=== PATIENT | female | born 1970 | race Two or more races ===

== ENCOUNTER 2021-07-31 21:29 | Observation (INO) | payer OTHER, SELFPAY ==
--- NOTE | 2021-07-31 | ECG_ITS ---
Test Reason : SOB Blood Pressure : / mmHG Vent. Rate : 082 BPM Atrial Rate : 082 BPM P-R Int : 138 ms QRS Dur : 080 ms QT Int : 384 ms P-R-T Axes : 076 085 -32 degrees QTc Int : 448 ms Normal sinus rhythm Possible Left atrial enlargement ST & T wave abnormality, consider inferior ischemia ST & T wave abnormality, consider anterolateral ischemia Abnormal ECG When compared with ECG of 22-AUG-2015 06:55, Inferior ST-T wave changes noted Referred By: Generic ED Physician Electronically Signed By:DARYL ADEN MD
--- NOTE | ~2021-07-31 | XR_ITS ---
EXAMINATION: XR CHEST CLINICAL INFORMATION: Shortness of breath COMPARISON: Chest radiograph August 2015 TECHNIQUE: Frontal view of the chest was obtained. FINDINGS: There is a moderate thoracolumbar scoliosis that appears slightly worse when compared to prior. Heart size normal. No gross CHF. No consolidations, effusions or lung masses are seen. XR/XR chest 1V IMPRESSION: No acute intrathoracic disease.
[2021-07-31 21:52] VITALS: BP 184/102; PULSE 86; RESP 16; TEMP 36.3; O2SAT 91; BMI 21.2
[2021-07-31 22:13] VITALS: PULSE 74; RESP 18; O2SAT 95
[2021-07-31] MEDS: Albuterol/Iprat 2.5/0.5MG 3 ML AMPUL.NEB INHALE (22:13)
--- NOTE | 2021-07-31 22:14 | ED_ITS ---
HPI - SOB/Dyspnea General Chief Complaint: Asthma Stated Complaint: difficulty breathing Time Seen by Provider: 07/31/21 22:05 Source: patient Mode of arrival: ambulatory Limitations: no limitations Related Data Allergies Allergy/AdvReac Type Severity Reaction Status Date / Time No Known Allergies Allergy Unverified 12/31/19 16:22 [No Known Allergies*] [facility] Social History Social History Patient : No Physical Exam Vital Signs: Vital Signs: Last Vital Signs Temp 97.4 F 07/31/21 21:52 Pulse 74 07/31/21 22:13 Resp 18 07/31/21 22:13 BP 184/102 H 07/31/21 21:52 Pulse Ox 91 L 07/31/21 21:52 BMI result Body Mass Index 21.2
--- NOTE | 2021-07-31 22:21 | ED_ITS ---
HPI - Asthma General Chief Complaint: Asthma Stated Complaint: difficulty breathing Time Seen by Provider: 07/31/21 22:05 Source: patient Mode of arrival: ambulatory History of Present Illness HPI Narrative: 50-year-old female with history of asthma, current everyday smoker, denies any fever, chills, sore throat but states she has had a cough for the past week with increasing shortness of breath. She denies any chest pain but states she has had some palpitations with some mild nausea and does report some lower leg swelling but had attributed this to sitting at her job ?all the time?. Patient otherwise denies any GI or symptoms, or recent travel. Related Data Allergies Allergy/AdvReac Type Severity Reaction Status Date / Time No Known Allergies Allergy Unverified 12/31/19 16:22 [No Known Allergies*] Review of Systems Review of Systems: Pertinent positives and negatives as stated in HPI 10 point review of systems is otherwise negative. PMFSH Past Medical History Source: nursing notes reviewed Social History Social History Advance Directives: No Advance Directives Information Provided: Yes Patient : No Physical Exam Vital Signs: Vital Signs: Last Vital Signs Temp 98.7 F 07/31/21 22:22 Pulse 77 07/31/21 23:49 Resp 19 07/31/21 23:49 BP 141/83 H 07/31/21 23:49 Pulse Ox 94 07/31/21 23:49 BMI result Body Mass Index 21.2 VITAL SIGNS: Reviewed. GENERAL: Well developed, well nourished, in no acute distress. HEAD: Normocephalic/atraumatic EYES: PERRLA, EOMI EARS: Ext canals without abnormality OROPHARYNX: no oral lesions noted, posterior pharynx clear and non-erythematous without noted tonsillar enlargement/erythema/exudates NECK: Supple, no adenopathy LUNGS: Decreased breath sounds bilaterally with minimal expiratory wheeze, some crackles noted at right lower lobe but no rales, tachypnea is present. SpO2<91> on 2 L nasal cannula she has improved CARDIOVASCULAR: Regular rate and rhythm without noted murmurs, no JVD or lower extremity edema. ABDOMEN: Soft, non-tender, non-distended with bowel sounds. NEUROLOGIC: Alert and oriented x 4. Strength and sensation to light touch were grossly intact x 4. Course Course Course Narrative: 50-year-old female with history and clinical presentation most suggestive of asthma exacerbation but with hypoxia and palpitations raises concern for viral infection/pneumonia and will evaluate for possibility of PE. Review of all investigations otherwise negative for acute findings other than acute asthma exacerbation with incremental improvement but still requiring supplemental oxygen. Case discussed with inpatient hospitalist who accepts admission. MDM - Asthma Lab Data Result diagrams: 07/31/21 22:21 07/31/21 22:21 Labs: Lab Results 07/31/21 07/31/21 07/31/21 Range/Units 22:20 22:21 22:21 WBC 8.2 (4.8-10.8) X10*3/uL RBC 4.44 (4.20-5.50) X10*6/uL Hgb 14.3 (12.0-16.0) g/dl Hct 41.4 (37.0-47.0) % MCV 93.2 (80.0-98.0) fL MCH 32.2 (27.0-33.0) pg MCHC 34.5 (31.0-35.0) g/dl RDW 12.7 (11.0-16.0) % Plt Count 231 (160-400) X10*3/uL MPV 9.5 (9.4-12.3) fL Immature Gran % (Auto) 0.2 (0.0-0.4) % Neut % (Auto) 54.8 (45-73) % Lymph % (Auto) 34.8 (20-40) % [place] % (Auto) 5.2 (2-11) % Eos % (Auto) 4.6 H (0-4) % Baso % (Auto) 0.4 (0-2) % Lymph # (Auto) 2.9 (1.2-4.9) X10*3/uL [place] # (Auto) 0.4 (0.1-1.2) X10*3/uL Eos # (Auto) 0.4 (0.0-0.4) X10*3/uL Baso # (Auto) 0.0 (0.0-0.2) X10*3/uL Abs Immat Gran (auto) 0.02 (0.00-0.03) X10*3/uL Absolute Neuts (auto) 4.5 (2.0-8.3) x10*3/uL Absolute Nucleated RBC 0.000 (0.0-0.012) X10*3/uL Nucleated RBC % (auto) 0.0 (0.0-0.2) /100WBC D-Dimer High Sensitivty NG/ML VBG pH 7.41 (7.32-7.43) VBG pCO2 38 mmHg VBG pO2 58 mmHg VBG HCO3 24 (22-26) mmol/L VBG O2 Saturation 85.0 % VBG Base Excess 0.0 mmol/L Sodium 141 (135-145) mmol/L Potassium 4.1 (3.3-5.1) mmol/L Chloride 107 (96-108) mmol/L Carbon Dioxide 24 (22-29) mmol/L Anion Gap 14 (12-20) BUN 12 (9-16) mg/dL Creatinine 0.72 (0.5-1.4) mg/dL Estim Creat Clear Calc 75.6 Estimated GFR > 60 Random Glucose 114 (60-115) mg/dL Calcium 10.0 (8.4-10.2) mg/dL Total Bilirubin 1.0 (0.0-1.0) mg/dL AST 16 (5-31) U/L ALT 8 (0-31) U/L Alkaline Phosphatase 102 (39-117) U/L Troponin I High Sens (<3.5-17.0) ng/L Total Protein 7.4 (6.5-8.0) g/dL Albumin 4.4 (3.5-5.0) g/dL COVID-19 (INEZ) (Negative) COVID-19 Clin Com Influenza Type A (LA) (Negative) Influenza Type B (AL) (Negative) Influenza A & B Note 07/31/21 07/31/21 07/31/21 Range/Units 22:21 22:21 22:22 WBC (4.8-10.8) X10*3/uL RBC (4.20-5.50) X10*6/uL Hgb (12.0-16.0) g/dl Hct (37.0-47.0) % MCV (80.0-98.0) fL MCH (27.0-33.0) pg MCHC (31.0-35.0) g/dl RDW (11.0-16.0) % Plt Count (160-400) X10*3/uL MPV (9.4-12.3) fL Immature Gran % (Auto) (0.0-0.4) % Neut % (Auto) (45-73) % Lymph % (Auto) (20-40) % [place] % (Auto) (2-11) % Eos % (Auto) (0-4) % Baso % (Auto) (0-2) % Lymph # (Auto) (1.2-4.9) X10*3/uL [place] # (Auto) (0.1-1.2) X10*3/uL Eos # (Auto) (0.0-0.4) X10*3/uL Baso # (Auto) (0.0-0.2) X10*3/uL Abs Immat Gran (auto) (0.00-0.03) X10*3/uL Absolute Neuts (auto) (2.0-8.3) x10*3/uL Absolute Nucleated RBC (0.0-0.012) X10*3/uL Nucleated RBC % (auto) (0.0-0.2) /100WBC D-Dimer High Sensitivty < 150 NG/ML VBG pH (7.32-7.43) VBG pCO2 mmHg VBG pO2 mmHg VBG HCO3 (22-26) mmol/L VBG O2 Saturation % VBG Base Excess mmol/L Sodium (135-145) mmol/L Potassium (3.3-5.1) mmol/L Chloride (96-108) mmol/L Carbon Dioxide (22-29) mmol/L Anion Gap (12-20) BUN (9-16) mg/dL Creatinine (0.5-1.4) mg/dL Estim Creat Clear Calc Estimated GFR Random Glucose (60-115) mg/dL Calcium (8.4-10.2) mg/dL Total Bilirubin (0.0-1.0) mg/dL AST (5-31) U/L ALT (0-31) U/L Alkaline Phosphatase (39-117) U/L Troponin I High Sens < 3.5 (<3.5-17.0) ng/L Total Protein (6.5-8.0) g/dL Albumin (3.5-5.0) g/dL COVID-19 (INEZ) (Negative) COVID-19 Clin Com Influenza Type A (LA) Negative (Negative) Influenza Type B (LA) Negative (Negative) Influenza A & B Note See Note 07/31/21 Range/Units 22:22 WBC (4.8-10.8) X10*3/uL RBC (4.20-5.50) X10*6/uL Hgb (12.0-16.0) g/dl Hct (37.0-47.0) % MCV (80.0-98.0) fL MCH (27.0-33.0) pg MCHC (31.0-35.0) g/dl RDW (11.0-16.0) % Plt Count (160-400) X10*3/uL MPV (9.4-12.3) fL Immature Gran % (Auto) (0.0-0.4) % Neut % (Auto) (45-73) % Lymph % (Auto) (20-40) % [place] % (Auto) (2-11) % Eos % (Auto) (0-4) % Baso % (Auto) (0-2) % Lymph # (Auto) (1.2-4.9) X10*3/uL [place] # (Auto) (0.1-1.2) X10*3/uL Eos # (Auto) (0.0-0.4) X10*3/uL Baso # (Auto) (0.0-0.2) X10*3/uL Abs Immat Gran (auto) (0.00-0.03) X10*3/uL Absolute Neuts (auto) (2.0-8.3) x10*3/uL Absolute Nucleated RBC (0.0-0.012) X10*3/uL Nucleated RBC % (auto) (0.0-0.2) /100WBC D-Dimer High Sensitivty NG/ML VBG pH (7.32-7.43) VBG pCO2 mmHg VBG pO2 mmHg VBG HCO3 (22-26) mmol/L VBG O2 Saturation % VBG Base Excess mmol/L Sodium (135-145) mmol/L Potassium (3.3-5.1) mmol/L Chloride (96-108) mmol/L Carbon Dioxide (22-29) mmol/L Anion Gap (12-20) BUN (9-16) mg/dL Creatinine (0.5-1.4) mg/dL Estim Creat Clear Calc Estimated GFR Random Glucose (60-115) mg/dL Calcium (8.4-10.2) mg/dL Total Bilirubin (0.0-1.0) mg/dL AST (5-31) U/L ALT (0-31) U/L Alkaline Phosphatase (39-117) U/L Troponin I High Sens (<3.5-17.0) ng/L Total Protein (6.5-8.0) g/dL Albumin (3.5-5.0) g/dL COVID-19 (INEZ) Negative (Negative) COVID-19 Clin Com See Note Influenza Type A (LA) (Negative) Influenza Type B (LA) (Negative) Influenza A & B Note ECG Data Attestation: I personally reviewed and interpreted this ECG as follows: Prior ECG tracings: available for review Interpretation: NSR, HR-82, no STEMI but noted deepening ST changes in anterior leads V3/V4/V5, WA/QRS/QTC are within normal limits. Discharge Plan Discharge Clinical Impression: Asthma with acute exacerbation, Hypoxia Patient Disposition: Admitted As Inpatient
[2021-07-31 22:22] VITALS: BP 158/97; PULSE 71; RESP 16; TEMP 37.1; O2SAT 96
[2021-07-31] MEDS: Albuterol Sulfate (0.083%) 2.5 MG/3 ML VIAL.NEB 10 MG INHALE ×2 (22:24→23:10)
[2021-07-31 22:25] VITALS: PULSE 74; RESP 18; O2SAT 95
[2021-07-31] MEDS: Aspirin 81 MG TAB.CHEW 324 MG PO (22:26)
[2021-07-31 22:27] LABS: Basophils Percent Auto 0.4 % (0-2); Eosinophils Absolute Auto 0.4 X10*3/uL (0.0-0.4); Eosinophils Percent Auto 4.6 % (0-4); Hematocrit 41.4 % (37.0-47.0); Hemoglobin 14.3 g/dl (12.0-16.0); Imm Gran Abs Auto 0.02 X10*3/uL (0.00-0.03); Imm Gran Pct Auto 0.2 % (0.0-0.4); Lymphocytes Absolute Auto 2.9 X10*3/uL (1.2-4.9); Lymphocytes Percent Auto 34.8 % (20-40); MANUAL DIFF FLAG NO; Mean Corpuscular HGB Conc 34.5 g/dl (31.0-35.0); Mean Corpuscular Hemoglobin 32.2 pg (27.0-33.0); Mean Corpuscular Volume 93.2 fL (80.0-98.0); Mean Platelet Volume 9.5 fL (9.4-12.3); Monocytes Absolute Auto 0.4 X10*3/uL (0.1-1.2); Monocytes Percent Auto 5.2 % (2-11); Neutrophils Absolute Auto 4.5 x10*3/uL (2.0-8.3); Neutrophils Percent Auto 54.8 % (45-73); Platelet Count 231 X10*3/uL (160-400); Red Blood Count 4.44 X10*6/uL (4.20-5.50); Red Cell Distribution Width 12.7 % (11.0-16.0); White Blood Count 8.2 X10*3/uL (4.8-10.8)
[2021-07-31 22:34] LABS: Venous Blood Gas Refer to POC result
[2021-07-31 22:36] LABS: VBG HCO3 24 mmol/L (22-26); VBG pCO2 38 mmHg; VBG pO2 58 mmHg
[2021-07-31 22:37] LABS: VBG pH 7.41 (7.32-7.43)
[2021-07-31 22:41] LABS: D Dimer High Sensitivity < 150 NG/ML
[2021-07-31 22:43] LABS: Alanine Aminotransferase 8 U/L (0-31); Albumin Level 4.4 g/dL (3.5-5.0); Alkaline Phosphatase 102 U/L (39-117); Anion Gap 14 (12-20); Aspartate Amino Transferase 16 U/L (5-31); Blood Urea Nitrogen 12 mg/dL (9-16); Carbon Dioxide 24 mmol/L (22-29); Chloride 107 mmol/L (96-108); Creatinine Clr Calc Pharmacy 75.6; Estimated Glomerular Filt Rate > 60; Glucose Random 114 mg/dL (60-115); Potassium 4.1 mmol/L (3.3-5.1); Sodium 141 mmol/L (135-145); Total Protein 7.4 g/dL (6.5-8.0)
[2021-07-31 22:44] LABS: COVID-19 Test Negative (Negative); IDNOW Serial# 16C4AD1C; Influenza A Negative (Negative); Influenza B2 Negative (Negative)
[2021-07-31 22:47] LABS: Troponin-I High Sensitivity < 3.5 ng/L (<3.5-17.0)
[2021-07-31 23:10] VITALS: PULSE 79; RESP 15; O2SAT 95
[2021-07-31] MEDS: methylPREDNISolone Sod Succ 125 MG/2 ML VIAL IVPUSH (23:30)
[2021-07-31 23:49] VITALS: BP 141/83; PULSE 77; RESP 19; O2SAT 94
[2021-08-01] MEDS: Magnesium Sulfate/H2O 2 GM/50 ML PIGGYBACK IV (01:07)
--- NOTE | 2021-08-01 01:24 | PM.IMHP ---
History of Present Illness Date of Service: 08/01/21 Chief Complaint: SOB 50-year-old female with no significant past medical history of well-controlled asthma presents to the hospital with complaints of shortness of breath, wheezing, and cough for the past 3 days. She also has new animals in the household. she used her rescue inhalers with no relief therefore decided to come to the hospital. Patient denies any chest pain, no abdominal pain, no nausea or vomiting, no diarrhea no constipation, no urinary symptoms and no lower extremity edema. No headache or change in vision. No noticed. on arrival to the ED patient hemodynamically stable with no significant abnormal vitals satting 91% on room air labs reviewed, unremarkable. COVID-19 influenza negative patient received multiple rounds of breathing treatment, patient continues to wheeze and have shortness of breath Review of Systems Review of Systems: Yes all other systems are reviewed and are negative [facility] [place] Medical History (Updated 08/01/21 @ 06:57 by Sravani Kelley MD) History of asthma Family History (Updated 08/01/21 @ 06:57 by Sravani Kelley MD) Other No family history of coronary artery disease Surgical History (Updated 08/01/21 @ 06:58 by Sravani Kelley MD) No pertinent past surgical history Social History Household Members: Family and Children Housing: Apartment Do you presently have visiting nurse or other home services: No Patient Tobacco Use Status: Current someday Tobacco user Tobacco use type: Cigarette Smoked in Last 30 Days: Yes Patient Interested in Nicotine Replacement: Yes (Nicotine patch requested) Patient Given Instructions on How to Stop Smoking: Yes Date Education Initiated: 08/01/21 Second Hand Smoke Exposure: No Use of substances other than those prescribed or required for medical reasons: No Have you been hit, kicked, punched, or otherwise hurt by someone within the past year? If so, by whom?: No Do you feel safe in your current relationship?: No Current Relationship Is there a partner from a previous relationship who is making you feel unsafe now?: No Are you made to feel afraid or neglected: No Advance Directives: No Advance Directives Information Provided: Yes Do you have thoughts of harming others: None Do you have a plan to hurt others: No Plan Recently lost weight without trying: No Eating poorly because of decreased appetite: No Patient : No Meds Allergies Allergy/AdvReac Type Severity Reaction Status Date / Time No Known Allergies Allergy Unverified 12/31/19 16:22 [No Known Allergies*] Active Medications: Current Medications Magnesium Sulfate (Magnesium Sulfate/H2o) 2 gm in 50 mls @ 25 mls/hr IV ONCE ONE Stop: 08/01/21 02:44 Last Admin: 08/01/21 01:07 Dose: 25 mls/hr Documented by: Physical Exam Vital Signs and Narrative: Vital Signs: Last Vital Signs Temp 98.7 F 07/31/21 22:22 Pulse 77 07/31/21 23:49 Resp 19 07/31/21 23:49 BP 141/83 H 07/31/21 23:49 Pulse Ox 94 07/31/21 23:49 BMI result Body Mass Index 21.2 Const: General: cooperative and no acute distress Orientation/consciousness: patient oriented x3 Eyes: General: appearance normal, both eyes and all related structures Pupils: Equal, round and reactive pupils present Resp: Other: wheezing on expiration Effort & Inspection: normal respiratory effort Cardio: Rate: regular rate Rhythm: regular rhythm GI: Palpation (GI): Soft to palpation Auscultation: normal bowel sounds Skin: General skin exam: no rashes or lesions noted Neuro: General: patient oriented x3 Cranial nerves: Yes Equal, round and reactive pupils present Cognition (Neuro): normal cognition Extrem: General: Yes normal to inspection and Yes no pedal edema Results Labs CBC and Chem 7: 08/01/21 05:50 08/01/21 05:50 Labs: Laboratory Results - last 24 hr 07/31/21 07/31/21 07/31/21 22:20 22:21 22:21 MCV 93.2 MCH 32.2 MCHC 34.5 RDW 12.7 Plt Count 231 MPV 9.5 Immature Gran % (Auto) 0.2 Neut % (Auto) 54.8 Lymph % (Auto) 34.8 [place] % (Auto) 5.2 Eos % (Auto) 4.6 H Baso % (Auto) 0.4 Lymph # (Auto) 2.9 [place] # (Auto) 0.4 Eos # (Auto) 0.4 Baso # (Auto) 0.0 Abs Immat Gran (auto) 0.02 Absolute Neuts (auto) 4.5 Absolute Nucleated RBC 0.000 Nucleated RBC % (auto) 0.0 D-Dimer High Sensitivty VBG pH 7.41 VBG pCO2 38 VBG pO2 58 VBG HCO3 24 VBG O2 Saturation 85.0 VBG Base Excess 0.0 Anion Gap 14 Estim Creat Clear Calc 75.6 Estimated GFR > 60 Random Glucose 114 Calcium 10.0 Total Bilirubin 1.0 AST 16 ALT 8 Alkaline Phosphatase 102 Troponin I High Sens Total Protein 7.4 Albumin 4.4 COVID-19 (INEZ) COVID-19 Clin Com Influenza Type A (LA) Influenza Type B (LA) Influenza A & B Note 07/31/21 07/31/21 07/31/21 22:21 22:21 22:22 MCV MCH MCHC RDW Plt Count MPV Immature Gran % (Auto) Neut % (Auto) Lymph % (Auto) [place] % (Auto) Eos % (Auto) Baso % (Auto) Lymph # (Auto) [place] # (Auto) Eos # (Auto) Baso # (Auto) Abs Immat Gran (auto) Absolute Neuts (auto) Absolute Nucleated RBC Nucleated RBC % (auto) D-Dimer High Sensitivty < 150 VBG pH VBG pCO2 VBG pO2 VBG HCO3 VBG O2 Saturation VBG Base Excess Anion Gap Estim Creat Clear Calc Estimated GFR Random Glucose Calcium Total Bilirubin AST ALT Alkaline Phosphatase Troponin I High Sens < 3.5 Total Protein Albumin COVID-19 (INEZ) COVID-English Helper Clin Com Influenza Type A (LA) Negative Influenza Type B (LA) Negative Influenza A & B Note See Note 07/31/21 22:22 MCV MCH MCHC RDW Plt Count MPV Immature Gran % (Auto) Neut % (Auto) Lymph % (Auto) [place] % (Auto) Eos % (Auto) Baso % (Auto) Lymph # (Auto) [place] # (Auto) Eos # (Auto) Baso # (Auto) Abs Immat Gran (auto) Absolute Neuts (auto) Absolute Nucleated RBC Nucleated RBC % (auto) D-Dimer High Sensitivty VBG pH VBG pCO2 VBG pO2 VBG HCO3 VBG O2 Saturation VBG Base Excess Anion Gap Estim Creat Clear Calc Estimated GFR Random Glucose Calcium Total Bilirubin AST ALT Alkaline Phosphatase Troponin I High Sens Total Protein Albumin COVID-19 (INEZ) Negative COVID-19 Clin Com See Note Influenza Type A (LA) Influenza Type B (LA) Influenza A & B Note Imaging Radiologist's Impressions: Impressions Chest X-Ray 07/31/21 22:28 IMPRESSION: No acute intrathoracic disease. Assessment and Plan (1) Asthma with acute exacerbation: Status: Acute Plan 50-year-old female with history of asthma presents to the hospital with wheezing, shortness of breath, cough # asthma exacerbation - will treat with Solu-Medrol, DuoNeb p.r.n. as well as scheduled - monitor respiratory status DVT prophylaxis: early ambulation Quality Stroke Does the patient have a stroke diagnosis?: No VTE Prior VTE?: No VTE Risk Level:: Medical - low VTE Device Contraindication: Treatment Not Indicated VTE Drug Contraindication: Treatment Not Indicated
[2021-08-01 02:35] VITALS: BP 127/75; PULSE 82; RESP 12; O2SAT 95
[2021-08-01] MEDS: Acetaminophen 325 MG TABLET 650 MG PO (03:30)
[2021-08-01 05:09] VITALS: BP 146/78; PULSE 85; RESP 16; TEMP 37; O2SAT 94
[2021-08-01 06:02] LABS: MANUAL DIFF FLAG NO
[2021-08-01 06:08] LABS: Basophils Percent Auto 0.2 % (0-2); Hematocrit 38.6 % (37.0-47.0); Hemoglobin 13.3 g/dl (12.0-16.0); Imm Gran Abs Auto 0.02 X10*3/uL (0.00-0.03); Imm Gran Pct Auto 0.4 % (0.0-0.4); Lymphocytes Absolute Auto 0.5 X10*3/uL (1.2-4.9); Lymphocytes Percent Auto 10.6 % (20-40); Mean Corpuscular HGB Conc 34.5 g/dl (31.0-35.0); Mean Corpuscular Hemoglobin 32.5 pg (27.0-33.0); Mean Corpuscular Volume 94.4 fL (80.0-98.0); Mean Platelet Volume 9.6 fL (9.4-12.3); Monocytes Absolute Auto 0.1 X10*3/uL (0.1-1.2); Neutrophils Absolute Auto 4.3 x10*3/uL (2.0-8.3); Neutrophils Percent Auto 87.8 % (45-73); Platelet Count 223 X10*3/uL (160-400); Red Blood Count 4.09 X10*6/uL (4.20-5.50); Red Cell Distribution Width 12.6 % (11.0-16.0); White Blood Count 4.9 X10*3/uL (4.8-10.8)
[2021-08-01 06:34] LABS: Anion Gap 19 (12-20); Blood Urea Nitrogen 11 mg/dL (9-16); Calcium 9.4 mg/dL (8.4-10.2); Carbon Dioxide 20 mmol/L (22-29); Chloride 106 mmol/L (96-108); Creatinine Clr Calc Pharmacy 72.5; Estimated Glomerular Filt Rate > 60; Glucose Random 216 mg/dL (60-115); Potassium 3.5 mmol/L (3.3-5.1); Sodium 141 mmol/L (135-145)
[2021-08-01 08:00] VITALS: BP 136/72; PULSE 69; RESP 17; TEMP 36.4; O2SAT 92
[2021-08-01] MEDS: 0.9 % Sodium Chloride Flush 3 ML SYRINGE IVFLUSH (08:05)
[2021-08-01] MEDS: methylPREDNISolone Sod Succ 40 MG/ML VIAL IVPUSH (08:05)
[2021-08-01 08:20] VITALS: PULSE 80; RESP 18; O2SAT 92
[2021-08-01] MEDS: Albuterol/Iprat 2.5/0.5MG 3 ML AMPUL.NEB INHALE ×2 (08:20→11:40)
[2021-08-01 08:47] LABS: VBG HCO3 24 mmol/L (22-26); VBG pCO2 38 mmHg; VBG pH 7.41 (7.32-7.43); VBG pO2 58 mmHg
--- NOTE | 2021-08-01 08:57 | PHA.MEDREC ---
Pharmacy Consult ? Medication Reconciliation Pharmacy has completed the medication reconciliation. Spoke with patient on S3... pt is only on OTC medications.
[2021-08-01] MEDS: Butalb/Acetamin/Caff 50/325/40 TABLET 1 TAB PO (10:03)
--- NOTE | 2021-08-01 11:18 | P.DS_ITS ---
DS: Providers Provider Date of Service: 08/01/21 Date of admission: 08/01/21 01:22 Primary care physician: Jean Carlos Camarena MD DS: Diagnosis Discharge Diagnosis (1) Asthma with acute exacerbation: Status: Acute DS: Summary Hospital Course Hospital Course: 50-year-old female with no significant past medical history? of well-controlled asthma presents to the hospital with complaints of shortness of breath, wheezing, and cough for the past 3 days.? She also has new animals in the household. she used her rescue inhalers with no relief therefore decided to come to the hospital.? Patient denies any chest pain, no abdominal pain, no nausea or vomiting, no diarrhea no constipation, no urinary symptoms and no lower extremity edema.? No headache or change in vision.? No noticed.? ?on arrival to the ED patient hemodynamically stable with no significant abnormal vitals satting 91% on room air ?labs reviewed, unremarkable.? COVID-19 influenza negative ?patient received multiple rounds of breathing treatment, patient continues to wheeze and have shortness of breath. hospital course: Patient admitted with asthma exacerbation-started on nebs, steroids-seems to be improved, talking in full sentences. Patient is going home with inhaler, and prednisone. Patient was advised to follow-up with PCP outpatient and make an appointment. Above management discussed with the patient in detail length she understand and in agreement with the above plan, time spent 50 minutes and 50% time spent on counseling. Significant findings: As above. Procedures performed: None. Treatment and response: As above. Complications: None. Time Spent with Patient Time attestation: Total time spent providing and/or coordinating discharge services: Discharge coordination time: Greater than 30 minutes Quality: Safe Use of Opioids Does Pt have an Active Cancer Diagnosis on the Problem List?: No Quality: Stroke Does the patient have a stroke diagnosis?: No Physical Exam Vital Signs: Vital Signs: Last Vital Signs Temp 97.6 F 08/01/21 08:00 Pulse 80 08/01/21 08:20 Resp 18 08/01/21 08:20 BP 136/72 08/01/21 08:00 Pulse Ox 92 08/01/21 08:00 BMI result Body Mass Index 21.2 Appearance: Alert.? Oriented X3.? not in distress.? Eyes: Pupils equal, round and reactive to light.? Sclera nonicteric.? ENT: Pharynx normal.? Moist mucous membranes. cvs: rrr, [id number] . res: clear to auscultation ,no rhonchii or wheezing abd: no rebound or guarding ,nt, bs present. ext pulses present , no cyanosis ,Gait well balanced well coordinated. neuro: axo3 , nonfocal. DS: Data Data Completed and Pending Labs on day of discharge: Laboratory Results - last 24 hr 07/31/21 07/31/21 07/31/21 22:20 22:21 22:21 WBC 8.2 RBC 4.44 Hgb 14.3 Hct 41.4 MCV 93.2 MCH 32.2 MCHC 34.5 RDW 12.7 Plt Count 231 MPV 9.5 Immature Gran % (Auto) 0.2 Neut % (Auto) 54.8 Lymph % (Auto) 34.8 [place] % (Auto) 5.2 Eos % (Auto) 4.6 H Baso % (Auto) 0.4 Lymph # (Auto) 2.9 [place] # (Auto) 0.4 Eos # (Auto) 0.4 Baso # (Auto) 0.0 Abs Immat Gran (auto) 0.02 Absolute Neuts (auto) 4.5 Absolute Nucleated RBC 0.000 Nucleated RBC % (auto) 0.0 D-Dimer High Sensitivty VBG pH 7.41 VBG pCO2 38 VBG pO2 58 VBG HCO3 24 VBG O2 Saturation 85.0 VBG Base Excess 0.0 Sodium 141 Potassium 4.1 Chloride 107 Carbon Dioxide 24 Anion Gap 14 BUN 12 Creatinine 0.72 Estim Creat Clear Calc 75.6 Estimated GFR > 60 Random Glucose 114 Calcium 10.0 Total Bilirubin 1.0 AST 16 ALT 8 Alkaline Phosphatase 102 Troponin I High Sens Total Protein 7.4 Albumin 4.4 COVID-19 (INEZ) COVID-19 Clin Com Influenza Type A (LA) Influenza Type B (LA) Influenza A & B Note 07/31/21 07/31/21 07/31/21 22:21 22:21 22:22 WBC RBC Hgb Hct MCV MCH MCHC RDW Plt Count MPV Immature Gran % (Auto) Neut % (Auto) Lymph % (Auto) [place] % (Auto) Eos % (Auto) Baso % (Auto) Lymph # (Auto) [place] # (Auto) Eos # (Auto) Baso # (Auto) Abs Immat Gran (auto) Absolute Neuts (auto) Absolute Nucleated RBC Nucleated RBC % (auto) D-Dimer High Sensitivty < 150 VBG pH VBG pCO2 VBG pO2 VBG HCO3 VBG O2 Saturation VBG Base Excess Sodium Potassium Chloride Carbon Dioxide Anion Gap BUN Creatinine Estim Creat Clear Calc Estimated GFR Random Glucose Calcium Total Bilirubin AST ALT Alkaline Phosphatase Troponin I High Sens < 3.5 Total Protein Albumin COVID-19 (INEZ) COVID-19 Clin Com Influenza Type A (LA) Negative Influenza Type B (LA) Negative Influenza A & B Note See Note 07/31/21 07/31/21 08/01/21 22:22 22:24 05:50 WBC 4.9 RBC 4.09 L Hgb 13.3 Hct 38.6 MCV 94.4 MCH 32.5 MCHC 34.5 RDW 12.6 Plt Count 223 MPV 9.6 Immature Gran % (Auto) 0.4 Neut % (Auto) 87.8 H Lymph % (Auto) 10.6 L [place] % (Auto) 1.0 L Eos % (Auto) 0.0 Baso % (Auto) 0.2 Lymph # (Auto) 0.5 L [place] # (Auto) 0.1 Eos # (Auto) 0.0 Baso # (Auto) 0.0 Abs Immat Gran (auto) 0.02 Absolute Neuts (auto) 4.3 Absolute Nucleated RBC 0.000 Nucleated RBC % (auto) 0.0 D-Dimer High Sensitivty VBG pH 7.41 VBG pCO2 38 VBG pO2 58 VBG HCO3 24 VBG O2 Saturation 85.0 VBG Base Excess 0.0 Sodium Potassium Chloride Carbon Dioxide Anion Gap BUN Creatinine Estim Creat Clear Calc Estimated GFR Random Glucose Calcium Total Bilirubin AST ALT Alkaline Phosphatase Troponin I High Sens Total Protein Albumin COVID-19 (INEZ) Negative COVID-19 Clin Com See Note Influenza Type A (LA) Influenza Type B (LA) Influenza A & B Note 08/01/21 05:50 WBC RBC Hgb Hct MCV MCH MCHC RDW Plt Count MPV Immature Gran % (Auto) Neut % (Auto) Lymph % (Auto) [place] % (Auto) Eos % (Auto) Baso % (Auto) Lymph # (Auto) [place] # (Auto) Eos # (Auto) Baso # (Auto) Abs Immat Gran (auto) Absolute Neuts (auto) Absolute Nucleated RBC Nucleated RBC % (auto) D-Dimer High Sensitivty VBG pH VBG pCO2 VBG pO2 VBG HCO3 VBG O2 Saturation VBG Base Excess Sodium 141 Potassium 3.5 Chloride 106 Carbon Dioxide 20 L Anion Gap 19 BUN 11 Creatinine 0.75 Estim Creat Clear Calc 72.5 Estimated GFR > 60 Random Glucose 216 H Calcium 9.4 Total Bilirubin AST ALT Alkaline Phosphatase Troponin I High Sens Total Protein Albumin COVID-19 (INEZ) COVID-19 Clin Com Influenza Type A (LA) Influenza Type B (LA) Influenza A & B Note Discharge Plan Discharge Patient Disposition: Home, Self-Care Discharge Diagnosis: asthma excerabtion Referrals: Jean Carlos Camarena MD [Primary Care Provider] - 1 Week Discharge Medications: New albuterol sulfate [Ventolin HFA] 90 mcg/actuation Hfa Aerosol Inhaler 1 puff inhalation RQ4H PRN (Reason: sob) Qty: 1 0RF Breo Ellipta 100-25 mcg/dose Blister With Device 1 puff inhalation RDAILY Qty: 1 0RF Continued ascorbic acid (vitamin C) [Vitamin C] 500 mg Tablet 500 mg PO DAILY 0RF apple cider vinegar 300 mg Tablet 300 mg PO DAILY 0RF Primatene Mist 0.125 mg/actuation Hfa Aerosol Inhaler 1 puff INHALATION Q4H PRN (Reason: Nasal Congestion) 0RF Rx Instructions: may repeat once after 1 minute; do not exceed 8 inhalations per 24 hrs Discharge Orders: Discharge Order (Routine); Ordered 08/01/21 Ordered By: Ирина Williamson Diet: advance to usual diet Activity on Discharge: As tolerated Stand Alone Forms: Patient Portal Discharge page Care Plan Goals: Patient admitted with asthma exacerbation-started on nebs, steroids-seems to be improved, talking in full sentences. Patient is going home with inhaler, and prednisone. Patient was advised to follow-up with PCP outpatient and make an appointment. Health Concerns: As above, advise compliance within a inhaler as well as complete the prednisone. Plan of Treatment: As above. Assessment: As above.
--- NOTE | 2021-08-01 11:21 | MHC.CM.PN ---
PATIENT IS DISCHARGED HOME - SELF CARE RN AWARE OF PLAN.
[2021-08-01 11:40] VITALS: PULSE 71; RESP 18; O2SAT 95
[2021-08-01 11:55] VITALS: BP 135/67; PULSE 70; RESP 18; TEMP 36.1; O2SAT 93
== END 2021-08-01 13:55 | disposition home or self-care (01) ==
LOC: HO.ED 08-01 00:49 → HO.EDOVER 08-01 01:37 → HO.S3 08-01 05:31
PROVIDERS: Internal Medicine; Admitting Provider Internal Medicine; Emergency Provider Student in an Organized Health Care Education/Training Program; PCP Internal Medicine; Visit Provider Internal Medicine
DX: J45.901 Unspecified asthma with (acute) exacerbation (principal); R09.02 Hypoxemia; R94.31 Abnormal electrocardiogram [ECG] [EKG]; M41.35 Thoracogenic scoliosis, thoracolumbar region; F17.210 Nicotine dependence, cigarettes, uncomplicated; Z20.822 Contact with and (suspected) exposure to COVID-19; Z71.6 Tobacco abuse counseling; Z79.899 Other long term (current) drug therapy
CPT/HCPCS: 36415; 71045; 80048; 80053; 82803; 84484; 85025; 85379; 87502; 87635; 93005; 94640; 94644; 94645; 96365; 96366; 96375; 96376; 99218; 99285; J2920; J2930; J3475

== ENCOUNTER 2021-10-19 08:33 | Emergency (ER) | payer OTHER, SELFPAY ==
[2021-10-19] VITALS (7 sets, daily range): BP systolic 147–186; BP diastolic 92–118; PULSE 66–76; RESP 12–20; TEMP 36.6–36.7; O2SAT 94–98; BMI 20.7
--- NOTE | ~2021-10-19 | CT_ITS ---
EXAMINATION: CT HEAD WITHOUT CONTRAST CLINICAL INFORMATION: Headache. COMPARISON: 10/01/[address] scan. TECHNIQUE: Contiguous axial imaging was performed from the skull base to vertex without intravenous administration of contrast. Coronal and sagittal reformatted images were obtained. This CT examination was performed using dose optimization techniques as appropriate, variously including the following: *Automated exposure control *Adjustment of mA and/or kV according to patient size (this includes techniques or standardized protocols for targeted exams where dose is matched to indication/reason for exam; i.e. extremities or head) *Use of iterative reconstruction technique DLP: 619 mGy-cm FINDINGS: There is no evidence of acute intracranial hemorrhage or territorial infarction. No abnormal mass effect or midline shift is seen. Timmons to white matter differentiation is well preserved. No extra-axial fluid collections are identified. The ventricles are normal in size. There is no abnormal attenuation within the brain parenchyma. The osseous structures and soft tissues are normal. Mucosal thickening is seen in several posterior ethmoid air cells. The remainder the visualized paranasal sinuses are clear. No air-fluid levels. Mild bilateral mastoid effusions. CT/CT head/brain wo con IMPRESSION: No acute intracranial pathology.
--- NOTE | ~2021-10-19 | XR_ITS ---
EXAMINATION: XR CHEST CLINICAL INFORMATION: Shortness of breath. COMPARISON: 07/31/2021 chest radiograph. TECHNIQUE: 2 views of the chest were obtained. FINDINGS: The lungs are clear. There are no pleural effusions. The heart and mediastinal structures are unremarkable. Moderate thoracic dextro scoliosis is again noted. XR/XR chest 2V IMPRESSION: No acute cardiopulmonary process.
--- NOTE | 2021-10-19 08:54 | ED_ITS ---
HPI - General Adult General Chief complaint: General Medical Stated complaint: high bp, headache Time Seen by Provider: 10/19/21 08:54 Source: patient Mode of arrival: ambulatory Limitations: no limitations History of Present Illness HPI narrative: This is a 50-year-old female, with a past medical history of asthma, allergies, and vertigo, presenting today with complaints of wheezing, shortness of breath, cough, and headache since Saturday. Patient reports that she has been watching her child's guinea pig over the last week and believes that this has exacerbated her asthma. She has been using her albuterol inhalers every 2 hours as well as her sisters nebulizer yesterday, without any relief. She has been unable to eat, last meal was yesterday at 1900 and shortly after vomited because of her pain in her head. She reports that she also feels as though her blood pressure is elevated, she states that she has had elevated blood pressure readings in the past, but has not been formally diagnosed with hypertension and is not currently on any medical management for this. She states that her headache pain is left- sided rated as a 10/10 sharp constant pain which has not been responding to Tylenol last dose was a 1000 mg this morning. She otherwise denies any chest pain, palpitations, fevers, chills, sore throat, visual changes, diarrhea, or abdominal pain. She denies any other complaints or concerns at this time. Onset (ago): day(s) (4) Location: head Radiation: non-radiation Severity: mild Severity scale (1-10): 3 Quality: aching Pain Consistency: constant Relieving factors: none Exacerbating factors: none Associated symptoms: cough, headaches, loss of appetite, nausea/vomiting and shortness of breath Treatments prior to arrival: other (Tylenol 1000mg ) Related Data Home Medications Medication Instructions Recorded Confirmed apple cider vinegar 300 mg tablet 300 mg PO DAILY 08/01/21 08/25/21 ascorbic acid (vitamin C) 500 mg 500 mg PO DAILY 08/01/21 08/25/21 tablet (Vitamin C) epinephrine 0.125 mg/actuation 1 puff inhalation Q4H PRN Nasal 08/01/21 08/25/21 aerosol inhaler (Primatene Mist) Congestion Previous Rx's Medication Instructions Recorded albuterol sulfate 90 mcg/actuation 1 puff inhalation RQ4H PRN sob 08/11/21 aerosol inhaler (Ventolin HFA) #8.5 grams fluticasone furoate 100 1 ea inhalation DAILY #60 ea 08/11/21 mcg-vilanterol 25 mcg/dose inhalation powder (Breo Ellipta) hydroxyzine HCl 25 mg tablet 25 mg PO TID PRN anxiety #30 tabs 08/25/21 montelukast 10 mg tablet 10 mg PO BEDTIME #30 tabs 08/25/21 bisacodyl 5 mg tablet,delayed 10 mg PO ONCE 1 day #2 tabs 08/28/21 release (Dulcolax (bisacodyl)) polyethylene glycol 3350 17 238 g PO ONCE 1 day #238 grams 08/28/21 gram/dose oral powder (Miralax) prednisone 20 mg tablet 20 mg PO DAILY 12 days #26 tabs 10/19/21 Allergies Allergy/AdvReac Type Severity Reaction Status Date / Time No Known Allergies Allergy Verified 08/25/21 10:03 [No Known Allergies*] Review of Systems Constitutional: Constitutional: Reports no additional constitutional complaints, Denies chills, Denies fever(s), Reports headache(s) and Denies night sweats Eyes: Eyes: Reports no additional eye complaints, Denies blurry vision, Denies change in vision, Denies diplopia, Denies eye discharge, Denies loss of vision and Denies eye pain ENT: Denies dizziness and Reports headache(s) Cardiovascular: Cardiovascular: Reports no additional cardiovascular complaints, Denies chest pain, Denies lightheadedness, Denies Loss of Consciousness and Reports dyspnea Respiratory: Respiratory: Reports no additional respiratory complaints, Reports cough, Reports dyspnea and Reports wheezing Gastrointestinal: Gastrointestinal: Reports no additional gastrointestinal com plaints, Denies abdominal pain, Denies melena, Denies hematochezia, Denies change in bowel habits, Denies change in stool character, Reports nausea and Reports vomiting Genitourinary: Genitourinary: Denies hematuria, Denies urinary frequency, Den ies dysuria, Denies urinary incontinence, Denies urinary hesitancy and Denies urinary urgency Musculoskeletal: Musculoskeletal: Reports no additional musculoskeletal complaints, Denies numbness and Denies tingling Neurologic: Denies dizziness, Reports headache(s), Denies loss of vision, Denies numbness and Denies tingling Psychiatric: Psychiatric: Reports no additional psychiatric complaints Endocrine: Endocrine: Reports no additional endocrine complaints Hematologic/Lymphatic: Hematologic/Lymphatic: Reports no additional hematologic/lymphatic complaints Allergic/Immunologic: Allergic/Immunologic: Reports no additional allergic/immunologic complaints and Reports wheezing PMFSH Past Medical History Attestation statement: The following information was validated with the patient. Source: old records reviewed Medical History History of asthma Surgical History H/O tubal ligation History of History of removal of ovarian cyst Family History Family History Mother AIDS Father No problems noted. Sister Colon cancer Other No family history of coronary artery disease Social History Social History Household Members: Family and Children Housing: Apartment Do you presently have visiting nurse or other home services: No Alcohol intake: current Alcohol intake frequency: holidays/special occasions only Patient Tobacco Use Status: Former Tobacco user Tobacco use type: Cigarette e-Cigarette/Vaping Use: Former Use Second Hand Smoke Exposure: No Use of substances other than those prescribed or required for medical reasons: No Advance Directives: No Advance Directives Information Provided: Yes service: No Current occupational status: employed 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 ) Physical Exam ED Vital Signs: Vital Signs - 24 hr 10/19/21 08:41 10/19/21 08:58 10/19/21 09:43 Temperature 98 F Pulse Rate 68 67 68 Respiratory Rate 18 20 12 Blood Pressure 181/118 H 186/112 H Pulse Oximetry 95 95 Oxygen Delivery Method Room Air Room Air 10/19/21 09:55 10/19/21 10:37 10/19/21 11:41 Temperature 98.0 F Pulse Rate 66 66 76 Respiratory Rate 20 20 Blood Pressure 164/92 H 147/95 H Pulse Oximetry Oxygen Delivery Method 10/19/21 12:15 Temperature Pulse Rate 76 Respiratory Rate 18 Blood Pressure 156/99 H Pulse Oximetry 94 Oxygen Delivery Method Room Air BMI result Body Mass Index 20.7 Const General: cooperative, no acute distress, alert and awake Nutritional Appearance: well nourished Orientation/consciousness: patient oriented x3 Limitations: no limitations HENMT Head: Yes normal to inspection and Yes atraumatic Ears: hearing grossly normal bilaterally and external ears normal General nose exam: Normal external nose present, no nasal discharge noted and no epistaxis Face and sinus: Yes normal facial exam, No abrasion and No laceration Mouth: Normal oral and palatal mucosa present, no drooling and no muffled voice Eyes General: appearance normal, both eyes and all related structures Periorbital: periorbital findings normal Eyelids: Yes eyelids normal Conjunctivae: conjunctivae normal Pupils: Equal, round and reactive pupils present EOM: EOMs intact bilaterally Neck Neck: Yes normal visual inspection, Yes full ROM and Yes no lymphadenopathy Chest Chest palpation & inspection: normal inspection of the chest Resp Effort & Inspection: normal respiratory effort and able to speak in complete sentences Auscultation: diminished lung sounds bilateral GI Inspection: Yes normal to inspection Neuro General: patient oriented x3 and moves all extremities Cranial nerves: Yes Equal, round and reactive pupils present Cognition (Neuro): normal cognition Motor exam (neuro): 5/5 motor strength present throughout Sensory Exam: Normal double simultaneous stimulation for sensation Coordination: [id number] test normal Extrem General: Yes normal to inspection, Yes full ROM and Yes capillary refill normal Psych Appearance: grossly normal Mental Status: mental status grossly normal Affect: normal affect Attitude: cooperative Thought process: Normal thought process present Thought content: Normal thought content present Insight: Good insight present (Psych) Course Course Course Narrative: This is a 50-year-old female, with a past medical history of asthma, allergies, and vertigo, presenting today with complaints of wheezing, shortness of breath, cough, and headache since Saturday. labs EKG, Medical Decision Making MDM Narrative Medical decision making narrative: Patient is a 50 year old female presenting to the emergency department today with a headache and increased wheezing. Patient's physical exam showed diminished lung sounds throughout but was otherwise unremarkable. Patient's blood work was unremarkable. Patient's urine showed no acute process. Patient's EKG was unremarkable. Patient's chest x-ray and head CT showed no acute process. I explained my physical exam findings as well as all test results to the patient. I answered all questions asked by the patient. Patient received a duoneb, IV fluids, IV solu-medrol, and IV toradol which she stated helped her symptoms significantly. I stressed the importance of the patient taking her medication as prescribed. I stressed the importance of the patient following up with her primary care provider. I stressed the importance of the patient returning to the emergency department immediately if her symptoms were to worsen or if she were to develop any dizziness, shortness of breath, difficulty breathing, chest pain, blurry vision, loss of vision, nausea, vomiting, abdominal pain, fever, chills, back pain, or any other complaints. Patient verbalized agreement and understanding with this treatment plan and discharge. Differential Diagnosis Differential Diagnosis: Migraine, asthma exacerbation Medical Records Medical records reviewed: Yes I reviewed the patient's medical records. Lab Data Lab results reviewed: Yes I reviewed the patient's lab results. Result diagrams: 10/19/21 09:24 10/19/21 09:24 Labs: Lab Results 10/19/21 10/19/21 10/19/21 Range/Units 09:24 09:24 09:24 WBC 6.3 (4.8-10.8) X10*3/uL RBC 4.64 (4.20-5.50) X10*6/uL Hgb 14.9 (12.0-16.0) g/dl Hct 42.8 (37.0-47.0) % MCV 92.2 (80.0-98.0) fL MCH 32.1 (27.0-33.0) pg MCHC 34.8 (31.0-35.0) g/dl RDW 12.5 (11.0-16.0) % Plt Count 194 (160-400) X10*3/uL MPV 10.0 (9.4-12.3) fL Immature Gran % (Auto) 0.3 (0.0-0.4) % Neut % (Auto) 59.5 (45-73) % Lymph % (Auto) 28.1 (20-40) % [place] % (Auto) 8.9 (2-11) % Eos % (Auto) 3.0 (0-4) % Baso % (Auto) 0.2 (0-2) % Lymph # (Auto) 1.8 (1.2-4.9) X10*3/uL [place] # (Auto) 0.6 (0.1-1.2) X10*3/uL Eos # (Auto) 0.2 (0.0-0.4) X10*3/uL Baso # (Auto) 0.0 (0.0-0.2) X10*3/uL Abs Immat Gran (auto) 0.02 (0.00-0.03) X10*3/uL Absolute Neuts (auto) 3.8 (2.0-8.3) x10*3/uL Absolute Nucleated RBC 0.000 (0.0-0.012) X10*3/uL Nucleated RBC % (auto) 0.0 (0.0-0.2) /100WBC Sodium 140 (135-145) mmol/L Potassium 3.7 (3.3-5.1) mmol/L Chloride 104 (96-108) mmol/L Carbon Dioxide 26 (22-29) mmol/L Anion Gap 14 (12-20) BUN 14 (9-16) mg/dL Creatinine 0.63 (0.5-1.4) mg/dL Estim Creat Clear Calc 78.8 Estimated GFR > 60 Random Glucose 125 H (60-115) mg/dL Calcium 9.4 (8.4-10.2) mg/dL Magnesium 2.0 (1.6-2.6) mg/dL Total Bilirubin 2.7 H (0.0-1.0) mg/dL AST 17 (5-31) U/L ALT 10 (0-31) U/L Alkaline Phosphatase 119 H (39-117) U/L Troponin I High Sens < 3.5 (<3.5-17.0) ng/L Total Protein 7.6 (6.5-8.0) g/dL Albumin 4.6 (3.5-5.0) g/dL Urine Color Urine Appearance Urine pH (5.0-8.0) Ur Specific [place] (1.005-1.025) Urine Protein (NEG-TRACE) MG/DL Urine Glucose (UA) (NEG) MG/DL Urine Ketones (NEG) MG/DL Urine Blood (NEG) Urine Nitrite (NEG) Ur Leukocyte Esterase (NEG) COVID-19 (INEZ) (Negative) COVID-19 Clin Com 10/19/21 10/19/21 Range/Units 09:24 12:20 WBC (4.8-10.8) X10*3/uL RBC (4.20-5.50) X10*6/uL Hgb (12.0-16.0) g/dl Hct (37.0-47.0) % MCV (80.0-98.0) fL MCH (27.0-33.0) pg MCHC (31.0-35.0) g/dl RDW (11.0-16.0) % Plt Count (160-400) X10*3/uL MPV (9.4-12.3) fL Immature Gran % (Auto) (0.0-0.4) % Neut % (Auto) (45-73) % Lymph % (Auto) (20-40) % [place] % (Auto) (2-11) % Eos % (Auto) (0-4) % Baso % (Auto) (0-2) % Lymph # (Auto) (1.2-4.9) X10*3/uL [place] # (Auto) (0.1-1.2) X10*3/uL Eos # (Auto) (0.0-0.4) X10*3/uL Baso # (Auto) (0.0-0.2) X10*3/uL Abs Immat Gran (auto) (0.00-0.03) X10*3/uL Absolute Neuts (auto) (2.0-8.3) x10*3/uL Absolute Nucleated RBC (0.0-0.012) X10*3/uL Nucleated RBC % (auto) (0.0-0.2) /100WBC Sodium (135-145) mmol/L Potassium (3.3-5.1) mmol/L Chloride (96-108) mmol/L Carbon Dioxide (22-29) mmol/L Anion Gap (12-20) BUN (9-16) mg/dL Creatinine (0.5-1.4) mg/dL Estim Creat Clear Calc Estimated GFR Random Glucose (60-115) mg/dL Calcium (8.4-10.2) mg/dL Magnesium (1.6-2.6) mg/dL Total Bilirubin (0.0-1.0) mg/dL AST (5-31) U/L ALT (0-31) U/L Alkaline Phosphatase (39-117) U/L Troponin I High Sens (<3.5-17.0) ng/L Total Protein (6.5-8.0) g/dL Albumin (3.5-5.0) g/dL Urine Color YELLOW Urine Appearance CLEAR Urine pH 5.5 (5.0-8.0) Ur Specific [place] 1.020 (1.005-1.025) Urine Protein NEG (NEG-TRACE) MG/DL Urine Glucose (UA) NEG (NEG) MG/DL Urine Ketones 40 (NEG) MG/DL Urine Blood NEG (NEG) Urine Nitrite NEG (NEG) Ur Leukocyte Esterase NEG (NEG) COVID-19 (INEZ) Negative (Negative) COVID-19 Clin Com See Note Imaging Data CT scan - head: Attestation: I personally reviewed and interpreted this imaging study as follows: My impression: No acute process. Radiologist's impression: EXAMINATION: CT HEAD WITHOUT CONTRAST CLINICAL INFORMATION: Headache.? COMPARISON: 10/01/[address] scan. TECHNIQUE: Contiguous axial imaging was performed from the skull base to vertex without intravenous administration of contrast. Coronal and sagittal reformatted images were obtained. This CT examination was performed using dose optimization techniques as appropriate, variously including the following: *Automated exposure control *Adjustment of mA and/or kV according to patient size (this includes techniques or standardized protocols for targeted exams where dose is matched to indication/reason for exam; i.e. extremities or head) *Use of iterative reconstruction technique DLP: 619 mGy-cm FINDINGS: There is no evidence of acute intracranial hemorrhage or territorial infarction. No abnormal mass effect or midline shift is seen. Timmons to white matter differentiation is well preserved. No extra-axial fluid collections are identified. The ventricles are normal in size. There is no abnormal attenuation within the brain parenchyma. The osseous structures and soft tissues are normal. Mucosal thickening is seen in several posterior ethmoid air cells. The remainder the visualized paranasal sinuses are clear. No air-fluid levels. Mild bilateral mastoid effusions. ? CT/CT head/brain wo con IMPRESSION: No acute intracranial pathology. Dictated By: Haris Hebert MD Chest x-ray: Attestation: I personally reviewed and interpreted this imaging study as follows: My impression: No acute process. Radiologist's impression: EXAMINATION: XR CHEST CLINICAL INFORMATION: Shortness of breath. COMPARISON: 07/31/2021 chest radiograph. TECHNIQUE: 2 views of the chest were obtained. FINDINGS: The lungs are clear. There are no pleural effusions. The heart and mediastinal structures are unremarkable. Moderate thoracic dextro scoliosis is again noted. XR/XR chest 2V IMPRESSION: No acute cardiopulmonary process. Dictated By: Haris Hebert MD ECG Data Attestation: I personally reviewed and interpreted this ECG as follows: Prior ECG tracings: available for review Interpretation: Vent. Rate: 054 BPM ? ? Atrial Rate: 054 BPM P-R Int: 134 ms? QRS Dur: 084 ms QT Int: 480 ms ? ? ? P-R-T Axes: -09 069 084 degrees QTc Int: 455 ms ? Sinus bradycardia T wave abnormality, consider anterior ischemia Abnormal ECG When compared with ECG of 31-JUL-2021 21:57, Vent. rate has decreased BY? 28 BPM T wave inversion no longer evident in Inferior leads T wave inversion no longer evident in Lateral leads DD/ [id number] Discharge Plan Discharge Clinical Impression: Asthma with acute exacerbation, Migraine Patient Disposition: Home, Self-Care Instructions: Asthma (ED) Additional Instructions: Follow up with your primary care provider. Return to the emergency department immediately if your symptoms worsen or if you develop any dizziness, shortness of breath, difficulty breathing, chest pain, blurry vision, loss of vision, nausea, vomiting, abdominal pain, fever, chills, back pain, or any other complaints. Prescriptions: New prednisone 20 mg tablet 20 mg PO DAILY 12 Days Qty: 26 0RF Rx Instructions: Take 3 tablets for 5 days THEN; Take 2 tablets for 4 days THEN; Take 1 tablet for 3 days No Action polyethylene glycol 3350 [Miralax] 17 gram/dose powder 238 g PO ONCE 1 Days Qty: 238 0RF Rx Instructions: take orally as directed prior to colonoscopy bisacodyl [Dulcolax (bisacodyl)] 5 mg tablet,delayed release (DR/EC) 10 mg PO ONCE 1 Days Qty: 2 0RF Rx Instructions: take orally as directed prior to colonoscopy ascorbic acid (vitamin C) [Vitamin C] 500 mg Tablet 500 mg PO DAILY apple cider vinegar 300 mg Tablet 300 mg PO DAILY Primatene Mist 0.125 mg/actuation Hfa Aerosol Inhaler 1 puff INHALATION Q4H PRN (Reason: Nasal Congestion) Rx Instructions: may repeat once after 1 minute; do not exceed 8 inhalations per 24 hrs hydroxyzine HCl 25 mg tablet 25 mg PO TID PRN (Reason: anxiety) Qty: 30 0RF montelukast 10 mg tablet 10 mg PO BEDTIME Qty: 30 2RF albuterol sulfate [Ventolin HFA] 90 mcg/actuation HFA aerosol inhaler 1 puff inhalation RQ4H PRN (Reason: sob) Qty: 8.5 2RF Breo Ellipta 100-25 mcg/dose blister with device 1 ea inhalation DAILY Qty: 60 1RF Referrals: Nicolette Israel FNP [Primary Care Provider] - Stand Alone Forms: Work/School Release Interventions: ED Discharge Assessment Last Done: 10/19/21 13:16 Discharge Date/Time: 10/19/21 13:17 Print Language: Lithuanian
--- NOTE | 2021-10-19 08:56 | PC.NURSE ---
Pt reports headache and vomiting since Saturday with dizziness. HBP noted, no meds at home. Also reports asthma exacerbation with I/E wheezing heard throughout, sat 95% on room air. NSR on tele rate 67. Skin pink warm and dry.
--- NOTE | 2021-10-19 09:17 | ECG_ITS ---
Test Reason : dizziness Blood Pressure : / mmHG Vent. Rate : 054 BPM Atrial Rate : 054 BPM P-R Int : 134 ms QRS Dur : 084 ms QT Int : 480 ms P-R-T Axes : -09 069 084 degrees QTc Int : 455 ms Sinus bradycardia T wave abnormality, consider anterior ischemia Abnormal ECG When compared with ECG of 31-JUL-2021 21:57, Vent. rate has decreased BY 28 BPM T wave inversion no longer evident in Inferior leads T wave inversion no longer evident in Lateral leads Referred By: Tea Francisco Electronically Signed By:Jose Alves
[2021-10-19] MEDS: methylPREDNISolone Sod Succ 125 MG/2 ML VIAL 60 MG IVPUSH (09:24)
[2021-10-19 09:30] LABS: MANUAL DIFF FLAG NO
[2021-10-19 09:33] LABS: Basophils Percent Auto 0.2 % (0-2); Eosinophils Absolute Auto 0.2 X10*3/uL (0.0-0.4); Hematocrit 42.8 % (37.0-47.0); Hemoglobin 14.9 g/dl (12.0-16.0); Imm Gran Abs Auto 0.02 X10*3/uL (0.00-0.03); Imm Gran Pct Auto 0.3 % (0.0-0.4); Lymphocytes Absolute Auto 1.8 X10*3/uL (1.2-4.9); Lymphocytes Percent Auto 28.1 % (20-40); Mean Corpuscular HGB Conc 34.8 g/dl (31.0-35.0); Mean Corpuscular Hemoglobin 32.1 pg (27.0-33.0); Mean Corpuscular Volume 92.2 fL (80.0-98.0); Monocytes Absolute Auto 0.6 X10*3/uL (0.1-1.2); Monocytes Percent Auto 8.9 % (2-11); Neutrophils Absolute Auto 3.8 x10*3/uL (2.0-8.3); Neutrophils Percent Auto 59.5 % (45-73); Platelet Count 194 X10*3/uL (160-400); Red Blood Count 4.64 X10*6/uL (4.20-5.50); Red Cell Distribution Width 12.5 % (11.0-16.0); White Blood Count 6.3 X10*3/uL (4.8-10.8)
[2021-10-19] MEDS: Albuterol/Iprat 2.5/0.5MG 3 ML AMPUL.NEB INHALE (09:40)
[2021-10-19 09:51] LABS: Alanine Aminotransferase 10 U/L (0-31); Albumin Level 4.6 g/dL (3.5-5.0); Alkaline Phosphatase 119 U/L (39-117); Anion Gap 14 (12-20); Aspartate Amino Transferase 17 U/L (5-31); Bilirubin Total 2.7 mg/dL (0.0-1.0); Blood Urea Nitrogen 14 mg/dL (9-16); Calcium 9.4 mg/dL (8.4-10.2); Carbon Dioxide 26 mmol/L (22-29); Chloride 104 mmol/L (96-108); Creatinine Clr Calc Pharmacy 78.8; Estimated Glomerular Filt Rate > 60; Glucose Random 125 mg/dL (60-115); Potassium 3.7 mmol/L (3.3-5.1); Sodium 140 mmol/L (135-145); Total Protein 7.6 g/dL (6.5-8.0)
[2021-10-19] MEDS: ondansetron HCL 4 MG/2 ML VIAL IVPUSH (09:54)
[2021-10-19] MEDS: 0.9 % Sodium Chloride 1,000 ML 1000 ML IVCONT (09:54)
[2021-10-19 09:58] LABS: Troponin-I High Sensitivity < 3.5 ng/L (<3.5-17.0)
[2021-10-19 12:10] LABS: COVID-19 Test Negative (Negative); IDNOW Serial# 9DB6401D
[2021-10-19 12:28] LABS: Appearance Urine CLEAR; Color Urine YELLOW; Glucose Urine UA NEG (NEG); Leukocyte Esterase Urine NEG (NEG); Nitrite Urine NEG (NEG); PH 5.5 (5.0-8.0); Urine Blood NEG (NEG); Urine Ketones 40 MG/DL (NEG); Urine Protein NEG (NEG-TRACE)
[2021-10-19] MEDS: Ketorolac Tromethamine 15 MG/ML VIAL IVPUSH (13:07)
== END 2021-10-19 13:17 | disposition home or self-care (01) ==
PROVIDERS: Physician Assistant Medical; Emergency Provider Emergency Medicine; PCP Nurse Practitioner Family
DX: J45.901 Unspecified asthma with (acute) exacerbation (principal); G43.909 Migraine, unspecified, not intractable, without status migrainosus; R05.9 Cough, unspecified; R06.02 Shortness of breath; Z20.822 Contact with and (suspected) exposure to COVID-19; Z79.899 Other long term (current) drug therapy; Z87.891 Personal history of nicotine dependence
CPT/HCPCS: 70450; 71046; 80053; 81003; 83735; 84484; 85025; 87635; 93005; 94640; 96374; 96375; 99285; J1885; J2405; J2930

== ENCOUNTER 2021-11-30 08:19 | Outpatient (REF) | payer OTHER, SELFPAY ==
[2021-11-30 09:12] LABS: Anion Gap 16 (12-20); Blood Urea Nitrogen 13 mg/dL (9-16); Calcium 9.2 mg/dL (8.4-10.2); Carbon Dioxide 27 mmol/L (22-29); Chloride 105 mmol/L (96-108); Cholesterol 189 mg/dL; Estimated Glomerular Filt Rate > 60; Glucose Fasting 95 mg/dL (60-99); HDL Cholesterol 51 mg/dL; LDL Cholesterol Calculated 119 mg/dl; Potassium 3.8 mmol/L (3.3-5.1); Sodium 144 mmol/L (135-145); Triglycerides 95 mg/dL
[2021-11-30 09:33] LABS: TSH reflex Free T4 1.24 uIU/mL (0.32-4.0); Vitamin D 25-OH Total 11.2 ng/mL (>30)
[2021-11-30 09:44] LABS: Vitamin B12 293 pg/mL (200-900)
== END 2021-11-30 08:20 | disposition home or self-care (01) ==
LOC: HO.LAB 08:19
PROVIDERS: PCP Nurse Practitioner Family; Visit Provider Nurse Practitioner Family
DX: Z13.29 Encounter for screening for other suspected endocrine disorder (principal); Z13.1 Encounter for screening for diabetes mellitus; Z13.220 Encounter for screening for lipoid disorders; Z76.89 Persons encountering health services in other specified circumstances
CPT/HCPCS: 36415; 80048; 80061; 82306; 82607; 82746; 84443

== ENCOUNTER 2022-05-01 08:06 | Outpatient (REF) | payer OTHER, SELFPAY ==
[2022-05-01 15:02] LABS: CT PCR NOT DETECTED (Not Detect.); NG PCR NOT DETECTED (Not Detect.)
[2022-05-02 12:53] LABS: BV Int Neg Control Negative (Negative); BV Int Pos Control Positive (Positive)
== END 2022-05-01 08:07 | disposition home or self-care (01) ==
LOC: HO.LAB 08:06
PROVIDERS: PCP Nurse Practitioner Family; Visit Provider Advanced Practice Midwife
DX: N89.8 Other specified noninflammatory disorders of vagina (principal); Z11.3 Encounter for screening for infections with a predominantly sexual mode of transmission
CPT/HCPCS: 0353U; 87480; 87510; 87660

== ENCOUNTER 2022-05-01 08:48 | Outpatient (REF) | payer OTHER, SELFPAY ==
[2022-05-08 05:38] LABS: HPV 16 RNA DETECTED (NOT DETECTED); HPV mRNA E6/E7 rflx Detected (Not Detected)
== END 2022-05-01 08:49 | disposition home or self-care (01) ==
LOC: HO.LNP 08:48
PROVIDERS: Visit Provider Advanced Practice Midwife
DX: Z01.419 Encounter for gynecological examination (general) (routine) without abnormal findings (principal)
CPT/HCPCS: 87624; 87625; 88142

== ENCOUNTER 2022-05-21 10:38 | Outpatient (REF) | payer OTHER, SELFPAY ==
--- NOTE | ~2022-05-21 | MM_ITS ---
EXAMINATION: MM SCREENING DIGITAL BREAST TOMOSYNTHESIS, BILATERAL CLINICAL INFORMATION: Screening. Asymptomatic. The lifetime risk of breast cancer based on the Tyrer-Cuzick Model is 5.0%. COMPARISON: Mammography: March 27, 2012 and February 28, 2005 TECHNIQUE: Digital breast tomosynthesis is performed in both the craniocaudal and mediolateral oblique views along with computer-aided detection (CAD). Synthesized 2D images are generated from the tomosynthesis. FINDINGS: The breasts are extremely dense, which lowers the sensitivity of mammography (ACR BI-RADS breast composition Category d). There are no significant masses, abnormal calcifications, or other abnormalities. MM/MM tomosynthesis screening BI IMPRESSION: No significant changes from prior exam. ASSESSMENT: BI-RADS 1: Negative RECOMMENDATION: Routine annual mammography screening. This patient's information was entered into a reminder system with a target due date for their next mammogram.
== END 2022-05-21 10:39 | disposition home or self-care (01) ==
LOC: HO.MAMMO 10:38
PROVIDERS: PCP Nurse Practitioner Family; Visit Provider Advanced Practice Midwife
DX: Z12.31 Encounter for screening mammogram for malignant neoplasm of breast (principal)
CPT/HCPCS: 77063; 77067

== ENCOUNTER 2022-05-29 08:39 | Outpatient (REF) | payer OTHER, SELFPAY | END 2022-05-29 08:40 | disposition home or self-care (01) | LOC: HO.LNP 08:39 | PROVIDERS: PCP Nurse Practitioner Family; Visit Provider Obstetrics & Gynecology | DX: N90.89 Other specified noninflammatory disorders of vulva and perineum (principal) | CPT/HCPCS: 56605; 88305; 99212 ==

== ENCOUNTER → 2022-07-24 13:25 | Outpatient (BNVA) | payer OTHER, SELFPAY | PROVIDERS: PCP Nurse Practitioner Family; Visit Provider Obstetrics & Gynecology ==

== ENCOUNTER 2022-08-11 10:43 | Emergency (ER) | payer OTHER, SELFPAY ==
--- NOTE | ~2022-08-11 | XR_ITS ---
EXAMINATION: XR chest 2V CLINICAL INFORMATION: Chest pain COMPARISON: Prior chest x-ray October 2021 TECHNIQUE: XR chest 2V Lungs and Griselda: Both lungs are clear. Flattening of the hemidiaphragms suggest underlying air trapping disease. Pleura: Normal. Costophrenic angles are sharp. No pneumothorax. Heart: The heart is normal in size. Mediastinum: The mediastinum is within normal limits.. Bones: There is severe dextroscoliosis dorsal spine roughly 52 degree. XR/XR chest 2V IMPRESSION: * No radiographic evidence of acute cardiopulmonary disease. * Flattening of hemidiaphragms suggest underlying air trapping disease such as COPD.
[2022-08-11 10:49] VITALS: BP 179/85; PULSE 57; RESP 20; TEMP 36.9; O2SAT 98; BMI 22.1
--- NOTE | 2022-08-11 10:52 | ED_ITS ---
HPI - General Adult General Chief complaint: General Medical <KIARA Menendez - Last Filed: 08/11/22 10:55> Stated complaint: high bp <KIARA Menendez Last Filed: 08/11/22 10:55> Time Seen by Provider: 08/11/22 11:05 <KIARA Menendez Last Filed: 08/11/22 10:55> Source: patient <KIARA Muñoz Last Filed: 08/11/22 13:49> Mode of arrival: ambulatory <KIARA Muñoz Last Filed: 08/11/22 13:49> Limitations: no limitations <KIARA Muñoz Last Filed: 08/11/22 13:49> History of Present Illness HPI narrative: Patient is a 51 year old assigned female at with a history of HTN presenting to the emergency department today with a headache, chest pain, and requesting a blood pressure medication refill. Patient states that over the last few days she has had a headache and diffuse chest pain. Patient states that her PCP didn't send in the refill for her blood pressure medication and she has been out for 2 days. Patient denies any dizziness, lightheadedness, abdominal pain, nausea, vomiting, fever, chills, blurry vision, double vision, loss of vision, difficulty breathing, shortness of breath, back pain, night sweats, pain with urination, increased urinary frequency, increased urinary urgency, blood in her urine or stool, syncope or a near syncopal episode, recent trauma or falls, bowel incontinence, bladder incontinence, bowel retention, bladder retention, or any other complaints at this time. <KIARA Muñoz Last Filed: 08/11/22 13:49> Onset (ago): day(s) (2) <KIARA Muñoz - Last Filed: 08/11/22 13:49> Location: head and chest <KIARA Muñoz Last Filed: 08/11/22 13:49> Severity: mild <KIARA Muñoz Last Filed: 08/11/22 13:49> Severity scale (1-10): 2 <KIARA Muñoz Last Filed: 08/11/22 13:49> Relieving factors: none <KIARA Muñoz Last Filed: 08/11/22 13:49> Exacerbating factors: none <KIARA Muñoz - Last Filed: 08/11/22 13:49> Treatments prior to arrival: none <KIARA Muñoz - Last Filed: 08/11/22 13:49> Related Data Home medications: Home Medications Medication Instructions Recorded Confirmed apple cider vinegar 300 mg tablet 300 mg PO DAILY 08/01/21 05/17/22 ascorbic acid (vitamin C) 500 mg 500 mg PO DAILY 08/01/21 05/17/22 tablet (Vitamin C) epinephrine 0.125 mg/actuation 1 puff inhalation Q4H PRN Nasal 08/01/21 05/17/22 aerosol inhaler (Primatene Mist) Congestion Previous Rx's Medication Instructions Recorded bisacodyl 5 mg tablet,delayed 10 mg PO ONCE 1 day #2 tabs 08/28/21 release (Dulcolax (bisacodyl)) polyethylene glycol 3350 17 238 g PO ONCE 1 day #238 grams 08/28/21 gram/dose oral powder (Miralax) fluticasone furoate 100 1 ea inhalation DAILY #60 ea 10/31/21 mcg-vilanterol 25 mcg/dose inhalation powder (Breo Ellipta) montelukast 10 mg tablet 10 mg PO BEDTIME #30 tabs 12/13/21 amlodipine 2.5 mg tablet 2.5 mg PO DAILY 30 days #30 tabs 05/03/22 albuterol sulfate 90 mcg/actuation 2 puff inhalation Q4-6H PRN 05/17/22 aerosol inhaler (Ventolin HFA) shortness of breath or wheezing #8.5 grams metoclopramide HCl 5 mg tablet 5 mg PO Q8H PRN nausea and 05/17/22 (Reglan) vomiting #30 tabs trazodone 50 mg tablet 25 mg PO BEDTIME PRN sleep #30 tabs 07/13/22 cholecalciferol (vitamin D3) 1,250 1,250 mcg PO QWEEK #12 caps 07/22/22 mcg (50,000 unit) capsule omeprazole 20 mg capsule,delayed 20 mg PO DAILY #90 caps 08/10/22 release amlodipine 2.5 mg tablet 2.5 mg PO DAILY #30 tabs 08/11/22 <KIARA Menendez Last Filed: 08/11/22 10:55> Allergies/adverse reactions: Allergies Allergy/AdvReac Type Severity Reaction Status Date / Time No Known Allergies Allergy Verified 07/24/22 13:45 [No Known Allergies*] <Gladys Tate [place] - Last Filed: 08/11/22 10:55> Review of Systems Constitutional: Constitutional: Reports no additional constitutional complaints, Denies chills, Denies fever(s), Reports headache(s) and Denies night sweats <KIARA Muñoz - Last Filed: 08/11/22 13:49> Eyes: Eyes: Reports no additional eye complaints, Denies blurry vision, Denies change in vision, Denies diplopia, Denies eye discharge, Denies loss of vision and Denies eye pain <KIARA Muñoz Last Filed: 08/11/22 13:49> ENT: Denies dizziness and Reports headache(s) <KIARA Muñoz Last Filed: 08/11/22 13:49> Cardiovascular: Cardiovascular: Reports no additional cardiovascular complaints, Reports chest pain, Denies lightheadedness, Denies Loss of Consciousness and Denies dyspnea <KIARA Muñoz Last Filed: 08/11/22 13:49> Respiratory: Respiratory: Reports no additional respiratory complaints and Denies dyspnea <KIARA Muñoz Last Filed: 08/11/22 13:49> Gastrointestinal: Gastrointestinal: Reports no additional gastrointestinal complaints, Denies abdominal pain, Denies melena, Denies hematochezia, Denies change in bowel habits and Denies change in stool character <KIARA Muñoz Last Filed: 08/11/22 13:49> Genitourinary: Genitourinary: Denies hematuria, Denies urinary frequency, Denies dysuria, Denies urinary incontinence, Denies urinary hesitancy and Denies urinary urgency <KIARA Muñoz Last Filed: 08/11/22 13:49> Musculoskeletal: Musculoskeletal: Reports no additional musculoskeletal com plaints, Denies numbness and Denies tingling <KIARA Muñoz Last Filed: 08/11/22 13:49> Neurologic: Denies dizziness, Reports headache(s), Denies loss of vision, Denies numbness and Denies tingling <KIARA Muñoz - Last Filed: 08/11/22 13:49> Psychiatric: Psychiatric: Reports no additional psychiatric complaints <KIARA Muñoz - Last Filed: 08/11/22 13:49> Endocrine: Endocrine: Reports no additional endocrine complaints <KIARA Muñoz - Last Filed: 08/11/22 13:49> Hematologic/Lymphatic: Hematologic/Lymphatic: Reports no additional hematologic/lymphatic complaints <KIARA Muñoz - Last Filed: 08/11/22 13:49> Allergic/Immunologic: Allergic/Immunologic: Reports no additional a llergic/immunologic complaints <KIARA Muñoz - Last Filed: 08/11/22 13:49> [facility] Past Medical History Attestation statement: The following information was validated with the patient. <KIARA Muñoz - Last Filed: 08/11/22 13:49> Source: old records reviewed and nursing notes reviewed <KIARA Muñoz - Last Filed: 08/11/22 13:49> Medical History: Medical History Benign essential hypertension History of asthma <KIARA Menendez - Last Filed: 08/11/22 10:55> Surgical History: Surgical History H/O tubal ligation History of History of removal of ovarian cyst <KIARA Menendez - Last Filed: 08/11/22 10:55> Family History Family History: Family History Mother AIDS Father No problems noted. Sister Colon cancer Other No family history of coronary artery disease <KIARA Menendez - Last Filed: 08/11/22 10:55> Social History Social History: Social History Household Members: Family and Children Housing: Apartment Do you presently have visiting nurse or other home services: No Alcohol intake: never Patient Tobacco Use Status: Former Tobacco user Tobacco use type: Cigarette Smoked in Last 30 Days: Yes e-Cigarette/Vaping Use: Former Use Second Hand Smoke Exposure: No Use of substances other than those prescribed or required for medical reasons: No Advance Directives: No Advance Directives Information Provided: Yes Patient : No service: No Current occupational status: employed Current occupation: [employer] Work[employer] Cognitive needs: No Hearing needs: Yes (Pt has Hx of Vertigo) Vision needs: Yes (Need a referral for eye doctor have not seen one in years. ) <KIARA Menendez - Last Filed: 08/11/22 10:55> Physical Exam ED Vital Signs: Vital Signs - 24 hr 08/11/22 10:49 08/11/22 11:42 Temperature 98.4 F 98.5 F Pulse Rate 57 47 L Respiratory Rate 20 12 Blood Pressure 179/85 H 139/85 Pulse Oximetry 98 98 Oxygen Delivery Method Room Air Room Air BMI result Body Mass Index 22.1 <KIARA Menendez - Last Filed: 08/11/22 10:55> Vital Signs - 24 hr 08/11/22 10:49 08/11/22 11:42 Temperature 98.4 F 98.5 F Pulse Rate 57 47 L Respiratory Rate 20 12 Blood Pressure 179/85 H 139/85 Pulse Oximetry 98 98 Oxygen Delivery Method Room Air Room Air BMI result Body Mass Index 22.1 <KIARA Muñoz - Last Filed: 08/11/22 13:49> Const General: cooperative, no acute distress, alert and awake <KIARA Muñoz - Last Filed: 08/11/22 13:49> Nutritional Appearance: well nourished <KIARA Muñoz - Last Filed: 08/11/22 13:49> Orientation/consciousness: patient oriented x3 <KIARA Muñoz - Last Filed: 08/11/22 13:49> Limitations: no limitations <KIARA Muñoz Last Filed: 08/11/22 13:49> HENMT Head: Yes normal to inspection and Yes atraumatic <KIARA Muñoz - Last Filed: 08/11/22 13:49> Ears: hearing grossly normal bilaterally and external ears normal <KIARA Muñoz Last Filed: 08/11/22 13:49> General nose exam: Normal external nose present, no nasal discharge noted and no epistaxis <KIARA Muñoz - Last Filed: 08/11/22 13:49> Face and sinus: Yes normal facial exam, No abrasion and No laceration <Tea Quintananoris [facility] Last Filed: 08/11/22 13:49> Mouth: Normal oral and palatal mucosa present, no drooling and no muffled voice <Tea Quintananoris [facility] Last Filed: 08/11/22 13:49> Eyes General: appearance normal, both eyes and all related structures <Teayumiko Quintananoris [facility] Last Filed: 08/11/22 13:49> Periorbital: periorbital findings normal <Tea Quintananoris [facility] Last Filed: 08/11/22 13:49> Eyelids: Yes eyelids normal <Tea Quintananoris [facility] Last Filed: 08/11/22 13:49> Conjunctivae: conjunctivae normal <Tea Quintananoris [facility] Last Filed: 08/11/22 13:49> Pupils: Equal, round and reactive pupils present <Tea Maryam [facility] Last Filed: 08/11/22 13:49> EOM: EOMs intact bilaterally <Tea Quintananoris [facility] Last Filed: 08/11/22 13:49> Neck Neck: Yes normal visual inspection, Yes full ROM and Yes no lymphadenopathy <Quincy gerardo Maryam [facility] Last Filed: 08/11/22 13:49> Chest Chest palpation & inspection: normal inspection of the chest <Tea Maryam [facility] Last Filed: 08/11/22 13:49> Resp Effort & Inspection: normal respiratory effort and able to speak in complete sentences <Tea Francisco [facility] Last Filed: 08/11/22 13:49> Auscultation: clear to auscultation bilaterally <Tea Maryam [facility] Last Filed: 08/11/22 13:49> Cardio Rate: regular rate <Tea Maryam [facility] Last Filed: 08/11/22 13:49> Rhythm: regular rhythm <Tea Maryam [facility] Last Filed: 08/11/22 13:49> GI Inspection: Yes normal to inspection <Tea Maryam [facility] Last Filed: 08/11/22 13:49> Palpation (GI): Soft to palpation, not firm, nontender and no guarding <KIARA Muñoz Last Filed: 08/11/22 13:49> Neuro General: patient oriented x3 and moves all extremities <Tea QuintanaKIARA hamm - Last Filed: 08/11/22 13:49> Cranial nerves: Yes Equal, round and reactive pupils present <Tea Francisco PA - Last Filed: 08/11/22 13:49> Cognition (Neuro): normal cognition <Tea Quintananoris PA - Last Filed: 08/11/22 13:49> Motor exam (neuro): 5/5 motor strength present throughout <Tea Francisco PA - Last Filed: 08/11/22 13:49> Sensory Exam: Normal double simultaneous stimulation for sensation <Tea Quintananoris PA - Last Filed: 08/11/22 13:49> Coordination: [id number] test normal <Tea Quintananoris PA - Last Filed: 08/11/22 13:49> Extrem General: Yes normal to inspection, Yes full ROM and Yes capillary refill normal <Etayumiko QuintanaKIARA hamm - Last Filed: 08/11/22 13:49> Psych Appearance: grossly normal <Tea Quintananoris PA - Last Filed: 08/11/22 13:49> Mental Status: mental status grossly normal <Teayumiko QuintanaKIARA hamm - Last Filed: 08/11/22 13:49> Affect: normal affect <Tea QuintanaKIARA hamm - Last Filed: 08/11/22 13:49> Attitude: cooperative <Tea FranciscoKIARA hamm - Last Filed: 08/11/22 13:49> Thought process: Normal thought process present <KIARA Muñoz - Last Filed: 08/11/22 13:49> Thought content: Normal thought content present <Tea KIARA Francisco - Last Filed: 08/11/22 13:49> Insight: Good insight present (Psych) <KIARA Muñoz - Last Filed: 08/11/22 13:49> Course Course Course Narrative: SONIA Argueta is a [id number]-female, hx of HTN, who presents to the ER for high BP. She has been without her htn medications for 2 days, had difficulty filling at the pharmacy. Currently has a headache and chest tightness . BP 179/85, all other VSS. Pt stable to return to the waiting until a treatment room becomes available. <KIARA Menendez - Last Filed: 08/11/22 10:55> Medical Decision Making Medical Decision Making [facility] Narrative: Patient is a 51 year old assigned female at with a history of HTN presenting to the emergency department today with a headache and chest pain. Patient's physical exam was unremarkable. Patient's blood work was unremarkable. Patient's chest x-ray showed no acute process. I explained my physical exam findings as well as all test results to the patient. I answered all questions asked by the patient. I stressed the importance of the patient taking her medication as prescribed. I stressed the importance of the patient following up with her primary care provider. I stressed the importance of the patient returning to the emergency department immediately if her symptoms were to worsen or if she were to develop any dizziness, shortness of breath, difficulty breathing, chest pain, blurry vision, loss of vision, nausea, vomiting, abdominal pain, fever, chills, back pain, or any other complaints. Patient verbalized agreement and understanding with this treatment plan and discharge. <KIARA Muñoz - Last Filed: 08/11/22 13:49> Differential Diagnosis Differential Diagnoses: The differential diagnosis associated with the presentation includes <KIARA Muñoz - Last Filed: 08/11/22 13:49> HTN, headache <KIARA Muñoz - Last Filed: 08/11/22 13:49> Lab Data [facility] Lab Attestation statement: I reviewed the patient's lab results. <KIARA Muñoz - Last Filed: 08/11/22 13:49> Result Diagrams: 08/11/22 11:23 08/11/22 11:23 <KIARA Menendez - Last Filed: 08/11/22 10:55> Labs: Lab Results 08/11/22 08/11/22 08/11/22 Range/Units 11:23 11:23 11:23 WBC 5.0 (4.8-10.8) X10*3/uL RBC 4.42 (4.20-5.50) X10*6/uL Hgb 14.1 (12.0-16.0) g/dl Hct 41.4 (37.0-47.0) % MCV 93.7 (80.0-98.0) fL MCH 31.9 (27.0-33.0) pg MCHC 34.1 (31.0-35.0) g/dl RDW 12.4 (11.0-16.0) % Plt Count 198 (160-400) X10*3/uL MPV 9.4 (9.4-12.3) fL Immature Gran % (Auto) 0.2 (0.0-0.4) % Neut % (Auto) 57.0 (45-73) % Lymph % (Auto) 36.4 (20-40) % Union % (Auto) 5.4 (2-11) % Eos % (Auto) 0.8 (0-4) % Baso % (Auto) 0.2 (0-2) % Lymph # (Auto) 1.8 (1.2-4.9) X10*3/uL Union # (Auto) 0.3 (0.1-1.2) X10*3/uL Eos # (Auto) 0.0 (0.0-0.4) X10*3/uL Baso # (Auto) 0.0 (0.0-0.2) X10*3/uL Abs Immat Gran (auto) 0.01 (0.00-0.03) X10*3/uL Absolute Neuts (auto) 2.9 (2.0-8.3) x10*3/uL Absolute Nucleated RBC 0.000 (0.0-0.012) X10*3/uL Nucleated RBC % (auto) 0.0 (0.0-0.2) /100WBC Sodium 143 (135-145) mmol/L Potassium 3.9 (3.3-5.1) mmol/L Chloride 106 (96-108) mmol/L Carbon Dioxide 27 (22-29) mmol/L Anion Gap 14 (12-20) BUN 9 (9-16) mg/dL Creatinine 0.71 (0.5-1.4) mg/dL Estim Creat Clear Calc 69.1 Estimated GFR > 60 Random Glucose 137 H (60-115) mg/dL Calcium 9.5 (8.4-10.2) mg/dL Magnesium 1.9 (1.6-2.6) mg/dL Total Bilirubin 1.0 (0.0-1.0) mg/dL AST 14 (5-31) U/L ALT 6 (0-31) U/L Alkaline Phosphatase 92 (39-117) U/L Troponin I High Sens < 2.7 (<3.5-17.0) ng/L Total Protein 7.0 (6.5-8.0) g/dL Albumin 4.4 (3.5-5.0) g/dL <KIARA Menendez - Last Filed: 08/11/22 10:55> Lab Results 08/11/22 08/11/22 08/11/22 Range/Units 11:23 11: 11:23 WBC 5.0 (4.8-10.8) X10*3/uL RBC 4.42 (4.20-5.50) X10*6/uL Hgb 14.1 (12.0-16.0) g/dl Hct 41.4 (37.0-47.0) % MCV 93.7 (80.0-98.0) fL MCH 31.9 (27.0-33.0) pg MCHC 34.1 (31.0-35.0) g/dl RDW 12.4 (11.0-16.0) % Plt Count 198 (160-400) X10*3/uL MPV 9.4 (9.4-12.3) fL Immature Gran % (Auto) 0.2 (0.0-0.4) % Neut % (Auto) 57.0 (45-73) % Lymph % (Auto) 36.4 (20-40) % Union % (Auto) 5.4 (2-11) % Eos % (Auto) 0.8 (0-4) % Baso % (Auto) 0.2 (0-2) % Lymph # (Auto) 1.8 (1.2-4.9) X10*3/uL Union # (Auto) 0.3 (0.1-1.2) X10*3/uL Eos # (Auto) 0.0 (0.0-0.4) X10*3/uL Baso # (Auto) 0.0 (0.0-0.2) X10*3/uL Abs Immat Gran (auto) 0.01 (0.00-0.03) X10*3/uL Absolute Neuts (auto) 2.9 (2.0-8.3) x10*3/uL Absolute Nucleated RBC 0.000 (0.0-0.012) X10*3/uL Nucleated RBC % (auto) 0.0 (0.0-0.2) /100WBC Sodium 143 (135-145) mmol/L Potassium 3.9 (3.3-5.1) mmol/L Chloride 106 (96-108) mmol/L Carbon Dioxide 27 (22-29) mmol/L Anion Gap 14 (12-20) BUN 9 (9-16) mg/dL Creatinine 0.71 (0.5-1.4) mg/dL Estim Creat Clear Calc 69.1 Estimated GFR > 60 Random Glucose 137 H (60-115) mg/dL Calcium 9.5 (8.4-10.2) mg/dL Magnesium 1.9 (1.6-2.6) mg/dL Total Bilirubin 1.0 (0.0-1.0) mg/dL AST 14 (5-31) U/L ALT 6 (0-31) U/L Alkaline Phosphatase 92 (39-117) U/L Troponin I High Sens < 2.7 (<3.5-17.0) ng/L Total Protein 7.0 (6.5-8.0) g/dL Albumin 4.4 (3.5-5.0) g/dL <KIARA Muñoz - Last Filed: 08/11/22 13:49> Independent Interpretation I performed an independent interpretation of an: EKG <KIARA Muñoz - Last Filed: 08/11/22 13:49> Interpretation: Vent. Rate: 052 BPM ? ? Atrial Rate: 052 BPM P-R Int: 140 ms? QRS Dur: 082 ms QT Int: 468 ms ? ? ? P-R-T Axes: 041 062 054 degrees QTc Int: 435 ms ? Sinus bradycardia T wave abnormality, consider anterior ischemia Abnormal ECG When compared with ECG of 19-OCT-2021 09:29, No significant change was found DD/ 1109 <KIARA Muñoz - Last Filed: 08/11/22 13:49> Radiology Impression Radiologist Impression: My interpretation is in agreement with the radiologist's impression of this imaging study. EXAMINATION: XR chest 2V CLINICAL INFORMATION: Chest pain COMPARISON: Prior chest x-ray October 2021? TECHNIQUE: XR chest 2V Lungs and Griselda: Both lungs are clear. Flattening of the hemidiaphragms suggest underlying air trapping disease. Pleura: Normal. Costophrenic angles are sharp. No pneumothorax. Heart: The heart is normal in size. Mediastinum: The mediastinum is within normal limits.. Bones: There is severe dextroscoliosis dorsal spine roughly 52 degree. XR/XR chest 2V IMPRESSION: ? *? No radiographic evidence of acute cardiopulmonary disease. ? *? Flattening of hemidiaphragms suggest underlying air trapping disease such as COPD. ? Dictated By: Jose Luis Mancilla MD Signed By: Electronically signed by Jose Luis Mancilla MD 08/11/22 1216 <KIARA Muñoz - Last Filed: 08/11/22 13:49> Discharge Plan Discharge Clinical Impression: History of hypertension, Headache <KIARA Menendez Last Filed: 08/11/22 10:55> Patient Disposition: Home, Self-Care <KIARA Menendez Last Filed: 08/11/22 10:55> Instructions: Acute Headache (ED) <KIARA Menendez Last Filed: 08/11/22 10:55> Additional Instructions: Follow up with your primary care provider. Return to the emergency department immediately if your symptoms worsen or if you develop any dizziness, shortness of breath, difficulty breathing, chest pain, blurry vision, loss of vision, nausea, vomiting, abdominal pain, fever, chills, back pain, or any other complaints. <KIARA Menendez - Last Filed: 08/11/22 10:55> Prescriptions: New amlodipine 2.5 mg tablet 2.5 mg PO DAILY Qty: 30 0RF No Action polyethylene glycol 3350 [Miralax] 17 gram/dose powder 238 g PO ONCE 1 Days Qty: 238 0RF Rx Instructions: take orally as directed prior to colonoscopy bisacodyl [Dulcolax (bisacodyl)] 5 mg tablet,delayed release (DR/EC) 10 mg PO ONCE 1 Days Qty: 2 0RF Rx Instructions: take orally as directed prior to colonoscopy Breo Ellipta 100-25 mcg/dose blister with device 1 ea inhalation DAILY Qty: 60 1RF montelukast 10 mg tablet 10 mg PO BEDTIME Qty: 30 2RF amlodipine 2.5 mg tablet 2.5 mg PO DAILY 30 Days Qty: 30 1RF albuterol sulfate [Ventolin HFA] 90 mcg/actuation HFA aerosol inhaler 2 puff inhalation Q4-6H PRN (Reason: shortness of breath or wheezing) Qty: 8.5 1RF trazodone 50 mg tablet 25 mg PO BEDTIME PRN (Reason: sleep) Qty: 30 0RF cholecalciferol (vitamin D3) 1,250 mcg (50,000 unit) capsule 1,250 mcg PO QWEEK Qty: 12 0RF omeprazole 20 mg capsule,delayed release(DR/EC) 20 mg PO DAILY Qty: 90 1RF ascorbic acid (vitamin C) [Vitamin C] 500 mg Tablet 500 mg PO DAILY apple cider vinegar 300 mg Tablet 300 mg PO DAILY Primatene Mist 0.125 mg/actuation Hfa Aerosol Inhaler 1 puff INHALATION Q4H PRN (Reason: Nasal Congestion) Rx Instructions: may repeat once after 1 minute; do not exceed 8 inhalations per 24 hrs metoclopramide HCl [Reglan] 5 mg tablet 5 mg PO Q8H PRN (Reason: nausea and vomiting) Qty: 30 0RF <KIARA Menendez - Last Filed: 08/11/22 10:55> Referrals: Nicolette Israel FNP [Primary Care Provider] - <KIARA Menendez - Last Filed: 08/11/22 10:55> Interventions: ED Discharge Assessment Last Done: 08/11/22 12:39 <KIARA Menendez - Last Filed: 08/11/22 10:55> Discharge Date/Time: 08/11/22 12:40 <KIARA Menendez - Last Filed: 08/11/22 10:55> Print Language: Yoruba <KIARA Menendez - Last Filed: 08/11/22 10:55>
--- NOTE | 2022-08-11 11:06 | ECG_ITS ---
Test Reason : HYPERTENSION Blood Pressure : / mmHG Vent. Rate : 052 BPM Atrial Rate : 052 BPM P-R Int : 140 ms QRS Dur : 082 ms QT Int : 468 ms P-R-T Axes : 041 062 054 degrees QTc Int : 435 ms Sinus bradycardia T wave abnormality, consider anterior ischemia Abnormal ECG When compared with ECG of 19-OCT-2021 09:29, No significant change was found Referred By: Tea Francisco Electronically Signed By:Jose Alves
[2022-08-11 11:28] LABS: MANUAL DIFF FLAG NO
[2022-08-11 11:29] LABS: Basophils Percent Auto 0.2 % (0-2); Eosinophils Percent Auto 0.8 % (0-4); Hematocrit 41.4 % (37.0-47.0); Hemoglobin 14.1 g/dl (12.0-16.0); Imm Gran Abs Auto 0.01 X10*3/uL (0.00-0.03); Imm Gran Pct Auto 0.2 % (0.0-0.4); Lymphocytes Absolute Auto 1.8 X10*3/uL (1.2-4.9); Lymphocytes Percent Auto 36.4 % (20-40); Mean Corpuscular HGB Conc 34.1 g/dl (31.0-35.0); Mean Corpuscular Hemoglobin 31.9 pg (27.0-33.0); Mean Corpuscular Volume 93.7 fL (80.0-98.0); Mean Platelet Volume 9.4 fL (9.4-12.3); Monocytes Absolute Auto 0.3 X10*3/uL (0.1-1.2); Monocytes Percent Auto 5.4 % (2-11); Neutrophils Absolute Auto 2.9 x10*3/uL (2.0-8.3); Platelet Count 198 X10*3/uL (160-400); Red Blood Count 4.42 X10*6/uL (4.20-5.50); Red Cell Distribution Width 12.4 % (11.0-16.0)
[2022-08-11 11:42] VITALS: BP 139/85; PULSE 47; RESP 12; TEMP 36.9; O2SAT 98
[2022-08-11 11:47] LABS: Alanine Aminotransferase 6 U/L (0-31); Albumin Level 4.4 g/dL (3.5-5.0); Alkaline Phosphatase 92 U/L (39-117); Anion Gap 14 (12-20); Aspartate Amino Transferase 14 U/L (5-31); Blood Urea Nitrogen 9 mg/dL (9-16); Calcium 9.5 mg/dL (8.4-10.2); Carbon Dioxide 27 mmol/L (22-29); Chloride 106 mmol/L (96-108); Creatinine Clr Calc Pharmacy 69.1; Estimated Glomerular Filt Rate > 60; Glucose Random 137 mg/dL (60-115); Magnesium 1.9 mg/dL (1.6-2.6); Potassium 3.9 mmol/L (3.3-5.1); Sodium 143 mmol/L (135-145)
[2022-08-11 12:00] LABS: Troponin-I High Sensitivity < 2.7 ng/L (<3.5-17.0)
== END 2022-08-11 12:40 | disposition home or self-care (01) ==
PROVIDERS: Physician Assistant Medical; Emergency Provider Emergency Medicine; PCP Nurse Practitioner Family
DX: R51.9 Headache, unspecified (principal); I10 Essential (primary) hypertension; Z79.899 Other long term (current) drug therapy
CPT/HCPCS: 36415; 71046; 80053; 83735; 84484; 85025; 93005; 99283; 99284

== ENCOUNTER 2022-08-16 11:05 | Outpatient (REF) | payer OTHER, SELFPAY | END 2022-08-16 11:06 | disposition home or self-care (01) | LOC: HO.LNP 11:05 | PROVIDERS: PCP Nurse Practitioner Family; Visit Provider Obstetrics & Gynecology | DX: R87.619 Unspecified abnormal cytological findings in specimens from cervix uteri (principal) | CPT/HCPCS: 57454; 58100; 58110; 88305; 88342 ==

== ENCOUNTER 2022-08-24 09:24 | Outpatient (REF) | payer OTHER, SELFPAY ==
[2022-08-24 11:00] LABS: Alanine Aminotransferase 7 U/L (0-31); Albumin Level 4.3 g/dL (3.5-5.0); Alkaline Phosphatase 88 U/L (39-117); Anion Gap 12 (12-20); Aspartate Amino Transferase 16 U/L (5-31); Bilirubin Total 0.9 mg/dL (0.0-1.0); Blood Urea Nitrogen 14 mg/dL (9-16); Calcium 9.5 mg/dL (8.4-10.2); Carbon Dioxide 27 mmol/L (22-29); Chloride 110 mmol/L (96-108); Cholesterol 177 mg/dL; Estimated Glomerular Filt Rate > 60; Glucose Fasting 94 mg/dL (60-99); HDL Cholesterol 47 mg/dL; LDL Cholesterol Calculated 116 mg/dl; Potassium 3.9 mmol/L (3.3-5.1); Sodium 145 mmol/L (135-145); Total Protein 6.9 g/dL (6.5-8.0); Triglycerides 73 mg/dL
[2022-08-24 11:32] LABS: Folate 12.5 ng/mL (> or = 4.0); TSH reflex Free T4 1.18 uIU/mL (0.32-4.0); Vitamin B12 307 pg/mL (200-900); Vitamin D 25-OH Total 86.3 ng/mL (>30)
== END 2022-08-24 09:25 | disposition home or self-care (01) ==
LOC: HO.LAB 09:24
PROVIDERS: PCP Nurse Practitioner Family; Visit Provider Nurse Practitioner Family
DX: K21.9 Gastro-esophageal reflux disease without esophagitis (principal)
CPT/HCPCS: 36415; 80053; 80061; 82306; 82607; 82746; 84443

== ENCOUNTER → 2022-08-28 08:01 | Outpatient (REF) | payer OTHER, SELFPAY ==
--- NOTE | 2022-08-28 08:05 | CA_ITS ---
Acquisition Time: 2022-08-28 08:11:39 Total Exercise Time: 00:07:04 Test Indications: CP Medications: ALBUTEROL AMLODIPINE BREO ELLIPTA OMEPRAZOLE PRIMATINE MIST Protocol: MAGY Max HR: 133 BPM 79% of Pred: 167 BPM Max BP: 142/078 mmHG Max Work Load: 8.6 METS Exercise stress test with exercise 7 min 4 sec of Magy protocol, achieving 78% MPHR, without anginal symptoms or report of palpitations, with frequent isolated PVCs with ventricular bigeminy through most of test, with normotensive response to exercise, without EKG changes meeting criteria for ischemia, in recovery there are nonspecific ST findings. Test reviewed with Dr Alves. Message sent to PCP with findings and recommendations. Referred By: Nicolette Israel Overread By: JULIAN NASSAR
== END ==
LOC: HO.CARD 08:01
PROVIDERS: PCP Nurse Practitioner Family; Visit Provider Nurse Practitioner Family
DX: R00.2 Palpitations (principal)
CPT/HCPCS: 93017

== ENCOUNTER → 2022-08-29 14:35 | Outpatient (BNVA) | payer OTHER, SELFPAY | PROVIDERS: PCP Nurse Practitioner Family; Visit Provider Surgery | DX: K64.8 Other hemorrhoids (principal); F41.9 Anxiety disorder, unspecified; Z80.0 Family history of malignant neoplasm of digestive organs | CPT/HCPCS: 46600; 99202 ==

== ENCOUNTER → 2022-08-30 11:30 | Outpatient (BNVA) | payer OTHER, SELFPAY | PROVIDERS: PCP Nurse Practitioner Family; Referring Provider Nurse Practitioner Family; Visit Provider Physician Assistant | DX: R10.13 Epigastric pain (principal); K21.9 Gastro-esophageal reflux disease without esophagitis | CPT/HCPCS: 99202 ==

== ENCOUNTER 2022-08-31 07:40 | Outpatient (REF) | payer OTHER, SELFPAY ==
[2022-09-01 13:00] LABS: H Pylori Breath Test Positive (Negative)
== END 2022-08-31 07:41 | disposition home or self-care (01) ==
LOC: HO.LNP 07:40
PROVIDERS: PCP Nurse Practitioner Family; Referring Provider Nurse Practitioner Family; Visit Provider Physician Assistant
DX: Z11.0 Encounter for screening for intestinal infectious diseases (principal)
CPT/HCPCS: 83013; 99211

== ENCOUNTER → 2022-09-17 09:09 | Outpatient (BNVA) | payer OTHER, SELFPAY | PROVIDERS: PCP Nurse Practitioner Family; Visit Provider Obstetrics & Gynecology | DX: R87.619 Unspecified abnormal cytological findings in specimens from cervix uteri (principal) | CPT/HCPCS: 99212 ==

== ENCOUNTER 2022-11-16 09:27 | Outpatient (AMB) | payer OTHER, SELFPAY ==
[2022-11-16 09:31] VITALS: BP 140/90; PULSE 111; O2SAT 100; BMI 21.7
--- NOTE | 2022-11-16 09:31 | A.OFFPC_ITS ---
Vital Signs 11/16/22 09:31 11/16/22 10:00 Height 5 ft 1 in Weight 115 lb BMI 21.7 BP 140/90 H 136/84 Blood Pressure Location Lt brachial Lt brachial Position Sitting Sitting Pulse 111 H Pulse Source Pulse Oximeter Temp Source Skin Pulse Oximetry (%) 100 Oxygen Delivery Method Room Air Intake Visit Reasons: F/U HTN, insomnia Intake Note: Patient is here to follow up on HTN and insomnia Service Order Clerk Required: No Allergies No Known Allergies [No Known Allergies*] Allergy (Verified 11/16/22 09:41) Medication List - Last Reconciled 11/16/22 by ABHISHEK Hurt albuterol sulfate 90 mcg/actuation (Ventolin HFA) 1 puff PO Q4H PRN amlodipine 2.5 mg PO DAILY apple cider vinegar 300 mg PO DAILY ascorbic acid (vitamin C) (Vitamin C) 500 mg PO DAILY bisacodyl (Dulcolax (bisacodyl)) 10 mg (2 x 5 mg) PO ONCE 1 day bisacodyl (Dulcolax (bisacodyl)) 10 mg (2 x 5 mg) PO ONCE 1 day bismuth subsalicylate (Bismuth) 2 tabs PO QID 14 days epinephrine 0.125 mg/actuation (Primatene Mist) 1 puff inhalation Q4H PRN fluticasone furoate-vilanterol 100-25 mcg/dose (Breo Ellipta) 1 ea inhalation DAILY metoclopramide HCl 5 mg PO Q8H PRN mirtazapine (Remeron) 15 mg PO BEDTIME montelukast 10 mg PO BEDTIME omeprazole 20 mg PO BID ondansetron 4 mg PO Q8H PRN polyethylene glycol 3350 (Miralax) 238 grams PO ONCE 1 day polyethylene glycol 3350 (Miralax) 238 grams PO ONCE 1 day sucralfate 1 g PO QIDACHS PRN 21 days witch gem 50% (Hemorrhoidal (witch gem)) 1 pad topical BID-QID PRN Tobacco use date assessed: 11/16/22 Dental Screening Dental Screen Date: 11/16/22 Did you have a dental visit in the last 12 months?: Yes Did you have a dental problem in the last 6 months where you did not have access to dental care?: No HPI F/U HTN, insomnia HPI Details Patient is a 51-year-old female who presents today for a 3 month follow-up. Medical history significant for hypertension, anxiety, depression- followed by therapist-on Remeron-with some improvement, intermittent palpitations - has an upcoming appointment with [facility], GERD-was treated for H pylori recently-she has order for H pylori breath test-she did not hear about this-will request office to follow-up with GI, insomnia-on Remeron with some improvement in sleep-patient still reports hard time sleeping-reports fatigue when waking up-denies snoring-denies stopping breathing at night-will order home sleep study, asthma-stable. Patient reports that she is on a waiting list for Psychiatry. Patient reports that her amlodipine was discontinued (unknown by who) patient was not taking blood pressure medication. [facility] Medical History Anxiety Asthma Benign essential hypertension Encounter to establish care Family history of colon cancer History of asthma Hypoxia Prolapsed hemorrhoids Surgical History H/O tubal ligation History of History of removal of ovarian cyst Family History Mother AIDS Father No problems noted. 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 ) Questionnaire Thrive Questionnaire Date Thrive assessed: 05/17/22 AUDIT C Alcohol Use Questionnaire (AUDIT-C) 1. How often do you have a drink containing alcohol?: 2-4 times a month 2. How many drinks containing alcohol do you have on a typical day when you are drinking?: 3 or 4 3. How often do you have six or more drinks on one occasion?: Never Total Score: 3 Score Reviewed/Action Taken: Yes AMANDA-7 AMB Questionnaire AMANDA-7 Date AMANDA - 7 assessed: 05/17/22 Source: Developed by Drs. Jakob Savage, Azra Tellez, Nikolai German and colleagues, with an educational demetrius from [employer]. Review of Systems Const Denies body aches, Denies chills, Denies fever(s), Denies headache(s) and Reports weight loss Eyes Denies change in vision ENT Reports dizziness, Denies otalgia, Denies headache(s), Denies nasal discharge, Denies sinus pain and Denies sore throat Card Details: Intermittent palpitations and chest tightness Denies chest pain, Denies edema, Denies lightheadedness and Denies dyspnea Resp Denies cough and Denies dyspnea GI Reports as per HPI, Reports abdominal pain, Denies constipation, Denies diarrhea, Reports nausea and Denies vomiting Denies dysuria Musc Denies myalgias Skin/Breast Denies lesions and Denies rash Neuro Reports dizziness and Denies headache(s) Physical exam (Primary Care) Vital Signs: Last Vital Signs Pulse 111 H 11/16/22 09:31 BP 140/90 H 11/16/22 09:31 Pulse Ox 100 11/16/22 09:31 Oxygen Delivery Method Room Air 11/16/22 09:31 BMI result Body Mass Index 21.7 Tobacco/Smoking Status: Tobacco use Status Tobacco use date assessed 11/16/22 11/16/22 09:32 Patient Tobacco Use Status Former Tobacco user 11/16/22 09:32 Tobacco use type Cigarette 11/16/22 09:32 e-Cigarette/Vaping Use Former Use 11/16/22 09:32 Thrive Assessment: Date of Thrive Assessment Date Thrive assessed 05/17/22 11/16/22 09:32 Const General: cooperative and no acute distress Orientation/consciousness: patient oriented x3 HENMT Head: Yes normocephalic and Yes atraumatic Face and sinus: Yes sinuses nontender Mouth: oropharynx normal and moist mucous membranes Throat: Yes posterior oropharynx normal Eyes General: appearance normal, both eyes and all related structures Pupils: Equal, round and reactive pupils present EOM: EOMs intact bilaterally Neck Neck: Yes normal visual inspection, Yes full ROM and Yes no lymphadenopathy Thyroid: Thyroid normal Resp Effort & Inspection: normal respiratory effort and able to speak in complete sentences Auscultation: clear to auscultation bilaterally, no crackles, no rales, no rhonchi and no wheezes Cardio Rate: regular rate Rhythm: regular rhythm Heart sounds: S1 normal heart sound present, S2 normal heart sound present and no murmurs GI Palpation (GI): Soft to palpation, not firm, nontender, no guarding, not rigid and no hepatosplenomegaly Auscultation: normal bowel sounds Skin General skin exam: no rashes or lesions noted Neuro General: patient oriented x3 Cranial nerves: Yes Equal, round and reactive pupils present Gait exam (Neuro): Normal gait present Extrem General: Yes full ROM and No edema Assessment and Plan Assessment & Plan (1) Depression: Code(s): F32.A - Depression, unspecified Qualifiers: Depression Type: other depression Qualified Code(s): F32.89 - Other specified depressive episodes Plan: Continue to follow-up with therapist, on waiting list for Psychiatry Continue Remeron 15 mg at bedtime (2) GERD (gastroesophageal reflux disease): Code(s): K21.9 - Gastro-esophageal reflux disease without esophagitis Plan: Continue omeprazole to 20 mg b.i.d. Avoid GERD trigger foods Do not lay down 2-3 hours after evening meal Was recently treated by GI for H pylori, will follow-up with GI office in regards to H pylori breath test to check for resolution (3) Insomnia: Code(s): G47.00 - Insomnia, unspecified Plan: Continue to follow-up with therapist Continue Remeron 15 mg at bedtime Sleep hygiene Will order sleep study Will refer to Sleep Medicine (4) Benign essential hypertension: Code(s): I10 - Essential (primary) hypertension Plan: Goal BP equal or less than 140/90 Continue amlodipine 2.5 mg daily, Rx sent Low-sodium diet (5) Asthma: Code(s): J45.909 - Unspecified asthma, uncomplicated Plan: Stable Continue current inhalers Plan Follow-up in 3 months or sooner as needed Orders: Orders RT home sleep study Today G47.00 - Insomnia, unspecified, R53.83 - Other fatigue Referrals Sleep Medicine Referral G47.00 - Insomnia, unspecified Medications: Refilled amlodipine 2.5 mg PO DAILY 30 tabs 3RF I10 - Essential (primary) hypertension mirtazapine (Remeron) 15 mg PO BEDTIME 30 tabs 2RF F32.A - Depression, unspecif ied, F41.9 - Anxiety disorder, unspecified, G47.00 - Insomnia, unspecified Coding Level of Care Code Est Pt Level 4 (47375) Diagnoses Depression F32.89 Depression Type: other depression GERD (gastroesophageal reflux disease) K21.9 Insomnia G47.00 Benign essential hypertension I10 Asthma J45.909
[2022-11-16 10:00] VITALS: BP 136/84
== END 2022-11-16 10:05 | disposition home or self-care (01) ==
PROVIDERS: PCP Nurse Practitioner Family; Visit Provider Nurse Practitioner Family
DX: K21.9 Gastro-esophageal reflux disease without esophagitis (principal); I10 Essential (primary) hypertension; J45.909 Unspecified asthma, uncomplicated; F32.89 Other specified depressive episodes; G47.00 Insomnia, unspecified
CPT/HCPCS: 99214

== ENCOUNTER 2022-11-22 07:58 | Outpatient (AMB) | payer OTHER, SELFPAY ==
--- NOTE | 2022-11-22 08:37 | MHC.OFFVIS ---
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: No Accompanied by: Self / Same As Patient Allergies No Known Allergies [No Known Allergies*] Allergy (Verified 11/22/22 08:40) Medication List - Last Reconciled 11/22/22 by Trae Olivia MD albuterol sulfate 90 mcg/actuation (Ventolin HFA) 1 puff PO Q4H PRN amlodipine 2.5 mg PO DAILY bisacodyl (Dulcolax (bisacodyl)) 10 mg (2 x 5 mg) PO ONCE 1 day bismuth subsalicylate (Bismuth) 2 tabs PO QID mirtazapine (Remeron) 15 mg PO BEDTIME omeprazole 20 mg PO BID polyethylene glycol 3350 (Miralax) 238 grams PO ONCE 1 day HPI HPI Comments History of Present Illness Details Loretta is here for consultation regarding palpitations. She states that she frequently gets sensations of heart pounding. Can happen any time. With and without exertion. Sometimes, she can feel some chest tightness, very random. No known cardiac issues in the past. Smoker. [facility] Medical History Anxiety Asthma Benign essential hypertension Encounter to establish care Family history of colon cancer History of asthma Hypoxia Prolapsed hemorrhoids Surgical History H/O tubal ligation History of History of removal of ovarian cyst Family History Mother AIDS Father No problems noted. 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 ) Review of Systems Const Denies weakness Eyes Denies loss of vision ENT Denies dizziness Card Denies chest pain, Denies chest pain with activity, Denies syncope, Denies rapid heart rate, Denies pedal edema, Denies edema, Denies leg edema, Denies lightheadedness, Denies palpitations, Denies dyspnea, Denies dyspnea on exertion and Denies orthopnea Resp Denies cough, Denies dyspnea, Denies dyspnea on exertion and Denies wheezing GI Denies hematochezia and Denies change in stool character Denies hematuria, Denies urinary frequency and Denies dysuria Musc Denies abnormal gait, Denies muscle cramps, Denies muscle weakness, Denies numbness, Denies radiating pain into limb and Denies tingling Skin/Breast Denies nail changes and Denies rash Neuro Denies Abnormal speech present, Denies abnormal gait, Denies dizziness, Denies syncope, Denies loss of vision, Denies memory loss, Denies numbness, Denies tingling and Denies weakness Psych Denies depression and Denies memory loss Endo Denies palpitations Aller/Immun Denies wheezing Physical Exam Vital Signs: Last Vital Signs Pulse 49 L 11/22/22 08:38 BP 136/72 11/22/22 08:38 BMI result Body Mass Index 22.3 Const General: comfortable and no acute distress Orientation/consciousness: patient oriented x3 HEENT Other: Unremarkable Head: Yes normal to inspection Neck Neck: Yes normal visual inspection Chest Chest palpation & inspection: normal inspection of the chest Resp Auscultation: clear to auscultation bilaterally Cardio Palpation: normal PMI Heart sounds: S1 normal heart sound present, S2 normal heart sound present, no gallops, no murmurs and no rubs GI Palpation (GI): Soft to palpation Back/Spine/Pelvis Other: unremarkable Skin General skin exam: no rashes or lesions noted Neuro General: patient oriented x3 Speech: No Abnormal speech present Extrem General: Yes normal to inspection Psych Mental Status: mental status grossly normal Assessment & Plan Assessment & Plan (1) PVC (premature ventricular contraction): Code(s): I49.3 - Ventricular premature depolarization Plan In the baseline EKG, underlying rhythm is sinus at 52/Min; T inversions in anterior leads. Normal corrected QT. In the exercise stress test, she reached 8.6 Mets. 70% of max predicted heart rate; no angina; frequent PVCs/bigeminy. No EKG evidence of ischemia. She needs further workup. We will include perfusion imaging and repeat the stress test. Echocardiogram for cardiac function. 3 day Holter for PVC burden. Follow-up after testing. Orders: Orders CA stress test Today I49.3 - Ventricular premature depolarization, R07.2 - Precordial pain CA echo transthoracic complete Today I49.3 - Ventricular premature depolarization ECG 3 day holter monitor Today I49.3 - Ventricular premature depolarization, R00.2 - Palpitations NM cardiolite stress test Today I49.3 - Ventricular premature depolarization, R07.2 - Precordial pain Medications: Changed From bismuth subsalicylate (Bismuth) 2 tabs PO QID 14 days 112 tabs 0RF To bismuth subsalicylate (Bismuth) 2 tabs PO QID From mirtazapine (Remeron) 15 mg PO BEDTIME 30 tabs 2RF F32.A - Depression, unspecified, F41.9 - Anxiety disorder, unspecified, G47.00 - Insomnia, unspecified To mirtazapine (Remeron) 15 mg PO BEDTIME F32.A - Depression, unspecified, F41.9 - Anxiety disorder, unspecified, G47.00 - Insomnia, unspecified Coding Level of Care Code New Pt Level 4 (18586) Diagnoses PVC (premature ventricular contraction) I49.3
[2022-11-22 08:38] VITALS: BP 136/72; PULSE 49; BMI 22.3
== END 2022-11-22 09:01 | disposition home or self-care (01) ==
PROVIDERS: PCP Nurse Practitioner Family; Referring Provider Nurse Practitioner Family; Visit Provider Internal Medicine
DX: I49.3 Ventricular premature depolarization (principal)
CPT/HCPCS: 99204

== ENCOUNTER → 2022-11-22 07:58 | Outpatient (BNVA) | payer OTHER, SELFPAY | PROVIDERS: PCP Nurse Practitioner Family; Referring Provider Nurse Practitioner Family; Visit Provider Internal Medicine | DX: I49.3 Ventricular premature depolarization (principal); R00.2 Palpitations | CPT/HCPCS: 99202 ==

== ENCOUNTER 2022-11-26 08:08 | Outpatient (REF) | payer OTHER, SELFPAY ==
[2022-11-30 16:43] LABS: H Pylori Breath Test Negative (Negative)
== END 2022-11-26 08:09 | disposition home or self-care (01) ==
LOC: HO.LNP 08:08
PROVIDERS: PCP Nurse Practitioner Family; Visit Provider Physician Assistant
DX: Z11.2 Encounter for screening for other bacterial diseases (principal)
CPT/HCPCS: 83013; 99211

== ENCOUNTER → 2022-12-14 07:43 | Outpatient (REF) | payer OTHER, SELFPAY ==
--- NOTE | ~2022-12-14 | NM_ITS ---
EXERCISE MYOCARDIAL PERFUSION STUDY INDICATION: Premature ventricular contractions, assess for ischemia TECHNIQUE: The patient was brought in for an exercise perfusion study on 12/14/2022. Patient performed exercise as per Dane protocol and was injected 25 mCi of sestamibi once target heart rate was achieved. Images were obtained using the SPECT gamma camera interlaced with the gating device. Images were obtained in supine position. Resting perfusion study was performed on 12/18/2022. Patient was administered 25 mCi of sestamibi intravenously at rest. Images were then obtained in supine position. Images were processed with the software and compared side to side in short axis, horizontal long axis and vertical long axis views. Total DLP 74mGy-cm. FINDINGS: Raw images were reviewed. The stress perfusion study showed no clear perfusion abnormality. The basal part of inferior wall seems somewhat cut, which could be technical but otherwise no perfusion defects. Both uncorrected as well as CT at admission corrected images were reviewed. The gated study shows normal LV systolic function with calculated LVEF of 71%. LV cavity is normal in size. The gated study shows normal wall thickening and contraction of segments. Resting study shows no significant perfusion defects. The most basal part of inferior wall seems cut, that again could be technical. Gating at rest reveals normal wall motion with ejection fraction at 66%. The findings are consistent with no clear evidence of any ischemia or infarction. NM/NM cardiolite stress test IMPRESSION: 1. Myocardial perfusion imaging study shows likely normal myocardial perfusion. No evidence of any ischemia or infarction. 2. Gated LVEF is 71% during stress and 66% during rest. 3. Transient ischemic dilatation not present. EKG component of the test reported separately.
--- NOTE | 2022-12-14 07:45 | CA_ITS ---
Acquisition Time: 2022-12-14 07:52:01 Total Exercise Time: 00:09:42 Test Indications: Abnormal ECG CP Medications: ALBUTEROL AMLODIP[INE REMERON OMEPRAZOLE Protocol: MAGY Max HR: 146 BPM 87% of Pred: 167 BPM Max BP: 148/074 mmHG Max Work Load: 11.1 METS Exercise stress test exercise 9 min 42 sec of Magy protocol achieving 87% MPHR, without anginal symptoms, with isolated PACs PVCs and ventricular bigeminy throught 6 mins of exercise and atrial runs in recovery, EKG changes in leads 2, 3, aVF, V3-V6. Patient was asymptomatic during entire test other then : thumping when she had ventricular bigeminy. Nuclear images pending. Test reviewed with Dr. Alves. Referred By: Trae Olivia Overread By: Mimi Malloy
== END ==
LOC: HO.CARD 07:43
PROVIDERS: PCP Nurse Practitioner Family; Visit Provider Internal Medicine
DX: R07.2 Precordial pain (principal); I49.3 Ventricular premature depolarization
CPT/HCPCS: 78452; 93017; A9500

== ENCOUNTER → 2022-12-14 07:45 | Outpatient (BNV) | payer OTHER, SELFPAY | PROVIDERS: PCP Nurse Practitioner Family; Visit Provider Nurse Practitioner | DX: R07.2 Precordial pain (principal); R94.31 Abnormal electrocardiogram [ECG] [EKG] | CPT/HCPCS: 78452; 93016; 93018 ==

== ENCOUNTER → 2022-12-31 08:58 | Outpatient (REF) | payer OTHER, SELFPAY | LOC: HO.SL 08:58 | PROVIDERS: PCP Nurse Practitioner Family; Visit Provider Nurse Practitioner Family | DX: G47.00 Insomnia, unspecified (principal); R06.83 Snoring | CPT/HCPCS: 95806 ==

== ENCOUNTER → 2022-12-31 09:22 | Outpatient (BNV) | payer OTHER, SELFPAY | PROVIDERS: PCP Nurse Practitioner Family; Visit Provider Internal Medicine | DX: R06.83 Snoring (principal) | CPT/HCPCS: 95806 ==

== ENCOUNTER → 2023-01-28 07:41 | Outpatient (REF) | payer OTHER, SELFPAY ==
--- NOTE | 2023-01-28 07:45 | CA_ITS ---
Transthoracic Echocardiogram Patient (Last, First, Middle): Loretta Perez M Gender: Female Date of : 1970 Age: 52 Procedure Date: 01/28/2023 Procedure Type: Transthoracic Echocardiogram Location: OP Height: 157.48 cm Weight: 53.52 kg BSA: 1.53 m2 Heart Rate: 40 bpm BP: 134 / 72 mmHg Inspector Bullet Slugs: SB Referring MD: Trae Olivia MD Symptoms: I49.3 - Ventricular premature depolarization Study Quality: Adequate ECG Rhythm: Bradycardia Conclusions: - The left ventricular systolic function is normal. The calculated ejection fraction is 66% by biplane method. - No obvious valvular pathology seen on this study. Findings Left Ventricle Normal left ventricular cavity size. The left ventricular systolic function is normal. The calculated ejection fraction is 66% by biplane method. There is no evidence of regional wall motion abnormalities. Diastolic function is normal for age. Right Ventricle Normal right ventricular cavity size and systolic function. Atria Both atria are normal in size. Aortic Valve There is a normal trileaflet aortic valve. There is no aortic valve stenosis. There is no aortic valve regurgitation. Mitral Valve There is mild anterior and posterior mitral leaflet thickening. There is trace mitral valve regurgitation. There is no mitral valve stenosis. Pulmonic Valve There is trace pulmonic valve regurgitation. Tricuspid Valve Normal tricuspid valve structure. There is mild tricuspid valve regurgitation. There is no evidence of pulmonary hypertension. Great Vessels The asc aorta is normal in size. Venous The inferior vena cava is normal in size and collapses greater than 50% with inspiration. Pericardium/Pleural There is no evidence of pericardial effusion. Prior Study Comparison No prior study available for comparison. Recommendations, Care & Conclusions No obvious valvular pathology seen on this study. Measurements 2D Linear Measurements IVSd: 0.70 0.6-0.9/0.6-1.0 cm LVIDd: 5.20 3.9-5.3/4.2-5.9 cm LVIDd Index: 3.40 2.4-3.2/2.2-3.1 cm/m2 LVIDs: 3.40 2.0-3.6 cm LVPWd: 0.80 0.7-1.1 cm LA Diam: 3.70 2.7-3.8/3.0-4.0 cm LAIDs Index: 2.42 1.5-2.3 cm/m2 LV Mass: 166.56 67-162/88-224 g LV Mass Index: 108.86 43-95/49-115 g/m2 LVOT Diam: 2.00 3.0+(-)1.3 cm 2D Systolic Function EF 4C: 56.40 >55% EF 2C: 73.50 >55% EF BiP: 65.60 >55% Mitral Valve MV Pk E: 0.72 MV PK A: 0.26 MV Decel Time: 311.00 E/A: 2.70 E'Lateral: 9.14 E'Medial: 7.83 E/E' Med: 9.20 E/E' Lat: 7.90 PHT: 91.00 MVA PHT: 2.42 Decel Kleberg: 2.32 Aortic Valve AoV Pk Boy: 1.39 AoV Pk Grad: 8.00 NAYELI: 2.69 LVOT LVOT Pk Boy: 1.14 LVOT Mn Boy: 0.77 LVOT VTI: 0.30 LVOT Pk Grad: 5.00 LVOT Mn Grad: 3.00 LVOT Diam: 2.00 LVOT Area: 3.14 Diastolic Function MV Pk E: 0.72 MV Pk A: 0.26 E/A: 2.70 E'Medial: 7.83 E/E' Med: 9.20 E' Laterial: 9.14 E/E' Lat: 7.90 Right Ventricle TAPSE (mm): 21.70 TVS' Boy: 13.40 Tricuspid Valve TR Pk Boy: 2.27 TR Pk Grad: 21.00 RA Press: 3.00 RVSP: 24.00 Great Vessels Aorta Sinus of Valsalva: 3.10 2.0-3.5 cm Ao Asc: 3.60 2.1-3.4 cm Pulmonary Veins Pulm Vein S/D 0.90 Pulmonary Valve PV Pk Boy: 0.83 Peak PV Grad: 3.00 Updated in Other Vendor System with Status of Final Trae Olivia MD electronically signed on 01/29/2023 3:59:15 PM with status of Final
--- NOTE | 2023-01-28 07:45 | HM_ITS ---
* Total monitoring time 3 days. * Underlying rhythm is sinus. Average ventricular rate 54/Min. Range 34 to 116/Min. About 78% of the time, rate less than 60/Min. * Rare supraventricular ectopy. Very brief runs. * Rare ventricular ectopy. * No significant pauses or AV blocks. * No patient markers or events in diary. MTDD
== END ==
LOC: HO.CARD 07:41
PROVIDERS: PCP Nurse Practitioner Family; Visit Provider Internal Medicine
DX: I49.3 Ventricular premature depolarization (principal); R00.2 Palpitations
CPT/HCPCS: 93242; 93306

== ENCOUNTER → 2023-01-28 07:45 | Outpatient (BNV) | payer OTHER, SELFPAY | PROVIDERS: PCP Nurse Practitioner Family; Visit Provider Internal Medicine | DX: I49.3 Ventricular premature depolarization (principal) | CPT/HCPCS: 93244; 93306 ==

== ENCOUNTER 2023-03-05 09:28 | Outpatient (AMB) | payer OTHER, SELFPAY ==
--- NOTE | 2023-03-05 09:39 | A.OFFPC_ITS ---
Vital Signs 03/05/23 09:40 Height 5 ft 1 in Weight 121 lb 8 oz BMI 23.0 BP 100/68 Blood Pressure Location Lt brachial Position Sitting Pulse 52 Pulse Source Pulse Oximeter Pulse Oximetry (%) 96 Oxygen Delivery Method Room Air Intake Visit Reasons: F/u on HTN, insomnia Intake Note: Patient is here to follow up on HTN, Insomnia. An/Ssn 2 4 Operator Required: No Sharepoint Specialist: Not Required per policy Accompanied by: Self / Same As Patient Allergies No Known Allergies [No Known Allergies*] Allergy (Verified 03/05/23 09:50) Medication List - Last Reconciled 03/05/23 by ABHISHEK Hurt albuterol sulfate 90 mcg/actuation (Ventolin HFA) 1 puff PO Q4H PRN amlodipine 2.5 mg PO DAILY bisacodyl (Dulcolax (bisacodyl)) 10 mg (2 x 5 mg) PO ONCE 1 day escitalopram oxalate 5 mg PO DAILY mirtazapine (Remeron) 15 mg PO BEDTIME polyethylene glycol 3350 (Miralax) 238 grams PO ONCE 1 day Tobacco use date assessed: 03/05/23 Dental Screening Dental Screen Date: 03/05/23 Did you have a dental visit in the last 12 months?: No Did you have a dental problem in the last 6 months where you did not have access to dental care?: No Was dental information given to patient?: No HPI F/u on HTN, insomnia HPI Details Patient is a 55-year-old female who presents today to follow-up on hypertension and insomnia. Medical history significant for hypertension, anxiety depression, GERD, insomnia, nocturnal hypoxemia-has referral to see pulmonology, asthma. Patient reports compliance with medications and denies side effects. Seeing psychiatry and therapist for her mental health. No shortness of breath or chest pain. [facility] Medical History Asthma Anxiety Family history of colon cancer Prolapsed hemorrhoids Benign essential hypertension Encounter to establish care History of asthma Hypoxia Surgical History History of removal of ovarian cyst History of H/O tubal ligation Family History Mother AIDS Father No problems noted. 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 ) Questionnaire Thrive Questionnaire Date Thrive assessed: 05/17/22 AMANDA-7 AMB Questionnaire AMANDA-7 Date AMANDA - 7 assessed: 05/17/22 Source: Developed by Drs. Jakob Savage, Azra Tellez, Nikolai German and colleagues, with an educational demetrius from [employer]. Review of Systems Const Denies body aches, Denies chills, Denies fever(s) and Denies headache(s) ENT Denies otalgia, Denies headache(s), Denies nasal discharge, Denies sinus pain and Denies sore throat Card Denies chest pain, Denies edema, Denies lightheadedness and Denies dyspnea Resp Denies cough and Denies dyspnea GI Denies abdominal pain Musc Denies myalgias Skin/Breast Denies lesions and Denies rash Neuro Denies headache(s) Physical exam (Primary Care) Vital Signs: Last Vital Signs Pulse 52 03/05/23 09:40 BP 100/68 03/05/23 09:40 Pulse Ox 96 03/05/23 09:40 Oxygen Delivery Method Room Air 03/05/23 09:40 BMI result Body Mass Index 23.0 Tobacco/Smoking Status: Tobacco use Status Tobacco use date assessed 03/05/23 03/05/23 09:46 Patient Tobacco Use Status Current someday Tobacco 03/05/23 09:46 Tobacco use type Cigarette 03/05/23 09:46 e-Cigarette/Vaping Use Former Use 03/05/23 09:46 Thrive Assessment: Date of Thrive Assessment Date Thrive assessed 05/17/22 03/05/23 09:46 Const General: cooperative and no acute distress Orientation/consciousness: patient oriented x3 HENMT Head: Yes normocephalic and Yes atraumatic Throat: Yes posterior oropharynx normal Eyes General: appearance normal, both eyes and all related structures Neck Neck: Yes normal visual inspection and Yes full ROM Resp Effort & Inspection: normal respiratory effort and able to speak in complete sentences Auscultation: clear to auscultation bilaterally, no crackles, no rales, no rhonchi and no wheezes Cardio Rate: regular rate Rhythm: regular rhythm Heart sounds: S1 normal heart sound present and S2 normal heart sound present GI Auscultation: normal bowel sounds Neuro General: patient oriented x3 Gait exam (Neuro): Normal gait present Extrem General: Yes full ROM and No edema Assessment and Plan Assessment & Plan (1) Depression: Code(s): F32.A - Depression, unspecified Qualifiers: Depression Type: other depression Qualified Code(s): F32.89 - Other specified depressive episodes Plan: Continue to follow-up with therapist and Psychiatry Continue Remeron 15 mg at bedtime Was also started on escitalopram by Psychiatry (2) Insomnia: Code(s): G47.00 - Insomnia, unspecified Plan: Continue to follow-up with therapist and Psychiatry Continue Remeron 15 mg at bedtime Sleep hygiene (3) Benign essential hypertension: Code(s): I10 - Essential (primary) hypertension Plan: Goal BP equal or less than 140/90 Continue amlodipine 2.5 mg daily Low-sodium diet (4) Asthma: Code(s): J45.909 - Unspecified asthma, uncomplicated Plan: Stable Continue current inhaler Coding Level of Care Code Est Pt Level 4 (49969) Diagnoses Other depression F32.89 Depression Type: other depression Insomnia G47.00 Benign essential hypertension I10 Asthma J45.909
[2023-03-05 09:40] VITALS: BP 100/68; PULSE 52; O2SAT 96; BMI 23.0
== END 2023-03-05 10:45 | disposition home or self-care (01) ==
PROVIDERS: PCP Nurse Practitioner Family; Visit Provider Nurse Practitioner Family
DX: F32.89 Other specified depressive episodes (principal); G47.00 Insomnia, unspecified; I10 Essential (primary) hypertension; J45.909 Unspecified asthma, uncomplicated; F41.9 Anxiety disorder, unspecified
CPT/HCPCS: 99214

== ENCOUNTER 2023-04-03 09:04 | Emergency (ER) | payer OTHER, SELFPAY ==
[2023-04-03 09:21] VITALS: BP 152/85; PULSE 59; RESP 19; TEMP 37.8; O2SAT 97; BMI 22.7
[2023-04-03 10:33] LABS: MANUAL DIFF FLAG NO
[2023-04-03 10:35] LABS: Basophils Percent Auto 0.2 % (0-2); Hematocrit 41.5 % (37.0-47.0); Hemoglobin 14.1 g/dl (12.0-16.0); Imm Gran Abs Auto 0.01 X10*3/uL (0.00-0.03); Imm Gran Pct Auto 0.2 % (0.0-0.4); Lymphocytes Percent Auto 24.4 % (20-40); Mean Corpuscular Hemoglobin 32.1 pg (27.0-33.0); Mean Corpuscular Volume 94.5 fL (80.0-98.0); Mean Platelet Volume 9.5 fL (9.4-12.3); Monocytes Absolute Auto 0.3 X10*3/uL (0.1-1.2); Monocytes Percent Auto 7.3 % (2-11); Neutrophils Absolute Auto 2.9 x10*3/uL (2.0-8.3); Neutrophils Percent Auto 67.9 % (45-73); Red Blood Count 4.39 X10*6/uL (4.20-5.50); Red Cell Distribution Width 12.3 % (11.0-16.0); White Blood Count 4.2 X10*3/uL (4.8-10.8)
[2023-04-03 10:46] LABS: Appearance Urine Clear; Color Urine Dark Yellow; Glucose Urine UA Negative (Negative); Leukocyte Esterase Urine Negative (Negative); Nitrite Urine Negative (Negative); PH 5.5 (5.0-9.0); Specific Gravity - Urine >= 1.030 (1.005-1.025); UMIC TRIGGER UACC YES; Urine Blood Trace (Negative); Urine Ketones Trace mg/dL (Negative); Urine Protein 30 (1+) mg/dL (Neg-Trace)
[2023-04-03 10:47] LABS: Platelet Count 123 X10*3/uL (160-400)
[2023-04-03 10:50] LABS: Anion Gap 13 (12-20); Blood Urea Nitrogen 11 mg/dL (9-16); Calcium 9.3 mg/dL (8.4-10.2); Carbon Dioxide 27 mmol/L (22-29); Chloride 104 mmol/L (96-108); Creatinine Clr Calc Pharmacy 64.7; Estimated Glomerular Filt Rate > 60; Glucose Random 100 mg/dL (60-115); Potassium 3.7 mmol/L (3.3-5.1); Sodium 140 mmol/L (135-145)
[2023-04-03 10:51] LABS: Bacteria Urine None Seen (None Seen); WBC Urine 0-5 /HPF (0-5)
[2023-04-03 11:22] LABS: Influenza A PCR POSITIVE (Negative); Influenza B PCR NEGATIVE (Negative); Resp Syncy Virus RNA Qual PCR NEGATIVE (Negative); SARS COV2 PCR INHOUSE NEGATIVE (Negative)
--- NOTE | 2023-04-03 11:30 | ED.GENADULT ---
HPI - General Adult General Chief complaint: Upper Respiratory Symptoms Stated complaint: High Blood Pressure Not Feeling Well Time Seen by Provider: 04/03/23 11:29 Source: patient Mode of arrival: ambulatory Limitations: no limitations History of Present Illness HPI narrative: Patient is a 52 year old assigned female at with a history of HTN presenting to the emergency department today with a headache and a cough. Patient states that over the last day she has had a cough and a headache. Patient denies any dizziness, lightheadedness, abdominal pain, nausea, vomiting, fever, chills, blurry vision, double vision, loss of vision, chest pain, difficulty breathing, shortness of breath, back pain, night sweats, pain with urination, increased urinary frequency, increased urinary urgency, blood in her urine or stool, syncope or a near syncopal episode, recent trauma or falls, bowel incontinence, bladder incontinence, bowel retention, bladder retention, or any other complaints at this time. Onset (ago): day(s) (1) Severity: mild Severity scale (1-10): 4 Quality: dull Pain Consistency: constant Relieving factors: none Exacerbating factors: none Associated symptoms: denies other symptoms Treatments prior to arrival: none Related Data Home Medications Medication Instructions Recorded Confirmed mirtazapine 15 mg tablet (Remeron) 15 mg PO BEDTIME 11/22/22 03/05/23 escitalopram oxalate 5 mg tablet 5 mg PO DAILY 03/05/23 03/05/23 Previous Rx's Medication Instructions Recorded polyethylene glycol 3350 17 238 g PO ONCE 1 day #238 grams 08/28/21 gram/dose oral powder (Miralax) albuterol sulfate 90 mcg/actuation 1 puff PO Q4H PRN for dyspnea #18 08/20/22 aerosol inhaler (Ventolin HFA) ea bisacodyl 5 mg tablet,delayed 10 mg (2 x 5 mg) PO ONCE 1 day #2 10/18/22 release (Dulcolax (bisacodyl)) tabs amlodipine 2.5 mg tablet 2.5 mg PO DAILY #30 tabs 11/16/22 ondansetron 4 mg disintegrating 4 mg PO Q8H 3 days #9 tabs 04/03/23 tablet oseltamivir 75 mg capsule (Tamiflu) 75 mg PO DAILY 5 days #5 caps 12/20/23 Allergies Allergy/AdvReac Type Severity Reaction Status Date / Time No Known Allergies Allergy Verified 04/03/23 09:21 [No Known Allergies*] Review of Systems Constitutional: Constitutional: Reports no additional constitutional complaints, Denies chills, Denies fever(s), Reports headache(s) and Denies night sweats Eyes: Eyes: Reports no additional eye complaints, Denies blurry vision, Denies change in vision, Denies diplopia, Denies eye discharge, Denies loss of vision and Denies eye pain ENT: Denies dizziness and Reports headache(s) Cardiovascular: Cardiovascular: Reports no additional cardiovascular complaints, Denies chest pain, Denies lightheadedness, Denies Loss of Consciousness and Denies dyspnea Respiratory: Respiratory: Reports no additional respiratory complaints, Reports cough and Denies dyspnea Gastrointestinal: Gastrointestinal: Reports no additional gastrointestinal complaints, Denies abdominal pain, Denies melena, Denies hematochezia, Denies change in bowel habits and Denies change in stool character Genitourinary: Genitourinary: Denies hematuria, Denies urinary frequency, Denies dysuria, Denies urinary incontinence, Denies urinary hesitancy and Denies urinary urgency Musculoskeletal: Musculoskeletal: Reports no additional musculoskeletal complaints, Denies numbness and Denies tingling Neurologic: Denies dizziness, Reports headache(s), Denies loss of vision, Denies numbness and Denies tingling Psychiatric: Psychiatric: Reports no additional psychiatric complaints Endocrine: Endocrine: Reports no additional endocrine complaints Hematologic/Lymphatic: Hematologic/Lymphatic: Reports no additional hematologic/lymphatic complaints Allergic/Immunologic: Allergic/Immunologic: Reports no additional allergic/immunologic complaints PMFSH Past Medical History Attestation statement: The following information was validated with the patient. Source: old records reviewed and nursing notes reviewed Medical History Family history of colon cancer Adult general medical exam Palpitations Epigastric pain Nausea & vomiting Asthma exacerbation Cervical cancer screening Screening for colon cancer Screening for diabetes mellitus Screening for hyperlipidemia Screening for hypothyroidism Hospital discharge follow-up Asthma with acute exacerbation Asthma Anxiety Prolapsed hemorrhoids Benign essential hypertension Encounter to establish care History of asthma Hypoxia Surgical History History of removal of ovarian cyst History of H/O tubal ligation Family History Family History Mother AIDS Father No problems noted. 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 ) Physical Exam ED Vital Signs: Vital Signs - 24 hr 04/03/23 09:21 Temperature 100.0 F Pulse Rate 59 Respiratory Rate 19 Blood Pressure 152/85 H Pulse Oximetry 97 Oxygen Delivery Method Room Air BMI result Body Mass Index 22.7 Const General: cooperative, no acute distress, alert and awake Nutritional Appearance: well nourished Orientation/consciousness: patient oriented x3 Limitations: no limitations HENMT Head: Yes normal to inspection and Yes atraumatic Ears: hearing grossly normal bilaterally and external ears normal General nose exam: Normal external nose present, no nasal discharge noted and no epistaxis Face and sinus: Yes normal facial exam, No abrasion and No laceration Mouth: Normal oral and palatal mucosa present, no drooling and no muffled voice Eyes General: appearance normal, both eyes and all related structures Periorbital: periorbital findings normal Eyelids: Yes eyelids normal Conjunctivae: conjunctivae normal Pupils: Equal, round and reactive pupils present EOM: EOMs intact bilaterally Neck Neck: Yes normal visual inspection, Yes full ROM and Yes no lymphadenopathy Chest Chest palpation & inspection: normal inspection of the chest Resp Effort & Inspection: normal respiratory effort and able to speak in complete sentences GI Inspection: Yes normal to inspection Neuro General: patient oriented x3 and moves all extremities Cranial nerves: Yes Equal, round and reactive pupils present Cognition (Neuro): normal cognition Motor exam (neuro): 5/5 motor strength present throughout Sensory Exam: Normal double simultaneous stimulation for sensation Coordination: [id number] test normal Extrem General: Yes normal to inspection, Yes full ROM and Yes capillary refill normal Psych Appearance: grossly normal Mental Status: mental status grossly normal Affect: normal affect Attitude: cooperative Thought process: Normal thought process present Thought content: Normal thought content present Insight: Good insight present (Psych) Medical Decision Making Medical Decision Making [facility] Narrative: Patient is a 52 year old assigned female at presenting to the emergency department today with a headache and congestion. Patient's physical exam was unremarkable. Patient's labs were negative. Patient's COVID-19 and RSV tests were negative. Patient's influenza test was positive. I explained my physical exam findings as well as all test results to the patient. I answered all questions asked by the patient. I stressed the importance of the patient taking her medication as prescribed. I stressed the importance of the patient following up with her primary care provider. I stressed the importance of the patient returning to the emergency department immediately if her symptoms were to worsen or if she were to develop any dizziness, shortness of breath, difficulty breathing, chest pain, blurry vision, loss of vision, nausea, vomiting, abdominal pain, fever, chills, back pain, or any other complaints. Patient verbalized agreement and understanding with this treatment plan and discharge. Differential Diagnosis Differential Diagnoses: The differential diagnosis associated with the presentation includes COVID-19 Influenza RSV Admission/Observation Consideration of admission/observation: Escalation of care including admission/observation considered Patient would have been admitted to the hospital had her work up had any findings where hospital admission was appropriate and her clinical presentation warranted hospital admission. Lab Data [facility] Lab Attestation statement: I reviewed the patient's lab results. My interpretation of these results are in the [facility] Rationale portion of this note. 04/03/23 10:27 04/03/23 10:27 Labs: Lab Results 04/03/23 Range/Units 10:27 WBC 4.2 L (4.8-10.8) X10*3/uL RBC 4.39 (4.20-5.50) X10*6/uL Hgb 14.1 (12.0-16.0) g/dl Hct 41.5 (37.0-47.0) % MCV 94.5 (80.0-98.0) fL MCH 32.1 (27.0-33.0) pg MCHC 34.0 (31.0-35.0) g/dl RDW 12.3 (11.0-16.0) % Plt Count 123 L D (160-400) X10*3/uL MPV 9.5 (9.4-12.3) fL Immature Gran % (Auto) 0.2 (0.0-0.4) % Neut % (Auto) 67.9 (45-73) % Lymph % (Auto) 24.4 (20-40) % Sharkey % (Auto) 7.3 (2-11) % Eos % (Auto) 0.0 (0-4) % Baso % (Auto) 0.2 (0-2) % Lymph # (Auto) 1.0 L (1.2-4.9) X10*3/uL Sharkey # (Auto) 0.3 (0.1-1.2) X10*3/uL Eos # (Auto) 0.0 (0.0-0.4) X10*3/uL Baso # (Auto) 0.0 (0.0-0.2) X10*3/uL Abs Immat Gran (auto) 0.01 (0.00-0.03) X10*3/uL Absolute Neuts (auto) 2.9 (2.0-8.3) x10*3/uL Absolute Nucleated RBC 0.000 (0.0-0.012) X10*3/uL Nucleated RBC % (auto) 0.0 (0.0-0.2) /100WBC Sodium 140 (135-145) mmol/L Potassium 3.7 (3.3-5.1) mmol/L Chloride 104 (96-108) mmol/L Carbon Dioxide 27 (22-29) mmol/L Anion Gap 13 (12-20) BUN 11 (9-16) mg/dL Creatinine 0.75 (0.5-1.4) mg/dL Estim Creat Clear Calc 64.7 Estimated GFR > 60 Random Glucose 100 (60-115) mg/dL Calcium 9.3 (8.4-10.2) mg/dL Urine Color Dark Yellow Urine Appearance Clear Urine pH 5.5 (5.0-9.0) Ur Specific [place] >= 1.030 H (1.005-1.025) Urine Protein 30 (1+) H (Neg-Trace) mg/dL Urine Glucose (UA) Negative (Negative) mg/dL Urine Ketones Trace (Negative) mg/dL Urine Blood Trace H (Negative) Urine Nitrite Negative (Negative) Ur Leukocyte Esterase Negative (Negative) Urine RBC 6-10 H (0-2) /HPF Urine WBC 0-5 (0-5) /HPF Ur Squamous Epith Cells 6-10 (0-2) /HPF Urine Bacteria None Seen (None Seen) Hyaline Casts 3-5 (0-2) /LPF Urine Test NEGATIVE (NEGATIVE) Influenza Type A (PCR) POSITIVE A (Negative) Influenza Type B (PCR) NEGATIVE (Negative) RSV RNA Qual (PCR) NEGATIVE (Negative) SARS-CoV-2 RNA (RT-PCR) NEGATIVE (Negative) Prescription Management I considered prescription management with: Antiviral (patient prescribed tamiflu) Discharge Plan Discharge Clinical Impression: Influenza Patient Disposition: Home, Self-Care Instructions: Influenza (DC) Additional Instructions: Follow up with your primary care provider. Return to the emergency department immediately if your symptoms worsen or if you develop any dizziness, shortness of breath, difficulty breathing, chest pain, blurry vision, loss of vision, nausea, vomiting, abdominal pain, fever, chills, back pain, or any other complaints. Prescriptions: New oseltamivir [Tamiflu] 75 mg capsule 75 mg PO DAILY 5 Days Qty: 5 0RF ondansetron 4 mg tablet,disintegrating 4 mg PO Q8H 3 Days Qty: 9 0RF No Action polyethylene glycol 3350 [Miralax] 17 gram/dose powder 238 g PO ONCE 1 Days Qty: 238 0RF Rx Instructions: take orally as directed prior to colonoscopy albuterol sulfate [Ventolin HFA] 90 mcg/actuation HFA aerosol inhaler 1 puff PO Q4H PRN (Reason: for dyspnea) Qty: 18 2RF bisacodyl [Dulcolax (bisacodyl)] 5 mg tablet,delayed release (DR/EC) 10 mg PO ONCE 1 Days Qty: 2 0RF Rx Instructions: take at noon the day before colonoscopy amlodipine 2.5 mg tablet 2.5 mg PO DAILY Qty: 30 3RF escitalopram oxalate 5 mg tablet 5 mg PO DAILY mirtazapine [Remeron] 15 mg tablet 15 mg PO BEDTIME Referrals: Nicolette Israel FNP [Primary Care Provider] - Stand Alone Forms: Work/School Release Interventions: ED Discharge Assessment Last Done: 04/03/23 11:46 Discharge Date/Time: 04/03/23 11:46 Print Language: Malian
[2023-04-03 11:55] LABS: UPreg QC Valid YES; Urine Pregnancy NEGATIVE (NEGATIVE)
== END 2023-04-03 11:46 | disposition home or self-care (01) ==
PROVIDERS: Emergency Provider Emergency Medicine Emergency Medical Services; PCP Nurse Practitioner Family
DX: J10.1 Influenza due to other identified influenza virus with other respiratory manifestations (principal); R51.9 Headache, unspecified; R05.9 Cough, unspecified; F17.210 Nicotine dependence, cigarettes, uncomplicated; Z20.822 Contact with and (suspected) exposure to COVID-19; Z20.828 Contact with and (suspected) exposure to other viral communicable diseases; Z71.6 Tobacco abuse counseling; Z79.899 Other long term (current) drug therapy
CPT/HCPCS: 0241U; 80048; 81001; 81025; 85025; 99282; 99283

== ENCOUNTER → 2023-05-01 13:49 | Outpatient (BNVA) | payer OTHER, SELFPAY | PROVIDERS: PCP Nurse Practitioner Family; Visit Provider Nurse Practitioner ==

== ENCOUNTER 2023-05-06 13:53 | Outpatient (AMB) | payer OTHER, SELFPAY ==
[2023-05-06 14:24] VITALS: BP 132/80; PULSE 45; BMI 23.4
--- NOTE | 2023-05-06 14:24 | MHC.OFFVIS ---
Intake Vital Signs 05/06/23 14:24 Height 5 ft 1 in Weight 123 lb 14.397 oz BMI 23.4 BP 132/80 Blood Pressure Location Lt brachial Position Sitting Pulse 45 L Pulse Source Monitor Intake Visit Reasons: Preop colonoscopy Hand Bander Required: No Allergies No Known Allergies [No Known Allergies*] Allergy (Verified 05/06/23 14:27) Medication List - Last Reconciled 05/06/23 by Bernice Giang FILTER CLOTH MAKER-C albuterol sulfate 90 mcg/actuation (Ventolin HFA) 1 puff PO Q4H PRN bisacodyl (Dulcolax (bisacodyl)) 10 mg (2 x 5 mg) PO ONCE 1 day clonazepam 0.5 mg PO DAILY escitalopram oxalate 5 mg PO DAILY mirtazapine (Remeron) 15 mg PO BEDTIME polyethylene glycol 3350 (Miralax) 238 grams PO ONCE 1 day HPI Preop colonoscopy HPI Details Loretta is a 52-year-old female with past medical history of hypertension, heart palpitations, PVCs, abnormal EKG who had cardiac testing last fall and now presents for office follow-up. Today she reports that she has been feeling well. She will feel heart palpitations after doing physical activity then sitting and resting. She does not notice any heart palpitations during physical activity. She walks 1.5 miles twice a day, 5 days a week. She walks to work in all weather. No reports of chest discomfort at rest or with activity. No shortness of breath, PND, orthopnea or edema. No lightheadedness, presyncope, syncope, falls. She tells me she drinks 5 cups of coffee a day. She has high energy and good activity tolerance [facility] Medical History (Updated 05/06/23 @ 15:48 by Bernice Giang, FILTER CLOTH MAKER-C) Palpitations Family history of colon cancer Adult general medical exam Epigastric pain Nausea & vomiting Asthma exacerbation Cervical cancer screening Screening for colon cancer Screening for diabetes mellitus Screening for hyperlipidemia Screening for hypothyroidism Hospital discharge follow-up Asthma with acute exacerbation Asthma Anxiety Prolapsed hemorrhoids Benign essential hypertension Encounter to establish care History of asthma Hypoxia Surgical History History of removal of ovarian cyst History of H/O tubal ligation Family History Mother AIDS Father No problems noted. 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 ) Review of Systems Const All systems reviewed & are unremarkable except as noted in HPI and below ENT Denies dizziness Card Details: heart palpitations Denies chest pain, Denies chest pain at rest, Denies chest pain with activity, Denies rapid heart rate, Denies pedal edema, Denies edema, Denies leg edema, Denies lightheadedness, Denies palpitations, Denies dyspnea, Denies dyspnea on exertion and Denies orthopnea Resp Denies cough, Denies dyspnea and Denies dyspnea on exertion GI Denies hematochezia and Denies change in stool character Musc Denies abnormal gait, Denies limited range of motion, Denies muscle cramps, Denies muscle weakness, Denies numbness, Denies radiating pain into limb, Denies stiffness and Denies tingling Neuro Denies abnormal gait, Denies dizziness, Denies numbness and Denies tingling Endo Denies palpitations Physical Exam Vital Signs: Last Vital Signs Pulse 45 L 05/06/23 14:24 BP 132/80 05/06/23 14:24 BMI result Body Mass Index 23.4 Const General: cooperative, healthy appearing, comfortable and no acute distress Orientation/consciousness: patient oriented x3 Neck Neck: Yes normal visual inspection and Yes no JVD Resp Effort & Inspection: normal respiratory effort Auscultation: clear to auscultation bilaterally, no crackles, no rales, no rhonchi and no wheezes Cardio Jugular venous distension: no JVD Rate: regular rate Rhythm: regular rhythm Heart sounds: S1 normal heart sound present, S2 normal heart sound present, no murmurs and no rubs Neuro General: patient oriented x3 Extrem General: Yes normal to inspection, No no pedal edema and No calf tenderness Psych Appearance: grossly normal Mental Status: mental status grossly normal Speech and movement: Normal speech and movement present Office Procedures EKG Details: EKG done today, read by me, sinus bradycardia, left atrial enlargement, T-wave inversion anteriorly unchanged from prior EKG, rate 45, QTC 404 millisecond [id number], Complete Assessment & Plan Assessment & Plan (1) Abnormal EKG: Code(s): R94.31 - Abnormal electrocardiogram [ECG] [EKG] Plan: Prior EKG shows sinus rhythm with T wave inversions V1 through V4. No reports of anginal sounding symptoms. Cardiac risk factors of hypertension. Exercise stress test done 08/28/2022 showing frequent PVCs and ventricular bigeminy, no ischemic changes, suboptimal heart rate. She underwent an exercise nuclear stress test on 12/14/2022 with good exercise tolerance, frequent ventricular bigeminy, with EKG changes meeting criteria for ischemia, with normal myocardial perfusion imaging. Echocardiogram done 01/28/2023 showing EF 66%, no valve abnormalities and no regional wall motion abnormalities. She has no reports of anginal sounding symptoms. She does report intermittent heart palpitations, mostly occurring after activity when she sits and rests. Plan to further review with her primary rivet tapping machine operator Dr. Olivia. (2) PVC (premature ventricular contraction): Code(s): I49.3 - Ventricular premature depolarization Plan: Ventricular bigeminy noted during exercise for both stress tests as above. Holter monitor done 02/28/2023 for 3 days shows sinus rhythm with average heart rate 54, heart rate range 34 to 116, 78% of time heart rate less than 60, rare ectopy. She does feel palpitations at times. No presyncope, syncope, falls. EF is normal which is reassuring. Will keep off of rate slowing medications at this time. (3) Palpitations: Code(s): R00.2 - Palpitations Plan: As above (4) Benign essential hypertension: Code(s): I10 - Essential (primary) hypertension Plan: Normal range at this time. No medication changes made. She is not on any antihypertensives at present. (5) Bradycardia: Code(s): R00.1 - Bradycardia, unspecified Plan: Frequent sinus bradycardia noted on Holter monitor. Patient does frequent walking as listed in HPI. She does not have a car and she walks to work Saturday through Saturday. This can improve her cardiac Leila and reduce her resting heart rate. (6) Pre-operative cardiovascular examination: Code(s): Z01.810 - Encounter for preprocedural cardiovascular examination Plan: Preop for colonoscopy, scheduled in June 2023. Cardiac testing as above. Plan to discuss case with Dr. Olivia to see if further testing is needed then clearance will be finalized. Plan Time spent on chart review, documentation, interview and assessment Coding Level of Care Code Est Pt Level 4 (92878) Diagnoses Abnormal EKG R94.31 PVC (premature ventricular contraction) I49.3 Palpitations R00.2 Benign essential hypertension I10 Bradycardia R00.1 Pre-operative cardiovascular examination Z01.810 CPT Codes EKG - CPT: [id number], Complete ([id number]) Time Spent (min) 28
== END 2023-05-06 15:04 | disposition home or self-care (01) ==
PROVIDERS: PCP Nurse Practitioner Family; Visit Provider Nurse Practitioner Family
DX: R94.31 Abnormal electrocardiogram [ECG] [EKG] (principal); I49.3 Ventricular premature depolarization; R00.2 Palpitations; I10 Essential (primary) hypertension; R00.1 Bradycardia, unspecified; Z01.810 Encounter for preprocedural cardiovascular examination
CPT/HCPCS: 93010; 99214

== ENCOUNTER → 2023-05-06 13:53 | Outpatient (BNVA) | payer OTHER, SELFPAY | PROVIDERS: PCP Nurse Practitioner Family; Visit Provider Nurse Practitioner Family | DX: Z01.810 Encounter for preprocedural cardiovascular examination (principal); R94.31 Abnormal electrocardiogram [ECG] [EKG]; I49.3 Ventricular premature depolarization; I10 Essential (primary) hypertension; R00.2 Palpitations; R00.1 Bradycardia, unspecified | CPT/HCPCS: 93005; 99212 ==

== ENCOUNTER 2023-05-30 13:48 | Outpatient (AMB) | payer OTHER, SELFPAY ==
--- NOTE | 2023-05-30 14:01 | A.OFFPC_ITS ---
Vital Signs 05/30/23 14:03 Height 5 ft 1 in Weight 125 lb 4 oz BMI 23.7 BP 124/80 Blood Pressure Location Lt brachial Position Sitting Pulse 50 Pulse Source Pulse Oximeter Pulse Oximetry (%) 99 Oxygen Delivery Method Room Air Intake Visit Reasons: follow up Intake Note: Patient is here to follow up on Asthma, GERD, HTN. Requesting for referral to GI for colonoscopy Home Health Aide Caregiver Required: No Network Solutions Architect: Not Required per policy Accompanied by: Self / Same As Patient Allergies No Known Allergies [No Known Allergies*] Allergy (Verified 05/30/23 14:32) Medication List - Last Reconciled 05/30/23 by Lisandro Gilbert MD albuterol sulfate 90 mcg/actuation (Ventolin HFA) 1 puff PO Q4H PRN bisacodyl (Dulcolax (bisacodyl)) 10 mg (2 x 5 mg) PO ONCE 1 day clonazepam 0.5 mg PO DAILY escitalopram oxalate 5 mg PO DAILY mirtazapine (Remeron) 15 mg PO BEDTIME polyethylene glycol 3350 (Miralax) 238 grams PO ONCE 1 day Tobacco use date assessed: 05/30/23 Dental Screening Dental Screen Date: 05/30/23 Did you have a dental visit in the last 12 months?: No Did you have a dental problem in the last 6 months where you did not have access to dental care?: No Was dental information given to patient?: No HPI follow up HPI Details 52-year-old female presents to the [facility] to discuss her medical issues. I am assuming her care today as her previous provider has left the practice. Patient has ongoing gastric issues including nausea, incontinence and was seen by the fha underwriter. A colonoscopy was scheduled. However due to cardiac issues the colonoscopy was not done. Patient subsequently saw a validation intern and has been cleared for the procedure. Patient is now frustrated that she has not heard from the fha underwriter again. She would like a refill on her albuterol medication. [facility] Medical History Palpitations Family history of colon cancer Adult general medical exam Epigastric pain Nausea & vomiting Asthma exacerbation Cervical cancer screening Screening for colon cancer Screening for diabetes mellitus Screening for hyperlipidemia Screening for hypothyroidism Hospital discharge follow-up Asthma with acute exacerbation Asthma Anxiety Prolapsed hemorrhoids Benign essential hypertension Encounter to establish care History of asthma Hypoxia Surgical History History of removal of ovarian cyst History of H/O tubal ligation Family History Mother AIDS Father No problems noted. 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 ) Questionnaire PHQ-9 Over the last 2 weeks, how often have you been bothered by any of the following problems? 1. Little interest or pleasure in doing things: not at all 2. Feeling down, depressed, or hopeless: more than half the days (on medication) 3. Trouble falling or staying asleep, or sleeping too much: not at all 4. Feeling tired or having little energy: not at all 5. Poor appetite or overeating: not at all 6. Feeling bad about yourself - or that you are a failure or have let yourself or your family down: not at all 7. Trouble concentrating on things, such as reading the newspaper or watching television: not at all 8. Moving or speaking so slowly that other people could have noticed. Or the opposite - being so fidgety or restless that you have been moving around a lot more than usual: not at all 9. Thoughts that you would be better off or of hurting yourself in some way: not at all Total score: 2 Depression Screening Interpretation: Negative Depression Screening Done: Yes Source: Developed by Drs. Jakob Savage, Azra Tellez, Nikolai German and colleagues, with an educational demetrius from [employer]. Thrive Questionnaire Date Thrive assessed: 05/30/23 I am a: Patient What is your living situation today?: I have a steady place to live Within the past 12 months, did the food you bought not last and you didn't have the money to get more?: Never true Within the past 12 months, did you worry whether your food would run out before you got money to buy more?: Never true Do you have trouble paying for medicines?: No Do you have trouble getting transportation to medical appointments?: No Do you have trouble paying your heating and electricity bill?: No Do you have trouble taking care of your child, family member or friend?: No Do you have trouble with day-to-day activities such as bathing, preparing meals, shopping, managing finances, etc.?: No Are you currently unemployed and looking for a job?: No Are you interested in more education?: No Currently or been in a relationship where the following occur: no concerns reported THRIVE Score: 0 AUDIT C Alcohol Use Questionnaire (AUDIT-C) 1. How often do you have a drink containing alcohol?: 2-4 times a month 2. How many drinks containing alcohol do you have on a typical day when you are drinking?: 1 or 2 Total Score: 2 AMANDA-7 AMB Questionnaire AMANDA-7 Date AMANDA - 7 assessed: 05/30/23 Feeling nervous, anxious, or on edge: 2 = More than half the days (currently on medication) Not being able to stop or control worryin = Not at all Worrying too much about different things: 0 = Not at all Trouble relaxin = Not at all Being so restless that it is hard to sit still: 0 = Not at all Becoming easily annoyed or irritable: 0 = Not at all Feeling afraid as if something awful might happen: 0 = Not at all Total AMANDA-7 score (0-4 normal; 5-9 mild; 10-14 moderate; 15-21 severe): 2 Source: Developed by Drs. Jakob Savage, Azra Tellez, Nikolai German and colleagues, with an educational demetrius from [employer]. Physical exam (Primary Care) Vital Signs: Last Vital Signs Pulse 50 05/30/23 14:03 BP 124/80 05/30/23 14:03 Pulse Ox 99 05/30/23 14:03 Oxygen Delivery Method Room Air 05/30/23 14:03 BMI result Body Mass Index 23.7 Tobacco/Smoking Status: Tobacco use Status Tobacco use date assessed 05/30/23 05/30/23 14:05 Patient Tobacco Use Status Former Tobacco user 05/30/23 14:12 Tobacco use type Cigarette 05/30/23 14:09 e-Cigarette/Vaping Use Former Use 05/30/23 14:09 PHQ-9: PHQ-9 Score PHQ-9: Total score 2 05/30/23 14:12 Depression Screening Interpretation: Negative Thrive Assessment: Date of Thrive Assessment Date Thrive assessed 05/30/23 05/30/23 14:05 Currently or been in a relationship where the following occur: no concerns reported Const General: cooperative and healthy appearing Nutritional Appearance: well nourished Orientation/consciousness: patient oriented x3 Limitations: no limitations HENMT Head: Yes normal to inspection Eyes General: appearance normal, both eyes and all related structures Neck Neck: Yes normal visual inspection Chest Chest palpation & inspection: normal palpation of entire chest wall Resp Effort & Inspection: normal respiratory effort Neuro General: patient oriented x3 Assessment and Plan Assessment & Plan (1) GERD (gastroesophageal reflux disease): Code(s): K21.9 - Gastro-esophageal reflux disease without esophagitis Plan: Patient was reassured that we will call Gastroenterology office to determine when her procedure is. Ventolin has been called in. Medications: Refilled albuterol sulfate 90 mcg/actuation (Ventolin HFA) 1 puff PO Q4H PRN 18 ea 2RF for dyspnea J45.909 - Unspecified asthma, uncomplicated Coding Level of Care Code Est Pt Level 3 (18392) Diagnoses GERD (gastroesophageal reflux disease) K21.9
[2023-05-30 14:03] VITALS: BP 124/80; PULSE 50; O2SAT 99; BMI 23.7
== END 2023-05-30 14:51 | disposition home or self-care (01) ==
PROVIDERS: PCP Nurse Practitioner Family; Visit Provider Internal Medicine
DX: K21.9 Gastro-esophageal reflux disease without esophagitis (principal)
CPT/HCPCS: 99213

== ENCOUNTER 2023-07-31 07:03 | Outpatient (AMB) | payer OTHER, SELFPAY ==
--- NOTE | 2023-07-31 07:27 | A.OFFVIS_ITS ---
Intake Vital Signs 07/31/23 07:36 Height 5 ft 1 in Weight 132 lb BMI 24.9 BP 139/84 Blood Pressure Location Lt brachial Position Sitting Pulse 57 Intake Visit Reasons: pre colonoscopy screening Intake Note: Patient follow up for pre colonoscopy screening. Patient cc: Nauseas, abdominal bloating with burning sensation, and between diarrhea and constipation. Dental Hygiene Administrative Assistant Required: No Accompanied by: Self / Same As Patient Allergies No Known Allergies [No Known Allergies*] Allergy (Verified 07/31/23 07:20) Medication List - Last Reconciled 07/31/23 by Keyonna Guzman PA-C albuterol sulfate 90 mcg/actuation (Ventolin HFA) 1 puff PO Q4H PRN bisacodyl (Dulcolax (bisacodyl)) 10 mg (2 x 5 mg) PO ONCE 1 day clonazepam 0.5 mg PO DAILY mirtazapine (Remeron) 15 mg PO BEDTIME polyethylene glycol 3350 (Miralax) 238 grams PO ONCE 1 day HPI HPI Comments History of Present Illness Details A 52 y/o female - seen back in 08/2022- for ? hP- we tested- tx'd f/u neg HP- She was to be scheduled for an EGD and colonoscopy- she says she was cleared by cardiology- She has a lot of anxiety-she has a sister who had colon cancer about 5 years ago however is doing well now. She is very frustrated- with having nausea-intermittent- bowels are okay aubrey etimes alternating Appetite is fairly good otherwise she does not have any acid reflux or abdominal pain No abdominal pain, vomiting, hematemesis, hematochezia fever or chills [facility] Medical History (Updated 07/31/23 @ 08:37 by Keyonna Guzman PA-C) Family history of colon cancer Palpitations Adult general medical exam Epigastric pain Nausea & vomiting Asthma exacerbation Cervical cancer screening Screening for colon cancer Screening for diabetes mellitus Screening for hyperlipidemia Screening for hypothyroidism Hospital discharge follow-up Asthma with acute exacerbation Asthma Anxiety Prolapsed hemorrhoids Benign essential hypertension Encounter to establish care History of asthma Hypoxia Surgical History History of removal of ovarian cyst History of H/O tubal ligation Family History Mother AIDS Father No problems noted. 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 ) Review of Systems Const All systems reviewed & are unremarkable except as noted in HPI and below Card Denies chest pain, Denies syncope, Denies dyspnea and Denies dyspnea on exertion Resp Denies dyspnea and Denies dyspnea on exertion GI Denies abdominal pain, Denies dyspepsia, Denies heartburn, Reports loose stools and Denies nausea Neuro Denies syncope Psych Reports anxiety Physical Exam Vital Signs: Last Vital Signs Pulse 57 07/31/23 07:36 BP 139/84 07/31/23 07:36 BMI result Body Mass Index 24.9 Const General: cooperative, healthy appearing, comfortable and no acute distress Orientation/consciousness: patient oriented x3 Limitations: no limitations Eyes Sclerae: sclerae normal Resp Effort & Inspection: normal respiratory effort and able to speak in complete sentences Auscultation: clear to auscultation bilaterally Cardio Rate: regular rate Rhythm: regular rhythm Heart sounds: S1 normal heart sound present and S2 normal heart sound present GI Palpation (GI): Soft to palpation and nontender Auscultation: normal bowel sounds Rectal Exam - Female: deferred Neuro General: patient oriented x3 Extrem General: Yes full ROM Psych Appearance: grossly normal and well kempt Mental Status: mental status grossly normal Speech and movement: Normal speech and movement present and Clear speech present Affect: Anxious affect present Attitude: cooperative Thought process: Normal thought process present Thought content: Normal thought content present Insight: Good insight present (Psych) Judgement: Good judgement present (Psych) Results Reviewed Results Reviewed: Reviewed cardiology, workload-05/30/23 Assessment & Plan Assessment & Plan (1) Family history of colon cancer: Comment: sister 40s Code(s): Z80.0 - Family history of malignant neoplasm of digestive organs Plan: Resubmitted order for colonoscopy Reviewed chart cardio clearance-documented (2) External hemorrhoid: Comment: Discussed surgical consult declines at this time-prefers to await colonoscopy Code(s): K64.4 - Residual hemorrhoidal skin tags Plan: Maintain high-fiber diet Avoid straining Rectal cream (3) Nausea: Comment: Associates with anxiety Monitor diet Ondansetron as needed EGD r/o pud, nonulcer dyspepsia, other endoscopic findings to account for her symptoms Code(s): R11.0 - Nausea Plan: Zofran p.r.n. Plan EGD? colon- Santiago CARRANZA Alreadfy cleared by cardiology= may see notes-05/30/23 Orders: Orders EGD/Dwale Combo - GI Use Only Today K21.9 - Gastro-esophageal reflux disease without esophagitis, Z80.0 - Family history of malignant neoplasm of digestive organs Medications: New ondansetron prn - nausea- 4 mg PO ONCE PRN 30 tabs 0RF nausea and vomiting hydrocortisone 2.5% (Proctosol HC) 1 appl [place] BEDTIME PRN 30 grams 3RF hemorrhoids Refilled polyethylene glycol 3350 (Miralax) take orally as directed prior to colonoscopy 238 grams PO ONCE 1 day 238 grams 0RF bisacodyl (Dulcolax (bisacodyl)) take at noon the day before colonoscopy 10 mg (2 x 5 mg) PO ONCE 1 day 2 tabs 0RF Patient Instructions: Pleasant, very anxious 52-year-old female family history colon cancer-reassured EGD and colon-order resubmitted- MiraLax Gatorade Maintain high-fiber diet Avoid straining with hemorrhoid Rectal cream Zofran p.r.n. for nausea Encouraged to call questions or concerns Coding Level of Care Code Est Pt Level 4 (28509) Diagnoses Family history of colon cancer Z80.0 External hemorrhoid K64.4 Nausea R11.0 Time Spent (min) 30
[2023-07-31 07:36] VITALS: BP 139/84; PULSE 57; BMI 24.9
== END 2023-07-31 08:20 | disposition home or self-care (01) ==
PROVIDERS: PCP Nurse Practitioner Family; Visit Provider Physician Assistant
DX: Z80.0 Family history of malignant neoplasm of digestive organs (principal); K64.4 Residual hemorrhoidal skin tags; R11.0 Nausea
CPT/HCPCS: 99214

== ENCOUNTER → 2023-07-31 07:03 | Outpatient (BNVA) | payer OTHER, SELFPAY | PROVIDERS: PCP Nurse Practitioner Family; Visit Provider Physician Assistant | DX: K64.4 Residual hemorrhoidal skin tags (principal); R11.0 Nausea; Z80.0 Family history of malignant neoplasm of digestive organs | CPT/HCPCS: 99212 ==

== ENCOUNTER 2023-08-21 07:56 | Outpatient (AMB) | payer OTHER, SELFPAY ==
[2023-08-21 08:03] VITALS: BP 152/82; PULSE 53; O2SAT 98; BMI 25.1
--- NOTE | 2023-08-21 08:03 | A.OFFPC_ITS ---
Vital Signs 08/21/23 08:03 Height 5 ft 1 in Weight 133 lb BMI 25.1 BP 152/82 H Blood Pressure Location Lt brachial Position Sitting Pulse 53 Pulse Source Pulse Oximeter Pulse Oximetry (%) 98 Oxygen Delivery Method Room Air Intake Visit Reasons: PE Allergies No Known Allergies [No Known Allergies*] Allergy (Verified 08/21/23 08:28) Medication List - Last Reconciled 08/21/23 by Lisandro Gilbert MD albuterol sulfate 90 mcg/actuation (Ventolin HFA) 1 puff PO Q4H PRN bisacodyl (Dulcolax (bisacodyl)) 10 mg (2 x 5 mg) PO ONCE 1 day clonazepam 0.5 mg PO DAILY hydrocortisone 2.5% (Proctosol HC) 1 appl MO BEDTIME PRN mirtazapine (Remeron) 15 mg PO BEDTIME ondansetron 4 mg PO ONCE PRN polyethylene glycol 3350 (Miralax) 238 grams PO ONCE 1 day Tobacco use date assessed: 05/30/23 Dental Screening Dental Screen Date: 08/21/23 Did you have a dental visit in the last 12 months?: Yes Did you have a dental problem in the last 6 months where you did not have access to dental care?: No Was dental information given to patient?: Patient has dentist HPI PE HPI Details 52-year-old female presents to the offic e requesting a physical. I will be assuming her care. 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 In addition, patient is complaining of depression. She sees a therapist and psychiatrist. Patient is on Remeron and intermittent use of Klonopin. She uses 15 pills a month of Klonopin. Combination of these 2 keeps her anxiety symptoms under control. [facility] Medical History (Updated 08/21/23 @ 08:35 by Lisandro Gilbert MD) Adult general medical exam Family history of colon cancer Palpitations Epigastric pain Nausea & vomiting Asthma exacerbation Cervical cancer screening Screening for colon cancer Screening for diabetes mellitus Screening for hyperlipidemia Screening for hypothyroidism Hospital discharge follow-up Asthma with acute exacerbation Asthma Anxiety Prolapsed hemorrhoids Benign essential hypertension Encounter to establish care History of asthma Hypoxia Surgical History History of removal of ovarian cyst History of H/O tubal ligation Family History Mother AIDS Father No problems noted. 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 ) Questionnaire PHQ-9 Over the last 2 weeks, how often have you been bothered by any of the following problems? 1. Little interest or pleasure in doing things: nearly every day 2. Feeling down, depressed, or hopeless: nearly every day (on medication) 3. Trouble falling or staying asleep, or sleeping too much: not at all 4. Feeling tired or having little energy: not at all 5. Poor appetite or overeating: not at all 6. Feeling bad about yourself - or that you are a failure or have let yourself or your family down: not at all 7. Trouble concentrating on things, such as reading the newspaper or watching television: several days 8. Moving or speaking so slowly that other people could have noticed. Or the opposite - being so fidgety or restless that you have been moving around a lot more than usual: more than half the days 9. Thoughts that you would be better off or of hurting yourself in some way: not at all Total score: 9 Depression Screening Interpretation: Positive Depression Screening Follow-up: Existing condition and In treatment Depression Screening Done: Yes Source: Developed by Drs. Jakob Savage, Azra Tellez, Nikolai German and colleagues, with an educational demetrius from [employer]. Thrive Questionnaire Date Thrive assessed: 05/30/23 Currently or been in a relationship where the following occur: no concerns re ported THRIVE Score: 0 AUDIT C Alcohol Use Questionnaire (AUDIT-C) 1. How often do you have a drink containing alcohol?: 2-4 times a month 2. How many drinks containing alcohol do you have on a typical day when you are drinking?: 1 or 2 3. How often do you have six or more drinks on one occasion?: Never Total Score: 2 AMANDA-7 AMB Questionnaire MAANDA-7 Date AMANDA - 7 assessed: 08/21/23 Feeling nervous, anxious, or on edge: 3 = Nearly every day Not being able to stop or control worryin = Nearly every day Worrying too much about different things: 3 = Nearly every day Trouble relaxin = Nearly every day Being so restless that it is hard to sit still: 1 = Several days Becoming easily annoyed or irritable: 2 = More than half the days Feeling afraid as if something awful might happen: 1 = Several days Total AMANDA-7 score (0-4 normal; 5-9 mild; 10-14 moderate; 15-21 severe): 16 Source: Developed by Drs. Jakob Savage, Azra Tellez, Nikolai German and colleagues, with an educational demetrius from [employer]. Physical exam (Primary Care) Vital Signs: Last Vital Signs Pulse 53 08/21/23 08:03 BP 152/82 H 08/21/23 08:03 Pulse Ox 98 08/21/23 08:03 Oxygen Delivery Method Room Air 08/21/23 08:03 Care Plan Goal for BP management: Elevated blood pressure noted. Patient was advised to bring multiple readings. BMI result Body Mass Index 25.1 Tobacco/Smoking Status: Tobacco use Status Tobacco use date assessed 05/30/23 08/21/23 08:12 Patient Tobacco Use Status Former Tobacco user 08/21/23 08:12 Tobacco use type Cigarette 08/21/23 08:12 e-Cigarette/Vaping Use Former Use 08/21/23 08:12 PHQ-9: PHQ-9 Score PHQ-9: Total score 9 08/21/23 08:12 Depression Screening Interpretation: Positive Depression Screening Follow-up: Existing condition and In treatment Thrive Assessment: Date of Thrive Assessment Date Thrive assessed 05/30/23 08/21/23 08:12 Currently or been in a relationship where the following occur: no concerns reported Const General: cooperative and healthy appearing Nutritional Appearance: well nourished Orientation/consciousness: patient oriented x3 Limitations: no limitations HENMT Head: Yes normal to inspection Eyes General: appearance normal, both eyes and all related structures Neck Neck: Yes normal visual inspection Chest Chest palpation & inspection: normal palpation of entire chest wall Resp Effort & Inspection: normal respiratory effort Neuro General: patient oriented x3 Assessment and Plan Assessment & Plan (1) GERD (gastroesophageal reflux disease): Code(s): K21.9 - Gastro-esophageal reflux disease without esophagitis Plan: PPI added to the regimen. Patient is scheduled for a colonoscopy and endoscopy in November. (2) Anxiety: Code(s): F41.9 - Anxiety disorder, unspecified Plan: Continue daily use of Remeron. Intermittent use of clonazepam to control breakthrough symptoms. (3) Atypical glandular cells of undetermined significance (DANN) on cervical Pap smear: Code(s): R87.619 - Unspecified abnormal cytological findings in specimens from cervix uteri Plan: Patient had a Pap smear done in 2020 and follows a lining inserter. (4) Adult general medical exam: Code(s): Z00.00 - Encounter for general adult medical examination without abnormal findings Plan: Screening mammogram has been ordered. Blood work has been ordered. (5) Elevated blood pressure reading: Code(s): R03.0 - Elevated blood-pressure reading, without diagnosis of hypertension Plan: Elevated blood pressure reading noted. Patient was advised to bring more readings from home before any medication will be started. Patient verbally understanding. Orders: Orders Complete Blood Count no Diff Today K21.9 - Gastro-esophageal reflux disease without esophagitis Lipid Panel Today K21.9 - Gastro-esophageal reflux disease without esophagitis UA and rflx microscopic Today K21.9 - Gastro-esophageal reflux disease without esophagitis MM screening mammo BI Today Z12.31 - Encounter for screening mammogram for malignant neoplasm of breast Basic Metabolic Panel Today K21.9 - Gastro-esophageal reflux disease without esophagitis Liver Panel Today K21.9 - Gastro-esophageal reflux disease without esophagitis Thyroid Stimulating Hormone Today K21.9 - Gastro-esophageal reflux disease without esophagitis Coding Level of Care Code Est Pt Level 3 (14245) Est Pt Prev Care 40-64y(87134) Diagnoses GERD (gastroesophageal reflux disease) K21.9 Anxiety F41.9 Atypical glandular cells of undetermined significance (DANN) on cervical Pap smear R87.619 Adult general medical exam Z00.00 Elevated blood pressure reading R03.0
== END 2023-08-21 08:26 | disposition home or self-care (01) ==
PROVIDERS: PCP Nurse Practitioner Family; Visit Provider Internal Medicine
DX: Z00.00 Encounter for general adult medical examination without abnormal findings (principal); K21.9 Gastro-esophageal reflux disease without esophagitis; F41.9 Anxiety disorder, unspecified; R87.619 Unspecified abnormal cytological findings in specimens from cervix uteri; R03.0 Elevated blood-pressure reading, without diagnosis of hypertension
CPT/HCPCS: 99213; 99396

== ENCOUNTER 2023-08-21 08:34 | Outpatient (REF) | payer OTHER, SELFPAY ==
[2023-08-21 09:12] LABS: Hematocrit 40.1 % (37.0-47.0); Hemoglobin 13.9 g/dl (12.0-16.0); Mean Corpuscular HGB Conc 34.7 g/dl (31.0-35.0); Mean Corpuscular Hemoglobin 32.7 pg (27.0-33.0); Mean Corpuscular Volume 94.4 fL (80.0-98.0); Mean Platelet Volume 9.7 fL (9.4-12.3); Platelet Count 214 X10*3/uL (160-400); Red Blood Count 4.25 X10*6/uL (4.20-5.50); Red Cell Distribution Width 12.4 % (11.0-16.0); White Blood Count 5.9 X10*3/uL (4.8-10.8)
[2023-08-21 09:55] LABS: Alanine Aminotransferase 8 U/L (0-31); Albumin Level 4.5 g/dL (3.5-5.0); Alkaline Phosphatase 82 U/L (39-117); Anion Gap 14 (12-20); Aspartate Amino Transferase 16 U/L (5-31); Bilirubin Direct 0.2 mg/dL (0.0-0.5); Bilirubin Total 0.7 mg/dL (0.0-1.0); Blood Urea Nitrogen 11 mg/dL (9-16); Calcium 9.7 mg/dL (8.4-10.2); Carbon Dioxide 26 mmol/L (22-29); Chloride 106 mmol/L (96-108); Estimated Glomerular Filt Rate > 60; Glucose Random 111 mg/dL (60-115); Potassium 3.8 mmol/L (3.3-5.1); Sodium 142 mmol/L (135-145); Total Protein 7.7 g/dL (6.5-8.0)
[2023-08-21 10:01] LABS: Thyroid Stimulating Hormone 1.19 uIU/mL (0.32-4.0)
[2023-08-21 10:57] LABS: Appearance Urine Clear; Color Urine Yellow; Glucose Urine UA Negative (Negative); Leukocyte Esterase Urine Negative (Negative); Nitrite Urine Negative (Negative); PH 7.5 (5.0-9.0); Specific Gravity - Urine <= 1.005 (1.005-1.025); Urine Blood Negative (Negative); Urine Ketones Negative (Negative); Urine Protein Negative (Neg-Trace)
== END 2023-08-21 08:35 | disposition home or self-care (01) ==
LOC: HO.LAB 08:34
PROVIDERS: PCP Internal Medicine; Visit Provider Internal Medicine
DX: K21.9 Gastro-esophageal reflux disease without esophagitis (principal)
CPT/HCPCS: 36415; 80048; 80076; 81003; 84443; 85027

== ENCOUNTER 2023-08-21 09:38 | Emergency (ER) | payer OTHER, SELFPAY ==
[2023-08-21 10:10] VITALS: BP 183/93; PULSE 56; RESP 16; TEMP 37; O2SAT 98; BMI 24.3
[2023-08-21 10:16] VITALS: BP 173/89; BP 189/93
--- NOTE | 2023-08-21 10:16 | ECG_ITS ---
Test Reason : chest tightness Blood Pressure : / mmHG Vent. Rate : 049 BPM Atrial Rate : 049 BPM P-R Int : 146 ms QRS Dur : 076 ms QT Int : 442 ms P-R-T Axes : 052 043 022 degrees QTc Int : 399 ms Sinus bradycardia Possible Left atrial enlargement ST & T wave abnormality, consider anterior ischemia Abnormal ECG When compared with ECG of 11-AUG-2022 11:09, No significant change was found Referred By: Generic ED Physician Electronically Signed By:Jose Alves
[2023-08-21 10:34] LABS: MANUAL DIFF FLAG NO
[2023-08-21 10:44] LABS: Basophils Percent Auto 0.4 % (0-2); Eosinophils Absolute Auto 0.1 X10*3/uL (0.0-0.4); Eosinophils Percent Auto 1.1 % (0-4); Hematocrit 40.9 % (37.0-47.0); Hemoglobin 14.3 g/dl (12.0-16.0); Imm Gran Abs Auto 0.02 X10*3/uL (0.00-0.03); Imm Gran Pct Auto 0.4 % (0.0-0.4); Lymphocytes Absolute Auto 2.2 X10*3/uL (1.2-4.9); Lymphocytes Percent Auto 40.3 % (20-40); Mean Corpuscular Hemoglobin 32.4 pg (27.0-33.0); Mean Corpuscular Volume 92.7 fL (80.0-98.0); Mean Platelet Volume 9.5 fL (9.4-12.3); Monocytes Absolute Auto 0.3 X10*3/uL (0.1-1.2); Monocytes Percent Auto 5.7 % (2-11); Neutrophils Absolute Auto 2.8 x10*3/uL (2.0-8.3); Neutrophils Percent Auto 52.1 % (45-73); Platelet Count 214 X10*3/uL (160-400); Red Blood Count 4.41 X10*6/uL (4.20-5.50); Red Cell Distribution Width 12.4 % (11.0-16.0); White Blood Count 5.4 X10*3/uL (4.8-10.8)
[2023-08-21 10:59] LABS: Anion Gap 13 (12-20); Blood Urea Nitrogen 10 mg/dL (9-16); Calcium 10.1 mg/dL (8.4-10.2); Carbon Dioxide 28 mmol/L (22-29); Chloride 107 mmol/L (96-108); Creatinine Clr Calc Pharmacy 78.5; Estimated Glomerular Filt Rate > 60; Glucose Random 100 mg/dL (60-115); Potassium 3.7 mmol/L (3.3-5.1); Sodium 144 mmol/L (135-145)
[2023-08-21 11:07] LABS: Troponin-I High Sensitivity < 2.7 ng/L (<3.5-17.0)
--- NOTE | 2023-08-21 13:34 | ED.RECABL ---
HPI - Recheck/Abnormal Lab/Rx General Chief Complaint: Recheck/Abnormal Lab/Rx Stated Complaint: High Blood Pressure Time Seen by Provider: 08/21/23 11:33 Source: patient Mode of arrival: ambulatory Limitations: no limitations History of Present Illness HPI narrative: 52-year-old female with history of hypertension no longer on meds, anxiety, depression, GERD, insomnia, asthma, bradycardia, who presents to the ER for evaluation of elevated blood pressure at her PCP appointment today. Patient reports she was seeing her new PCP for the 1st time for an annual physical. Her blood pressure was found to be 180/90 there. She was reporting head pressure. She came to the ER for further evaluation. She denies any vision changes or chest pain. She states her headache was only present today. No trauma. She has not on anticoagulation. She was previously prescribed low-dose amlodipine but her old primary care doctor stopped prescribing it over 6 months ago. MD complaint: other (Elevated blood pressure) Associated symptoms: other (Headache) Related Data Home Medications ?Medication ?Instructions ?Recorded ?Confirmed clonazepam 0.5 mg tablet 0.5 mg PO DAILY 05/06/23 07/31/23 Previous Rx's ?Medication ?Instructions ?Recorded mirtazapine 15 mg tablet (Remeron) 15 mg PO BEDTIME #30 tabs 04/22/23 albuterol sulfate 90 mcg/actuation 1 puff PO Q4H PRN for dyspnea #18 05/30/23 aerosol inhaler (Ventolin HFA) ea bisacodyl 5 mg tablet,delayed 10 mg (2 x 5 mg) PO ONCE 1 day #2 07/31/23 release (Dulcolax (bisacodyl)) tabs hydrocortisone 2.5 % topical cream 1 appl NM BEDTIME PRN hemorrhoids 07/31/23 with perineal applicator #30 grams (Proctosol HC) ondansetron 4 mg disintegrating 4 mg PO ONCE PRN nausea and 07/31/23 tablet vomiting #30 tabs polyethylene glycol 3350 17 238 g PO ONCE 1 day #238 grams 07/31/23 gram/dose oral powder (Miralax) amlodipine 2.5 mg tablet 2.5 mg PO DAILY #30 tabs 08/21/23 Allergies Allergy/AdvReac Type Severity Reaction Status Date / Time No Known Allergies Allergy Verified 08/21/23 10:14 [No Known Allergies*] Review of Systems Review of Systems: Yes all other systems are reviewed and are negative [facility] Past Medical History Medical History (Updated 08/21/23 @ 15:27 by KIARA Tan) Adult general medical exam Family history of colon cancer Palpitations Epigastric pain Nausea & vomiting Asthma exacerbation Cervical cancer screening Screening for colon cancer Screening for diabetes mellitus Screening for hyperlipidemia Screening for hypothyroidism Hospital discharge follow-up Asthma with acute exacerbation Asthma Anxiety Prolapsed hemorrhoids Benign essential hypertension Encounter to establish care History of asthma Hypoxia Surgical History History of removal of ovarian cyst History of H/O tubal ligation Family History Family History Mother AIDS Father No problems noted. Sister Colon cancer Other No family history of coronary artery disease Social History Social History Household Members: Family and Children Housing: Apartment Do you presently have visiting nurse or other home services: No Alcohol intake: current Alcohol intake frequency: holidays/special occasions only Patient Tobacco Use Status: Former Tobacco user Tobacco use type: Cigarette Cigarettes Per Day: 10 Smoked in Last 30 Days: Yes e-Cigarette/Vaping Use: Former Use Second Hand Smoke Exposure: No Use of substances other than those prescribed or required for medical reasons: No Advance Directives: No Advance Directives Information Provided: Yes Patient : No service: No Current occupational status: employed 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 ) Physical Exam Vital Signs: Vital Signs: Last Vital Signs Temp 98.3 F 08/21/23 15:18 Pulse 56 08/21/23 15:18 Resp 16 08/21/23 15:18 BP 144/83 H 08/21/23 15:18 Pulse Ox 98 08/21/23 15:18 O2 Del Method Room Air 08/21/23 15:18 BMI result Body Mass Index 24.3 Appearance: Alert. Oriented X3. No acute distress. Head: normocephalic, atraumatic. Eyes: Pupils equal, round and reactive to light. EOMI ENT: Pharynx normal. No tonsillar swelling or exudate. Neck: Normal inspection. Neck supple. CVS: Normal heart rate and rhythm. Pulses normal. Respiratory: No respiratory distress. Breath sounds normal. Abdomen: Soft and nontender. +BS x4 Skin: Skin warm and dry. Normal skin color. Normal skin turgor. No rashes. Extremities: No lower extremity edema. No joint swelling. Neuro/psych: Oriented X 3. No motor deficit. No sensory deficit. CN II-XII intact. Normal speech and cognition. Medications Administered Discontinued Medications Generic Name Dose Route Start Last Admin Trade Name Gradyq PRN Reason Stop Dose Admin Acetaminophen 975 mg 08/21/23 13:44 08/21/23 13:59 Acetaminophen 325 Mg Tablet PO 08/21/23 13:45 975 mg ONCE ONE Administration Amlodipine Besylate 5 mg 08/21/23 13:44 08/21/23 13:59 Amlodipine Besylate 5 Mg Tablet PO 08/21/23 13:45 5 mg ONCE ONE Administration Protocol Medical Decision Making Medical Decision Making [facility] Narrative: 52-year-old female presenting to the ER for evaluation of elevated blood pressure and headache. No chest pain or vision changes. Initial blood pressure 183/93. Other vital signs are stable, heart rates in the mid 50s. EKG with sinus bradycardia, no major change from last year's EKG. No acute ST elevations or depressions. Her lab workup today was unremarkable, negative troponin. She was given 5 mg of amlodipine with improvement in her blood pressure to 144/83. Headache is improved with Tylenol. No need to scan the head, low suspicion for intracranial bleeding associated with hypertension. At this time she is stable for discharge with prescription for low-dose amlodipine as she was previously on and tolerated well before. Patient instructed to follow up with her primary care doctor for further evaluation and treatment, monitor her BP at home Differential Diagnosis Differential Diagnoses: The differential diagnosis associated with the presentation includes Hypertensive urgency, hypertensive emergency, untreated essential hypertension, secondary hypertension, pain Admission/Observation Consideration of admission/observation: Escalation of care including admission/observation considered Lab Data [facility] Lab Attestation statement: I reviewed the patient's lab results. Negative troponin, negative workup 08/21/23 10:29 08/21/23 10:29 Labs: Lab Results 08/21/23 Range/Units 10:29 WBC 5.4 (4.8-10.8) X10*3/uL RBC 4.41 (4.20-5.50) X10*6/uL Hgb 14.3 (12.0-16.0) g/dl Hct 40.9 (37.0-47.0) % MCV 92.7 (80.0-98.0) fL MCH 32.4 (27.0-33.0) pg MCHC 35.0 (31.0-35.0) g/dl RDW 12.4 (11.0-16.0) % Plt Count 214 (160-400) X10*3/uL MPV 9.5 (9.4-12.3) fL Immature Gran % (Auto) 0.4 (0.0-0.4) % Neut % (Auto) 52.1 (45-73) % Lymph % (Auto) 40.3 H (20-40) % [place] % (Auto) 5.7 (2-11) % Eos % (Auto) 1.1 (0-4) % Baso % (Auto) 0.4 (0-2) % Lymph # (Auto) 2.2 (1.2-4.9) X10*3/uL [place] # (Auto) 0.3 (0.1-1.2) X10*3/uL Eos # (Auto) 0.1 (0.0-0.4) X10*3/uL Baso # (Auto) 0.0 (0.0-0.2) X10*3/uL Abs Immat Gran (auto) 0.02 (0.00-0.03) X10*3/uL Absolute Neuts (auto) 2.8 (2.0-8.3) x10*3/uL Absolute Nucleated RBC 0.000 (0.0-0.012) X10*3/uL Nucleated RBC % (auto) 0.0 (0.0-0.2) /100WBC Sodium 144 (135-145) mmol/L Potassium 3.7 (3.3-5.1) mmol/L Chloride 107 (96-108) mmol/L Carbon Dioxide 28 (22-29) mmol/L Anion Gap 13 (12-20) BUN 10 (9-16) mg/dL Creatinine 0.70 (0.5-1.4) mg/dL Estim Creat Clear Calc 78.5 Estimated GFR > 60 Random Glucose 100 (60-115) mg/dL Calcium 10.1 (8.4-10.2) mg/dL Troponin I High Sens < 2.7 (<3.5-17.0) ng/L Independent Interpretation I performed an independent interpretation of an: EKG Interpretation: Sinus bradycardia, ventricular rate 49 beats per minute, NM interval 146 MS, normal QTC. No change from 2022 External Record Review External record reviewed: Outpatient record and Prior outpatient labs Prescription Management I considered prescription management with: Other (Antihypertensive) Chronic Conditions Patient?s care impacted by: Hypertension Critical Care Time Critical Care Time Critical Care Time: No Discharge Plan Discharge Clinical Impression: Hypertension Qualifiers: Hypertension type: unspecified Qualified Code(s): I10 - Essential (primary) hypertension Patient Disposition: Home, Self-Care Instructions: Hypertension (ED) Additional Instructions: Your lab workup, EKG were unremarkable. Your blood pressure was very elevated in the emergency department but responded well to medication. Monitor your blood pressure once each morning and once each evening. Keep track for your doctor. It is easiest to monitor this by riding it on a calendar. If your blood pressure is greater than 140/90 take the prescribed medication. If you develop new or worsening symptoms call 911 or come back to the ER for further evaluation. Prescriptions: New amlodipine 2.5 mg tablet 2.5 mg PO DAILY Qty: 30 0RF No Action mirtazapine [Remeron] 15 mg tablet 15 mg PO BEDTIME Qty: 30 1RF albuterol sulfate [Ventolin HFA] 90 mcg/actuation HFA aerosol inhaler 1 puff PO Q4H PRN (Reason: for dyspnea) Qty: 18 2RF clonazepam 0.5 mg tablet 0.5 mg PO DAILY polyethylene glycol 3350 [Miralax] 17 gram/dose powder 238 g PO ONCE 1 Days Qty: 238 0RF Rx Instructions: take orally as directed prior to colonoscopy bisacodyl [Dulcolax (bisacodyl)] 5 mg tablet,delayed release (DR/EC) 10 mg PO ONCE 1 Days Qty: 2 0RF Rx Instructions: take at noon the day before colonoscopy ondansetron 4 mg tablet,disintegrating 4 mg PO ONCE PRN (Reason: nausea and vomiting) Qty: 30 0RF Rx Instructions: prn - nausea- hydrocortisone [Proctosol HC] 2.5 % cream with perineal applicator 1 appl NM BEDTIME PRN (Reason: hemorrhoids) Qty: 30 3RF Referrals: Lisandro Gilbert MD [Primary Care Provider] - Print Language: Macanese
[2023-08-21 13:56] VITALS: BP 157/89; PULSE 48; RESP 16; TEMP 36.8; O2SAT 97
[2023-08-21] MEDS: Acetaminophen 325 MG TABLET 975 MG PO (13:59)
[2023-08-21] MEDS: amLODIPine Besylate 5 MG TABLET PO (13:59)
[2023-08-21 15:18] VITALS: BP 144/83; PULSE 56; RESP 16; TEMP 36.8; O2SAT 98
[2023-08-21 15:51] VITALS: BP 144/83; PULSE 6; RESP 16; TEMP 36.8; O2SAT 98
== END 2023-08-21 15:52 | disposition home or self-care (01) ==
PROVIDERS: Emergency Provider Emergency Medicine; PCP Internal Medicine
DX: I10 Essential (primary) hypertension (principal); R00.1 Bradycardia, unspecified; R79.89 Other specified abnormal findings of blood chemistry; R07.89 Other chest pain; R51.9 Headache, unspecified; Z87.891 Personal history of nicotine dependence; Z79.899 Other long term (current) drug therapy
CPT/HCPCS: 36415; 80048; 84484; 85025; 93005; 99283; 99285

== ENCOUNTER → 2023-08-21 10:16 | Outpatient (BNV) | payer OTHER, SELFPAY | PROVIDERS: Emergency Provider Emergency Medicine; PCP Internal Medicine; Visit Provider Internal Medicine Cardiovascular Disease | DX: R00.1 Bradycardia, unspecified (principal); R94.31 Abnormal electrocardiogram [ECG] [EKG] | CPT/HCPCS: 93010 ==

== ENCOUNTER 2023-08-22 06:50 | Outpatient (REF) | payer OTHER, SELFPAY ==
[2023-08-22 08:34] LABS: Cholesterol 211 mg/dL (<200); HDL Cholesterol 68 mg/dL (>40); LDL Cholesterol Calculated 130 mg/dL (<100); Triglycerides 66 mg/dL (<150)
== END 2023-08-22 06:51 | disposition home or self-care (01) ==
LOC: HO.LAB 06:50
PROVIDERS: PCP Internal Medicine; Visit Provider Internal Medicine
DX: K21.9 Gastro-esophageal reflux disease without esophagitis (principal)
CPT/HCPCS: 36415; 80061

== ENCOUNTER 2023-08-28 08:04 | Outpatient (AMB) | payer OTHER, SELFPAY ==
[2023-08-28 08:15] VITALS: BP 160/98; BMI 24.6
--- NOTE | 2023-08-28 08:15 | A.OFFPC_ITS ---
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: No Accompanied by: Self / Same As Patient Allergies No Known Allergies [No Known Allergies*] Allergy (Verified 08/28/23 08:40) Medication List - Last Reconciled 08/28/23 by Lisandro Gilbert MD albuterol sulfate 90 mcg/actuation (Ventolin HFA) 1 puff PO Q4H PRN amlodipine 2.5 mg PO DAILY bisacodyl (Dulcolax (bisacodyl)) 10 mg (2 x 5 mg) PO ONCE 1 day clonazepam 0.5 mg PO DAILY hydrocortisone 2.5% (Proctosol HC) 1 appl CA BEDTIME PRN mirtazapine (Remeron) 15 mg PO BEDTIME ondansetron 4 mg PO ONCE PRN polyethylene glycol 3350 (Miralax) 238 grams PO ONCE 1 day Tobacco use date assessed: 05/30/23 Dental Screening Dental Screen Date: 08/21/23 HPI ED f/u 08/21/23 HPI Details 52-year-old female presents to the [facility] for a follow-up visit. Patient's blood pressure continues to fluctuate. Today her systolic blood pressure is 160. She is taking 2.5 mg once a day of amlodipine. Continues to have anxiety issues. She sees a psychiatrist who has prescribed Remeron and intermittent use of a benzodiazepine. Able to function and do all activities of daily living. Recent blood work shows elevated LDL and patient is agreeing to start a statin. She is scheduled for a screening colonoscopy on November 19 of this year. [facility] Medical History (Updated 08/28/23 @ 08:44 by Lisandro Gilbert MD) Hypercholesterolemia Family history of colon cancer Palpitations Screening for colon cancer Asthma Anxiety Prolapsed hemorrhoids Benign essential hypertension Surgical History History of removal of ovarian cyst History of H/O tubal ligation Family History Mother AIDS Father No problems noted. 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 ) Questionnaire Thrive Questionnaire Date Thrive assessed: 05/30/23 AMANDA-7 AMB Questionnaire AMANDA-7 Date AMANDA - 7 assessed: 08/21/23 Source: Developed by Drs. Jakob Savage, Azra Tellez, Nikolai German and colleagues, with an educational demetrius from [employer]. Physical exam (Primary Care) Vital Signs: Last Vital Signs BP 160/98 H 08/28/23 08:15 Care Plan Goal for BP management: Blood pressure is elevated. Amlodipine dosage has been increased. BMI result Body Mass Index 24.6 Tobacco/Smoking Status: Tobacco use Status Tobacco use date assessed 05/30/23 08/28/23 08:19 Patient Tobacco Use Status Former Tobacco user 08/28/23 08:19 Tobacco use type Cigarette 08/28/23 08:19 e-Cigarette/Vaping Use Former Use 08/28/23 08:19 Thrive Assessment: Date of Thrive Assessment Date Thrive assessed 05/30/23 08/28/23 08:19 Const General: cooperative and healthy appearing Nutritional Appearance: well nourished Orientation/consciousness: patient oriented x3 Limitations: no limitations HENMT Head: Yes normal to inspection Eyes General: appearance normal, both eyes and all related structures Neck Neck: Yes normal visual inspection Chest Chest palpation & inspection: normal palpation of entire chest wall Resp Effort & Inspection: normal respiratory effort Neuro General: patient oriented x3 Assessment and Plan Assessment & Plan (1) Benign essential hypertension: Code(s): I10 - Essential (primary) hypertension Plan: Amlodipine dosage has been increased to 10 mg per day. Patient was encouraged to continue monitoring her blood pressure. (2) Atypical glandular cells of undetermined significance (DANN) on cervical Pap smear: Code(s): R87.619 - Unspecified abnormal cytological findings in specimens from cervix uteri Plan: Patient sees a pantry chef. (3) Anxiety: Code(s): F41.9 - Anxiety disorder, unspecified Plan: Condition is managed by a combination of Remeron and alprazolam. (4) Hypercholesterolemia: Code(s): E78.00 - Pure hypercholesterolemia, unspecified Plan: Statin has been added to the regimen. Compliance urged. Coding Level of Care Code Est Pt Level 4 (53538) Diagnoses Benign essential hypertension I10 Atypical glandular cells of undetermined significance (DANN) on cervical Pap smear R87.619 Anxiety F41.9 Hypercholesterolemia E78.00
== END 2023-08-28 09:46 | disposition home or self-care (01) ==
PROVIDERS: PCP Internal Medicine; Visit Provider Internal Medicine
DX: I10 Essential (primary) hypertension (principal); R87.619 Unspecified abnormal cytological findings in specimens from cervix uteri; F41.9 Anxiety disorder, unspecified; E78.00 Pure hypercholesterolemia, unspecified
CPT/HCPCS: 99214

== ENCOUNTER 2023-08-31 12:13 | Emergency (ER) | payer OTHER, SELFPAY ==
[2023-08-31] VITALS (8 sets, daily range): BP systolic 124–145; BP diastolic 75–87; PULSE 55–77; RESP 16–20; TEMP 36.6–37.2; O2SAT 96–99; BMI 24.0
--- NOTE | ~2023-08-31 | XR_ITS ---
EXAMINATION: XR CHEST CLINICAL INFORMATION: Chest pain COMPARISON: Chest radiograph from 08/11/2022 TECHNIQUE: 2 views of the chest were obtained. FINDINGS: Slight flattening of the bilateral hemidiaphragms. No pneumothorax. Trachea is midline. Cardiac mediastinal silhouette is not enlarged. Aorta demonstrates tortuosity. No large pleural effusion. Prominent dextrocurvature of the mid to lower thoracic spine with multilevel degenerative changes. Soft tissues are unremarkable. XR/XR chest 2V IMPRESSION: No acute cardiopulmonary process.
--- NOTE | 2023-08-31 12:19 | ED_ITS ---
HPI - Headache General Chief Complaint: Chest Pain Stated Complaint: NIXON,LIGHTEHEADED,BP 134/89 PER EMS Time Seen by Provider: 08/31/23 19:53 Source: patient Mode of arrival: ambulatory Limitations: no limitations History of Present Illness HPI Narrative: Patient's history of hypertension on amlodipine increased to 10 mg a week ago by PCP which she been taking daily patient took her medicine at 08:00 around noontime while at rest checked her blood pressure was 189/112 denies any chest pain or headache on arrival patient's blood pressure was 132/82 with pulse rate of 76 Related Data Home Medications ?Medication ?Instructions ?Recorded ?Confirmed clonazepam 0.5 mg tablet 0.5 mg PO DAILY 05/06/23 07/31/23 Previous Rx's ?Medication ?Instructions ?Recorded mirtazapine 15 mg tablet (Remeron) 15 mg PO BEDTIME #30 tabs 04/22/23 albuterol sulfate 90 mcg/actuation 1 puff PO Q4H PRN for dyspnea #18 05/30/23 aerosol inhaler (Ventolin HFA) ea bisacodyl 5 mg tablet,delayed 10 mg (2 x 5 mg) PO ONCE 1 day #2 07/31/23 release (Dulcolax (bisacodyl)) tabs hydrocortisone 2.5 % topical cream 1 appl MO BEDTIME PRN hemorrhoids 07/31/23 with perineal applicator #30 grams (Proctosol HC) ondansetron 4 mg disintegrating 4 mg PO ONCE PRN nausea and 07/31/23 tablet vomiting #30 tabs polyethylene glycol 3350 17 238 g PO ONCE 1 day #238 grams 07/31/23 gram/dose oral powder (Miralax) amlodipine 10 mg tablet 10 mg PO DAILY #90 tabs 08/28/23 atorvastatin 10 mg tablet 10 mg PO BEDTIME #90 tabs 08/28/23 hydrochlorothiazide 12.5 mg tablet 12.5 mg PO QAM #30 tabs 08/31/23 Allergies Allergy/AdvReac Type Severity Reaction Status Date / Time No Known Allergies Allergy Verified 08/31/23 12:21 [No Known Allergies*] Review of Systems 2 Review of Systems: Yes all other systems are reviewed and are negative PMFSH Past Medical History Medical History Hypercholesterolemia Family history of colon cancer Palpitations Screening for colon cancer Asthma Anxiety Prolapsed hemorrhoids Benign essential hypertension Surgical History History of removal of ovarian cyst History of H/O tubal ligation Family History Family History Mother AIDS Father No problems noted. 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 ) Physical Exam 2 Vital Signs: Vital Signs: Last Vital Signs Temp 97.9 F 08/31/23 20:09 Pulse 55 08/31/23 20:09 Resp 16 08/31/23 20:09 BP 124/75 08/31/23 20:09 Pulse Ox 96 08/31/23 20:09 O2 Del Method Room Air 08/31/23 20:09 BMI result Body Mass Index 24.0 Appearance: Alert. Oriented X3. No acute distress. Eyes: PERRLA, No Nystagmus ENT: Pharynx normal. Oral Mucosa moist Neck: Normal inspection. Neck supple. CVS: Normal heart rate and rhythm. Pulses normal. Respiratory: No respiratory distress. Equal air entry bilateral, no wheezing/rales/rhonchi Abdomen: Soft and nontender. Bowel sounds are present, no mass palpable, no CVA tenderness Skin: Skin warm and dry. Normal skin color. Normal skin turgor. Extremities: No lower extremity edema. No calf tenderness Neuro: Oriented X 3. No motor deficit. No sensory deficit.No cerebellar signs , cranial nerves II-XII intact Course Course Course Narrative: This is a rapid medical exam. Deferred additional HPI, ROS, PE to primary provider. 52 yo female with history of HTN, HLD, asthma here with headache, dizziness, chest pressure as well as elevated blood pressure which began today at home. Reports recently norvasc dose was increased. Will obtain labs, EKG, CXR VSS -Ryan PIPE FINISHER Medications Administered Discontinued Medications Generic Name Dose Route Start Last Admin Trade Name Freq PRN Reason Stop Dose Admin Acetaminophen 975 mg 08/31/23 16:10 08/31/23 16:12 Acetaminophen 325 Mg Tablet PO 08/31/23 16:11 975 mg ONCE ONE Administration Medical Decision Making Lab Data 08/31/23 12:30 08/31/23 12:30 Labs: Lab Results 08/31/23 08/31/23 Range/Units 12:30 16:20 WBC 4.9 (4.8-10.8) X10*3/uL RBC 4.11 L (4.20-5.50) X10*6/uL Hgb 13.5 (12.0-16.0) g/dl Hct 38.2 (37.0-47.0) % MCV 92.9 (80.0-98.0) fL MCH 32.8 (27.0-33.0) pg MCHC 35.3 H (31.0-35.0) g/dl RDW 11.9 (11.0-16.0) % Plt Count 197 (160-400) X10*3/uL MPV 9.4 (9.4-12.3) fL Immature Gran % (Auto) 0.2 (0.0-0.4) % Neut % (Auto) 38.0 L (45-73) % Lymph % (Auto) 54.0 H (20-40) % [place] % (Auto) 5.1 (2-11) % Eos % (Auto) 2.3 (0-4) % Baso % (Auto) 0.4 (0-2) % Lymph # (Auto) 2.6 (1.2-4.9) X10*3/uL [place] # (Auto) 0.3 (0.1-1.2) X10*3/uL Eos # (Auto) 0.1 (0.0-0.4) X10*3/uL Baso # (Auto) 0.0 (0.0-0.2) X10*3/uL Abs Immat Gran (auto) 0.01 (0.00-0.03) X10*3/uL Absolute Neuts (auto) 1.9 L (2.0-8.3) x10*3/uL Absolute Nucleated RBC 0.000 (0.0-0.012) X10*3/uL Nucleated RBC % (auto) 0.0 (0.0-0.2) /100WBC Sodium 141 (135-145) mmol/L Potassium 3.9 (3.3-5.1) mmol/L Chloride 107 (96-108) mmol/L Carbon Dioxide 23 (22-29) mmol/L Anion Gap 15 (12-20) BUN 20 H (9-16) mg/dL Creatinine 0.72 (0.5-1.4) mg/dL Estim Creat Clear Calc 70.6 Estimated GFR > 60 Random Glucose 107 (60-115) mg/dL Calcium 9.0 D (8.4-10.2) mg/dL Total Bilirubin 0.8 (0.0-1.0) mg/dL Direct Bilirubin 0.3 (0.0-0.5) mg/dL AST 17 (5-31) U/L ALT 7 (0-31) U/L Alkaline Phosphatase 84 (39-117) U/L Troponin I High Sens < 2.7 2.9 (<3.5-17.0) ng/L Total Protein 7.4 (6.5-8.0) g/dL Albumin 4.3 (3.5-5.0) g/dL Discharge Plan Discharge Clinical Impression: Benign essential hypertension Patient Disposition: Home, Self-Care Instructions: Chronic Hypertension (ED) Additional Instructions: Continue take her amlodipine 10 mg daily May take hydrochlorothiazide 12.5 mg daily in a.m. if blood pressure higher than 140/90 Check blood pressure twice daily and follow up with PCP Prescriptions: New hydrochlorothiazide 12.5 mg tablet 12.5 mg PO QAM Qty: 30 0RF No Action mirtazapine [Remeron] 15 mg tablet 15 mg PO BEDTIME Qty: 30 1RF albuterol sulfate [Ventolin HFA] 90 mcg/actuation HFA aerosol inhaler 1 puff PO Q4H PRN (Reason: for dyspnea) Qty: 18 2RF amlodipine 10 mg tablet 10 mg PO DAILY Qty: 90 1RF atorvastatin 10 mg tablet 10 mg PO BEDTIME Qty: 90 1RF clonazepam 0.5 mg tablet 0.5 mg PO DAILY polyethylene glycol 3350 [Miralax] 17 gram/dose powder 238 g PO ONCE 1 Days Qty: 238 0RF Rx Instructions: take orally as directed prior to colonoscopy bisacodyl [Dulcolax (bisacodyl)] 5 mg tablet,delayed release (DR/EC) 10 mg PO ONCE 1 Days Qty: 2 0RF Rx Instructions: take at noon the day before colonoscopy ondansetron 4 mg tablet,disintegrating 4 mg PO ONCE PRN (Reason: nausea and vomiting) Qty: 30 0RF Rx Instructions: prn - nausea- hydrocortisone [Proctosol HC] 2.5 % cream with perineal applicator 1 appl MO BEDTIME PRN (Reason: hemorrhoids) Qty: 30 3RF Print Language: Gibraltarian
--- NOTE | 2023-08-31 12:20 | ECG_ITS ---
Test Reason : CP Blood Pressure : / mmHG Vent. Rate : 067 BPM Atrial Rate : 067 BPM P-R Int : 138 ms QRS Dur : 076 ms QT Int : 406 ms P-R-T Axes : 029 040 029 degrees QTc Int : 429 ms Normal sinus rhythm ST & T wave abnormality, consider anterior ischemia Abnormal ECG When compared with ECG of 21-AUG-2023 10:22, No significant change was found Referred By: Deidre Jose Electronically Signed By:DARYL ADEN MD
[2023-08-31 12:35] LABS: MANUAL DIFF FLAG NO
[2023-08-31 12:36] LABS: Basophils Percent Auto 0.4 % (0-2); Eosinophils Absolute Auto 0.1 X10*3/uL (0.0-0.4); Eosinophils Percent Auto 2.3 % (0-4); Hematocrit 38.2 % (37.0-47.0); Hemoglobin 13.5 g/dl (12.0-16.0); Imm Gran Abs Auto 0.01 X10*3/uL (0.00-0.03); Imm Gran Pct Auto 0.2 % (0.0-0.4); Lymphocytes Absolute Auto 2.6 X10*3/uL (1.2-4.9); Mean Corpuscular HGB Conc 35.3 g/dl (31.0-35.0); Mean Corpuscular Hemoglobin 32.8 pg (27.0-33.0); Mean Corpuscular Volume 92.9 fL (80.0-98.0); Mean Platelet Volume 9.4 fL (9.4-12.3); Monocytes Absolute Auto 0.3 X10*3/uL (0.1-1.2); Monocytes Percent Auto 5.1 % (2-11); Neutrophils Absolute Auto 1.9 x10*3/uL (2.0-8.3); Platelet Count 197 X10*3/uL (160-400); Red Blood Count 4.11 X10*6/uL (4.20-5.50); Red Cell Distribution Width 11.9 % (11.0-16.0); White Blood Count 4.9 X10*3/uL (4.8-10.8)
[2023-08-31 12:52] LABS: Alanine Aminotransferase 7 U/L (0-31); Albumin Level 4.3 g/dL (3.5-5.0); Alkaline Phosphatase 84 U/L (39-117); Anion Gap 15 (12-20); Aspartate Amino Transferase 17 U/L (5-31); Bilirubin Direct 0.3 mg/dL (0.0-0.5); Bilirubin Total 0.8 mg/dL (0.0-1.0); Blood Urea Nitrogen 20 mg/dL (9-16); Carbon Dioxide 23 mmol/L (22-29); Chloride 107 mmol/L (96-108); Creatinine Clr Calc Pharmacy 70.6; Estimated Glomerular Filt Rate > 60; Glucose Random 107 mg/dL (60-115); Potassium 3.9 mmol/L (3.3-5.1); Sodium 141 mmol/L (135-145); Total Protein 7.4 g/dL (6.5-8.0)
[2023-08-31 13:00] LABS: Troponin-I High Sensitivity < 2.7 ng/L (<3.5-17.0)
[2023-08-31] MEDS: Acetaminophen 325 MG TABLET 975 MG PO (16:12)
[2023-08-31 16:44] LABS: Troponin-I High Sensitivity 2.9 ng/L (<3.5-17.0)
== END 2023-08-31 20:49 | disposition home or self-care (01) ==
PROVIDERS: Nurse Practitioner Family; Emergency Provider Internal Medicine; PCP Internal Medicine
DX: I10 Essential (primary) hypertension (principal); J45.909 Unspecified asthma, uncomplicated
CPT/HCPCS: 36415; 71046; 80048; 80076; 84484; 85025; 93005; 99283; 99284

== ENCOUNTER → 2023-08-31 12:20 | Outpatient (BNV) | payer OTHER, SELFPAY | PROVIDERS: Emergency Provider Internal Medicine; PCP Internal Medicine; Visit Provider Internal Medicine Cardiovascular Disease | DX: R94.31 Abnormal electrocardiogram [ECG] [EKG] (principal) | CPT/HCPCS: 93010 ==

== ENCOUNTER 2023-09-23 07:41 | Outpatient (REF) | payer OTHER, SELFPAY ==
[2023-10-02 12:07] LABS: HPV 16 RNA NOT DETECTED (NOT DETECTED); HPV mRNA E6/E7 rflx Detected (Not Detected)
== END 2023-09-23 07:42 | disposition home or self-care (01) ==
LOC: HO.LNP 07:41
PROVIDERS: PCP Internal Medicine; Visit Provider Obstetrics & Gynecology
DX: Z01.419 Encounter for gynecological examination (general) (routine) without abnormal findings (principal)
CPT/HCPCS: 87624; 87625; 88142; 99396

== ENCOUNTER 2023-09-23 07:41 | Outpatient (AMB) | payer OTHER, SELFPAY ==
--- NOTE | 2023-09-23 07:51 | MHC.OFFVIS ---
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 No complaints. Last Pap/HPV was in 06/07 miladis HPV E6 E7 and 16 positive, colpo/biopsy/ECC/EMB were all negative Last Mammogram was BI-RADS 1 in 06/07 No previous screening Colonoscopy, the patient was referred by her primary care physician to GI and has a screening colonoscopy scheduled in 12/06 [facility] Medical History Hypercholesterolemia Family history of colon cancer Palpitations Screening for colon cancer Asthma Anxiety Prolapsed hemorrhoids Benign essential hypertension Surgical History History of removal of ovarian cyst History of H/O tubal ligation Family History Mother AIDS Father No problems noted. 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 ) Female Reproductive History Menstrual control method: permanent sterilization Total pregnancies: 6 Full term: 5 Ab spontaneous: 1 (2 after ) Date of last pap smear: 05/01/22 History of abnormal pap smear: Yes (HPV +) Date of Mammogram: 05/21/22 Review of Systems Const All systems reviewed & are unremarkable except as noted in HPI and below Card Reports as per HPI Resp Reports as per HPI GI Reports as per HPI and Reports no additional complaints Reports as per HPI Physical Exam Const General: cooperative, healthy appearing and comfortable Chest Chest palpation & inspection: normal inspection of the chest and normal palpation of entire chest wall Breast/axilla inspection: normal inspection of the breasts and normal inspection of the axillae Breast/axilla palpation: normal palpation of the breasts, normal palpation of the axillae and no axillary lymphadenopathy Resp Effort & Inspection: normal respiratory effort Auscultation: clear to auscultation bilaterally Percussion: percussion normal Cardio Palpation: normal PMI Rate: regular rate Rhythm: regular rhythm Heart sounds: no murmurs and no rubs Peripheral pulses: Peripheral pulses 2+ throughout GI Inspection: Yes normal to inspection Palpation (GI): Soft to palpation, nontender, no guarding, not rigid and No hepatosplenomegaly present Percussion: Yes normal to percussion Auscultation: normal bowel sounds Rectal Exam - Female: deferred General: Yes bladder normal to palpation External Female Exam: No lesion Speculum Exam - Vagina: normal appearance of the vagina, normal palpation, normal vaginal discharge and not erythematous Speculum Exam - Cervix: normal appearance of the cervix and normal palpation Bimanual exam- vagina & uterus: normal bimanual exam, normal palpation, uterine size normal, bladder normal to palpation, consistency normal and normal palpation Bimanual Exam- Adnexa, other: normal adnexae, no masses and no tenderness Assessment & Plan Assessment & Plan (1) Well woman exam: Code(s): Z01.419 - Encounter for gynecological examination (general) (routine) without abnormal findings Category: Medical Plan: Co testing done. Counseled the patient about the recommended dietary allowance of 1200 mg of Calcium & 600 IU of vitamin D. Mammogram ordered. The patient is scheduled with GI in 12/06 for screening colonoscopy . The patient was instructed to perform monthly self-breast exams and schedule annual exam in a year. All questions answered and the patient verbalized understanding. Orders: Orders MM tomosynthesis screening BI Today Z12.31 - Encounter for screening mammogram for malignant neoplasm of breast Coding Level of Care Code Est Pt Prev Care 40-64y(04211) Diagnoses Well woman exam Z01.419
[2023-09-23 07:52] VITALS: BP 118/74; BMI 24.6
== END 2023-09-23 08:47 | disposition home or self-care (01) ==
PROVIDERS: PCP Internal Medicine; Visit Provider Obstetrics & Gynecology
DX: Z01.419 Encounter for gynecological examination (general) (routine) without abnormal findings (principal)
CPT/HCPCS: 99396

== ENCOUNTER 2023-10-28 14:21 | Outpatient (REF) | payer OTHER, SELFPAY ==
--- NOTE | ~2023-10-28 | MM_ITS ---
EXAMINATION: MM SCREENING DIGITAL BREAST TOMOSYNTHESIS, BILATERAL CLINICAL INFORMATION: Screening. Asymptomatic. COMPARISON: Mammography: This study is compared with prior exams dating back to 2012. TECHNIQUE: Digital breast tomosynthesis is performed in both the craniocaudal and mediolateral oblique views along with computer-aided detection (CAD). Synthesized 2D images are generated from the tomosynthesis. FINDINGS: The breasts are heterogeneously dense, which may obscure small masses (ACR BI-RADS breast composition Category c). There are no significant masses, abnormal calcifications, or other abnormalities. MM/MM tomosynthesis screening BI IMPRESSION: No mammographic evidence of malignancy. ASSESSMENT: BI-RADS BI-RADS 1 - Negative RECOMMENDATION: Routine annual mammography screening. 1 year F/U This examination should not preclude the clinical evaluation of a suspicious palpable abnormality. This patient's information was entered into a reminder system with a target due date for their next mammogram.
== END 2023-10-28 14:22 | disposition home or self-care (01) ==
LOC: HO.MAMMO 14:21
PROVIDERS: PCP Internal Medicine; Visit Provider Obstetrics & Gynecology
DX: Z12.31 Encounter for screening mammogram for malignant neoplasm of breast (principal)
CPT/HCPCS: 77063; 77067

== ENCOUNTER → 2023-10-28 14:30 | Outpatient (BNV) | payer OTHER, SELFPAY | PROVIDERS: PCP Internal Medicine; Visit Provider Radiology Diagnostic Radiology | DX: Z12.31 Encounter for screening mammogram for malignant neoplasm of breast (principal) | CPT/HCPCS: 77063; 77067 ==

== ENCOUNTER 2023-10-29 15:13 | Outpatient (REF) | payer OTHER, SELFPAY | END 2023-10-29 15:14 | disposition home or self-care (01) | LOC: HO.LNP 15:13 | PROVIDERS: PCP Internal Medicine; Visit Provider Obstetrics & Gynecology | DX: R87.810 Cervical high risk human papillomavirus (HPV) DNA test positive (principal) | CPT/HCPCS: 57454; 88305 ==

== ENCOUNTER 2023-10-29 15:13 | Outpatient (AMB) | payer OTHER, SELFPAY ==
--- NOTE | 2023-10-29 15:16 | A.OFFVIS_ITS ---
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 Information Interpreted: non-clinical & clinical Enrober Tender: Enrober Tender Present (Daniela HOFFMANN) Accompanied by: Self / Same As Patient Allergies No Known Allergies [No Known Allergies*] Allergy (Verified 10/29/23 15:20) HPI Comments Details: Presenting for colposcopy for HPV positive/negative Pap smear PFSH Medical History Hypercholesterolemia Family history of colon cancer Palpitations Screening for colon cancer Asthma Anxiety Prolapsed hemorrhoids Benign essential hypertension Surgical History History of removal of ovarian cyst History of H/O tubal ligation Family History Mother AIDS Father No problems noted. 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 ) Review of Systems Const All systems reviewed & are unremarkable except as noted in HPI and below Reports as per HPI and Reports no additional complaints GI Reports no additional complaints Reports no additional complaints Physical Exam Vital Signs: BMI result Body Mass Index 24.2 Office Procedures Colposcopy Colposcopy: Pre-Procedure Counseling: Before beginning the procedure, I conducted comprehensive counseling with the patient. We thoroughly discussed the procedure itself, including its details, alternatives, and all associated risks. This included but not limited to the following complications such as bleeding, infection, and injury to the vagina, bladder, and vessels, as well as the potential need for transfusion with all its associated risks. Subsequently, the patient sign the consent. Pap smear result: Negative Pap/HPV E6/E7 positive, other HPV is negative Procedure: During the procedure, the following steps were performed: A speculum was inserted, and acetic acid was applied. Colposcopy was conducted, allowing visualization of the transformation zone. Acetowhite lesions were identified at the 6+9+12 o'clock position. Cervical biopsies were obtained from the 6+9+12 o'clock position, followed by an endocervical curettage (ECC). Vaginoscopy of the upper vagina revealed no evidence of aceto-white lesions. Hemostasis was achieved using Monsel solution, and the patient tolerated the procedure well. Post-Procedure Instructions: The patient was advised to promptly contact the office or the after hours answering service or go to the emergency room if experiencing a temperature exceeding 100.4?F, abdominal pain, nausea/vomiting, or bleeding. Additionally, the patient was instructed to abstain from vaginal intercourse and bathtub use. The patient confirmed understanding of these instructions. Discharge Instructions: The patient was instructed to schedule a follow-up appointment in 2 weeks for further evaluation and management. Please note that this note was generated using a voice recognition program, and errors may have occurred during mechanical drafter. [id number] of cervix including upper vagina with biopsy and ECC Procedure code (CPT) selection complete Assessment & Plan Assessment & Plan (1) Cervical high risk HPV (human papillomavirus) test positive: Code(s): R87.810 - Cervical high risk human papillomavirus (HPV) DNA test positive Category: Medical Plan: Colposcopy done, see procedure note Orders: Orders AMB Colposcopy Today R87.810 - Cervical high risk human papillomavirus (HPV) DNA test positive Coding Level of Care Code Procedure Only Diagnoses Cervical high risk HPV (human papillomavirus) test positive R87.810 CPT Codes Colposcopy - CPT: 64936-Uhtlnjiwt of cervix including upper vagina with biopsy and ECC ([id number])
[2023-10-29 15:19] VITALS: BP 122/70; BMI 24.2
== END 2023-10-29 16:26 | disposition home or self-care (01) ==
LOC: HO.HWS 15:13
PROVIDERS: PCP Internal Medicine; Visit Provider Obstetrics & Gynecology
DX: R87.810 Cervical high risk human papillomavirus (HPV) DNA test positive (principal)
CPT/HCPCS: 57454

== ENCOUNTER 2023-11-04 09:36 | Outpatient (AMB) | payer OTHER, SELFPAY ==
[2023-11-04 09:41] VITALS: BP 124/82; PULSE 53; BMI 25.0
--- NOTE | 2023-11-04 09:41 | A.OFFVIS_ITS ---
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 Allergies No Known Allergies [No Known Allergies*] Allergy (Verified 11/04/23 09:42) Medication List - Last Reconciled 11/04/23 by Bernice Giang NP-C albuterol sulfate 90 mcg/actuation (Ventolin HFA) 1 puff PO Q4H PRN amlodipine 10 mg PO DAILY bisacodyl (Dulcolax (bisacodyl)) 10 mg (2 x 5 mg) PO ONCE 1 day clonazepam 0.5 mg PO DAILY fluoxetine 20 mg PO DAILY hydrocortisone 2.5% (Proctosol HC) 1 appl SD BEDTIME PRN mirtazapine (Remeron) 15 mg PO BEDTIME ondansetron 4 mg PO ONCE PRN polyethylene glycol 3350 (Miralax) 238 grams PO ONCE 1 day HPI HPI 6 mth f/up: Details: Loretta is a 52-year-old female with past medical history of hypertension, heart palpitations, PVCs, abnormal EKG who presents for follow-up and preop cardiovascular clearance for colonoscopy. Today she reports that she has been feeling well. She has not been bothered by heart palpitations recently. She does not notice any heart palpitations during physical activity. She continues to walk 1.5 miles once or twice a day, 5 days a week. She walks to work in all weather.- recently due to the very hot weather she has been getting a ride home in the afternoon. No reports of chest discomfort at rest or with activity. No shortness of breath, PND, orthopnea or edema. No lightheadedness, presyncope, syncope, falls. She tells me she has reduced her coffee down to 1 cup per day. She has high energy and good activity tolerance [facility]LY [facility] Medical History Hypercholesterolemia Family history of colon cancer Palpitations Screening for colon cancer Asthma Anxiety Prolapsed hemorrhoids Benign essential hypertension Surgical History History of removal of ovarian cyst History of H/O tubal ligation Family History Mother AIDS Father No problems noted. 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 ) Review of Systems Const All systems reviewed & are unremarkable except as noted in HPI and below ENT Denies dizziness Card Denies chest pain, Denies chest pain at rest, Denies chest pain with activity, Denies rapid heart rate, Denies pedal edema, Denies edema, Denies leg edema, Denies lightheadedness, Denies palpitations, Denies dyspnea, Denies dyspnea on exertion and Denies orthopnea Resp Denies cough, Denies dyspnea and Denies dyspnea on exertion GI Denies hematochezia and Denies change in stool character Musc Denies abnormal gait, Denies limited range of motion, Denies muscle cramps, Denies muscle weakness, Denies numbness, Denies radiating pain into limb, Denies stiffness and Denies tingling Neuro Denies abnormal gait, Denies dizziness, Denies numbness and Denies tingling Endo Denies palpitations Physical Exam Vital Signs: Last Vital Signs Pulse 53 11/04/23 09:41 BP 124/82 11/04/23 09:41 BMI result Body Mass Index 25.0 Const General: cooperative, healthy appearing, comfortable and no acute distress Orientation/consciousness: patient oriented x3 Neck Neck: Yes normal visual inspection and Yes no JVD Resp Effort & Inspection: normal respiratory effort Auscultation: clear to auscultation bilaterally, no crackles, no rales, no rhonchi and no wheezes Cardio Jugular venous distension: no JVD Rate: regular rate Rhythm: regular rhythm Heart sounds: S1 normal heart sound present, S2 normal heart sound present, no murmurs and no rubs Neuro General: patient oriented x3 Extrem General: Yes normal to inspection, No no pedal edema and No calf tenderness Psych Appearance: grossly normal Mental Status: mental status grossly normal Speech and movement: Normal speech and movement present Assessment & Plan Assessment & Plan (1) Abnormal EKG: Code(s): R94.31 - Abnormal electrocardiogram [ECG] [EKG] Category: Medical Plan: Chronic EKG abnormalities with T-wave inversions V1 through V4. Can be seen on EKGs as far back as 2013 in our system. No reports of anginal sounding symptoms. Cardiac risk factors of hypertension. Exercise stress test done 08/28/2022 showing frequent PVCs and ventricular bigeminy, no ischemic changes, suboptimal heart rate. She underwent an exercise nuclear stress test on 12/14/2022 with good exercise tolerance, frequent ventricular bigeminy, with EKG changes suggestive of ischemia, with normal myocardial perfusion imaging. Echocardiogram done 01/28/2023 showing EF 66%, no valve abnormalities and no regional wall motion abnormalities. 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 Her EKGs have remained stable. She continues with no reports of anginal sounding symptoms. (2) PVC (premature ventricular contraction): Code(s): I49.3 - Ventricular premature depolarization Category: Medical Plan: Ventricular bigeminy noted during exercise for both stress tests as above. Holter monitor done 02/28/2023 for 3 days shows sinus rhythm with average heart rate 54, heart rate range 34 to 116, 78% of time heart rate less than 60, rare ventricular ectopy. On last visit she reported intermittent heart palpitations. At this time she no longer notices heart palpitations. She has no presyncope, syncope, falls. EF is normal which is reassuring. Will keep off of rate slowing medications at this time since her resting heart rate runs low. Cardiology follow-up in 6 months, sooner if needed (3) Benign essential hypertension: Code(s): I10 - Essential (primary) hypertension Category: Medical Plan: Normal range at this time. No medication changes made. She is not on any antihypertensives at present. (4) Bradycardia: Code(s): R00.1 - Bradycardia, unspecified Category: Medical Plan: Frequent sinus bradycardia noted on Holter monitor. Patient does frequent walking as listed in HPI. She does not have a car and she walks to work Saturday through Saturday. This can improve her cardiac tone and reduce her resting heart rate. (5) Pre-operative cardiovascular examination: Code(s): Z01.810 - Encounter for preprocedural cardiovascular examination Category: Medical Plan: Preop for colonoscopy, scheduled November 2023. Patient may proceed with low cardiac risk. She does have abnormal T-waves on her EKG which has been a chronic, stable finding. Call/consult Cardiology if needed. Plan Time spent on chart review, documentation, interview and assessment Coding Level of Care Code Est Pt Level 4 (86441) Diagnoses Abnormal EKG R94.31 PVC (premature ventricular contraction) I49.3 Benign essential hypertension I10 Bradycardia R00.1 Pre-operative cardiovascular examination Z01.810 Time Spent (min) 28
== END 2023-11-04 10:04 | disposition home or self-care (01) ==
PROVIDERS: PCP Internal Medicine; Visit Provider Nurse Practitioner Family
DX: R94.31 Abnormal electrocardiogram [ECG] [EKG] (principal); I49.3 Ventricular premature depolarization; I10 Essential (primary) hypertension; R00.1 Bradycardia, unspecified; Z01.810 Encounter for preprocedural cardiovascular examination
CPT/HCPCS: 99214

== ENCOUNTER → 2023-11-04 09:36 | Outpatient (BNVA) | payer OTHER, SELFPAY | PROVIDERS: PCP Internal Medicine; Visit Provider Nurse Practitioner Family | DX: Z01.810 Encounter for preprocedural cardiovascular examination (principal); R94.31 Abnormal electrocardiogram [ECG] [EKG]; R00.1 Bradycardia, unspecified; I49.3 Ventricular premature depolarization; I10 Essential (primary) hypertension | CPT/HCPCS: 99212 ==

== ENCOUNTER 2023-11-18 08:19 | Outpatient (AMB) | payer OTHER, SELFPAY ==
[2023-11-18 08:19] VITALS: BMI 25.0
--- NOTE | 2023-11-18 08:19 | A.OFFVIS_ITS ---
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 The patient is doing well with no complaints. The pathology showed the following: A. Endocervix, curettage: Insufficient for endocervical evaluation; blood only. B. Cervix, 6:00, biopsy: Squamous mucosa; negative for dysplasia; no endocervical glandular component present. C. Cervix, 9:00, biopsy: Squamous epithelium; negative for dysplasia; no endocervical glandular component present. D. Cervix, 12:00, biopsy: Squamous epithelium and rare fragment of benign endometrium; negative for dysplasia; no endocervical glandular component present [facility] Medical History Hypercholesterolemia Family history of colon cancer Palpitations Screening for colon cancer Asthma Anxiety Prolapsed hemorrhoids Benign essential hypertension Surgical History History of removal of ovarian cyst History of H/O tubal ligation Family History Mother AIDS Father No problems noted. 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 ) Review of Systems Const All systems reviewed & are unremarkable except as noted in HPI and below Reports as per HPI and Reports no additional complaints GI Reports no additional complaints Reports no additional complaints Physical Exam Vital Signs: BMI result Body Mass Index 25.0 Assessment & Plan Assessment & Plan (1) Cervical high risk HPV (human papillomavirus) test positive: Code(s): R87.810 - Cervical high risk human papillomavirus (HPV) DNA test positive Category: Medical Plan: Discussed with the patient the results the pathology and explained to the patient that there was no endocervical tissues on ECC, recommended repeat ECC. The patient would like to schedule and different appointment for repeat ECC. Instructions given the patient to schedule ECC appointment within 2 weeks. All questions answered, the patient verbalized understanding Coding Level of Care Code Est Pt Level 3 (95748) Diagnoses Cervical high risk HPV (human papillomavirus) test positive R87.810
== END 2023-11-18 08:46 | disposition home or self-care (01) ==
PROVIDERS: PCP Internal Medicine; Visit Provider Obstetrics & Gynecology
DX: R87.810 Cervical high risk human papillomavirus (HPV) DNA test positive (principal)
CPT/HCPCS: 99213

== ENCOUNTER → 2023-11-18 08:19 | Outpatient (BNVA) | payer OTHER, SELFPAY | PROVIDERS: PCP Internal Medicine; Visit Provider Obstetrics & Gynecology | DX: R87.810 Cervical high risk human papillomavirus (HPV) DNA test positive (principal) | CPT/HCPCS: 99212 ==

== ENCOUNTER 2023-11-20 09:46 | Day surgery (SDC) | payer OTHER, SELFPAY ==
--- NOTE | 2023-11-18 15:29 | P.CONAN_ITS ---
Documented by User: Roxann Lantigua NP 11/19/23 13:41 HPI - Anesthesia Eval Consult details Narrative: 52yo F for Upper Endoscopy and Colonoscopy Cardiac optimized. Chronic EKG abnormalities with T-wave inversions V1 through V4. Can be seen on EKGs as far back as 2013 in our system. [facility] Active Problems Active Problems: All Active Problems Cervical high risk HPV (human papillomavirus) test positive (Acute) Well woman exam (Acute) Hypercholesterolemia (Acute) Nausea (Acute) Family history of colon cancer (Acute) Pre-operative cardiovascular examination (Acute) Bradycardia (Acute) Palpitations (Acute) Abnormal EKG (Acute) Nocturnal hypoxemia (Acute) PVC (premature ventricular contraction) (Acute) Fatigue (Acute) Asthma (Acute) Anxiety (Acute) Low vitamin D level (Acute) Insomnia (Acute) Vulvar lesion (Acute) GERD (gastroesophageal reflux disease) (Acute) Depression (Acute) External hemorrhoid (Acute) Atypical glandular cells of undetermined significance (DANN) on cervical Pap smear (Acute) Anxiety (Acute) Prolapsed hemorrhoids (Acute) Benign essential hypertension (Acute) Past Medical History Medical History Hypercholesterolemia Family history of colon cancer Palpitations Screening for colon cancer Asthma Anxiety Prolapsed hemorrhoids Benign essential hypertension Family History Family History Mother AIDS Father No problems noted. Sister Colon cancer Other No family history of coronary artery disease Surgical History Surgical History History of removal of ovarian cyst History of H/O tubal ligation Social History Social History Household Members: Family and Children Housing: Apartment Do you presently have visiting nurse or other home services: No Alcohol intake: current Alcohol intake frequency: holidays/special occasions only Patient Tobacco Use Status: Former Tobacco user Tobacco use type: Cigarette Cigarettes Per Day: 10 e-Cigarette/Vaping Use: Former Use Second Hand Smoke Exposure: No Use of substances other than those prescribed or required for medical reasons: No Are you DNR?: No Advance Directives: No Advance Directives Information Provided: Yes service: No Current occupational status: employed 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 ) Meds Allergies Allergy/AdvReac Type Severity Reaction Status Date / Time No Known Allergies Allergy Verified 11/20/23 10:34 [No Known Allergies*] Home Medications ?Medication ?Instructions ?Recorded ?Confirmed ?Last Taken ?Type clonazepam 0.5 mg tablet 0.5 mg PO DAILY 05/06/23 11/20/23 Unknown History fluoxetine 20 mg capsule 20 mg PO DAILY 11/04/23 11/20/23 Unknown History Exam Pertinent Lab Results Pertinent Lab Results: Laboratory Tests 08/31/23 12:30 WBC 4.9 Hgb 13.5 Hct 38.2 Plt Count 197 Sodium 141 Potassium 3.9 Chloride 107 Carbon Dioxide 23 BUN 20 H Creatinine 0.72 Narrative Narrative: Per cardiac clearance note:' Exercise stress test done 08/28/2022 showing frequent PVCs and ventricular bigeminy, no ischemic changes, suboptimal heart rate. She underwent an exercise nuclear stress test on 12/14/2022 with good exercise tolerance, frequent ventricular bigeminy, with EKG changes suggestive of ischemia, with normal myocardial perfusion imaging. Echocardiogram done 01/28/2023 showing EF 66%, no valve abnormalities and no regional wall motion abnormalities. Assessment and Plan Assessment Anesthesia Assessment: Chart Reviewed Documented by User: Madina Rinaldi MD 11/20/23 10:55 [facility] Past Medical History Medical History Hypercholesterolemia Family history of colon cancer Palpitations Screening for colon cancer Asthma Anxiety Prolapsed hemorrhoids Benign essential hypertension Family History Family History Mother AIDS Father No problems noted. Sister Colon cancer Other No family history of coronary artery disease Family history of problems with anesthesia: No Surgical History Surgical History History of removal of ovarian cyst History of H/O tubal ligation History of Problems with Anesthesia: No Social History Social History Household Members: Family and Children Housing: Apartment Do you presently have visiting nurse or other home services: No Alcohol intake: current Alcohol intake frequency: holidays/special occasions only Patient Tobacco Use Status: Former Tobacco user Tobacco use type: Cigarette Cigarettes Per Day: 10 e-Cigarette/Vaping Use: Former Use Second Hand Smoke Exposure: No Use of substances other than those prescribed or required for medical reasons: No Are you DNR?: No Advance Directives: No Advance Directives Information Provided: Yes service: No Current occupational status: employed 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 ) Meds Allergies Allergy/AdvReac Type Severity Reaction Status Date / Time No Known Allergies Allergy Verified 11/20/23 10:34 [No Known Allergies*] Home Medications ?Medication ?Instructions ?Recorded ?Confirmed ?Last Taken ?Type clonazepam 0.5 mg tablet 0.5 mg PO DAILY 05/06/23 11/20/23 Unknown History fluoxetine 20 mg capsule 20 mg PO DAILY 11/04/23 11/20/23 Unknown History Exam Airway Mallampati Class: II TM Dist: >3cm Neck ROM: Full Assessment and Plan Assessment Anesthesia Assessment: Anesthesia Plan Discussed Final Anesthetic Review Family History of Problems with Anesthesia: No History of Problems with Anesthesia: No NPO: Yes ASA Class: II Final Preanesthetic Review: No Changes in Pt Med Stat, Meds/Allgs Chart Reviewed, Consent Obtained/Reviewed and Anes Risks/Benef Reviewed Patient Risk: Intermediate Procedure Risk: Low Anesthetic Plan Anesthetic Plan: TIVA Disposition: Standard PACU
[2023-11-20 10:32] VITALS: BMI 24.0
[2023-11-20 10:47] VITALS: BP 124/68; PULSE 46; RESP 16; TEMP 37.2; O2SAT 96
--- NOTE | 2023-11-20 11:39 | P.HPSUR_ITS ---
Pre-Procedural Eval Section A - 24 Hr Update-Section A only Date of Service: 11/20/23 Section B - Complete if H&P > 30 days Chief Complaint: GERD and FH of CRC Details of Present Illness: sister with FH Relevant Family History (Specify if Yes): Yes Relevant Social History: None Present Medications: see Short Stay Collaborative assessment Medical History: Significant History (Hypercholesterolemia Family history of colon cancer Palpitations Screening for colon cancer Asthma Anxiety Prolapsed hemorrhoids Benign essential hypertension) History of Previous Operations: Relevant previous surgery/procedure and date(s) (History of removal of ovarian cyst History of H/O tubal ligation) Allergies: Allergies Allergy/AdvReac Type Severity Reaction Status Date / Time No Known Allergies Allergy Verified 11/20/23 10:34 [No Known Allergies*] Review of Systems Sugical H&P ROS: Negative: Constitution, Cardiovascular, Respiratory, Neurological, Psychiatric, Hem-Onc, Allergic/Immunologic, Gastrointestinal, Genitourinary, Musculoskeletal, Integumentary, Endocrine and Eyes/Ears/Nose/Throat Exam Surgical H&P Exam: Normal: HEENT, Normal: Heart, Normal: Lungs, Normal: Extrem ities, Normal: Abdomen, Normal: Skin and Normal: Neurological Plan Diagnosis/Plan: Unchanged I have reviewed the history and physical and performed a pertinent physical examination on my patient. No changes have occurred unless specified. Time Spent With Patient Time: Total time managing care of this patient today ____ minutes.
--- NOTE | 2023-11-20 13:01 | P.OPN-COLO_ITS ---
Colonoscopy Operative Note Operative Note Date of Service: 11/20/23 Narrative: Operative Information Procedure Description: EGD, Colonoscopy Indication: GERd, screening Anesthesia: MAC FLEXIBLE TRANSORAL UPPER GASTROINTESTINAL ENDOSCOPY AND COLONOSCOPY PROCEDURE NOTE UPPER ENDOSCOPY Consent: Indications for the procedure and potential complications of bleeding, perforation, reaction to medications and missed diagnosis were discussed with the patient and informed consent was obtained. Instrument: Olympus GIF H 190 J mid size upper endoscope Monitoring: Vital signs and clinical assessment, continuous EKG monitoring, Pulse oximetry, Carbon Dioxide monitoring and blood pressure monitoring were done throughout the procedure. Procedure: The patient was placed in the left lateral decubitis position and pre-procedure medications were administered and a bite block was placed. The endoscope was inserted into the mouth and advanced under direct vision to the third part of duodenum. A careful inspection was made as the upper endoscope was withdrawn including a retroflexed examination of the proximal stomach; Findings and interventions are described below. Findings: Larynx:normal Esophagus: GE junction at 39 cm, diaphragm hiatus at 41 cm, consistent with 2 cm sliding hiatal hernia, mild esophagitis noted, bx taken from GEJ and distal esophagus Stomach: Patchy atrophy and erythema. Biopsies were obtained. Grade 2 flap valve on retroflexed examination of the cardia. Duodenum: Normal bulb and descending duodenum, Intervention: Biopsies as noted above, COLONOSCOPY Instrument: Olympus variable stiffness pediatric scope 190L Colonoscopy Monitoring: Vital signs and clinical assessment, continuous EKG monitoring, Pulse oximetry, Carbon Dioxide monitoring and blood pressure monitoring were done throughout the procedure. Colon withdrawal time was 17 minutes. Procedure: The patient was placed in the left lateral decubitis position and pre-procedure medications were administered. After a digital rectal examination of the ano-rectum, the video colonoscope was inserted into the rectum and advanced through the colon to the cecum/TI. The colonoscope was slowly withdrawn in a retrograde panoramic fashion and the colon mucosa was carefully examined including a retroflexed view of the rectum. Findings and interventions are described below. Procedure Difficulty:moderate Findings: Terminal Ileum-normal Cecum:normal Ascending Colon: 7-9 mm sessile polyp removed with cold snare, patchy diverticulosis Transverse Colon -normal Descending Colon:normal Sigmoid Colon: Moderate severe diverticulosis with tight angles, in distal sigmoid 15 mm pedunculated polyp injected with epinephrine and removed with cold snare with 2 clips applied to base Rectum: Retroflexion with small internal hemorrhoids, grade I Anorectum - normal Colon preparation: Bagley Bowel Preparation Scale Right colon; 2 Transverse colon: 2 Left colon; 2 (0 = Unprepared colon segment with mucosa not seen due to solid stool that cannot be cleared. 1 = Portion of mucosa of the colon segment seen, but other areas of the colon segment not well seen due to staining, residual stool and/or opaque liquid. 2 = Minor amount of residual staining, small fragments of stool and/or opaque liquid, but mucosa of colon segment seen well. 3 = Entire mucosa of colon segment seen well with no residual staining, small fragments of stool or opaque liquid) Impression and Post Procedure Diagnosis: Endoscopy Findings: esophagitis small hiatal hernia atrophic gastritis Colonoscopy Findings: diverticulosis colon polyps internal hemorrhoids Plan: Await Pathology results Repeat Colonoscopy in 6-12 months due to large polyp or earlier if clinically indicated High fiber diet leaflet avoid straining at stool, epsom salts and sitz bath, anusol supps or cream reflux precautions Above findings were reviewed with the patient and relevant handouts were provided if indicated.
[2023-11-20 13:05] VITALS: BP 141/80; PULSE 52; RESP 14; TEMP 36.1; O2SAT 100
[2023-11-20 13:20] VITALS: BP 138/69; PULSE 50; RESP 16; TEMP 36.6; O2SAT 97
== END 2023-11-20 14:01 | disposition home or self-care (01) ==
PROVIDERS: PCP Internal Medicine; Visit Provider Internal Medicine Gastroenterology
PROC: (CPT 45385; principal; 2023-11-20 12:30)
DX: Z12.11 Encounter for screening for malignant neoplasm of colon (principal); Z80.0 Family history of malignant neoplasm of digestive organs; D12.5 Benign neoplasm of sigmoid colon; K63.5 Polyp of colon; K57.30 Diverticulosis of large intestine without perforation or abscess without bleeding; K64.0 First degree hemorrhoids; K21.9 Gastro-esophageal reflux disease without esophagitis; K20.80 Other esophagitis without bleeding; K29.40 Chronic atrophic gastritis without bleeding; K44.9 Diaphragmatic hernia without obstruction or gangrene; I10 Essential (primary) hypertension; J45.909 Unspecified asthma, uncomplicated; F41.9 Anxiety disorder, unspecified; Z79.899 Other long term (current) drug therapy; Z87.891 Personal history of nicotine dependence
CPT/HCPCS: 45385; 45381; 43239; 88305; 88313; 88342; J0171; J2704

== ENCOUNTER → 2023-11-20 09:46 | Outpatient (BNV) | payer OTHER, SELFPAY | PROVIDERS: PCP Internal Medicine; Visit Provider Internal Medicine Gastroenterology | DX: Z12.11 Encounter for screening for malignant neoplasm of colon (principal); D12.5 Benign neoplasm of sigmoid colon; K63.5 Polyp of colon; K57.30 Diverticulosis of large intestine without perforation or abscess without bleeding; K21.00 Gastro-esophageal reflux disease with esophagitis, without bleeding; K29.70 Gastritis, unspecified, without bleeding | CPT/HCPCS: 43239; 45381; 45385 ==

== ENCOUNTER → 2023-12-12 10:58 | Outpatient (BNVA) | payer OTHER, SELFPAY | PROVIDERS: PCP Internal Medicine; Visit Provider Obstetrics & Gynecology ==

== ENCOUNTER 2024-01-30 06:43 | Outpatient (REF) | payer OTHER, SELFPAY ==
[2024-01-30 06:59] LABS: MANUAL DIFF FLAG NO
[2024-01-30 07:38] LABS: Basophils Percent Auto 0.6 % (0-2); Eosinophils Absolute Auto 0.1 X10*3/uL (0.0-0.4); Eosinophils Percent Auto 1.6 % (0-4); Hematocrit 37.4 % (37.0-47.0); Hemoglobin 13.1 g/dl (12.0-16.0); Imm Gran Abs Auto 0.01 X10*3/uL (0.00-0.03); Imm Gran Pct Auto 0.2 % (0.0-0.4); Lymphocytes Absolute Auto 1.9 X10*3/uL (1.2-4.9); Lymphocytes Percent Auto 38.3 % (20-40); Mean Corpuscular Hemoglobin 31.7 pg (27.0-33.0); Mean Corpuscular Volume 90.6 fL (80.0-98.0); Mean Platelet Volume 9.9 fL (9.4-12.3); Monocytes Absolute Auto 0.4 X10*3/uL (0.1-1.2); Monocytes Percent Auto 7.7 % (2-11); Neutrophils Absolute Auto 2.6 x10*3/uL (2.0-8.3); Neutrophils Percent Auto 51.6 % (45-73); Platelet Count 221 X10*3/uL (160-400); Red Blood Count 4.13 X10*6/uL (4.20-5.50); Red Cell Distribution Width 12.2 % (11.0-16.0); White Blood Count 5.1 X10*3/uL (4.8-10.8)
[2024-01-30 08:09] LABS: Alanine Aminotransferase 12 U/L (0-31); Albumin Level 4.3 g/dL (3.5-5.0); Alkaline Phosphatase 101 U/L (39-117); Anion Gap 12 (12-20); Aspartate Amino Transferase 19 U/L (5-31); Bilirubin Total 0.8 mg/dL (0.0-1.0); Blood Urea Nitrogen 15 mg/dL (9-16); Calcium 9.5 mg/dL (8.4-10.2); Carbon Dioxide 25 mmol/L (22-29); Chloride 107 mmol/L (96-108); Estimated Glomerular Filt Rate > 60; Glucose Random 113 mg/dL (60-115); Potassium 4.1 mmol/L (3.3-5.1); Sodium 140 mmol/L (135-145); Total Protein 7.2 g/dL (6.5-8.0)
== END 2024-01-30 06:44 | disposition home or self-care (01) ==
LOC: HO.LAB 06:43
PROVIDERS: PCP Internal Medicine; Visit Provider Internal Medicine
DX: R19.7 Diarrhea, unspecified (principal)
CPT/HCPCS: 36415; 80053; 85025

== ENCOUNTER 2024-01-31 07:56 | Outpatient (REF) | payer OTHER, SELFPAY ==
[2024-01-31 08:56] LABS: Leukocytes Stool Qualitative NEGATIVE (NEGATIVE)
[2024-01-31 09:23] LABS: CDiff Gene PCR NEGATIVE (Negative)
== END 2024-01-31 07:57 | disposition home or self-care (01) ==
LOC: HO.LNP 07:56
PROVIDERS: Visit Provider Internal Medicine
DX: R19.7 Diarrhea, unspecified (principal)
CPT/HCPCS: 87177; 87209; 87493; 89055

== ENCOUNTER 2024-02-14 13:24 | Outpatient (REF) | payer OTHER, SELFPAY ==
[2024-02-15 10:18] LABS: H Pylori Breath Test Negative (Negative)
== END 2024-02-14 13:25 | disposition home or self-care (01) ==
LOC: HO.LNP 13:24
PROVIDERS: PCP Internal Medicine; Visit Provider Internal Medicine Gastroenterology
DX: Z11.2 Encounter for screening for other bacterial diseases (principal); R11.0 Nausea
CPT/HCPCS: 83013; 99211

== ENCOUNTER 2024-02-14 13:24 | Outpatient (AMB) | payer OTHER, SELFPAY ==
--- NOTE | 2024-02-14 14:36 | AM.OFFVISNUR ---
Intake Visit Reasons: H pylori Allergies No Known Allergies [No Known Allergies*] Allergy (Verified 11/20/23 10:34) Nursing Note Patient presents for collection of?H?Pylori?breath test. Patient has been fasting for 1 hour (nothing to eat, drink, no chewing gum or smoking) has not taken any antacid medication for at least 2 weeks and has no allergies to artificial sweeteners.?? Assessment & Plan Assessment & Plan (1) Nausea: Comment: Associates with anxiety Monitor diet Ondansetron as needed EGD r/o pud, nonulcer dyspepsia, other endoscopic findings to account for her symptoms Code(s): R11.0 - Nausea Category: Medical Plan Patient presents for collection of?H?Pylori?breath test. Patient has been fasting for 1 hour (nothing to eat, drink, no chewing gum or smoking) has not taken any antacid medication for at least 2 weeks and has no allergies to artificial sweeteners.???This test checks for an overgrowth of bacteria in your stomach. We all have bacteria but some may have more than others. It is treatable. if the test comes back negative there is nothing else to do. If the test result is positive we will treat you with 2 antibiotics and a medication to decrease the acid in your stomach (PPI) for 2 weeks. Two weeks after you have completed the treatment we will retest you to make sure the overgrowth has resolved. Orders: Orders H Pylori Breath Test Today Patient Instructions: Process for specimen collection and reason for testing was explained to the patient. Specimen collection. Patient instructed to take a deep breath and then exhale into the blue bag, filling it up as much as possible. Patient instructed to drink a mixture of water and the artificial sweetener with a straw. A 15 minute wait period was observed. Patient instructed to take a deep breath and then exhale into the pink bag, filling it up as much as possible.??
== END 2024-02-14 13:46 | disposition home or self-care (01) ==
LOC: HO.HGI 13:24
PROVIDERS: PCP Internal Medicine; Visit Provider Internal Medicine Gastroenterology
DX: R11.0 Nausea (principal)

== ENCOUNTER 2024-03-02 07:42 | Outpatient (AMB) | payer OTHER, SELFPAY ==
[2024-03-02 08:02] VITALS: BMI 22.9
--- NOTE | 2024-03-02 08:02 | A.OFFVIS_ITS ---
Vital Signs 03/02/24 08:02 Height 5 ft 2 in Weight 125 lb BMI 22.9 Intake Visit Reasons: ECC Peanut Farmer Required: No Information Interpreted: non-clinical & clinical Synthetic Filament Extruder: Synthetic Filament Extruder Present (Daniela HOFFMANN) Accompanied by: Self / Same As Patient Allergies No Known Allergies [No Known Allergies*] Allergy (Verified 03/02/24 08:02) Post menopausal: Yes HPI Comments Details: Presenting for repeat ECC, last ECC with showed insufficient cells for diagnosis PFSH Medical History Hypercholesterolemia Family history of colon cancer Palpitations Screening for colon cancer Asthma Anxiety Prolapsed hemorrhoids Benign essential hypertension Surgical History History of removal of ovarian cyst History of H/O tubal ligation Family History Mother AIDS Father No problems noted. 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 ) Review of Systems Const All systems reviewed & are unremarkable except as noted in HPI and below Physical Exam Vital Signs: BMI result Body Mass Index 22.9 General: Yes no CVA tenderness External Female Exam: normal external appearance and normal appearance of the urethra Speculum Exam - Vagina: normal appearance of the vagina, normal palpation, no lesions and no masses Speculum Exam - Cervix: normal appearance of the cervix, normal palpation, no lesions, no masses and nontender Bimanual exam- vagina & uterus: normal bimanual exam, normal palpation, uterine size normal, normal palpation, uterine shape normal, No Cervical tenderness present and non-tender Bimanual Exam- Adnexa, other: normal adnexae Back/Spine/Pelvis Back: no CVA tenderness Assessment & Plan Assessment & Plan (1) Cervical high risk HPV (human papillomavirus) test positive: Code(s): R87.810 - Cervical high risk human papillomavirus (HPV) DNA test positive Category: Medical Plan: ECC repeated. Before beginning the procedure, I conducted comprehensive counseling with the patient. We thoroughly discussed the procedure itself, including its details, alternatives, and all associated risks. This included but not limited to the following complications such as bleeding, infection, and injury to the vagina, bladder, and vessels, as well as the potential need for transfusion with all its associated risks. Subsequently, the patient sign the consent. Instructions given the patient to promptly contact the office or the after hours answering service or go to the emergency room if experiencing a temperature exceeding 100.4?F, abdominal pain, nausea/vomiting, or bleeding. Additionally, the patient was instructed to abstain from vaginal intercourse and bathtub use and to schedule a follow-up appointment within 2 weeks. The patient confirmed understanding of these instructions. Coding Level of Care Code Est Pt Level 3 (71789) Diagnoses Cervical high risk HPV (human papillomavirus) test positive R87.810
== END 2024-03-02 08:18 | disposition home or self-care (01) ==
LOC: HO.HWS 07:42
PROVIDERS: PCP Internal Medicine; Visit Provider Obstetrics & Gynecology
DX: R87.810 Cervical high risk human papillomavirus (HPV) DNA test positive (principal)
CPT/HCPCS: 99213

== ENCOUNTER 2024-03-02 07:42 | Outpatient (REF) | payer OTHER, SELFPAY | END 2024-03-02 07:43 | disposition home or self-care (01) | LOC: HO.LNP 07:42 | PROVIDERS: PCP Internal Medicine; Visit Provider Obstetrics & Gynecology | DX: R87.810 Cervical high risk human papillomavirus (HPV) DNA test positive (principal) | CPT/HCPCS: 88305; 99212 ==

== ENCOUNTER 2024-03-04 07:46 | Outpatient (AMB) | payer OTHER, SELFPAY ==
--- NOTE | 2024-03-04 08:01 | A.OFFPC_ITS ---
Vital Signs 03/04/24 08:03 Height 5 ft 2 in Weight 134 lb BMI 24.5 BP 130/70 Blood Pressure Location Lt brachial Position Sitting Pulse 59 Pulse Source Pulse Oximeter Pulse Oximetry (%) 98 Oxygen Delivery Method Room Air Intake Visit Reasons: DAR 6M follow up Intake Note: Patient is here to follow up on DAR and HTN, Asthma, Hypercholesterolemia. Pt decline flu shot today. Counsel Required: No Impregnation Operator: Not Required per policy Accompanied by: Self / Same As Patient Allergies No Known Allergies [No Known Allergies*] Allergy (Verified 03/04/24 08:02) Tobacco use date assessed: 03/04/24 Dental Screening Dental Screen Date: 08/21/23 HPI DAR 6M follow up HPI Details 53-year-old female presents to the offic e to discuss her chronic medical conditions. Patient is anxious. She is complaining of nausea and wheezing. She has been using albuterol with minimal relief. Patient gives history of asthma. Patient underwent a colonoscopy and believe she was scheduled for a repeat procedure in 3 months. She has not heard from the GI service. Patient's sister was diagnosed with colon cancer and she is very anxious about it. 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 She sees a mental health practitioner. Patient denies being depressed. Reports no crying spells or racing thoughts. [facility] Medical History (Updated 03/04/24 @ 08:40 by Lisandro Gilbert MD) Colon polyp Hypercholesterolemia Family history of colon cancer Palpitations Screening for colon cancer Asthma Anxiety Prolapsed hemorrhoids Benign essential hypertension Surgical History History of colonoscopy (~11/20/23) History of removal of ovarian cyst History of H/O tubal ligation Family History Mother AIDS Father No problems noted. 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 ) Questionnaire Thrive Questionnaire Date Thrive assessed: 05/30/23 AMANDA-7 AMB Questionnaire AMANDA-7 Date AMANDA - 7 assessed: 08/21/23 Source: Developed by Drs. Jakob Savage, Azra Tellez, Nikolai German and colleagues, with an educational demetrius from [employer]. Physical exam (Primary Care) Vital Signs: Last Vital Signs Pulse 59 03/04/24 08:03 BP 130/70 03/04/24 08:03 Pulse Ox 98 03/04/24 08:03 Oxygen Delivery Method Room Air 03/04/24 08:03 BMI result Body Mass Index 24.5 Tobacco/Smoking Status: Tobacco use Status Tobacco use date assessed 03/04/24 03/04/24 08:09 Patient Tobacco Use Status Former Tobacco user 03/04/24 08:09 Tobacco use type Cigarette 03/04/24 08:09 e-Cigarette/Vaping Use Former Use 03/04/24 08:09 Thrive Assessment: Date of Thrive Assessment Date Thrive assessed 05/30/23 03/04/24 08:09 Const General: cooperative and healthy appearing Nutritional Appearance: well nourished Orientation/consciousness: patient oriented x3 Limitations: no limitations HENMT Head: Yes normal to inspection Eyes General: appearance normal, both eyes and all related structures Neck Neck: Yes normal visual inspection Chest Chest palpation & inspection: normal palpation of entire chest wall Resp Effort & Inspection: normal respiratory effort Neuro General: patient oriented x3 Coding Level of Care Code Est Pt Level 4 (34690) Complex EM visit Add On G2211 Diagnoses Anxiety F41.9 Benign essential hypertension I10 Hypercholesterolemia E78.00 GERD (gastroesophageal reflux disease) K21.9 Colon polyp K63.5 Asthma J45.909 Assessment & Plan Assessment & Plan (1) Anxiety: Code(s): F41.9 - Anxiety disorder, unspecified Category: Medical Plan: Patient sees a mental health provider and is on intermittent use of clonazepam and mirtazapine. (2) Benign essential hypertension: Code(s): I10 - Essential (primary) hypertension Category: Medical Plan: Blood pressure is in range. Continue current medications. (3) Hypercholesterolemia: Code(s): E78.00 - Pure hypercholesterolemia, unspecified Category: Medical Plan: LDL is at upper limit of normal. Currently on no medications. (4) GERD (gastroesophageal reflux disease): Code(s): K21.9 - Gastro-esophageal reflux disease without esophagitis Category: Medical Plan: Endoscopy report reviewed. Will start PPI. Nausea may be due to gastritis seen on endoscopy. (5) Colon polyp: Code(s): K63.5 - Polyp of colon Category: Medical Plan: Colonoscopy reviewed. A tubular adenomatous polyp which is noncancerous was re moved. There is no mention of a follow-up in 3 months. A note has been sent to the GI clinic to determine when her next colonoscopy is scheduled for. Patient was reassured that the biopsy was noncancerous. (6) Asthma: Code(s): J45.909 - Unspecified asthma, uncomplicated Category: Medical Plan: Patient was advised to start Symbicort. In addition albuterol inhalers were sent for rescue relief.
[2024-03-04 08:03] VITALS: BP 130/70; PULSE 59; O2SAT 98; BMI 24.5
== END 2024-03-04 14:13 | disposition home or self-care (01) ==
PROVIDERS: PCP Internal Medicine; Visit Provider Internal Medicine
DX: F41.9 Anxiety disorder, unspecified (principal); I10 Essential (primary) hypertension; E78.00 Pure hypercholesterolemia, unspecified; K21.9 Gastro-esophageal reflux disease without esophagitis; K63.5 Polyp of colon; J45.909 Unspecified asthma, uncomplicated

== ENCOUNTER → 2024-03-04 07:46 | Outpatient (BNVA) | payer OTHER, SELFPAY | PROVIDERS: PCP Internal Medicine; Visit Provider Internal Medicine | DX: F41.9 Anxiety disorder, unspecified (principal); I10 Essential (primary) hypertension; E78.00 Pure hypercholesterolemia, unspecified; K21.9 Gastro-esophageal reflux disease without esophagitis; K63.5 Polyp of colon; J45.909 Unspecified asthma, uncomplicated | CPT/HCPCS: 99212 ==

== ENCOUNTER 2024-03-23 11:04 | Outpatient (AMB) | payer OTHER, SELFPAY ==
--- NOTE | 2024-03-23 11:05 | MHC.OFFVIS ---
Intake Visit Reasons: ecc results Allergies No Known Allergies [No Known Allergies*] Allergy (Verified 03/04/24 08:02) HPI Comments Details: The patient is presenting after ECC. The patient has no complaints, no vaginal bleeding, no feverishness chills or abdominal pain. The ECC pathology report showed the following: Endocervix, curettage: Inflamed endocervical and squamous mucosa with reactive changes and atrophy 11/05 colpo biopsy pathology showed the following: A. Endocervix, curettage: Insufficient for endocervical evaluation; blood only. B. Cervix, 6:00, biopsy: Squamous mucosa; negative for dysplasia; no endocervical glandular component present. C. Cervix, 9:00, biopsy: Squamous epithelium; negative for dysplasia; no endocervical glandular component present. D. Cervix, 12:00, biopsy: Squamous epithelium and rare fragment of benign endometrium; negative for dysplasia; no endocervical glandular component present. Comment: The patient's previous negative Pap test ([id number]) concurs with the current biopsies. [facility] Medical History Colon polyp Hypercholesterolemia Family history of colon cancer Palpitations Screening for colon cancer Asthma Anxiety Prolapsed hemorrhoids Benign essential hypertension Surgical History History of colonoscopy (~11/20/23) History of removal of ovarian cyst History of H/O tubal ligation Family History Mother AIDS Father No problems noted. 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 ) Review of Systems Const All systems reviewed & are unremarkable except as noted in HPI and below Reports as per HPI and Reports no additional complaints GI Reports no additional complaints Reports no additional complaints Telehealth Telehealth Telehealth Platform: Telephone Location of provider rendering services: practice address Location of patient: address on file Patient Identification confirmed using: Name, : Yes Telehealth method: video Patient verbally consented to treatment: Yes Patient verbally consented to billing insurance company: Yes Patient informed of any privacy concerns related to visit: Yes Assessment & Plan Assessment & Plan (1) Cervical high risk HPV (human papillomavirus) test positive: Code(s): R87.810 - Cervical high risk human papillomavirus (HPV) DNA test positive Category: Medical Plan: Discussed with the patient the pathology results of the colposcopy biopsies & endocervical curettage ( negative). Discussed with the patient the sensitivity specificity, positive and negative predictive value in detecting cervical cancer in addition discussed the regression, persistence and progression rates. Recommended co-testing in 12 months, if cytology and or HPV are abnormal will proceed was colposcopy biopsy and endocervical curettage. Instructions given to the patient to schedule a co test appointment in 1 year. All questions answered the patient verbalized understanding. I spent a total of 20 minutes reviewing the chart, talking to the patient via video and documenting in the medical record. Coding Level of Care Code Tele Est Pt Level 3 (84166) Diagnoses Cervical high risk HPV (human papillomavirus) test positive R87.810
--- OUTSIDE RECORDS SUMMARY | 2024-03-25 15:04 | XMS_ITS | Data Portability ---
Author Organization [facility], [facility] Address [address] [place] [address] Assessment No assessment recorded. Plan of Treatment Reminders Order Date Submit Date Provider Last Modified By Organization Details Last Modified Time Details Appointments None record ed. Lab None record ed. Referral None record ed. Procedures None record ed. Surgeries None record ed. Imaging None record ed. Medication Orders None record ed. Patient TargetsNo targets recorded. Patient InstructionsNo instructions recorded. Reason for Referral None Reported. Procedures Surgical History Date Name Laterality Status Provider Name and Address Organization Details Recorded Time OC-UDS Send Out Template NON DOT completed Jazz Jorge [place] [facility] 08/24/2022 17:33:09 Imaging Results None recorded. Procedure Notes None recorded. Medical Equipment None Reported. Vitals None Recorded Social History None recorded. Functional Status None recorded. Mental Status None recorded. Family History Nothing Reported. Medical History No medical history recorded. Gynecological HistoryNo gynecological history recorded. Obstetrics History GPAL:G 0 P 0 0 0 0 Past Encounters Encounter ID Performer Location Encounter Start Date Encounter Closed Date Diagnosis/Indication Diagnosis SNOMED-CT Code Diagnosis ICD10 Code [id number] [facility] [address] [place] [address] [phone] 06/07/2021 08:42:33 06/07/2021 09:21:51 [id number] [facility] [address] [facility] [place] [address] [id number] 0 10/19/2021 17:57:58 10/19/2021 19:00:21 [id number] Malgorzata Gallego MD [address] [place] [address] [id number] 08/24/2022 17:19:41 08/24/2022 17:38:03 History and physical examination, occupation [id number] Z02.1 Health Concerns Section Related Observation LastModified by Organization Detai ls LastModified Time None Recorded Concern Status LastModified by Organization Details LastModified Time None Recorded Advance Directives Directive None Recorded Payers Encounter Date Sequence Insurance Name Policy Number Policy Schroeder Covered Member ID Schroeder Member ID Guarantor Name 10/19/2021 1 [facility] [place] Loretta Perez [id number] Loretta Perez 08/24/2022 [facility] Loretta Perez [id number] Loretta Perez OBGyn Episode No OBEpisode recorded.
== END 2024-03-23 11:45 | disposition home or self-care (01) ==
LOC: HO.HWS 11:04
PROVIDERS: PCP Internal Medicine; Visit Provider Obstetrics & Gynecology
DX: R87.810 Cervical high risk human papillomavirus (HPV) DNA test positive (principal)
CPT/HCPCS: 99213

== ENCOUNTER → 2024-03-23 11:04 | Outpatient (BNVA) | payer OTHER, SELFPAY | PROVIDERS: PCP Internal Medicine; Visit Provider Obstetrics & Gynecology ==

== ENCOUNTER 2024-04-16 13:07 | Outpatient (AMB) | payer OTHER, SELFPAY ==
--- NOTE | 2024-04-16 13:14 | MHC.PC.OV ---
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 Reporting symptoms of sinus congestion, sore throat and difficulty swallowing. Low-grade fever. No family member is sick. No recent travel. Patient reports symptoms of malaise and fatigue. Patient reports difficulty hearing in both ears. Symptoms started 3 days ago. [facility] Medical History Colon polyp Hypercholesterolemia Family history of colon cancer Palpitations Screening for colon cancer Asthma Anxiety Prolapsed hemorrhoids Benign essential hypertension Surgical History History of colonoscopy (~11/20/23) History of removal of ovarian cyst History of H/O tubal ligation Family History Mother AIDS Father No problems noted. 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 ) Questionnaire PHQ-9 Over the last 2 weeks, how often have you been bothered by any of the following problems? 1. Little interest or pleasure in doing things: not at all 2. Feeling down, depressed, or hopeless: not at all 3. Trouble falling or staying asleep, or sleeping too much: not at all 4. Feeling tired or having little energy: not at all 5. Poor appetite or overeating: not at all 6. Feeling bad about yourself - or that you are a failure or have let yourself or your family down: not at all 7. Trouble concentrating on things, such as reading the newspaper or watching television: not at all 8. Moving or speaking so slowly that other people could have noticed. Or the opposite - being so fidgety or restless that you have been moving around a lot more than usual: not at all 9. Thoughts that you would be better off or of hurting yourself in some way: not at all Total score: 0 Depression Screening Interpretation: Negative Depression Screening Done: Yes 82287 - PHQ-9 Billing: Yes Source: Developed by Drs. Jakob Savage, Azra Tellez, Nikolai German and colleagues, with an educational demetrius from [employer]. Thrive Questionnaire Date Thrive assessed: 04/16/24 I am a: Patient What is your living situation today?: I have a steady place to live Within the past 12 months, did the food you bought not last and you didn't have the money to get more?: Never true Within the past 12 months, did you worry whether your food would run out before you got money to buy more?: Never true Do you have trouble paying for medicines?: No Do you have trouble getting transportation to medical appointments?: No Do you have trouble paying your heating and electricity bill?: No Do you have trouble taking care of your child, family member or friend?: No Do you have trouble with day-to-day activities such as bathing, preparing meals, shopping, managing finances, etc.?: No Are you currently unemployed and looking for a job?: No Are you interested in more education?: No Please select the resources that you would like help with: None Currently or been in a relationship where the following occur: No concerns reported THRIVE Score: 0 AUDIT C Alcohol Use Questionnaire (AUDIT-C) 1. How often do you have a drink containing alcohol?: Monthly or less 2. How many drinks containing alcohol do you have on a typical day when you are drinking?: 1 or 2 3. How often do you have six or more drinks on one occasion?: Never Total Score: 1 AMANDA-7 AMB Questionnaire AMANDA-7 Date AMANDA - 7 assessed: 04/16/24 Feeling nervous, anxious, or on edge: 0 = Not at all Not being able to stop or control worryin = Not at all Worrying too much about different things: 0 = Not at all Trouble relaxin = Not at all Being so restless that it is hard to sit still: 0 = Not at all Becoming easily annoyed or irritable: 0 = Not at all Feeling afraid as if something awful might happen: 0 = Not at all Total AMANDA-7 score (0-4 normal; 5-9 mild; 10-14 moderate; 15-21 severe): 0 Source: Developed by Drs. Jakob Savage, Azra Tellez, Nikolai German and colleagues, with an educational demetrius from [employer]. AMANDA-7 Assessment Billing AMANDA-7 Assessment Tool: AMANDA-7 Assessment 66801 Physical exam (Primary Care) Vital Signs: Last Vital Signs Pulse 48 L 04/16/24 13:17 BP 132/80 04/16/24 13:17 Pulse Ox 987 H 04/16/24 13:17 Oxygen Delivery Method Room Air 04/16/24 13:17 BMI result Body Mass Index 24.6 Tobacco/Smoking Status: Tobacco use Status Tobacco use date assessed 03/04/24 04/16/24 13:14 Patient Tobacco Use Status Former Tobacco user 04/16/24 13:14 Tobacco use type Cigarette 04/16/24 13:14 e-Cigarette/Vaping Use Former Use 04/16/24 13:14 PHQ-9: PHQ-9 Score PHQ-9: Total score 0 04/16/24 13:24 Depression Screening Interpretation: Negative Thrive Assessment: Date of Thrive Assessment Date Thrive assessed 04/16/24 04/16/24 13:24 Currently or been in a relationship where the following occur: No concerns reported Const General: cooperative and healthy appearing Nutritional Appearance: well nourished Orientation/consciousness: patient oriented x3 Limitations: no limitations HENMT Head: Yes normal to inspection Eyes General: appearance normal, both eyes and all related structures Neck Neck: Yes normal visual inspection Chest Chest palpation & inspection: normal palpation of entire chest wall Resp Effort & Inspection: normal respiratory effort Neuro General: patient oriented x3 Office Procedures Flu Questionnaire Does the patient have a severe egg allergy?: No Immunizations Fluarix Triv [id number] (PF) 45 mcg (15 mcg x 3)/0.5 mL IM syringe Performing Provider: Lisandro Gilbert MD [facility] Documented (not given) by: DANIELLE oPllard on 04/16/24 13:24 Reason Not Given: Patient Refused Coding Level of Care Code Est Pt Level 3 (60292) Complex EM visit Add On G2211 Diagnoses Upper respiratory tract infection J06.9 Additional Codes AMANDA-7 Assessment Billing - AMANDA-7 Assessment Tool: AMANDA-7 Assessment 72629 ([id number]) PHQ-9 - 21655 - PHQ-9 Billing: Yes ([id number]) Assessment & Plan Assessment & Plan (1) Upper respiratory tract infection: Code(s): J06.9 - Acute upper respiratory infection, unspecified Plan: Antibiotics ordered. Increase fluid intake. Tylenol for aches and pains. If symptoms worsen, follow-up here for a recheck. Orders: Orders Influenza [id number] Immunization Today Z23 - Encounter for immunization
[2024-04-16 13:17] VITALS: BP 132/80; PULSE 48; O2SAT 987; BMI 24.6
== END 2024-04-16 15:53 | disposition home or self-care (01) ==
PROVIDERS: PCP Internal Medicine; Visit Provider Internal Medicine
DX: Z23 Encounter for immunization (principal); J06.9 Acute upper respiratory infection, unspecified

== ENCOUNTER → 2024-04-16 13:07 | Outpatient (BNVA) | payer OTHER, SELFPAY | PROVIDERS: PCP Internal Medicine; Visit Provider Internal Medicine | DX: J06.9 Acute upper respiratory infection, unspecified (principal) | CPT/HCPCS: 90471; 96127; 99212 ==

== ENCOUNTER 2024-05-07 11:15 | Outpatient (AMB) | payer OTHER, SELFPAY ==
[2024-05-07 11:31] VITALS: BP 120/72; PULSE 60; TEMP 36.2; O2SAT 98; BMI 24.9
--- NOTE | 2024-05-07 11:31 | A.OFFPC_ITS ---
Vital Signs 05/07/24 11:31 Height 5 ft 2 in Weight 136 lb 2 oz BMI 24.9 BP 120/72 Blood Pressure Location Lt brachial Position Sitting Pulse 60 Pulse Source Pulse Oximeter Temp 97.2 F Temp Source Temporal Artery Scan Pulse Oximetry (%) 98 Oxygen Delivery Method Room Air Intake Visit Reasons: Trouble hearing/clogged ears Field Marketing Coordinator Required: No Accompanied by: Self / Same As Patient Allergies No Known Allergies [No Known Allergies*] Allergy (Verified 05/07/24 11:46) Medication List - Last Reconciled 05/07/24 by ZAHIDA Gutierrez albuterol sulfate 0.63 mg (3 mL) inhalation QID PRN albuterol sulfate 90 mcg/actuation (Ventolin HFA) 1 puff PO Q4H PRN amlodipine 10 mg PO DAILY amoxicillin-pot clavulanate 875-125 mg 1 tab PO BID 10 days budesonide-formoterol 160-4.5 mcg/actuation (Symbicort) 2 puffs PO BID clonazepam 0.5 mg PO DAILY PRN fluticasone propionate 50 mcg/actuation (Flonase Allergy Relief) 1 spray intranasal DAILY hydrocortisone 2.5% (Proctosol HC) 1 appl [place] BEDTIME PRN mirtazapine (Remeron) 15 mg PO BEDTIME pantoprazole 40 mg PO DAILY Tobacco use date assessed: 05/07/24 Dental Screening Dental Screen Date: 08/21/23 Did you have a dental visit in the last 12 months?: Yes Did you have a dental problem in the last 6 months where you did not have access to dental care?: No Was dental information given to patient?: Patient has dentist HPI Trouble hearing/clogged ears HPI Details Patient is a 53-year-old female with significant past medical history of benign essential hypertension, GERD, asthma, palpitation, bradycardia, hypercholesterolemia and insomnia She is a patient of Dr. Gilbert. She was last seen on 04/16/23 The patient is presenting today with concerns of decreased hearing/clogged/ringing in the ears. 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 She is not sure why it was ordered. Reviewed chart: The patient was ordered the medication due suspicion of her having external otitis. Will discontinue medication. [facility] Medical History Colon polyp Hypercholesterolemia Family history of colon cancer Palpitations Screening for colon cancer Asthma Anxiety Prolapsed hemorrhoids Benign essential hypertension Surgical History History of colonoscopy (~11/20/23) History of removal of ovarian cyst History of H/O tubal ligation Family History Mother AIDS Father No problems noted. 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 ) Questionnaire PHQ-9 Over the last 2 weeks, how often have you been bothered by any of the following problems? 1. Little interest or pleasure in doing things: not at all 2. Feeling down, depressed, or hopeless: not at all 3. Trouble falling or staying asleep, or sleeping too much: not at all 4. Feeling tired or having little energy: not at all 5. Poor appetite or overeating: not at all 6. Feeling bad about yourself - or that you are a failure or have let yourself or your family down: not at all 7. Trouble concentrating on things, such as reading the newspaper or watching television: not at all 8. Moving or speaking so slowly that other people could have noticed. Or the opposite - being so fidgety or restless that you have been moving around a lot more than usual: not at all 9. Thoughts that you would be better off or of hurting yourself in some way: not at all Total score: 0 Depression Screening Interpretation: Negative Depression Screening Done: Yes 14039 - PHQ-9 Billing: Yes Source: Developed by Drs. Jakob Savage, Azra Tellez, Nikolai German and colleagues, with an educational demetrius from [employer]. Thrive Questionnaire Date Thrive assessed: 05/07/24 I am a: Patient What is your living situation today?: I have a steady place to live Within the past 12 months, did the food you bought not last and you didn't have the money to get more?: Never true Within the past 12 months, did you worry whether your food would run out before you got money to buy more?: Never true Do you have trouble paying for medicines?: No Do you have trouble getting transportation to medical appointments?: No Do you have trouble paying your heating and electricity bill?: No Do you have trouble taking care of your child, family member or friend?: No Do you have trouble with day-to-day activities such as bathing, preparing meals, shopping, managing finances, etc.?: No Are you currently unemployed and looking for a job?: No Are you interested in more education?: No Please select the resources that you would like help with: None Currently or been in a relationship where the following occur: No concerns reported THRIVE Score: 0 AUDIT C Alcohol Use Questionnaire (AUDIT-C) 1. How often do you have a drink containing alcohol?: Monthly or less 2. How many drinks containing alcohol do you have on a typical day when you are drinking?: 1 or 2 3. How often do you have six or more drinks on one occasion?: Never Total Score: 1 Score Reviewed/Action Taken: Yes AMANDA-7 AMB Questionnaire AMANDA-7 Date AMANDA - 7 assessed: 05/07/24 Feeling nervous, anxious, or on edge: 0 = Not at all Not being able to stop or control worryin = Not at all Worrying too much about different things: 0 = Not at all Trouble relaxin = Not at all Being so restless that it is hard to sit still: 0 = Not at all Becoming easily annoyed or irritable: 0 = Not at all Feeling afraid as if something awful might happen: 0 = Not at all Total AMANDA-7 score (0-4 normal; 5-9 mild; 10-14 moderate; 15-21 severe): 0 Source: Developed by Drs. Jakob Savage, Azra Tellez, Nikolai German and colleagues, with an educational demetrius from [employer]. AMANDA-7 Assessment Billing AMANDA-7 Assessment Tool: AMANDA-7 Assessment 44484 Review of Systems Const Details: Denies chills, Denies fatigue, Denies fever(s), Denies headache(s) and Denies weakness HEENT other: +bilateral decreased hearing, ear pressure, and intermittent ringing in the ears. Denies change in vision, Denies dizziness, Denies headache(s), Denies hearing loss, Denies nasal congestion, Denies sinus pain, Denies sinus pressure and Denies sore throat Card Denies chest pain, Denies lightheadedness, Denies dyspnea and Denies other (palpitations) Resp Denies cough, Denies dyspnea and Denies wheezing GI Denies abdominal pain, Denies melena, Denies hematochezia, Denies change in bowel habits, Denies dyspepsia and Denies nausea Denies hematuria and Denies dysuria Physical exam (Primary Care) Vital Signs: Last Vital Signs Temp 97.2 F 05/07/24 11:31 Pulse 60 05/07/24 11:31 BP 120/72 05/07/24 11:31 Pulse Ox 98 05/07/24 11:31 Oxygen Delivery Method Room Air 05/07/24 11:31 BMI result Body Mass Index 24.9 Tobacco/Smoking Status: Tobacco use Status Tobacco use date assessed 05/07/24 05/07/24 11:40 Patient Tobacco Use Status Former Tobacco user 05/07/24 11:32 Tobacco use type Cigarette 05/07/24 11:32 e-Cigarette/Vaping Use Former Use 05/07/24 11:32 PHQ-9: PHQ-9 Score PHQ-9: Total score 0 05/07/24 20:59 Depression Screening Interpretation: Negative Thrive Assessment: Date of Thrive Assessment Date Thrive assessed 05/07/24 05/07/24 11:40 Currently or been in a relationship where the following occur: No concerns reported Const Other: General: no acute distress, well developed, alert and awake Nutritional Appearance: well nourished Orientation/consciousness: patient oriented x3 HENMT Head: Yes normocephalic and Yes atraumatic Ears: +ear impaction-almost blockig TMs in both ears, no erythema, no edema or irritation noted General nose exam: Normal external nose present and Normal nares present Mouth: Normal oral and palatal mucosa present and moist mucous membranes Teeth and gingiva: dentition normal Throat: Yes oropharynx normal Eyes Pupils: Equal, round and reactive pupils present and Pupil accommodation reflex normal EOM: EOMs intact bilaterally Neck Neck: Yes normal visual inspection, Yes no lymphadenopathy and Yes trachea midline Thyroid: Thyroid normal Carotids: no bruits Lymphatic: no lymphadenopathy noted Chest Chest palpation & inspection: normal inspection of the chest Resp Effort & Inspection: normal respiratory effort Auscultation: clear to auscultation bilaterally Cardio Rate: regular rate Rhythm: regular rhythm Heart sounds: S1 normal heart sound present, S2 normal heart sound present, no gallops, no murmurs and no rubs GI Palpation (GI): abdomen flat sound and nontender to palpation Auscultation: normal bowel sounds General: Yes no CVA tenderness Back/Spine/Pelvis Back: no CVA tenderness l: Yes normal to inspection, No edema and No calf tenderness Psych Appearance: grossly normal Affect: normal affect Attitude: cooperative Thought process: Normal thought process present Coding Level of Care Code Est Pt Level 3 (71518) Diagnoses Tinnitus of both ears H93.13 Laterality: bilateral Decreased hearing of both ears H91.93 Impacted cerumen of both ears H61.23 Otitis externa of both ears, unspecified chronicity, unspecified type H60.93 Chronicity: unspecified Laterality: bilateral Otitis externa type: unspecified type Additional Codes AMANDA-7 Assessment Billing - AMANDA-7 Assessment Tool: AMANDA-7 Assessment 50454 ([id number]) PHQ-9 - 81461 - PHQ-9 Billing: Yes ([id number]) Time Spent (min) 29 Assessment & Plan Assessment & Plan (1) Ringing of ears: Code(s): H93.19 - Tinnitus, unspecified ear Category: Medical Qualifiers: Laterality: bilateral Qualified Code(s): H93.13 - Tinnitus, bilateral Plan: The patient reports a two week hx of ringing in her ears Bilateral ears impacted and almost blocking the TMs completely Debrox ear drops ordered. Scheduled to return in wk for ear flush ENT referral placed. The impaction is closed to TMs and might be hard to remove (2) Decreased hearing of both ears: Code(s): H91.93 - Unspecified hearing loss, bilateral Category: Medical Plan: Most likely due to impaction. Will try to remove the cerumen ENT referral placed (3) Impacted cerumen of both ears: Code(s): H61.23 - Impacted cerumen, bilateral Category: Medical Plan: The patient reports a two week hx of ringing in her ears Bilateral ears impacted and almost blocking the TMs completely Debrox ear drops ordered. Scheduled to return in 1 wk for ear flush ENT referral placed. The impaction is closed to TMs and might be hard to remove (4) External otitis: Code(s): H60.90 - Unspecified otitis externa, unspecified ear Category: Medical Qualifiers: Chronicity: unspecified Laterality: bilateral Otitis externa type: unspecified type Qualified Code(s): H60.93 - Unspecified otitis externa, bilateral Plan: The patient was prescribed augmentin by another provider. The patient reported symptoms were concerning for external otitis. The patient did not start medication because she was not sure why she was prescribed this medication. Exam shows bilateral ear impaction without irritation. The patient denies pain at the trageus, mastoid process and with he pulling of bilateral ears. Augmentin was discontinued. Plan The patient to return in 1 wk for ear flush in office Orders: Referrals Ear/Nose/Throat Referral H61.23 - Impacted cerumen, bilateral, H91.93 - Unspecified hearing loss, bilateral, H93.19 - Tinnitus, unspecified ear Medications: New carbamide peroxide 6.5% (Debrox) 5 drps otic (ears) Q12H 4 days 15 mL 0RF Discontinued azithromycin Discontinued Reason: Patient Completed Course take 500 mg today (day 1), then 250 mg for 4 days (days 2-5) PO 6 tabs 0RF amoxicillin-pot clavulanate 875-125 mg Discontinued Reason: Doctor's Order 1 tab PO BID 10 days 20 tabs 0RF
--- OUTSIDE RECORDS SUMMARY | 2024-05-07 13:35 | XMS_ITS | Data Portability ---
Author Organization [facility], [address] Address [address] [place] [address] Assessment No assessment recorded. Plan of Treatment [...] Send Out Template NON DOT completed Jazz Burgessbe [place] [facility] 08/24/2022 17:33:09 Imaging Results None recorded. Procedure [...] Diagnosis/Indication Diagnosis SNOMED-CT Code Diagnosis ICD10 Code Diagnosis Note [id number] [facility] [address] [facility] [place] [phone] 06/07/2021 08:42:33 06/07/2021 09:21:51 [id number] [address] [place] [address] [phone] 10/19/2021 17:57:58 10/19/2021 19:00:21 [id number] Malgorzata Gallego MD [address] [place] [address] [phone] 08/24/2022 17:19:41 08/24/2022 17:38:03 History and physical examination, occupation [id number] Z02.1 Health Concerns Section Related Observation LastModified by Organization Detai ls LastModified Time None Recorded Concern Status LastModified by Organization Details LastModified Time None Recorded Advance Directives Directive None Recorded Payers Encounter Date Sequence Insurance Name Policy Number Policy Schroeder Covered Member ID Schroeder Member ID Guarantor Name 10/19/2021 1 [facility] (O) JOSIEGULF BREEZE Loretta Perez [id number] Loretta Perez 08/24/2022 OC-ESCREEN Loretta Perez [id number] Loretta Perez OBGyn Episode No OBEpisode recorded.
== END 2024-05-07 12:16 | disposition home or self-care (01) ==
PROVIDERS: PCP Internal Medicine
DX: H93.13 Tinnitus, bilateral (principal); H61.23 Impacted cerumen, bilateral; H60.93 Unspecified otitis externa, bilateral

== ENCOUNTER → 2024-05-07 11:15 | Outpatient (BNVA) | payer OTHER, SELFPAY | PROVIDERS: PCP Internal Medicine | DX: H93.13 Tinnitus, bilateral (principal); H61.23 Impacted cerumen, bilateral; H60.93 Unspecified otitis externa, bilateral | CPT/HCPCS: 96127; 99212 ==

== ENCOUNTER 2024-05-15 08:23 | Outpatient (AMB) | payer OTHER, SELFPAY ==
--- OUTSIDE RECORDS SUMMARY | 2024-05-15 08:29 | XMS_ITS | Data Portability ---
Author Organization [facility], [address] [place] [address] Assessment No assessment recorded. Plan of Treatment [...] Out Template NON DOT completed Jazz Burgessbe [place] [facility] 08/24/2022 17:33:09 Imaging Results None recorded. Procedure [...] SNOMED-CT Code Diagnosis ICD10 Code Diagnosis Note [id number] [address] [place] [phone] 06/07/2021 08:42:33 06/07/2021 09:21:51 [id number] [address] [place] [address] [phone] 10/19/2021 17:57:58 10/19/2021 19:00:21 [id number] Malgorzata Gallego MD [address] [place] [address] [phone] 08/24/2022 17:19:41 08/24/2022 17:38:03 History and physical examination, occupation [id number] Z02.1 Health Concerns Section Related Observation LastModified by Organization Detai ls LastModified Time None Recorded Concern Status LastModified by Organization Details LastModified Time None Recorded Advance Directives Directive None Recorded Payers Encounter Date Sequence Insurance Name Policy Number Policy Schroeder Covered Member ID Schroeder Member ID Guarantor Name 10/19/2021 1 [facility] (O) [place] Loretta Perez [id number] Loretta Perez 08/24/2022 OC-ESCREEN Loretta Perez [id number] Loretta Perez OBGyn Episode No OBEpisode recorded.
--- NOTE | 2024-05-15 08:30 | MHC.PC.OV ---
Vital Signs 05/15/24 08:31 Height 5 ft 2 in Weight 135 lb 4 oz BMI 24.7 BP 110/72 Blood Pressure Location Lt brachial Position Sitting Pulse 51 Pulse Source Pulse Oximeter Temp 96.6 F L Temp Source Skin Pulse Oximetry (%) 97 Oxygen Delivery Method Room Air Intake Visit Reasons: ear flush with Shahla Intake Note: Patient is here to follow up on ear flush. Small Business Banking Officer Required: No Compliance Coordinator: Not Required per policy Accompanied by: Self / Same As Patient Allergies No Known Allergies [No Known Allergies*] Allergy (Verified 05/15/24 08:35) Medication List - Last Reconciled 05/15/24 by Shahla Padilla PA-C albuterol sulfate 0.63 mg (3 mL) inhalation QID PRN albuterol sulfate 90 mcg/actuation (Ventolin HFA) 1 puff PO Q4H PRN amlodipine 10 mg PO DAILY amoxicillin-pot clavulanate 875-125 mg 1 tab PO BID 7 days budesonide-formoterol 160-4.5 mcg/actuation (Symbicort) 2 puffs PO BID carbamide peroxide 6.5% (Debrox) 5 drps otic (ears) Q12H 4 days clonazepam 0.5 mg PO DAILY PRN fluticasone propionate 50 mcg/actuation (Flonase Allergy Relief) 1 spray intranasal DAILY hydrocortisone 2.5% (Proctosol HC) 1 appl [place] BEDTIME PRN mirtazapine (Remeron) 15 mg PO BEDTIME pantoprazole 40 mg PO DAILY Tobacco use date assessed: 05/15/24 Dental Screening Dental Screen Date: 05/15/24 Did you have a dental visit in the last 12 months?: Yes Did you have a dental problem in the last 6 months where you did not have access to dental care?: No Was dental information given to patient?: Patient has dentist HPI ear flush with Shahla HPI Details 53-year-old female with past medical history of asthma, hypertension, depression, GERD, insomnia, anxiety, hypercholesterolemia last seen by nurse practitioner coming to the office for ear cleaning. Patient tells us today she has been using Debrox drops in bilateral ears the right ear has had good relief however the left ear still has a clogged ear feeling without pain. [facility] Medical History Colon polyp Hypercholesterolemia Family history of colon cancer Palpitations Screening for colon cancer Asthma Anxiety Prolapsed hemorrhoids Benign essential hypertension Surgical History History of colonoscopy (~11/20/23) History of removal of ovarian cyst History of H/O tubal ligation Family History Mother AIDS Father No problems noted. 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 ) Questionnaire Thrive Questionnaire Date Thrive assessed: 05/07/24 AMANDA-7 AMB Questionnaire AMANDA-7 Date AMANDA - 7 assessed: 05/07/24 Source: Developed by Drs. Jakob Savage, Azra Tellez, Nikolai Greman and colleagues, with an educational demetrius from [employer]. Review of Systems Const Denies body aches, Denies chills, Denies fatigue and Denies fever(s) Eyes Reports no additional complaints ENT Details: Ear clogged feeling and decreased hearing Card Denies chest pain and Denies dyspnea Resp Denies dyspnea GI Reports no additional complaints Reports no additional complaints Endo Denies fatigue Physical exam (Primary Care) Vital Signs: Last Vital Signs Temp 96.6 F L 05/15/24 08:31 Pulse 51 05/15/24 08:31 BP 110/72 05/15/24 08:31 Pulse Ox 97 05/15/24 08:31 Oxygen Delivery Method Room Air 05/15/24 08:31 BMI result Body Mass Index 24.7 Tobacco/Smoking Status: Tobacco use Status Tobacco use date assessed 05/15/24 05/15/24 08:39 Patient Tobacco Use Status Former Tobacco user 05/15/24 08:31 Tobacco use type Cigarette 05/15/24 08:31 e-Cigarette/Vaping Use Former Use 05/15/24 08:31 Thrive Assessment: Date of Thrive Assessment Date Thrive assessed 05/07/24 05/15/24 08:31 Const General: cooperative, healthy appearing, comfortable and no acute distress Orientation/consciousness: patient oriented x3 HENMT Head: Yes normocephalic Ears: hearing grossly normal bilaterally, TM normal on the right, EAC's normal and TM abnormal wth effusion (Left) other and retracted on the left General nose exam: Normal external nose present Eyes General: appearance normal, both eyes and all related structures Conjunctivae: conjunctivae normal Neck Neck: Yes full ROM and Yes no lymphadenopathy Resp Effort & Inspection: normal respiratory effort Auscultation: clear to auscultation bilaterally, no crackles, no rales, no rhonchi and no wheezes Cardio Rate: regular rate Rhythm: regular rhythm Skin General skin exam: no rashes or lesions noted Neuro General: patient oriented x3 Gait exam (Neuro): Normal gait present Extrem General: Yes normal to inspection, Yes full ROM and No edema Psych Affect: normal affect Attitude: cooperative Insight: Good insight present (Psych) Judgement: Good judgement present (Psych) Coding Level of Care Code Est Pt Level 3 (59002) Diagnoses Impacted cerumen of both ears H61.23 Acute otitis media, unspecified otitis media type H66.90 Otitis media type: unspecified Chronicity: acute Assessment & Plan Assessment & Plan (1) Impacted cerumen of both ears: Code(s): H61.23 - Impacted cerumen, bilateral Category: Medical Plan: On exam today cerumen was no longer present. Likely resolved with the use of Debrox drops. (2) Otitis media: Code(s): H66.90 - Otitis media, unspecified, unspecified ear Category: Medical Qualifiers: Otitis media type: unspecified Chronicity: acute Qualified Code(s): H66.90 - Otitis media, unspecified, unspecified ear Plan: Patient complaining of clogged ear feeling and decreased hearing in the left side. On exam patient has retracted TM with effusion suspicious for otitis media. We will treat with Augmentin twice daily for 7 days. Advised patient to follow up if symptoms worsen or do not improve and we will consider referral to ENT. Plan This note was constructed using voice recognition software. While every effort has been made to ensure accuracy and gold letterer, still areas may have been included sometimes these areas may affect the content or meeting of the given symptoms. Total time spent caring for the patient today was 20 minutes. This includes time spent before the visit reviewing the chart, time spent during the visit, and time spent after the visit and documentation. Medications: New amoxicillin-pot clavulanate 875-125 mg 1 tab PO BID 7 days 14 tabs 0RF
[2024-05-15 08:31] VITALS: BP 110/72; PULSE 51; TEMP 35.9; O2SAT 97; BMI 24.7
== END 2024-05-15 09:03 | disposition home or self-care (01) ==
PROVIDERS: PCP Internal Medicine
DX: H61.23 Impacted cerumen, bilateral (principal); H66.90 Otitis media, unspecified, unspecified ear

== ENCOUNTER → 2024-05-15 08:23 | Outpatient (BNVA) | payer OTHER, SELFPAY | PROVIDERS: PCP Internal Medicine | DX: H61.23 Impacted cerumen, bilateral (principal); H69.92 Unspecified Eustachian tube disorder, left ear | CPT/HCPCS: 99212 ==

== ENCOUNTER 2024-06-03 08:44 | Outpatient (AMB) | payer OTHER, SELFPAY ==
--- OUTSIDE RECORDS SUMMARY | 2024-06-03 08:49 | XMS_ITS | Data Portability ---
Author Organization [facility], [address] Address [address] [place] [address] Assessment No assessment recorded. Plan of Treatment [...] Out Template NON DOT completed Jazz Burgessbe [place] [facility] 08/24/2022 17:33:09 Imaging Results None recorded. Procedure [...] SNOMED-CT Code Diagnosis ICD10 Code Diagnosis Note [id number] [address] [facility] [place] [address] [phone] 06/07/2021 08:42:33 06/07/2021 09:21:51 [id number] [address] [address] [place] [address] [phone] 0 10/19/2021 17:57:58 10/19/2021 19:00:21 [id number] Malgorzata Gallego MD [address] [place] [address] [phone] 08/24/2022 17:19:41 08/24/2022 17:38:03 History and physical examination, occupation [id number] Z02.1 Health Concerns Section Related Observation LastModified by Organization Detai ls LastModified Time None Recorded Concern Status LastModified by Organization Details LastModified Time None Recorded Advance Directives Directive None Recorded Payers Encounter Date Sequence Insurance Name Policy Number Policy Schroeder Covered Member ID Schroeder Member ID Guarantor Name 10/19/2021 1 [facility] (O) JOSIEMINERVA Loretta Perez [id number] Loretta Perez 08/24/2022 OC-ESCREEN Loretta Perez [id number] Loretta Perez OBGyn Episode No OBEpisode recorded.
[2024-06-03 08:52] VITALS: BP 122/76; PULSE 56; O2SAT 98; BMI 24.8
--- NOTE | 2024-06-03 08:52 | A.OFFPC_ITS ---
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 Accompanied by: Self / Same As Patient Allergies No Known Allergies [No Known Allergies*] Allergy (Verified 06/03/24 12:13) Medication List - Last Reconciled 06/03/24 by ZAHIDA Gutierrez albuterol sulfate 0.63 mg (3 mL) inhalation QID PRN albuterol sulfate 90 mcg/actuation (Ventolin HFA) 1 puff PO Q4H PRN amlodipine 10 mg PO DAILY amoxicillin-pot clavulanate 875-125 mg 1 tab PO BID 7 days budesonide-formoterol 160-4.5 mcg/actuation (Symbicort) 2 puffs PO BID carbamide peroxide 6.5% (Debrox) 5 drps otic (ears) Q12H 4 days clonazepam 0.5 mg PO DAILY PRN fluticasone propionate 50 mcg/actuation (Flonase Allergy Relief) 1 spray intranasal DAILY hydrocortisone 2.5% (Proctosol HC) 1 appl UT BEDTIME PRN mirtazapine (Remeron) 15 mg PO BEDTIME pantoprazole 40 mg PO DAILY tramadol 50 mg PO BID PRN Tobacco use date assessed: 06/03/24 Dental Screening Dental Screen Date: 06/03/24 HPI LT ear clogged/can't hear HPI Details Patient is a 53-year-old female was last seen on by KIARA Gale On that visit the patient was treated with Augmentin for otitis media for the left ear Prior to this visit the patient was seen by this provider on 05/07/24 for ear impaction and tinnitus The patient was given ear drops and was scheduled to return for ear cleaning, which was on the 05/15/24. The patient is presenting today with ongoing ear pain/pressure. She completed the abt with no relief On the patient visit on 05/07/24 and ENT referral was placed The patient is concern today that her appt date is all the way in January and she needs to be seen sooner The ENT office was contact and updated on the patient more recent condition The patient was also given tramadol 50 mg BID PRN to assist with the pain until appt [facility] Medical History Colon polyp Hypercholesterolemia Family history of colon cancer Palpitations Screening for colon cancer Asthma Anxiety Prolapsed hemorrhoids Benign essential hypertension Surgical History History of colonoscopy (~11/20/23) History of removal of ovarian cyst History of H/O tubal ligation Family History Mother AIDS Father No problems noted. 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 ) Questionnaire PHQ-9 Over the last 2 weeks, how often have you been bothered by any of the following problems? 1. Little interest or pleasure in doing things: not at all 2. Feeling down, depressed, or hopeless: not at all 3. Trouble falling or staying asleep, or sleeping too much: not at all 4. Feeling tired or having little energy: not at all 5. Poor appetite or overeating: not at all 6. Feeling bad about yourself - or that you are a failure or have let yourself or your family down: not at all 7. Trouble concentrating on things, such as reading the newspaper or watching television: not at all 8. Moving or speaking so slowly that other people could have noticed. Or the opposite - being so fidgety or restless that you have been moving around a lot more than usual: not at all 9. Thoughts that you would be better off or of hurting yourself in some way: not at all Total score: 0 Depression Screening Interpretation: Negative Depression Screening Done: Yes 62787 - PHQ-9 Billing: Yes Source: Developed by Drs. Jakob Savage, Azra Tellez, Nikolai German and colleagues, with an educational demetrius from [employer]. Thrive Questionnaire Date Thrive assessed: 06/03/24 I am a: Patient What is your living situation today?: I have a steady place to live Within the past 12 months, did the food you bought not last and you didn't have the money to get more?: Never true Within the past 12 months, did you worry whether your food would run out before you got money to buy more?: Never true Do you have trouble paying for medicines?: No Do you have trouble getting transportation to medical appointments?: No Do you have trouble paying your heating and electricity bill?: No Do you have trouble taking care of your child, family member or friend?: No Do you have trouble with day-to-day activities such as bathing, preparing meals, shopping, managing finances, etc.?: No Are you currently unemployed and looking for a job?: No Are you interested in more education?: No Please select the resources that you would like help with: None Currently or been in a relationship where the following occur: No concerns reported THRIVE Score: 0 AUDIT C Alcohol Use Questionnaire (AUDIT-C) 1. How often do you have a drink containing alcohol?: Monthly or less 2. How many drinks containing alcohol do you have on a typical day when you are drinking?: 1 or 2 3. How often do you have six or more drinks on one occasion?: Never Total Score: 1 Score Reviewed/Action Taken: Yes AMANDA-7 AMB Questionnaire AMANDA-7 Date AMANDA - 7 assessed: 06/03/24 Feeling nervous, anxious, or on edge: 0 = Not at all Not being able to stop or control worryin = Not at all Worrying too much about different things: 0 = Not at all Trouble relaxin = Not at all Being so restless that it is hard to sit still: 0 = Not at all Becoming easily annoyed or irritable: 0 = Not at all Feeling afraid as if something awful might happen: 0 = Not at all Total AMANDA-7 score (0-4 normal; 5-9 mild; 10-14 moderate; 15-21 severe): 0 Source: Developed by Drs. Jakob Savage, Azra Tellez, Nikolai German and colleagues, with an educational demetrius from [employer]. AMANDA-7 Assessment Billing AMANDA-7 Assessment Tool: AMANDA-7 Assessment 48056 Review of Systems Const Details: Denies chills, Denies fatigue, Denies fever(s), Denies headache(s) and Denies weakness HEENT Denies change in vision, Denies dizziness, Denies headache(s), Denies hearing loss, Denies nasal congestion, Denies sinus pain, Denies sinus pressure and Denies sore throat OTHER: left ear pain and pressure Card Denies chest pain, Denies lightheadedness, Denies dyspnea and Denies other (palpitations) Resp Denies cough, Denies dyspnea and Denies wheezing GI Denies abdominal pain, Denies melena, Denies hematochezia, Denies change in bowel habits, Denies dyspepsia and Denies nausea Denies hematuria and Denies dysuria Musc Denies abnormal gait, Denies myalgias, Denies arthralgias, Denies numbness and Denies tingling Skin/Breast Denies rash, Denies unusual bruising and Denies wounds Neuro Denies abnormal gait, Denies dizziness, Denies headache(s), Denies memory loss, Denies numbness, Denies Sensory deficit (Neuro), Denies tingling and Denies weakness Psych Denies anxiety, Denies depression and Denies memory loss Endo Denies cold intolerance, Denies fatigue, Denies heat intolerance, Denies polydipsia and Denies polyuria Kris/Lymph Denies easy bleeding and Denies easy bruising Aller/Immun Denies wheezing Physical exam (Primary Care) Vital Signs: Last Vital Signs Pulse 56 06/03/24 08:52 BP 122/76 06/03/24 08:52 Pulse Ox 98 06/03/24 08:52 Oxygen Delivery Method Room Air 06/03/24 08:52 BMI result Body Mass Index 24.8 Tobacco/Smoking Status: Tobacco use Status Tobacco use date assessed 06/03/24 06/03/24 09:01 Patient Tobacco Use Status Former Tobacco user 06/03/24 09:01 Tobacco use type Cigarette 06/03/24 09:01 e-Cigarette/Vaping Use Former Use 06/03/24 09:01 PHQ-9: PHQ-9 Score PHQ-9: Total score 0 06/03/24 09:01 Depression Screening Interpretation: Negative Thrive Assessment: Date of Thrive Assessment Date Thrive assessed 06/03/24 06/03/24 09:01 Currently or been in a relationship where the following occur: No concerns reported Const Other: General: no acute distress, well developed, alert and awake Nutritional Appearance: well nourished Orientation/consciousness: patient oriented x3 HENMT Head: Yes normocephalic and Yes atraumatic Ears: hearing grossly normal bilaterally and left ear with small brown area not completely blocking TM, right TM normal General nose exam: Normal external nose present and Normal nares present Mouth: Normal oral and palatal mucosa present and moist mucous membranes Eyes Pupils: Equal, round and reactive pupils present and Pupil accommodation reflex normal EOM: EOMs intact bilaterally Neck Neck: Yes normal visual inspection, Yes no lymphadenopathy and Yes trachea midline Thyroid: Thyroid normal Carotids: no bruits Lymphatic: no lymphadenopathy noted Chest Chest palpation & inspection: normal inspection of the chest Resp Effort & Inspection: normal respiratory effort Auscultation: clear to auscultation bilaterally Cardio Rate: regular rate Rhythm: regular rhythm Heart sounds: S1 normal heart sound present, S2 normal heart sound present, no gallops, no murmurs and no rubs Bruits: no abdominal aortic bruits and no carotid bruits GI Auscultation: normal bowel sounds General: Yes no CVA tenderness Coding Level of Care Code Est Pt Level 4 (52449) Diagnoses Otalgia of left ear H92.02 Acute otitis media, unspecified otitis media type H66.90 Otitis media type: unspecified Chronicity: acute Tinnitus of both ears H93.13 Laterality: bilateral Additional Codes PHQ-9 - 49001 - PHQ-9 Billing: Yes ([id number]) AMANDA-7 Assessment Billing - AMANDA-7 Assessment Tool: AMANDA-7 Assessment 63883 ([id number]) Time Spent (min) 35 Assessment & Plan Assessment & Plan (1) Otalgia of left ear: Code(s): H92.02 - Otalgia, left ear Category: Medical (2) Otitis media: Code(s): H66.90 - Otitis media, unspecified, unspecified ear Category: Medical Qualifiers: Otitis media type: unspecified Chronicity: acute Qualified Code(s): H66.90 - Otitis media, unspecified, unspecified ear Plan: The patient completed Augmentin otitis media. Reports that her pain continues and she cannot concentrate at work Tramadol ordered and ENT was contacted to give the patient a sooner visit (3) Ringing of ears: Code(s): H93.19 - Tinnitus, unspecified ear Category: Medical Qualifiers: Laterality: bilateral Qualified Code(s): H93.13 - Tinnitus, bilateral Plan: Reports that it is intermittent. All treatments so far have futile. ENT referral in place Plan The patient completed Augmentin otitis media. Reports that her pain continues and she cannot concentrate at work Tramadol ordered and ENT was contacted to give the patient a sooner visit Medications: New tramadol 50 mg PO BID PRN 30 tabs 0RF pain
== END 2024-06-03 09:54 | disposition home or self-care (01) ==
PROVIDERS: PCP Internal Medicine
DX: H92.02 Otalgia, left ear (principal); H66.90 Otitis media, unspecified, unspecified ear; H93.13 Tinnitus, bilateral

== ENCOUNTER → 2024-06-03 08:44 | Outpatient (BNVA) | payer OTHER, SELFPAY | PROVIDERS: PCP Internal Medicine | DX: H92.02 Otalgia, left ear (principal); H66.90 Otitis media, unspecified, unspecified ear; H93.13 Tinnitus, bilateral | CPT/HCPCS: 96127; 99212 ==

== ENCOUNTER 2024-06-11 08:39 | Outpatient (AMB) | payer OTHER, SELFPAY ==
[2024-06-11 08:40] VITALS: BP 114/72; PULSE 61; BMI 25.3
--- NOTE | 2024-06-11 08:40 | A.OFFVIS_ITS ---
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 Allergies No Known Allergies [No Known Allergies*] Allergy (Verified 06/11/24 08:44) Medication List - Last Reconciled 06/11/24 by Bernice Giang NP-C albuterol sulfate 0.63 mg (3 mL) inhalation QID PRN albuterol sulfate 90 mcg/actuation (Ventolin HFA) 1 puff PO Q4H PRN amlodipine 10 mg PO DAILY budesonide-formoterol 160-4.5 mcg/actuation (Symbicort) 2 puffs PO BID clonazepam 0.5 mg PO DAILY PRN fluticasone propionate 50 mcg/actuation (Flonase Allergy Relief) 1 spray intranasal DAILY hydrocortisone 2.5% (Proctosol HC) 1 appl [place] BEDTIME PRN pantoprazole 40 mg PO DAILY HPI HPI 6 mth f/up: Details: Loretta is a 53-year-old female with past medical history of hypertension, heart palpitations, PVCs, abnormal EKG who presents for follow-up. Today she reports that she has been Having issues with her left ear. She says it is blocked and she can not hear on that side. She has an ENT appointment in January and has been following with PCP for this problem. She denies any chest discomfort at rest or with activity. She is noticing heart palpitations that feel like a brief flutter and causing her concern. No shortness of breath, PND, orthopnea or edema. No lightheadedness, presyncope, syncope, falls. She has not been walking routinely due to the cold weather and concerns with her decreased hearing. 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 [facility] Medical History Colon polyp Hypercholesterolemia Family history of colon cancer Palpitations Screening for colon cancer Asthma Anxiety Prolapsed hemorrhoids Benign essential hypertension Surgical History History of colonoscopy (~11/20/23) History of removal of ovarian cyst History of H/O tubal ligation Family History Mother AIDS Father No problems noted. 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 ) Review of Systems Const All systems reviewed & are unremarkable except as noted in HPI and below ENT Details: blocked ear on left - decreased hearing ability, pressure on left side of head Denies dizziness Card Details: heart palpitations like brief fluttering Denies chest pain, Denies chest pain at rest, Denies chest pain with activity, Denies rapid heart rate, Denies pedal edema, Denies edema, Denies leg edema, Denies lightheadedness, Denies palpitations, Denies dyspnea, Denies dyspnea on exertion and Denies orthopnea Resp Denies cough, Denies dyspnea and Denies dyspnea on exertion GI Denies hematochezia and Denies change in stool character Musc Denies abnormal gait, Denies limited range of motion, Denies muscle cramps, Denies muscle weakness, Denies numbness, Denies radiating pain into limb, Denies stiffness and Denies tingling Neuro Denies abnormal gait, Denies dizziness, Denies numbness and Denies tingling Endo Denies palpitations Physical Exam Vital Signs: Last Vital Signs Pulse 61 06/11/24 08:40 BP 114/72 06/11/24 08:40 BMI result Body Mass Index 25.3 Const General: cooperative, healthy appearing, comfortable and no acute distress Orientation/consciousness: patient oriented x3 Neck Neck: Yes normal visual inspection and Yes no JVD Resp Effort & Inspection: normal respiratory effort Auscultation: clear to auscultation bilaterally, no crackles, no rales, no rhonchi and no wheezes Cardio Jugular venous distension: no JVD Rate: regular rate Rhythm: regular rhythm Heart sounds: S1 normal heart sound present, S2 normal heart sound present, no murmurs and no rubs Neuro General: patient oriented x3 Extrem General: Yes normal to inspection, No no pedal edema and No calf tenderness Psych Appearance: grossly normal Mental Status: mental status grossly normal Speech and movement: Normal speech and movement present Assessment & Plan Assessment & Plan (1) Abnormal EKG: Code(s): R94.31 - Abnormal electrocardiogram [ECG] [EKG] Category: Medical Plan: Chronic EKG abnormalities with T-wave inversions V1 through V4. Can be seen on EKGs as far back as 2013 in our system. No reports of anginal sounding symptoms. Cardiac risk factors of hypertension. Exercise stress test done 08/28/2022 showing frequent PVCs and ventricular bigeminy, no ischemic changes, suboptimal heart rate. She underwent an exercise nuclear stress test on 12/14/2022 with good exercise tolerance, frequent ventricular bigeminy, with EKG changes suggestive of ischemia, with normal myocardial perfusion imaging. Echocardiogram done 01/28/2023 showing EF 66%, no valve abnormalities and no regional wall motion abnormalities. Her EKGs have remained stable and do not seem to represent ischemia. Signs and symptoms of angina reviewed with her. (2) PVC (premature ventricular contraction): Code(s): I49.3 - Ventricular premature depolarization Category: Medical Plan: Ventricular bigeminy noted during exercise for both stress tests as above. Holter monitor done 02/28/2023 for 3 days shows sinus rhythm with average heart rate 54, heart rate range 34 to 116, 78% of time heart rate less than 60, rare ventricular ectopy. She has normal EF and her PVCs are benign. She now reports heart palpitations that feel like fluttering in her chest. Will order a Holter monitor to re-evaluate PVCs and to assess for AFib. Plan to call her with the results. Cardiology follow-up in 6 months, sooner if needed based on test results. (3) Benign essential hypertension: Code(s): I10 - Essential (primary) hypertension Category: Medical Plan: Normal range at this time. No medication changes made. (4) Bradycardia: Code(s): R00.1 - Bradycardia, unspecified Category: Medical Plan: Frequent sinus bradycardia noted on Holter monitor, Asymptomatic. (5) Palpitations: Code(s): R00.2 - Palpitations Category: Medical Plan Time spent on chart review, documentation, interview and assessment Orders: Orders ECG 3 day holter monitor Today R00.2 - Palpitations Coding Level of Care Code Est Pt Level 4 (55829) Complex EM visit Add On G2211 Diagnoses Abnormal EKG R94.31 PVC (premature ventricular contraction) I49.3 Benign essential hypertension I10 Bradycardia R00.1 Palpitations R00.2 Time Spent (min) 30
--- OUTSIDE RECORDS SUMMARY | 2024-06-11 09:07 | XMS_ITS | Data Portability ---
Author Organization [facility], [address] Address [address] [place] [address] Assessment No assessment recorded. Plan of Treatment [...] Out Template NON DOT completed Jazz Burgessbe [place] [facility] 08/24/2022 17:33:09 Imaging Results None recorded. Procedure [...] SNOMED-CT Code Diagnosis ICD10 Code Diagnosis Note [id number] [address] [place] [address] [phone] 06/07/2021 08:42:33 06/07/2021 09:21:51 [id number] [address] [place] [address] [phone] 0 10/19/2021 17:57:58 10/19/2021 19:00:21 [id number] Malgorzata Gallego MD [address] [place] [address] [phone] 0 08/24/2022 17:19:41 08/24/2022 17:38:03 History and physical examination, occupation [id number] Z02.1 Health Concerns Section Related Observation LastModified by Organization Detai ls LastModified Time None Recorded Concern Status LastModified by Organization Details LastModified Time None Recorded Advance Directives Directive None Recorded Payers Encounter Date Sequence Insurance Name Policy Number Policy Schroeder Covered Member ID Schreoder Member ID Guarantor Name 10/19/2021 1 [facility] (O) JOSIEADAMS oLretta Perez [id number] Loretta Perez 08/24/2022 OC-ESCREEN Loretta Perez [id number] Loretta Perez OBGyn Episode No OBEpisode recorded.
== END 2024-06-11 09:09 | disposition home or self-care (01) ==
PROVIDERS: PCP Internal Medicine; Visit Provider Nurse Practitioner Family
DX: R94.31 Abnormal electrocardiogram [ECG] [EKG] (principal); I49.3 Ventricular premature depolarization; I10 Essential (primary) hypertension; R00.1 Bradycardia, unspecified; R00.2 Palpitations
CPT/HCPCS: 99214; G2211

== ENCOUNTER → 2024-06-11 08:39 | Outpatient (BNVA) | payer OTHER, SELFPAY | PROVIDERS: PCP Internal Medicine; Visit Provider Nurse Practitioner Family | DX: R94.31 Abnormal electrocardiogram [ECG] [EKG] (principal); I49.3 Ventricular premature depolarization; I10 Essential (primary) hypertension; R00.1 Bradycardia, unspecified; R00.2 Palpitations | CPT/HCPCS: 99212 ==

== ENCOUNTER 2024-07-06 07:52 | Outpatient (REF) | payer OTHER, SELFPAY | END 2024-07-06 07:53 | disposition home or self-care (01) | LOC: HO.SH 07:52 | PROVIDERS: Visit Provider Internal Medicine | DX: Z01.118 Encounter for examination of ears and hearing with other abnormal findings (principal); H90.0 Conductive hearing loss, bilateral | CPT/HCPCS: 92557; 92567 ==

== ENCOUNTER → 2024-07-08 09:26 | Outpatient (REF) | payer OTHER, SELFPAY ==
--- OUTSIDE RECORDS SUMMARY | 2024-07-08 10:34 | XMS_ITS | Data Portability ---
Author Organization [facility], [address] Address [address] [place] [address] Assessment No assessment recorded. Plan of Treatment [...] Out Template NON DOT completed Jazz Burgessbe [place] [facility] 08/24/2022 17:33:09 Imaging Results None recorded. Procedure [...] SNOMED-CT Code Diagnosis ICD10 Code Diagnosis Note [id number] [address] [place] [address] [phone] 06/07/2021 08:42:33 06/07/2021 09:21:51 [id number] [address] [place] [address] [phone] 10/19/2021 17:57:58 10/19/2021 19:00:21 [id number] Malgorzata Gallego MD [address] [place] [address] [phone] 0 08/24/2022 17:19:41 08/24/2022 17:38:03 History and physical examination, occupation [id number] Z02.1 Health Concerns Section Related Observation LastModified by Organization Detai ls LastModified Time None Recorded Concern Status LastModified by Organization Details LastModified Time None Recorded Advance Directives Directive None Recorded Payers Encounter Date Sequence Insurance Name Policy Number Policy Schroeder Covered Member ID Schroeder Member ID Guarantor Name 10/19/2021 1 [facility] (O) [facility] Loretta Perez [id number] Loretta Perez 08/24/2022 OC-ESCREEN Loretta Perez [id number] Loretta Perez OBGyn Episode No OBEpisode recorded.
== END ==
LOC: HO.CARD 09:26
PROVIDERS: PCP Internal Medicine; Visit Provider Nurse Practitioner Family
DX: R00.2 Palpitations (principal)
CPT/HCPCS: 93242

== ENCOUNTER → 2024-07-08 09:30 | Outpatient (BNV) | payer OTHER, SELFPAY | PROVIDERS: PCP Internal Medicine; Visit Provider Internal Medicine | DX: I47.10 Supraventricular tachycardia, unspecified (principal); I49.3 Ventricular premature depolarization | CPT/HCPCS: 93227 ==

== ENCOUNTER 2024-09-03 09:46 | Outpatient (AMB) | payer OTHER, SELFPAY ==
[2024-09-03 09:58] VITALS: BP 124/82; PULSE 61; O2SAT 98; BMI 23.8
--- NOTE | 2024-09-03 09:58 | A.OFFPC_ITS ---
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: No Accompanied by: Self / Same As Patient Allergies No Known Allergies [No Known Allergies*] Allergy (Verified 09/03/24 10:12) Medication List - Last Reconciled 09/03/24 by Nicole Lema PA-C albuterol sulfate 0.63 mg (3 mL) inhalation QID PRN albuterol sulfate 90 mcg/actuation (Ventolin HFA) 1 puff PO Q4H PRN amlodipine 10 mg PO DAILY budesonide-formoterol 160-4.5 mcg/actuation (Symbicort) 2 puffs PO BID clonazepam 0.5 mg PO DAILY PRN fluticasone propionate 50 mcg/actuation (Flonase Allergy Relief) 1 spray intranasal DAILY hydrocortisone 2.5% (Proctosol HC) 1 appl DE BEDTIME PRN pantoprazole 40 mg PO DAILY Tobacco use date assessed: 09/03/24 Dental Screening Dental Screen Date: 09/03/24 Did you have a dental visit in the last 12 months?: No Did you have a dental problem in the last 6 months where you did not have access to dental care?: No Was dental information given to patient?: No HPI Annual Exam HPI Details The patient is a 53-year-old female presenting for an physical exam. In addition she would like to discuss the abdominal cramping and nausea that she has been having. This issue has persisted chronically, characterized by nausea without vomiting and associated dry heaves, dizziness, sweating, and facial flushing. The nausea improves with food intake, with no identified specific dietary aggravators. She has a documented history of constipation, experiencing recent inadequate bowel movements. 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 She has a history of Helicobacter pylori infection, treated years ago but not re-evaluated for recurrence. The family history includes a sibling with colon cancer, and the patient has a personal history of colon polyps. Recently, there is an audiological concern due to hearing loss attributed to fluid retention, for which nasal sprays have been prescribed. Despite these ongoing issues, there are no recent significant weight changes or signs of systemic deterioration. Social History - Family status: Has a sister with a his tory of colon cancer - Level of activity: Limited by gastroin testinal symptoms - Nutrition: No specific dietary issues discussed - Weight management: No recent significa nt weight changes noted [facility] Medical History (Updated 09/03/24 @ 10:42 by Nicole Lema PA-C) History of mammogram (~10/28/23) History of Helicobacter pylori infection Hearing deficit Constipation Abdominal pain Colon polyp Hypercholesterolemia Family history of colon cancer Palpitations Screening for colon cancer Asthma Anxiety Prolapsed hemorrhoids Benign essential hypertension Surgical History History of colonoscopy (~11/20/23) History of removal of ovarian cyst History of H/O tubal ligation Family History Mother AIDS Father No problems noted. 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 ) Questionnaire PHQ-9 Over the last 2 weeks, how often have you been bothered by any of the following problems? 1. Little interest or pleasure in doing things: not at all 2. Feeling down, depressed, or hopeless: not at all 3. Trouble falling or staying asleep, or sleeping too much: not at all 4. Feeling tired or having little energy: not at all 5. Poor appetite or overeating: not at all 6. Feeling bad about yourself - or that you are a failure or have let yourself or your family down: not at all 7. Trouble concentrating on things, such as reading the newspaper or watching television: not at all 8. Moving or speaking so slowly that other people could have noticed. Or the opposite - being so fidgety or restless that you have been moving around a lot more than usual: not at all 9. Thoughts that you would be better off or of hurting yourself in some way: not at all Total score: 0 Depression Screening Interpretation: Negative Depression Screening Done: Yes 31205 - PHQ-9 Billing: Yes Source: Developed by Drs. Jakob Savage, Azra Tellez, Nikolai German and colleagues, with an educational demetrius from [employer]. Thrive Questionnaire Date Thrive assessed: 09/03/24 I am a: Patient What is your living situation today?: I choose not to answer this question Within the past 12 months, did the food you bought not last and you didn't have the money to get more?: I choose not to answer this question Within the past 12 months, did you worry whether your food would run out before you got money to buy more?: I choose not to answer this question Do you have trouble paying for medicines?: I choose not to answer this question Do you have trouble getting transportation to medical appointments?: I choose not to answer this question Do you have trouble paying your heating and electricity bill?: I choose not to answer this question Do you have trouble taking care of your child, family member or friend?: I choose not to answer this question Do you have trouble with day-to-day activities such as bathing, preparing meals, shopping, managing finances, etc.?: I choose not to answer this question Are you currently unemployed and looking for a job?: I choose not to answer this question Are you interested in more education?: I choose not to answer this question Please select the resources that you would like help with: None Currently or been in a relationship where the following occur: I choose not to answer THRIVE Score: 0 AUDIT C Alcohol Use Questionnaire (AUDIT-C) 1. How often do you have a drink containing alcohol?: Never 3. How often do you have six or more drinks on one occasion?: Never Total Score: 0 Score Reviewed/Action Taken: No AMANDA-7 AMB Questionnaire AMANDA-7 Date AMANDA - 7 assessed: 05/22/25 Feeling nervous, anxious, or on edge: 0 = Not at all Not being able to stop or control worryin = Not at all Worrying too much about different things: 0 = Not at all Trouble relaxin = Not at all Being so restless that it is hard to sit still: 0 = Not at all Becoming easily annoyed or irritable: 0 = Not at all Feeling afraid as if something awful might happen: 0 = Not at all Total AMANDA-7 score (0-4 normal; 5-9 mild; 10-14 moderate; 15-21 severe): 0 Source: Developed by Drs. Jakob Savage, Azra Tellez, Nikolai German and colleagues, with an educational demetrius from [employer]. AMANDA-7 Assessment Billing AMANDA-7 Assessment Tool: AMANDA-7 Assessment 15271 Review of Systems Const Details: - Gastrointestinal: Reports nausea, abdominal cramping, constipation; denies diarrhea, black or bloody stools. - Neurological: Reports dizziness, sweating - Dermatological: Reports facial flushing - Audiological: Reports fluid retention affecting hearing - Musculoskeletal: Denies leg swelling - Hematological: Denies weight gain/loss - Family Health: Positive for familial colon cancer Physical exam (Primary Care) Vital Signs: Last Vital Signs Pulse 61 09/03/24 09:58 BP 124/82 09/03/24 09:58 Pulse Ox 98 09/03/24 09:58 Oxygen Delivery Method Room Air 09/03/24 09:58 Care Plan Goal for BP management: <140/90 at Goal BMI result Body Mass Index 23.8 normal bmi Tobacco/Smoking Status: Tobacco use Status Tobacco use date assessed 09/03/24 09/03/24 10:06 Patient Tobacco Use Status Former Tobacco user 09/03/24 10:06 Tobacco use type Cigarette 09/03/24 10:06 e-Cigarette/Vaping Use Former Use 09/03/24 10:06 PHQ-9: PHQ-9 Score PHQ-9: Total score 0 09/03/24 10:06 Depression Screening Interpretation: Negative Thrive Assessment: Date of Thrive Assessment Date Thrive assessed 09/03/24 09/03/24 10:06 Currently or been in a relationship where the following occur: I choose not to answer Const Other: Appearance: Alert. Oriented X3. No acute distress. Head: Normal external exam. Normocephalic. Atraumatic. Eyes: Pupils are equal, round, and reactive to light. Extraocular movements intact. Conjunctiva and sclera normal. Eyelids normal. Ears: External auditory canal normal. Tympanic membranes normal. Patient reports hearing loss and fluid in the ear, awaiting further evaluation. Throat: Pharynx normal. Uvula midline. Moist mucous membranes. Neck: Normal inspection. Neck supple. Full range of motion. Cardiovascular: Normal heart rate and rhythm. Heart sound normal. No murmurs noted. Pulses normal throughout. Respiratory: No respiratory distress. Painless inspiration. Breath sounds normal. No wheezes/rales/rhonchi noted. No accessory muscle usage noted or decreased air movement noted. Abdomen: Soft and nontender. No distention noted. No organomegaly noted. No visible injury noted. Patient reports nausea, stomach cramps, and constipation. Back: Full range of motion noted. Skin: Skin warm and dry. Normal skin color. Normal skin turgor. No rashes/lesions/lacerations noted. Extremities: No lower extremity edema. Extremities exhibit normal range of motion. Extremities nontender. Neuro: Oriented X 3. No motor deficit. No sensory deficit. Reflexes normal. Coding Level of Care Code Est Pt Level 5 (95985) Est Pt Prev Care 40-64y(91629) Diagnoses Nausea R11.0 Abdominal pain R10.9 Constipation K59.00 Hearing deficit H91.90 Hypertension I10 Hypertension type: unspecified History of Helicobacter pylori infection Z86.19 Additional Codes AMANDA-7 Assessment Billing - AMANDA-7 Assessment Tool: AMANDA-7 Assessment 48277 ([id number]) PHQ-9 - 97420 - PHQ-9 Billing: Yes ([id number]) Time Spent (min) 50 Assessment & Plan Assessment & Plan (1) Nausea: Comment: Associates with anxiety Monitor diet Ondansetron as needed EGD r/o pud, nonulcer dyspepsia, other endoscopic findings to account for her symptoms Code(s): R11.0 - Nausea Category: Medical Plan: I arranged a gastroenterology referral due to chronic symptoms and familial risk factors, highlighting the necessity for a planned colonoscopy. A CAT scan of the abdomen will provide further insight into abdominal structural concerns. Continuation of anti-nausea medication is advised, and Helicobacter pylori retesting might highlight contributing factors to her symptoms. Condition is chronic and stable will continue to monitor. (2) Abdominal pain: Code(s): R10.9 - Unspecified abdominal pain Category: Medical Plan: I arranged a gastroenterology referral due to chronic symptoms and familial risk factors, highlighting the necessity for a planned colonoscopy. A CAT scan of the abdomen will provide further insight into abdominal structural concerns. Continuation of anti-nausea medication is advised, and Helicobacter pylori retesting might highlight contributing factors to her symptoms. Condition is chronic and stable will continue to monitor. (3) Constipation: Code(s): K59.00 - Constipation, unspecified Category: Medical Plan: I recommended a gastroenterology referral and possible introduction of dietary changes or medications. Surveillance of constipation symptoms will guide any subsequent modifications, aligned with specialist advice. (4) Hearing deficit: Code(s): H91.90 - Unspecified hearing loss, unspecified ear Category: Medical Plan: Current treatment with nasal sprays prescribed by otolaryngology is ongoing. Further actions depend on symptom resolution, although fluid drainage may be required if no improvement is observed. Condition is chronic and stable continue to monitor (5) Hypertension: Code(s): I10 - Essential (primary) hypertension Category: Medical Qualifiers: Hypertension type: unspecified Qualified Code(s): I10 - Essential (primary) hypertension Plan: Patient to continue amlodipine 10 mg daily. Condition is chronic and stable continue to monitor. (6) History of Helicobacter pylori infection: Code(s): Z86.19 - Personal history of other infectious and parasitic diseases Category: Medical Plan: Repeat testing for Helicobacter pylori is planned due to its potential impact on gastrointestinal symptoms. Further treatment will be tailored based on results and ongoing symptom monitoring. Plan Plan Patient was informed and verbally consented to the use of an ambient scribe for clinic note documentation during this visit. 1. Nausea With Abdominal Pain And Cramping I arranged a gastroenterology referral due to chronic symptoms and familial risk factors, highlighting the necessity for a planned colonoscopy. A CAT scan of the abdomen will provide further insight into abdominal structural concerns. Continuation of anti-nausea medication is advised, and Helicobacter pylori retesting might highlight contributing factors to her symptoms. 2. Constipation I recommended a gastroenterology referral and possible introduction of dietary changes or medications. Surveillance of constipation symptoms will guide any subsequent modifications, aligned with specialist advice. 3. Hearing Impairment Due To Fluid Current treatment with nasal sprays prescribed by otolaryngology is ongoing. Further actions depend on symptom resolution, although fluid drainage may be required if no improvement is observed. 4. Hypertension Continuing current antihypertensive therapy, with future blood pressure measurements steering potential adjustments necessary for optimal control. 5. History Of Helicobacter Pylori Infection Repeat testing for Helicobacter pylori is planned due to its potential impact on gastrointestinal symptoms. Further treatment will be tailored based on results and ongoing symptom monitoring. I discussed with the patient her ongoing gastrointestinal symptoms, family history of colorectal cancer, and the associated need for a continued follow-up with gastroenterology specialists. We explored the utility of further in vestigational imaging via CT scanning and highlighted the rationale behind repeating Helicobacter pylori testing. Management options for constipation and potential need for ear pressure relief procedures if no response to nasal sprays were explained. The importance of regular antihypertensive medication adherence and monitoring was also reviewed. I emphasized the necessity of returning for blood work results and the execution of a timely colonoscopy. Orders: Orders H pylori Ag Stool Today R10.9 - Unspecified abdominal pain, R11.0 - Nausea Comprehensive [place]. Panel Fast Today Z00.00 - Encounter for general adult medical examination without abnormal findings TSH reflex Free T4 Today Z00.00 - Encounter for general adult medical examination without abnormal findings Magnesium Today Z00.00 - Encounter for general adult medical examination without abnormal findings Erythrocyte Sedimentation Rate Today Z00.00 - Encounter for general adult medical examination without abnormal findings C Reactive Protein Today Z00.00 - Encounter for general adult medical examination without abnormal findings Complete Blood Count Auto Diff Today Z00.00 - Encounter for general adult medical examination without abnormal findings Liver Panel Today Z00.00 - Encounter for general adult medical examination without abnormal findings Lipid Panel Today Z00.00 - Encounter for general adult medical examination without abnormal findings Hemoglobin A1c Today Z00.00 - Encounter for general adult medical examination without abnormal findings Vitamin B12 and Folate Today Z00.00 - Encounter for general adult medical examination without abnormal findings Vitamin D 25-OH Total Today Z00.00 - Encounter for general adult medical examination without abnormal findings CT abdomen pelvis w IV con Today R10.9 - Unspecified abdominal pain, R11.0 - Nausea MM screening mammo BI Today Z12.31 - Encounter for screening mammogram for malignant neoplasm of breast Transglutaminase IgA Today R10.9 - Unspecified abdominal pain Endomysial IgA rflx Titer Today R10.9 - Unspecified abdominal pain Referrals Gastroenterology Referral R10.9 - Unspecified abdominal pain, R11.0 - Nausea, Z12.11 - Encounter for screening for malignant neoplasm of colon Medications: New ondansetron 4 mg PO Q8H PRN 30 tabs 3RF nausea and vomiting Discontinued budesonide-formoterol 160-4.5 mcg/actuation (Symbicort) Discontinued Reason: Doctor's Order 2 puffs PO BID 10.2 grams 1RF albuterol sulfate Discontinued Reason: Doctor's Order 0.63 mg (3 mL) inhalation QID PRN 75 mL 0RF shortness of breath or wheezing pantoprazole Discontinued Reason: Doctor's Order 40 mg PO DAILY 90 tabs 1RF fluticasone propionate 50 mcg/actuation (Flonase Allergy Relief) administer into each nostril Discontinued Reason: Doctor's Order 1 spray intranasal DAILY 9.9 mL 1RF Patient Instructions: - Continue taking prescribed antihypertensive medication. - Schedule a blood test to check for Helicobacter pylori. - Attend designated gastroenterology appointments and follow-up on upcoming GI procedures as discussed. - Obtain a CAT scan appointment and present it for the scheduled procedure. - Exercise dietary caution; include more fiber to address constipation if advised by the specialist. - Use prescribed nasal sprays as directed and monitor ear symptoms. - Reach out immediately if symptoms worsen or new symptoms develop. - Follow up with a yearly mammogram as previously planned and outlined in the discussion.
--- OUTSIDE RECORDS SUMMARY | 2024-09-03 10:07 | XMS_ITS | Continuity of Care Document ---
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 Plan of Treatment Reminders Order Date Submit Date Provider Last Modified By Organization Details Last Modified Time Details Appointments Hearing Test 2024 11:00A M Hearing Test Not available Not available Not available Establish ed 15 2024 11:30A M PRISCILA RAMIREZ PA-C Not available Not available Not available Lab None recorded. Referral None recorded. Procedures None recorded. Surgeries None recorded. Imaging None recorded. Medication Orders triamcino lone acetonide 55 mcg nasal spray aerosol 2024 025 [facility], [address] [place], [place], [id number], 09/02/2024 14:22:16 Patient TargetsNo targets recorded. Patient Instructions Encounter Date Encounter Id Patient Instructions Last Modified By Organization Details Last Modified Time 09/02/2024 [id number] Patient with bilateral eustachian tube dysfunction and air-fluid levels. Tympanometry shows negative pressure and mildly elevated SRT's. This seems improved from her audiogram in June. I have suggested consistent use of intranasal steroids and follow-up in 2 months with audiometric testing. We did discuss performing a myringotomy today, but she would like to see if this will resolve on its own. [email or web address] Not available 09/02/2024 14:17:22 Reason for Referral None Reported. Results Created Date Observation Date Name Description Value Unit Range Abnormal Flag Note LastModifiedBy Organization Detail LastModifiedTime 09/03/19 25 audio gram No observ ation record ed. BARCODE Not Available 2024 15:41:22 Result Notes None recorded. Problems Name Problem SNOMED Code Status Onset Date Resolution Date Notes Provider Name and Address Organization Details Recorded Time Conductive hearing loss, bilateral 832274871 Active 025 BLANQUITA HEATH MD [address] [facility],[address] [address], [place], [address], [place] - [facility] 13:45:38 Bilateral chronic serous otitis 728293858 Active 025 BLANQUITA HEATH MD [address] [address], [place], [address], [place] - [facility] 13:45:44 Deviated nasal septum 727373927 Active 025 BLANQUITA HEATH MD [address] [facility],[address] [address], [place], [address], [place] - [facility] 13:45:49 Problem Notes None recorded. Procedures Surgical History Date Name Laterality Status Provider Name and Address Organization Details Recorded Time 92511_JMS completed BLANQUITA BEEBE MD [address] [place] [address], [address], [place] - [facility] 09/02/2024 13:45:30 SRT & Tymps - 68090 & 46280 completed JOCE VO [address] [place] [address], [phone], [place] - [facility] 09/02/2024 13:56:04 removal of ovarian cyst completed Marsha Christianson [place] - [facility] 09/02/2024 12:44:32 section completed Marsha Christianson [place] - [facility] 09/02/2024 12:44:41 ligation of fallopian tube completed Marsha Christianson [place] - [facility] 09/02/2024 12:44:49 Imaging Results None recorded. Procedure Notes None recorded. Medical Equipment None Reported. Allergies No known drug allergies Medications Name Sig Start Date Stop Date Status Note LastModified by Organization Details LastModified Time atorvastati n 10 mg tablet TAKE 1 TABLET BY MOUTH EVERYDAY AT BEDTIME 09/02 completed Not Available Not Available Not Available clonazepam 0.5 mg tablet TAKE 1/2 OR 1 TABLET BY MOUTH ONCE A DAY NEEDED AT ONSET OF PANIC ATTACK/AN XIETY ATTACK active Not Available Not Available No t Available propranolol 10 mg tablet PLEASE SEE ATTACHED FOR DETAILED DIRECTION S active Not Available Not Available No t Available amlodipine 10 mg tablet TAKE 1 TABLET BY MOUTH EVERY DAY active Not Available Not Available No t Available triamcinolo ne acetonide 55 mcg nasal spray aerosol [place] 2 sprays every day by intranasa l route. 2024 active Not Available Not Available Not Avai lable mirtazapine 15 mg tablet TAKE 1 TABLET BY MOUTH EVERYDAY AT BEDTIME active Not Available Not Available No t Available fluoxetine 20 mg capsule TAKE 1 CAPSULE BY MOUTH EVERY DAY IN THE MORNING 09/02 completed Not Available Not Available Not Available mirtazapine 7.5 mg tablet TAKE 1 TABLET BY MOUTH EVERY NIGHT AT BEDTIME WITH 15 MG 09/02 completed Not Available Not Available Not Available Vitals None Recorded Social History None recorded. Functional Status None recorded. Mental Status None recorded. Family History Nothing Reported. Medical History Condition Response Hypertension Y Anxiety Y Asthma Y High Cholesterol Y Gynecological HistoryNo gynecological history recorded. Obstetrics History GPAL:G 0 P 0 0 0 0 Past Encounters Encounter ID Performer Location Encounter Start Date Encounter Closed Date Diagnosis/Indication Diagnosis SNOMED-CT Code Diagnosis ICD10 Code Diagnosis Note [id number] BLANQUITA JIMENEZ MD [facility] [address] [address] 09/02/2024 12:35:26 09/02/2024 14:19:18 Conductive hearing loss, bilateral 396314958 H90.0 Type C tympanogra ms, bilaterall y. SRTRight= 25dBLeft= 20dB Bilateral chronic serous otitis 665485405 H65.23 Deviated nasal septum 12 6614369 J34.2 Asymptomat ic Health Concerns Section Related Observation LastModified by Organization Detai ls LastModified Time None Recorded Concern Status LastModified by Organization Details LastModified Time None Recorded Payers Encounter Date Sequence Insurance Name Policy Number Policy Schroeder Covered Member ID Schroeder Member ID Guarantor Name 09/02/2024 1 [facility] - HEALTH NET PLAN (MEDICAID HMO) [id number] Loretta Perez [id number] Loretta Perez Notes Date Note Type Note Provider Name and Address Organization Details Recorded Time 09/02/2024 text/html Several months o f HL. Had pressure in ears without URI or flying. Symptoms initially began in January and then were better for short period of time she had an audiogram at [facility] in June which showed bilateral conductive hearing loss with flat tympanograms. She reports similar episode several years ago. Denies any nasal congestion or obstruction. BLANQUITA BEEBE MD [address] [place] [address], [phone], [facility] - [facility] 09/02/2024 14:18:20 OBGyn Episode No OBEpisode recorded.
--- OUTSIDE RECORDS SUMMARY | 2024-09-03 10:07 | XMS_ITS | Data Portability ---
Author Organization [facility], [address] Address [address] [place] [address] Assessment No assessment recorded. Plan of Treatment [...] Out Template NON DOT completed Jazz Burgessbe ID [facility] 08/24/2022 17:33:09 Imaging Results None recorded. Procedure [...] SNOMED-CT Code Diagnosis ICD10 Code Diagnosis Note [id number] [facility] [address] [place] [phone] 06/07/2021 08:42:33 06/07/2021 09:21:51 [id number] [facility] [place] [phone] 10/19/2021 17:57:58 10/19/2021 19:00:21 [id number] Malgorzata Gallego MD [address] [address] [place] [phone] 08/24/2022 17:19:41 08/24/2022 17:38:03 History and physical examination, occupation 772134549 Z02.1 Health Concerns Section Related Observation LastModified by Organization Detai ls LastModified Time None Recorded Concern Status LastModified by Organization Details LastModified Time None Recorded Advance Directives Directive None Recorded Payers Insurance Date Sequence Insurance Name Policy Number Policy Schroeder Covered Member ID Schroeder Member ID Guarantor Name 08/24/2022 1 [facility] (O) FRANKY Perez [id number] Loretta Perez 08/24/2022 OC-ESCREEN Loretta Perez [id number] Loretta Perez OBGyn Episode No OBEpisode recorded.
--- OUTSIDE RECORDS SUMMARY | 2024-09-03 10:07 | XMS_ITS | Data Portability ---
Author Organization [place] - [facility], Allergy Address [address] [address] Care Team Providers Care Enamel Shader Name Role Phone RADHA RUBIO Referring Provider Assessment No assessment recorded. Plan of Treatment [...] 55 mcg nasal spray aerosol [address] [facility], [address], [place], [phone], 09/02/2024 14:22:16 Patient TargetsNo targets recorded. Patient Instructions Encounter Date Encounter Id Patient Instructions Last Modified By Organization Details Last Modified Time 09/02/2024 [id number] Patient with bilateral eustachian tube dysfunction and [...] Details Recorded Time Conductive hearing loss, bilateral 503185854 Active 025 BLANQUITA HEATH MD 100 [facility],[address], [place], [address], [place] - [facility] 13:45:38 Bilateral chronic serous otitis 954871547 Active 025 BLANQUITA HEATH MD 100 [facility] 100, [place], [address], [place] - [facility] [place] 13:45:44 Deviated nasal septum 125079871 Active 025 BLANQUITA HEATH MD 100 [facility] 100, [place], [address], [place] - [facility] [place] 13:45:49 Problem Notes None recorded. Procedures Surgical History Date Name Laterality Status Provider Name and Address Organization Details Recorded Time 92511_JMS completed BLANQUITA BEEBE MD [address], [address], [place] - [facility] 09/02/2024 13:45:30 SRT & Tymps - 68960 & 45392 completed JOCE VO [address], [address], [place] - [facility] 09/02/2024 13:56:04 removal of ovarian cyst completed Marsha Christianson [place] - [facility] [place] 09/02/2024 12:44:32 section completed Marsha Christianson [place] - [facility] 09/02/2024 12:44:41 ligation of fallopian tube completed Marsha Christianson [place] - [facility] 09/02/2024 12:44:49 Imaging Results Imaging Date Name Status LastModified by Organiz ation Details LastModified Time 09/02/2024 audiogram completed BARCODE Information no t available 09/02/2024 15:41:22 Procedure Notes None recorded. Medical Equipment None [...] ne acetonide 55 mcg nasal spray aerosol [place] 2 sprays every day by intranasa l [...] History Nothing Reported. Medical History Condition Response High Cholesterol Y Anxiety Y Asthma Y Hypertension Y Gynecological HistoryNo gynecological history recorded. Obstetrics History GPAL:G 0 P 0 0 0 0 Past Encounters Encounter ID Performer Location Encounter Start Date Encounter Closed Date Diagnosis/Indication Diagnosis SNOMED-CT Code Diagnosis ICD10 Code Diagnosis Note [id number] BLANQUITA JIMENEZ MD [facility] of [address] [address] 09/02/2024 12:35:26 09/02/2024 14:19:18 Conductive hearing loss, bilateral 344900969 H90.0 Type C tympanogra ms, bilaterall y. SRTRight= 25dBLeft= 20dB Bilateral chronic serous otitis 196063971 H65.23 Deviated nasal septum 12 5835920 J34.2 Asymptomat ic Health Concerns Section Related Observation LastModified by Organization Noel hassan LastModified Time None Recorded Concern Status LastModified by Organization Details LastModified Time None Recorded Advance Directives Directive None Recorded Payers Insurance Date Sequence Insurance Name Policy Number Policy Schroeder Covered Member ID Schroeder Member ID Guarantor Name 09/02/2024 1 [facility] - HEALTH NET PLAN (MEDICAID HMO) [id number] Loretta Perez [id number] Loretta M Perez Notes Date Note Type Note Provider Name and Address Organization Details Recorded Time 09/02/2024 text/html Several months o f HL. Had pressure in ears without URI or flying. Symptoms initially began in January and then were better for short period of time she had an audiogram at [facility] in June which showed bilateral conductive hearing loss with flat tympanograms. She reports similar episode several years ago. Denies any nasal congestion or obstruction. BLANQUITA BEEBE MD [address] [place] [address], [address], [facility] - [facility] 09/02/2024 14:18:20 OBGyn Episode No OBEpisode recorded.
== END 2024-09-03 10:33 | disposition home or self-care (01) ==
LOC: HO.HMCH 09:46
PROVIDERS: PCP Internal Medicine; Visit Provider Physician Assistant Medical
DX: Z00.00 Encounter for general adult medical examination without abnormal findings (principal); R11.0 Nausea; R10.9 Unspecified abdominal pain; K59.00 Constipation, unspecified; I10 Essential (primary) hypertension; Z86.19 Personal history of other infectious and parasitic diseases

== ENCOUNTER → 2024-09-03 09:46 | Outpatient (BNVA) | payer OTHER, SELFPAY | PROVIDERS: PCP Internal Medicine; Visit Provider Physician Assistant Medical | DX: Z00.00 Encounter for general adult medical examination without abnormal findings (principal); R11.0 Nausea; R10.9 Unspecified abdominal pain; K59.00 Constipation, unspecified; H91.90 Unspecified hearing loss, unspecified ear; I10 Essential (primary) hypertension; Z86.19 Personal history of other infectious and parasitic diseases; Z79.899 Other long term (current) drug therapy; Z13.30 Encounter for screening examination for mental health and behavioral disorders, unspecified | CPT/HCPCS: 96127; 99212; 99396 ==

== ENCOUNTER 2024-09-29 07:11 | Outpatient (REF) | payer OTHER, SELFPAY ==
--- OUTSIDE RECORDS SUMMARY | 2024-09-29 07:14 | XMS_ITS | Data Portability ---
Author Organization [place] - [facility], Allergy Address [address] [address] Care Team Providers Care Oil And Gas Principal Name Role Phone RADHA RUBIO Referring Provider [...] 55 mcg nasal spray aerosol 2024 025 [facility], [address] [place], [place], [phone], 09/03/2024 13:58:28 Patient TargetsNo targets recorded. Patient Instructions Encounter Date Encounter Id Patient Instructions Last Modified By Organization Details Last Modified Time 09/02/2024 [id number] Patient with bilateral eustachian tube dysfunction and [...] Details Recorded Time Conductive hearing loss, bilateral 340082125 Active 025 BLANQUITA HEATH MD 100 [facility],[address] [address], [facility] [place], [address], [place] - [facility] 13:45:38 Bilateral chronic serous otitis 439655883 Active 025 BLANQUITA HEATH MD 100 [facility] 100, [facility] [place], [address], [place] - [facility] [place] 13:45:44 Deviated nasal septum 755885320 Active 025 BLANQUITA HEATH MD [address] [facility],[address] [address], [facility] [place], [address], [place] - [facility] 13:45:49 Problem Notes None recorded. Procedures Surgical History Date Name Laterality Status Provider Name and Address Organization Details Recorded Time 92511_JMS completed BLANQUITA BEEBE MD [address], [address], [place] - [facility] 09/02/2024 13:45:30 SRT & Tymps - [address] & [address]5578 completed JOCE VO [address], [address], [place] - [facility] 09/02/2024 13:56:04 removal of ovarian cyst completed Marsha Christianson [place] - [facility] [place] 09/02/2024 12:44:32 section completed Marsha Christianson [place] - [facility] 09/02/2024 12:44:41 ligation of fallopian tube completed Marsha Christianson [place] - [facility] 09/02/2024 12:44:49 Imaging Results None recorded. [...] ne acetonide 55 mcg nasal spray aerosol [place] 2 sprays every day by intranasa l [...] SNOMED-CT Code Diagnosis ICD10 Code Diagnosis Note [id number] BLANQUITA JIMENEZ MD [facility] of [address] [address] 09/02/2024 12:35:26 09/02/2024 14:19:18 Conductive hearing loss, bilateral 763789561 H90.0 Type C tympanogra ms, bilaterall y. SRTRight= 25dBLeft= 20dB Bilateral chronic serous otitis 289103558 H65.23 Deviated nasal septum 12 6796972 J34.2 Asymptomat ic Health Concerns Section Related Observation LastModified by Organization Detramirez hassan LastModified Time None Recorded Concern Status LastModified by Organization Details LastModified Time None Recorded Advance Directives Directive None Recorded Payers Insurance Date Sequence Insurance Name Policy Number Policy Schroeder Covered Member ID Schroeder Member ID Guarantor Name 09/02/2024 1 [facility] - HEALTH NET PLAN (MEDICAID HMO) [id number] Loretta Alexy Perez [id number] Loretta Perez Notes Date Note Type Note Provider Name and Address Organization Details Recorded Time 09/02/2024 text/html Several months o f HL. Had pressure in ears without URI or flying. Symptoms initially began in January and then were better for short period of time she had an audiogram at [facility] in June which showed bilateral conductive hearing loss with flat tympanograms. She reports similar episode several years ago. Denies any nasal congestion or obstruction. BLANQUITA BEEBE MD [address] [place] [address], [address], [facility] - [facility] 09/02/2024 14:18:20 OBGyn Episode No OBEpisode recorded.
[2024-09-29 07:29] LABS: MANUAL DIFF FLAG NO
[2024-09-29 08:08] LABS: Basophils Percent Auto 0.5 % (0-2); Eosinophils Absolute Auto 0.1 X10*3/uL (0.0-0.4); Eosinophils Percent Auto 1.1 % (0-4); Hematocrit 40.4 % (37.0-47.0); Hemoglobin 13.7 g/dl (12.0-16.0); Imm Gran Abs Auto 0.02 X10*3/uL (0.00-0.03); Imm Gran Pct Auto 0.5 % (0.0-0.4); Lymphocytes Absolute Auto 1.6 X10*3/uL (1.2-4.9); Lymphocytes Percent Auto 35.4 % (20-40); Mean Corpuscular HGB Conc 33.9 g/dl (31.0-35.0); Mean Corpuscular Hemoglobin 31.4 pg (27.0-33.0); Mean Corpuscular Volume 92.4 fL (80.0-98.0); Mean Platelet Volume 9.8 fL (9.4-12.3); Monocytes Absolute Auto 0.2 X10*3/uL (0.1-1.2); Monocytes Percent Auto 5.2 % (2-11); Neutrophils Absolute Auto 2.5 x10*3/uL (2.0-8.3); Neutrophils Percent Auto 57.3 % (45-73); Platelet Count 201 X10*3/uL (160-400); Red Blood Count 4.37 X10*6/uL (4.20-5.50); Red Cell Distribution Width 12.2 % (11.0-16.0); White Blood Count 4.4 X10*3/uL (4.8-10.8)
[2024-09-29 08:13] LABS: Estimated Average Glucose 94 mg/dL; Hemoglobin A1c % 4.9 % (<6.0)
[2024-09-29 08:44] LABS: Alanine Aminotransferase 10 U/L (0-31); Albumin Level 4.6 g/dL (3.5-5.0); Alkaline Phosphatase 85 U/L (39-117); Anion Gap 12 (12-20); Aspartate Amino Transferase 22 U/L (5-31); Bilirubin Direct 0.2 mg/dL (0.0-0.5); Bilirubin Total 0.6 mg/dL (0.0-1.0); Blood Urea Nitrogen 12 mg/dL (9-16); C Reactive Protein < 0.10 mg/dL (< or = 0.50); Calcium 9.5 mg/dL (8.4-10.2); Carbon Dioxide 28 mmol/L (22-29); Chloride 108 mmol/L (96-108); Cholesterol 173 mg/dL (<200); Estimated Glomerular Filt Rate > 60; Glucose Fasting 111 mg/dL (60-99); HDL Cholesterol 54 mg/dL (>40); LDL Cholesterol Calculated 100 mg/dL (<100); Magnesium 2.1 mg/dL (1.6-2.6); Potassium 4.1 mmol/L (3.3-5.1); Sodium 144 mmol/L (135-145); Total Protein 7.2 g/dL (6.5-8.0); Triglycerides 96 mg/dL (<150)
[2024-09-29 08:45] LABS: Erythrocyte Sedimentation Rate 13 MM/HR (0-20)
[2024-09-29 09:03] LABS: TSH reflex Free T4 0.85 uIU/mL (0.32-4.0); Vitamin D 25-OH Total 15.8 ng/mL (>30)
[2024-09-29 09:33] LABS: Folate 7.7 ng/mL (> or = 4.0); Vitamin B12 387 pg/mL (200-900)
[2024-09-30 20:54] LABS: Transglutaminase IgA <1.0 U/mL
[2024-10-01 19:04] LABS: Endomysial IgA Antibody Negative (Negative)
== END 2024-09-29 07:12 | disposition home or self-care (01) ==
LOC: HO.LAB 07:11
PROVIDERS: PCP Internal Medicine; Visit Provider Physician Assistant Medical
DX: Z00.00 Encounter for general adult medical examination without abnormal findings (principal); R10.9 Unspecified abdominal pain
CPT/HCPCS: 36415; 80053; 80061; 80076; 82248; 82306; 82607; 82746; 83036; 83735; 84443; 85025; 85652; 86140; 86231; 86364

== ENCOUNTER 2024-10-13 10:05 | Outpatient (AMB) | payer OTHER, SELFPAY ==
--- NOTE | 2024-10-13 10:21 | MHC.OFFVIS ---
Vital Signs 10/13/24 10:22 Height 5 ft 2 in Weight 124 lb BMI 22.7 BP 151/70 H Blood Pressure Location Lt brachial Position Sitting Pulse 76 Pulse Oximetry (%) 98 Oxygen Delivery Method Room Air Intake Visit Reasons: abd pain, requesting hpylori Intake Note: Patient complex follow up for abdominal pain/needed h pylori ??. Patient roro with [facility] was 07/31/2023 and EGD/Colonoscopy by Dr. Henderson on 11/20/2023 with 6 to 12 month colonoscopy recall. Patient cc: Nauseas, dizziness, poor appetite with weight lost, abdominal discomfort, constipation with black stool, and hx of hemorroids. Manager Social Required: No Accompanied by: Self / Same As Patient Allergies No Known Allergies (No Known Allergies*) Allergy (Verified 10/13/24 10:20) Medication List - Last Reconciled 10/13/24 by Ligia Robison CNP albuterol sulfate 90 mcg/actuation (Ventolin HFA) 1 puff PO Q4H PRN amlodipine 10 mg PO DAILY cholecalciferol (vitamin D3) 50 mcg PO DAILY hydrocortisone 2.5% (Proctosol HC) 1 appl IN BEDTIME PRN HPI HPI abd pain, requesting hpylori: Details: Patient is a 53-year-old female with PMH of asthma, anxiety, HTN and HLD. Referred by PCP for pre colonoscopy screening and further evaluation of abdominal pain and nausea. Loretta presents with abdominal pain and nausea that started spontaneously five to six months ago. The pain is described as cramping and is located in the middle of the abdomen but can feel like it is all over. It began gradually with mild cramping and became more persistent. Aggravating factors include nothing specific; relieving factors include consuming food, such as a piece of candy. The symptoms are episodic, coming and going, with each episode lasting until she eats something to alleviate the pain. The severity is rated as variable, and she also reports associated symptoms of nausea, dry heaves, sweating, dizziness, and a significant, unintentional weight loss of approximately six pounds since September 03, 2024. She denies any vomiting, blood in her stools, or recent fevers. Stool has changed to be sticky, slimy, and very dark brown to black, a change noticed around the same time the pain started. Social hx: -Diet: Consumes eggs, bread, salad, chicken, and avoids high-fat foods. -Alcohol Use: Rarely, has not had alcohol in over two months, previously about a beer or two on weekends. -Tobacco Use: Quit two years ago. -Drug Use: Used marijuana gummies daily until two to three months ago, stopped due to ineffectiveness for nausea. 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 - family hx as below -denies personal hx of CA -tolerated anesthesia in the past without difficulty. FOR[facility]LY [facility], [facility] Medical History (Updated 10/14/24 @ 21:04 by Ligia Robison CNP) Tubular adenoma of colon Change in stool History of mammogram (~10/28/23) History of Helicobacter pylori infection Hearing deficit Constipation Abdominal pain Colon polyp Hypercholesterolemia Family history of colon cancer Palpitations Screening for colon cancer Asthma Anxiety Prolapsed hemorrhoids Benign essential hypertension Surgical History History of esophagogastroduodenoscopy (EGD) History of colonoscopy (~11/20/23) History of removal of ovarian cyst History of H/O tubal ligation Family History Mother AIDS Father No problems noted. 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 ) Review of Systems Const Reports as per HPI ENT Reports as per HPI Card Reports as per HPI Resp Reports as per HPI GI Reports as per HPI Reports as per HPI Physical Exam Vital Signs: Last Vital Signs Pulse 76 10/13/24 10:22 BP 151/70 H 10/13/24 10:22 Pulse Ox 98 10/13/24 10:22 Oxygen Delivery Method Room Air 10/13/24 10:22 BMI result Body Mass Index 22.7 Const General: healthy appearing, no acute distress and well developed Nutritional Appearance: well nourished Orientation/consciousness: patient oriented x3 HEENT Head: Yes normal to inspection, Yes normocephalic and Yes atraumatic Face and sinus: Yes normal facial exam Eyes General: appearance normal, both eyes and all related structures Neck Neck: Yes normal visual inspection Resp Effort & Inspection: normal respiratory effort, able to speak in complete sentences, no tracheal deviation and symmetric chest movement Auscultation: clear to auscultation bilaterally Cardio Jugular venous distension: no JVD Rate: regular rate Rhythm: regular rhythm Heart sounds: S1 normal heart sound present, S2 normal heart sound present, no gallops and no murmurs GI Inspection: Yes normal to inspection and No distended Palpation (GI): Soft to palpation, not firm, nontender and No hepatosplenomegaly present Auscultation: Hyperactive bowel sounds present Neuro General: patient oriented x3 Gait exam (Neuro): Normal gait present Psych Appearance: grossly normal Mental Status: mental status grossly normal Speech and movement: Normal speech and movement present Affect: normal affect Attitude: cooperative Thought process: Normal thought process present Thought content: Normal thought content present Insight: Good insight present (Psych) Judgement: Good judgement present (Psych) Results Reviewed Results Reviewed: Colonoscopy Findings: diverticulosis colon polyps internal hemorrhoids Operative Note Date of Service: 11/20/23 Narrative: Operative Information Procedure Description: EGD, Colonoscopy Indication: GERd, screening Anesthesia: MAC FLEXIBLE TRANSORAL UPPER GASTROINTESTINAL ENDOSCOPY AND COLONOSCOPY PROCEDURE NOTE UPPER ENDOSCOPY Consent: Indications for the procedure and potential complications of bleeding, perforation, reaction to medications and missed diagnosis were discussed with the patient and informed consent was obtained. Instrument: Olympus GIF H 190 J mid size upper endoscope Monitoring: Vital signs and clinical assessment, continuous EKG monitoring, Pulse oximetry, Carbon Dioxide monitoring and blood pressure monitoring were done throughout the procedure. Procedure: The patient was placed in the left lateral decubitis position and pre-procedure medications were administered and a bite block was placed. The endoscope was inserted into the mouth and advanced under direct vision to the third part of duodenum. A careful inspection was made as the upper endoscope was withdrawn including a retroflexed examination of the proximal stomach; Findings and interventions are described below. Findings: Larynx:normal Esophagus: GE junction at 39 cm, diaphragm hiatus at 41 cm, consistent with 2 cm sliding hiatal hernia, mild esophagitis noted, bx taken from GEJ and distal esophagus Stomach: Patchy atrophy and erythema. Biopsies were obtained. Grade 2 flap valve on retroflexed examination of the cardia. Duodenum: Normal bulb and descending duodenum, Intervention: Biopsies as noted above, COLONOSCOPY Instrument: Olympus variable stiffness pediatric scope 190L Colonoscopy Monitoring: Vital signs and clinical assessment, continuous EKG monitoring, Pulse oximetry, Carbon Dioxide monitoring and blood pressure monitoring were done throughout the procedure. Colon withdrawal time was 17 minutes. Procedure: The patient was placed in the left lateral decubitis position and pre-procedure medications were administered. After a digital rectal examination of the ano-rectum, the video colonoscope was inserted into the rectum and advanced through the colon to the cecum/TI. The colonoscope was slowly withdrawn in a retrograde panoramic fashion and the colon mucosa was carefully examined including a retroflexed view of the rectum. Findings and interventions are described below. Procedure Difficulty:moderate Findings: Terminal Ileum-normal Cecum:normal Ascending Colon: 7-9 mm sessile polyp removed with cold snare, patchy diverticulosis Transverse Colon -normal Descending Colon:normal Sigmoid Colon: Moderate severe diverticulosis with tight angles, in distal sigmoid 15 mm pedunculated polyp injected with epinephrine and removed with cold snare with 2 clips applied to base Rectum: Retroflexion with small internal hemorrhoids, grade I Anorectum - normal Colon preparation: [place] Bowel Preparation Scale Right colon; 2 Transverse colon: 2 Left colon; 2 (0 = Unprepared colon segment with mucosa not seen due to solid stool that cannot be cleared. 1 = Portion of mucosa of the colon segment seen, but other areas of the colon segment not well seen due to staining, residual stool and/or opaque liquid. 2 = Minor amount of residual staining, small fragments of stool and/or opaque liquid, but mucosa of colon segment seen well. 3 = Entire mucosa of colon segment seen well with no residual staining, small fragments of stool or opaque liquid) Impression and Post Procedure Diagnosis: Endoscopy Findings: esophagitis small hiatal hernia atrophic gastritis Colonoscopy Findings: diverticulosis colon polyps internal hemorrhoids Plan: Await Pathology results Repeat Colonoscopy in 6-12 months due to large polyp or earlier if clinically indicated High fiber diet leaflet avoid straining at stool, epsom salts and sitz bath, anusol supps or cream reflux precautions PATHOLOGY Collected: 11/20/23 Location: [facility] Received: 11/20/23 Diagnosis A. Stomach, biopsy: Antral-type and oxyntic mucosa with moderate chronic inactive inflammation; no Helicobacter organisms seen. B. EG junction, biopsy: - Cardiofundic-type mucosa with moderate chronic inactive inflammation; no intestinal metaplasia seen. - Squamous mucosa within normal limits. C. Esophagus, distal, biopsy: Squamous epithelium within normal limits; no inflammation seen. D. Colon, ascending, polypectomy: Colonic mucosa with prominent lymphoid aggregate and surface hyperplastic changes. E. Colon, sigmoid, polypectomy: Tubular adenoma; negative for high-grade dysplasia or carcinoma. Clinical History Pre-Op Dx: GERD and FH of CRC Post-Op Dx: Hiatal hernia, esophagitis, gastritis, atrophic gastritis, colon polyp, diverticulosis, internal hemorrhoids Assessment & Plan Assessment & Plan (1) Abdominal pain: Comment: 11/20/23 Endoscopy Findings: esophagitis, small hiatal hernia, atrophic gastritis Code(s): R10.9 - Unspecified abdominal pain Category: Medical Qualifiers: Abdominal location: generalized Qualified Code(s): R10.84 - Generalized abdominal pain Plan: With nausea and 4.6% weight loss. DDX include but not limited to Peptic ulcer disease, Irritable bowel syndrome, Inflammatory bowel disease, Malabsorption syndromes, such as Celiac disease. Lab results from 09/29/2024 show normal electrolytes, LFTs and no evidence of anemia. Additional Tests: -Repeat H. pylori stool test -Stool testing for fat content to assess malabsorption -Blood work for inflammation markers and Celiac disease -Upper endoscopy to evaluate for ulcers, gastritis, or other causes of nausea. -CT scan scheduled for 10/19 Medications: -Sucralfate tablet oral BD Lifestyle Modifications: Advised to follow a low-fat diet, avoid foods that aggravate symptoms, especially high-FODMAP foods. (2) Tubular adenoma of colon: Comment: 11/20/23 colonoscopy complete with adequate prep-Tubular adenoma to sigmoid, diverticulosis and internal hemorrhoids. Repeat Colonoscopy in 6-12 months due to large polyp. Code(s): D12.6 - Benign neoplasm of colon, unspecified Category: Medical Plan: Due for polyp surveillance colonoscopy, with alarm features We will review prep at follow-up visit. Plan Follow-up in 4 weeks or sooner as needed Time: I spent a total of 40 minutes on the date of encounter which includes: Preparing to see the patient (reviewed previous documentation, test results and medical history) Performing a medically appropriate exam and/or evaluation Ordering medications, tests, and procedures Documenting clinical information in the health record Orders: Orders Fecal Fat Qualitative 10/13/24 R19.5 - Other fecal abnormalities HIV Ab/Ag Today R10.84 - Generalized abdominal pain, R63.4 - Abnormal weight loss Hepatitis A,B,C Profile Today R10.84 - Generalized abdominal pain, R63.4 - Abnormal weight loss C Reactive Protein 10/13/24 R19.5 - Other fecal abnormalities Transglutaminase IgA 10/13/24 R19.5 - Other fecal abnormalities Hemoglobin A1c Today R10.84 - Generalized abdominal pain, R63.4 - Abnormal weight loss Medications: New sucralfate Take on tablet two times daily as needed. Take an empty stomach. Avoid antacids within 30 minutes. 1 g PO BID 90 tabs 1RF Coding Level of Care Code Established Pt Est Pt Level 5 (37877) Patient Type Established Diagnoses Generalized abdominal pain R10.84 Abdominal location: generalized Tubular adenoma of colon D12.6
[2024-10-13 10:22] VITALS: BP 151/70; PULSE 76; O2SAT 98; BMI 22.7
--- OUTSIDE RECORDS SUMMARY | 2024-10-13 11:11 | XMS_ITS | Data Portability ---
Author Organization [place] - [facility], Allergy Address [address] [address] Care Team Providers Care Rouge Miller Name Role Phone RADHA RUBIO Referring Provider [...] 55 mcg nasal spray aerosol 2024 025 [facility], [address] [place], [place], [phone], 09/03/2024 13:58:28 Patient TargetsNo targets recorded. Patient Instructions Encounter Date Encounter Id Patient Instructions Last Modified By Organization Details Last Modified Time 09/02/2024 [id number] Patient with bilateral eustachian tube dysfunction and [...] Details Recorded Time Conductive hearing loss, bilateral 221264639 Active 025 BLANQUITA HEATH MD 100 [facility], [place], [address], [place] - [facility] 13:45:38 Bilateral chronic serous otitis 904687163 Active 025 BLANQUITA HEATH MD 100 [facility], [place], [address], [place] - [facility] [place] 13:45:44 Deviated nasal septum 420782898 Active 025 BLANQUITA HEATH MD 100 [facility],[place] [address], [place], [address], [place] - [facility] 13:45:49 Problem Notes None recorded. Procedures Surgical History Date Name Laterality Status Provider Name and Address Organization Details Recorded Time 92511_JMS completed BLANQUITA BEEBE MD [address] [place] [address], [phone], [place] - [facility] 09/02/2024 13:45:30 SRT & Tymps - 19563 & 39004 completed JOCE VO [address] [place] [address], [phone], [place] - [facility] 09/02/2024 13:56:04 removal of ovarian cyst completed Marsha Christianson [place] - [facility] [place] 09/02/2024 12:44:32 section completed Marsha Christianson [place] - [facility] 09/02/2024 12:44:41 ligation of fallopian tube completed Marsha Christianson [place] - [facility] 09/02/2024 12:44:49 Imaging Results None recorded. [...] ne acetonide 55 mcg nasal spray aerosol [place] 2 sprays every day by intranasa l [...] History Nothing Reported. Medical History Condition Response Anxiety Y Asthma Y High Cholesterol Y Hypertension Y Gynecological HistoryNo gynecological history recorded. Obstetrics History GPAL:G 0 P 0 0 0 0 Past Encounters Encounter ID Performer Location Encounter Start Date Encounter Closed Date Diagnosis/Indication Diagnosis SNOMED-CT Code Diagnosis ICD10 Code Diagnosis Note [id number] BLANQUITA JIMENEZ MD [facility] [address] [address] 09/02/2024 12:35:26 09/02/2024 14:19:18 Conductive hearing loss, bilateral 202267030 H90.0 Type C tympanogra ms, bilaterall y. SRTRight= 25dBLeft= 20dB Bilateral chronic serous otitis 028230945 H65.23 Deviated nasal septum 12 7559562 J34.2 Asymptomat ic Health Concerns Section Related Observation LastModified by Organization Detai ls LastModified Time None Recorded Concern Status LastModified by Organization Details LastModified Time None Recorded Advance Directives Directive None Recorded Payers Insurance Date Sequence Insurance Name Policy Number Policy Schroeder Covered Member ID Schroeder Member ID Guarantor Name 09/02/2024 1 [facility] - HEALTH NET PLAN (MEDICAID HMO) [id number] Loretta Alexy Perez [id number] Loretta Perez Notes Date Note Type Note Provider Name and Address Organization Details Recorded Time 09/02/2024 text/html Several months o f HL. Had pressure in ears without URI or flying. Symptoms initially began in January and then were better for short period of time she had an audiogram at [facility] in June which showed bilateral conductive hearing loss with flat tympanograms. She reports similar episode several years ago. Denies any nasal congestion or obstruction. BLANQUITA BEEBE MD [address] [place] [address], [phone], [facility] - [facility] 09/02/2024 14:18:20 OBGyn Episode No OBEpisode recorded.
== END 2024-10-13 11:12 | disposition home or self-care (01) ==
LOC: HO.HGI 10:06
PROVIDERS: PCP Internal Medicine; Visit Provider Nurse Practitioner Family
DX: R10.84 Generalized abdominal pain (principal); Z86.0101 Personal history of adenomatous and serrated colon polyps; R19.5 Other fecal abnormalities
CPT/HCPCS: 99215

== ENCOUNTER → 2024-10-13 10:05 | Outpatient (BNVA) | payer OTHER, SELFPAY | PROVIDERS: PCP Internal Medicine; Visit Provider Nurse Practitioner Family | DX: R10.84 Generalized abdominal pain (principal); D12.6 Benign neoplasm of colon, unspecified; R63.4 Abnormal weight loss | CPT/HCPCS: 99212 ==

== ENCOUNTER 2024-10-19 11:11 | Outpatient (REF) | payer OTHER, SELFPAY ==
--- NOTE | ~2024-10-19 | CT_ITS ---
EXAMINATION: CT ABDOMEN AND PELVIS WITH CONTRAST CLINICAL INFORMATION: Abdominal pain DLP: 65 mGY*cm COMPARISON: None available. TECHNIQUE: Multidetector volumetric images were obtained from the superior aspect of the liver through the pubic symphysis following administration 85 mL of Omnipaque 350 intravenous contrast. Sagittal and coronal reformatted images were obtained on the technologist's workstation. Oral contrast: Consumed This CT examination was performed using dose optimization techniques as appropriate, variously including the following: *Automated exposure control *Adjustment of mA and/or kV according to patient size (this includes techniques or standardized protocols for targeted exams where dose is matched to indication/reason for exam; i.e. extremities or head) *Use of iterative reconstruction technique FINDINGS: LUNG BASES: The visualized lung bases are unremarkable. LIVER, GALLBLADDER, AND BILIARY TREE: Small simple hepatic cyst is present in the left hepatic lobe. The gallbladder is unremarkable with no evidence of radiopaque gallstones, gallbladder wall thickening, or obvious pericholecystic inflammatory changes. PANCREAS: Unremarkable. SPLEEN: Unremarkable. ADRENAL GLANDS: Unremarkable. KIDNEYS AND URETERS: The kidneys are normal in size, shape, and attenuation. No hydronephrosis, hydroureter, or calculi seen. No perinephric stranding. BLADDER: Unremarkable. GASTROINTESTINAL TRACT: The small and large bowel are unremarkable. The appendix is unremarkable. ABDOMINAL WALL: No significant hernia is appreciated. LYMPH NODES: Normal. VASCULAR: The aorta is tortuous with moderate vascular calcifications. PELVIC VISCERA: Uterus and ovaries are unremarkable. OSSEOUS STRUCTURES: There is 27 degrees levoscoliosis of thoracolumbar junction. CT/CT abdomen pelvis w IV con IMPRESSION: Moderate levoscoliosis of the thoracolumbar junction. Fleischner guidelines were followed. Electronically signed by: Nolberto Aguirre MD 10/19/2024 03:18 PM EDT
--- OUTSIDE RECORDS SUMMARY | 2024-10-19 12:09 | XMS_ITS | Data Portability ---
Author Organization [place] - [facility], Allergy Address [address] [address] Care Team Providers Care Fish Hatchery Specialist Name Role Phone RADHA RUBIO Referring Provider [...] 55 mcg nasal spray aerosol 2024 025 [facility], [address] [place], [place], [phone], 09/03/2024 13:58:28 Patient TargetsNo targets recorded. Patient Instructions Encounter Date Encounter Id Patient Instructions Last Modified By Organization Details Last Modified Time 09/02/2024 [id number] Patient with bilateral eustachian tube dysfunction and [...] Details Recorded Time Conductive hearing loss, bilateral 031896908 Active 025 BLANQUITA HEATH MD 100 [facility],ST [facility], [place], [address], [place] - [facility] 13:45:38 Bilateral chronic serous otitis 357187464 Active 025 BLANQUITA HEATH MD 100 [facility] 100, [place], [address], [place] - [facility] [place] 13:45:44 Deviated nasal septum 067517007 Active 025 BLANQUITA HEATH MD 100 [facility],[place] [address], [place], [address], [place] - [facility] 13:45:49 Problem Notes None recorded. Procedures Surgical History Date Name Laterality Status Provider Name and Address Organization Details Recorded Time 92511_JMS completed BLANQUITA BEEBE MD [address] [place] [address], [phone], [place] - [facility] 09/02/2024 13:45:30 SRT & Tymps - 96360 & 08769 completed JOCE VO [address] [place] [address], [phone], [place] - [facility] 09/02/2024 13:56:04 removal of ovarian cyst completed Marsha Christianson [place] - [facility] [place] 09/02/2024 12:44:32 section completed Marsha Christianson [place] - [facility] 09/02/2024 12:44:41 ligation of fallopian tube completed Marsha Christianson [place] - [facility] 09/02/2024 12:44:49 Imaging Results None recorded. [...] ne acetonide 55 mcg nasal spray aerosol [place] 2 sprays every day by intranasa l [...] SNOMED-CT Code Diagnosis ICD10 Code Diagnosis Note [id number] BLANQUITA JIMENEZ MD [facility] [address] [address] 09/02/2024 12:35:26 09/02/2024 14:19:18 Conductive hearing loss, bilateral 104055266 H90.0 Type C tympanogra ms, bilaterall y. SRTRight= 25dBLeft= 20dB Bilateral chronic serous otitis 866475238 H65.23 Deviated nasal septum 12 0614562 J34.2 Asymptomat ic Health Concerns Section Related Observation LastModified by Organization Detai ls LastModified Time None Recorded Concern Status LastModified by Organization Details LastModified Time None Recorded Advance Directives Directive None Recorded Payers Insurance Date Sequence Insurance Name Policy Number Policy Schroeder Covered Member ID Schroeder Member ID Guarantor Name 09/02/2024 1 [facility] - HEALTH NET PLAN (MEDICAID HMO) [id number] Loretta Alexy Perez [id number] Loretta Perez Notes Date Note Type Note Provider Name and Address Organization Details Recorded Time 09/02/2024 text/html Several months o f HL. Had pressure in ears without URI or flying. Symptoms initially began in January and then were better for short period of time she had an audiogram at [facility] in June which showed bilateral conductive hearing loss with flat tympanograms. She reports similar episode several years ago. Denies any nasal congestion or obstruction. BLANQUITA BEEBE MD [address] [place] [address], [phone], [facility] - [facility] 09/02/2024 14:18:20 OBGyn Episode No OBEpisode recorded.
[2024-10-19] MEDS: iohexoL 350 MG/ML 100 ML INFUS..BTL IV (14:59)
[2024-10-19] MEDS: Barium Sulfate Oral (Berry) 450 ML ORAL.SUSP 900 ML PO (14:59)
== END 2024-10-19 11:12 | disposition home or self-care (01) ==
LOC: HO.CT 11:11
PROVIDERS: PCP Internal Medicine; Visit Provider Physician Assistant Medical
DX: R10.9 Unspecified abdominal pain (principal); R11.0 Nausea
CPT/HCPCS: 74177; Q9967

== ENCOUNTER → 2024-10-19 11:13 | Outpatient (BNV) | payer OTHER, SELFPAY | PROVIDERS: PCP Internal Medicine; Visit Provider Radiology Diagnostic Radiology | DX: M41.35 Thoracogenic scoliosis, thoracolumbar region (principal) | CPT/HCPCS: 74177 ==

== ENCOUNTER 2024-10-19 11:49 | Outpatient (REF) | payer OTHER, SELFPAY | END 2024-10-19 11:50 | disposition home or self-care (01) | LOC: HO.LNP 11:49 | PROVIDERS: Visit Provider Physician Assistant Medical | DX: R11.0 Nausea (principal); R10.9 Unspecified abdominal pain | CPT/HCPCS: 87338 ==

== ENCOUNTER 2024-11-11 09:19 | Outpatient (AMB) | payer OTHER, SELFPAY ==
--- NOTE | 2024-11-11 09:22 | MHC.OFFVIS ---
Vital Signs 11/11/24 09:23 Height 5 ft 2 in Weight 122 lb BMI 22.3 BP 148/82 H Blood Pressure Location Lt brachial Position Sitting Pulse 66 Oxygen Delivery Method Room Air Oxygen Flow Rate 96 Intake Visit Reasons: fu ct Intake Note: Patient follow up for abdominal pain, fecal and CT results. No labs results Patient cc: nauseas, abdominal bloating on and off, constipation, denies any other GI issues. Lead Press Operator Required: No Accompanied by: Self / Same As Patient Allergies No Known Allergies (No Known Allergies*) Allergy (Verified 11/11/24 09:22) Medication List - Last Reconciled 11/11/24 by Ligia Robison CNP albuterol sulfate 90 mcg/actuation (Ventolin HFA) 1 puff PO Q4H PRN amlodipine 10 mg PO DAILY cholecalciferol (vitamin D3) 50 mcg PO DAILY hydrocortisone 2.5% (Proctosol HC) 1 appl [place] BEDTIME PRN omeprazole 20 mg PO DAILY sucralfate 1 g PO BID PRN HPI HPI fu ct: Details: Patient is a 53-year-old female with PMH of asthma, anxiety, HTN and HLD. Loretta presents for follow up on abdominal pain, nausea and CT results. She states nausea has improved, previously constant but now occurring ~1x/day. Reports gagging episodes have diminished. No longer experiences continuous urgency to vomit; sx improve after dietary changes (e.g., avoiding fried foods). Abd pain persists, noted as associated with a sensation resembling constipation but resolved after BMs. Stool described as sticky and elongated; no diarrhea or hardened stools. Using medications as prescribed (e.g., sucralfate BID). No new urgent care visits, hospitalizations, or significant events since prior visit. Reviewed workup findings to date: -Abdominal CT (10/24/2024: Normal except for benign hepatic cyst (left lobe). Mild scoliosis noted. Gallbladder, pancreatitis, kidneys unremarkable. -Blood tests (09/2024): A1C 4.9 (normal), normal kidney function, electrolytes, liver enzymes, and inflammatory markers. Vitamin D low, supplementation initiated. No evidence of celiac disease or anemia. -H. pylori stool assay (10/19/2024): Negative. [facility] Medical History (Updated 11/11/24 @ 10:22 by Ligia Robison CNP) Hemorrhoid IBS (irritable bowel syndrome) Simple hepatic cyst Tubular adenoma of colon Change in stool History of mammogram (~10/28/23) History of Helicobacter pylori infection Hearing deficit Constipation Abdominal pain Colon polyp Hypercholesterolemia Family history of colon cancer Palpitations Screening for colon cancer Asthma Anxiety Prolapsed hemorrhoids Benign essential hypertension Surgical History History of esophagogastroduodenoscopy (EGD) History of colonoscopy (~11/20/23) History of removal of ovarian cyst History of H/O tubal ligation Family History Mother AIDS Father No problems noted. 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 ) Review of Systems Const Reports as per HPI ENT Reports as per HPI Card Reports as per HPI Resp Reports as per HPI GI Reports as per HPI Reports as per HPI Physical Exam Vital Signs: Last Vital Signs Pulse 66 11/11/24 09:23 BP 148/82 H 11/11/24 09:23 Oxygen Delivery Method Room Air 11/11/24 09:23 Oxygen Flow Rate 96 11/11/24 09:23 BMI result Body Mass Index 22.3 Const General: healthy appearing, no acute distress and well developed Nutritional Appearance: average body habitus Orientation/consciousness: patient oriented x3 HEENT Head: Yes normal to inspection, Yes normocephalic and Yes atraumatic Face and sinus: Yes normal facial exam Eyes General: appearance normal, both eyes and all related structures Neck Neck: Yes normal visual inspection Resp Effort & Inspection: normal respiratory effort, able to speak in complete sentences, no tracheal deviation and symmetric chest movement Neuro General: patient oriented x3 Gait exam (Neuro): Normal gait present Psych Appearance: grossly normal Mental Status: mental status grossly normal Speech and movement: Normal speech and movement present Affect: normal affect Attitude: cooperative Thought process: Normal thought process present Thought content: Normal thought content present Insight: Good insight present (Psych) Judgement: Good judgement present (Psych) Assessment & Plan Assessment & Plan (1) IBS (irritable bowel syndrome): Code(s): K58.9 - Irritable bowel syndrome, unspecified Category: Medical Qualifiers: Irritable bowel syndrome type: unspecified Qualified Code(s): K58.9 - Irritable bowel syndrome, unspecified Plan: C/w IBS, given persistent abd pain and altered bowel movements without diarrhea; nausea improving with dietary changes. However, given persistent symptoms will proceed with stool testing for fecal fat to eval for malabsorption. Additional tests:.Repeat colonoscopy and upper endoscopy (pending cardiology clearance). Medications: -Trial omeprazole 20mg PO daily on empty stomach to manage reflux-related sx. -Continue sucralfate PO PRN instead of scheduled BID use. Lifestyle Recommendations: -Continue dietary modifications. Avoid triggers (e.g., fried foods). -Encourage hydration and fiber intake. (2) Hemorrhoid: Code(s): K64.9 - Unspecified hemorrhoids Category: Medical Qualifiers: Hemorrhoid type: first degree Qualified Code(s): K64.0 - First degree hemorrhoids Plan: internal hemorrhoids noted on 11/2023 colonoscopy. Pt elects to self-manage manually. Rectal exam deferred at pt's request; assessment may occur during colonoscopy if visible. Medications: -Hydrocortisone cream refilled; advised PRN topical application. Lifestyle Recommendations: -Use hydrocortisone cream as needed instead of manual manipulation. -Avoid excessive straining. -Discussed hemorrhoidectomy as future option if poorly controlled. Reinforced lifestyle modifications to promote regularity: -higher fiber diet, examples provided -adequate hydration with water -150 minutes of moderate intensity exercise per week (3) Simple hepatic cyst: Code(s): K76.89 - Other specified diseases of liver Category: Medical Plan: Hepatic cyst, benign, stable; no suspicion of malignancy or need for intervention. Additional test: Periodic imaging (frequency TBD based on pt preference). Plan Follow-up after endoscopy or sooner as needed Time: I spent a total of 30 minutes on the date of encounter which includes: Preparing to see the patient (reviewed previous documentation, test results and medical history) Performing a medically appropriate exam and/or evaluation Ordering medications, tests, and procedures Documenting clinical information in the health record Medications: New omeprazole Take one tablet daily. Best taken on an empty, 30 minutes before eating. 20 mg PO DAILY 90 caps 1RF Changed From sucralfate Take on tablet two times daily as needed. Take an empty stomach. Avoid antacids within 30 minutes. 1 g PO BID 90 tabs 1RF To sucralfate Take on tablet two times daily as needed. Take an empty stomach. Avoid antacids within 30 minutes. 1 g PO BID PRN nausea Refilled hydrocortisone 2.5% (Proctosol HC) 1 appl [place] BEDTIME PRN 30 grams 3RF hemorrhoids Coding Level of Care Code Established Pt Est Pt Level 4 (83018) Patient Type Established Diagnoses Irritable bowel syndrome, unspecified type K58.9 Irritable bowel syndrome type: unspecified Grade I hemorrhoids K64.0 Hemorrhoid type: first degree Simple hepatic cyst K76.89
[2024-11-11 09:23] VITALS: BP 148/82; PULSE 66; BMI 22.3
--- OUTSIDE RECORDS SUMMARY | 2024-11-11 09:49 | XMS_ITS | Clinical Summary ---
Author Organization [facility] Address [address] [place] [address] Phone Care Team Providers Care Senior Hadoop Developer Name Role Phone Lisandro Gilbert MD Primary Care Provid er Social History Tobacco Use Types Packs/Day Years Used Date Smoking Tobacco: Never Assessed Education Answer Date Recorded Are you interested in more education? Not on freya e 08/27/2024 Are you concerned about learning? Not on file 08/27/2024 No 08/27/2024 No 08/27/2024 Digital Access Answer Date Recorded No 08/27/2024 No 08/27/2024 Reliable internet access at home? Not on file 08/27/2024 Device with a working camera? Not on file Comments Unknown Sex and Gender Information Value Date Recorded Sex Assigned at Not on file Legal Sex Female 8:53 AM EDT Gender Identity Not on file Sexual Orientation Not on file Plan of Treatment Upcoming Encounters Date Type Department Care Team ([facility] Contact Info) Description 02/21/2026 3:00 PM EST Office Visit [facility] [address] [place] [phone] Radha Boggs [address] [place] [address] [email or web address] Health Maintenance Due Date Last Done Comments Adult Td,Tdap Booster 1968 LIPID PANEL 1968 DEPRESSION SCREENING 1980 SMOKING Hx and SMOKELESS TOB ACCO SCREENING 1981 HEPATITIS C SCREENING 1986 HIV ONE-TIME SCREENING (18-6 5 YEARS) 1986 PAP SMEAR 1989 MAMMOGRAM 2008 COLOGUARD 2013 COLONOSCOPY 2013 COLORECTAL CANCER SCREENING 2013 FIT TEST 2013 FOBT 2013 SIGMOIDOSCOPY 2013 VIRTUAL COLONOSCOPY 2013 PNEUMOCOCCAL VACCINES (50+ y ears) (1 of 1 - PCV) 2018 ZOSTER VACCINES (1 of 2) 2018 COVID-19 VACCINE (1 - 2023-2 5 season) 2023 HEPATITIS A VACCINES Aged Out No long er eligible based on patient's age to complete this topic HIB VACCINES Aged Out No longer eligi ble based on patient's age to complete this topic MENINGOCOCCAL VACCINES (ACWY) Aged Out No longer eligible based on patient's age to complete this topic MENINGOCOCCAL VACCINES (B) Aged Out N o longer eligible based on patient's age to complete this topic Medical Devices Not on [place] [address] [address] [place] [address] NON NSPG PCP [facility] [employer] [place] [address] [place] [address] NON NSPG PCP [facility] [employer] [facility] [employer] NON NSPG PCP S[facility] [employer] [facility] [place] NON NSPG PCP S[facility] [employer] [facility] [employer] NON NSPG PCP S[facility] Care Teams Senior Hadoop Developer Relationship Specialty Start Date End Date Lisandro Gilbert MD [address] [place] [id number] PCP - General Internal Medicine 08/27/24 Additional Source Comments The information contained in this document represents components of the legal health record. It is not the complete legal health record.[facility]
== END 2024-11-11 10:01 | disposition home or self-care (01) ==
LOC: HO.HGI 09:19
PROVIDERS: PCP Internal Medicine; Visit Provider Nurse Practitioner Family
DX: K58.9 Irritable bowel syndrome, unspecified (principal); K64.0 First degree hemorrhoids; K76.89 Other specified diseases of liver
CPT/HCPCS: 99214

== ENCOUNTER → 2024-11-11 09:19 | Outpatient (BNVA) | payer OTHER, SELFPAY | PROVIDERS: PCP Internal Medicine; Visit Provider Nurse Practitioner Family | DX: Z71.2 Person consulting for explanation of examination or test findings (principal); K58.9 Irritable bowel syndrome, unspecified; K64.0 First degree hemorrhoids; K76.89 Other specified diseases of liver | CPT/HCPCS: 99212 ==

== ENCOUNTER 2024-11-30 08:44 | Outpatient (AMB) | payer OTHER, SELFPAY ==
[2024-11-30 08:49] VITALS: BP 120/72; PULSE 60; BMI 22.2
--- NOTE | 2024-11-30 08:49 | MHC.OFFVIS ---
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 Today she reports that she has been doing well since her last visit in May. She will feel occasional brief heart palpitations, especially when doing physical activity and over exerting. No lightheadedness, presyncope, syncope, falls. She denies any chest discomfort at rest or with activity. No shortness of breath, PND, orthopnea or edema. No lightheadedness, presyncope, syncope, falls. 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 She will be having an endoscopy in the near future. [facility] Medical History Hemorrhoid IBS (irritable bowel syndrome) Simple hepatic cyst Tubular adenoma of colon Change in stool History of mammogram (~10/28/23) History of Helicobacter pylori infection Hearing deficit Constipation Abdominal pain Colon polyp Hypercholesterolemia Family history of colon cancer Palpitations Screening for colon cancer Asthma Anxiety Prolapsed hemorrhoids Benign essential hypertension Surgical History History of esophagogastroduodenoscopy (EGD) History of colonoscopy (~11/20/23) History of removal of ovarian cyst History of H/O tubal ligation Family History Mother AIDS Father No problems noted. 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 ) Review of Systems Const All systems reviewed & are unremarkable except as noted in HPI and below ENT Denies dizziness Card Denies chest pain, Denies chest pain at rest, Denies chest pain with activity, Denies rapid heart rate, Denies pedal edema, Denies edema, Denies leg edema, Denies lightheadedness, Denies palpitations, Denies dyspnea, Denies dyspnea on exertion and Denies orthopnea Resp Denies cough, Denies dyspnea and Denies dyspnea on exertion GI Denies hematochezia and Denies change in stool character Musc Denies abnormal gait, Denies limited range of motion, Denies muscle cramps, Denies muscle weakness, Denies numbness, Denies radiating pain into limb, Denies stiffness and Denies tingling Neuro Denies abnormal gait, Denies dizziness, Denies numbness and Denies tingling Endo Denies palpitations Physical Exam Vital Signs: Last Vital Signs Pulse 60 11/30/24 08:49 BP 120/72 11/30/24 08:49 BMI result Body Mass Index 22.2 Const General: cooperative, healthy appearing, comfortable and no acute distress Orientation/consciousness: patient oriented x3 Neck Neck: Yes normal visual inspection and Yes no JVD Resp Effort & Inspection: normal respiratory effort Auscultation: clear to auscultation bilaterally, no crackles, no rales, no rhonchi and no wheezes Cardio Jugular venous distension: no JVD Rate: regular rate Rhythm: regular rhythm Heart sounds: S1 normal heart sound present, S2 normal heart sound present, no murmurs and no rubs Neuro General: patient oriented x3 Extrem General: Yes normal to inspection, No no pedal edema and No calf tenderness Psych Appearance: grossly normal Mental Status: mental status grossly normal Speech and movement: Normal speech and movement present Office Procedures EKG Details: Today, read by me, normal sinus rhyth, right axis, T wave inversions anterior - unchanged from prior, rate 60, Qtc 414ms [id number], Complete Assessment & Plan Assessment & Plan (1) Abnormal EKG: Code(s): R94.31 - Abnormal electrocardiogram [ECG] [EKG] Category: Medical Plan: Chronic EKG abnormalities with T-wave inversions V1 through V4. Can be seen on EKGs as far back as 2013 in our system. No reports of anginal sounding symptoms. Cardiac risk factors of hypertension. Exercise stress test done 08/28/2022 showing frequent PVCs and ventricular bigeminy, no ischemic changes, suboptimal heart rate. Exercise nuclear stress test on 12/14/2022 with good exercise tolerance, frequent ventricular bigeminy, with EKG changes suggestive of ischemia, with normal myocardial perfusion imaging. Echocardiogram done 01/28/2023 showing EF 66%, no valve abnormalities and no regional wall motion abnormalities. EKG done today showing sinus rhythm with T-wave inversions V1 through V4, rate 60. Her EKGs have remained stable and do not seem to represent ischemia. Signs and symptoms of angina reviewed with her. (2) PVC (premature ventricular contraction): Code(s): I49.3 - Ventricular premature depolarization Category: Medical Plan: Ventricular bigeminy noted during exercise for both stress tests as above. Holter monitor done 02/28/2023 for 3 days shows sinus rhythm with average heart rate 54, heart rate range 34 to 116, 78% of time heart rate less than 60, rare ventricular ectopy. She has normal EF and her PVCs are benign. Repeat Holter monitor done 07/08/2024 showing sinus rhythm with average heart rate 62, SVE 0.4% of time, ventricular ectopy 0.3% of time. Palpitations are occasional. No strong indication for med management at this time. Reviewed reduction in caffeinated beverages, maintain good hydration, get adequate rest, exercise as tolerated. (3) Benign essential hypertension: Code(s): I10 - Essential (primary) hypertension Category: Medical Plan: Blood pressure goal less than 130/80. Normal range at this time. No medication changes made. (4) Palpitations: Code(s): R00.2 - Palpitations Category: Medical Plan: As above (5) Pre-operative cardiovascular examination: Code(s): Z01.810 - Encounter for preprocedural cardiovascular examination Category: Medical Plan: Preop for endoscopy, no date yet. She can proceed with low cardiac risk. She has chronic EKG T-wave abnormalities, and Holter monitor showing PACs and PVCs. She has normal EF which is reassuring. Continue amlodipine for hypertension. Call/consult Cardiology if needed. Plan I discussed with the patient that her palpitations are due to premature atrial contractions and premature ventricular contractions, which are not concerning given the Echocardiogram and stable EKG findings. We reviewed lifestyle modifications, including reducing caffeine intake and ensuring adequate hydration, to help manage symptoms. I informed her that no additional cardiac testing is needed at this time, and we will follow up in six months unless symptoms change. Patient Instructions: - Avoid caffeine to reduce palpitations - Stay hydrated and exercise routinely to help manage symptoms - Follow up in six months or sooner if symptoms change Patient was informed and verbally consented to the use of an ambient scribe for clinic note documentation during this visit. Visit time spent on chart review, interview, assessment, orders, documentation. Coding Level of Care Code Est Pt Level 4 (25972) Complex EM visit Add On G2211 Diagnoses Abnormal EKG R94.31 PVC (premature ventricular contraction) I49.3 Benign essential hypertension I10 Palpitations R00.2 Pre-operative cardiovascular examination Z01.810 CPT Codes EKG - CPT: [id number], Complete ([id number]) Time Spent (min) 28
--- OUTSIDE RECORDS SUMMARY | 2024-11-30 09:07 | XMS_ITS | Clinical Summary ---
Author Organization [facility] Address [address] [place] [address] Phone Care Team Providers Care Pediatric Neuropsychologist Name Role Phone Lisandro Gilbert MD Primary [...] Upcoming Encounters Date Type Department Care Team ([facility] Contact Info) Description 02/21/2026 3:00 PM EST Office Visit [facility] [address] [place] [phone] Radha Boggs [address] [place] [address] [email or web address] Health Maintenance Due Date Last Done [...] topic Medical Devices Not on [place] [address] [address] [place] [address] NON NSPG PCP [facility] Address[place] [address] [place] [address] NON NSPG PCP [facility] [employer] [facility] [employer] NON NSPG PCP [facility] [employer] [facility] [place] NON NSPG PCP [facility] [facility] [employer] NON NSPG PCP S[facility]G PCP [facility] Care Teams Pediatric Neuropsychologist Relationship Specialty Start Date End Date Lisandro Gilbert MD [address] [place] [id number] PCP - General Internal Medicine 08/27/24 Additional Source Comments The information contained in this document represents components of the legal health record. It is not the complete legal health record.[facility]
== END 2024-11-30 09:16 | disposition home or self-care (01) ==
LOC: HO.HCS 08:45
PROVIDERS: PCP Internal Medicine; Visit Provider Nurse Practitioner Family
DX: R94.31 Abnormal electrocardiogram [ECG] [EKG] (principal); I49.3 Ventricular premature depolarization; I10 Essential (primary) hypertension; R00.2 Palpitations; Z01.810 Encounter for preprocedural cardiovascular examination
CPT/HCPCS: 93010; 99214

== ENCOUNTER → 2024-11-30 08:44 | Outpatient (BNVA) | payer OTHER, SELFPAY | PROVIDERS: PCP Internal Medicine; Visit Provider Nurse Practitioner Family | DX: R94.31 Abnormal electrocardiogram [ECG] [EKG] (principal); I10 Essential (primary) hypertension; R00.2 Palpitations; Z01.810 Encounter for preprocedural cardiovascular examination | CPT/HCPCS: 93005; 99212 ==